=== PATIENT | female | born 1940 | race Caucasian/White ===

== ENCOUNTER 2016-07-27 10:43 | Inpatient (IN) | payer OTHER, MEDICARE ==
[~2016-07-27] VITALS: Ht 167.6 cm; Wt 99.8 kg
[~2016-07-27 10:43] MED LIST: <VITAMIN> A + D1 APP TOP; ADVIL200 M1 PO; CALCIUM GLUCON500 MG PO; DRISDOL50000 IU PO; Desitin TOP; FERROUS SULFAT325 M2 PO; LOSARTAN POTASS50 M1 PO; MYCOSTATIN POWD15 GM TOP; PROPRANOLOL HCL20 M1 PO; ROBITUSSIN COU237 ML PO; TYLENOL XSTR500 MG PO; VITAMIN D1000 IU PO
--- NOTE | 2016-07-27 11:59 | ED UPPER/LOWER EXTREMITY COMPL ---
History of Present Illness General Chief Complaint: Upper Extremity Problem Stated Complaint: LEFT ARM SWELLING Source: patient Exam Limitations: no limitations Allergies Coded Allergies: Penicillins (RASH 08/05/15) Sulfa (Sulfonamide Antibiotics) (UNKNOWN - PER PT SON 08/05/15) cephalexin (From KEFLEX) (RASH 07/27/16) clindamycin (UNKNOWN - PER PT SON 08/05/15) Reconcile Medications Ibuprofen (Advil) 200 MG CAPSULE 1 TAB PO AD PRN PAIN (Reported) Potassium Chloride (Klor-Con 10) (Unknown Strength) TABLET.ER (Unknown Dose) PO DAILY SUPPLEMENT (Reported) Triage Note: PT C/O LEFT ARM SWELLING. PT STATES SHE WAS SCHEDULED FOR A COLONOSCOPY TODAY AND SHE HAS BEEN ON A LIQUID DIET FOR A FEW DAYS. PT STATES THIS HAS NEVER HAPPEND TO HER BEFORE. PT STATES SHE HAS HEPATITIS AND GETS SWELLING AROUND HER ABD BUT NEVER AROUND HER ARM. PT HAS REDNESS AROUND ELBOW. Triage Nurses Notes Reviewed? yes HPI: This patient is a 76-year-old female with a past medical history including hepatitis and thrombocytopenia who presented to the emergency department today for evaluation of left upper extremity edema. The patient reported that she is scheduled for colonoscopy in over the last couple days has been on a clear liquid diet. She started to develop swelling in her arm a couple days ago. She reported that she does intermittently get bruising and redness around bilateral elbows due to her low platelet count. The patient has suffered from anemia in the past requiring blood transfusions. The patient denied any pain, chest pain, difficulty breathing, palpitations, numbness or tingling in her extremities, fevers, chills, or any other associated symptoms. She did report an intermittent cough sometimes productive of sputum. She was recently diagnosed with pneumonia and is requesting a chest x-ray to rule out any persistent pneumonia. The patient reported that she has had DVTs in her lower extremities in the past. (JENNIFER TYLER,CHEYENNE) Vital Signs & Intake/Output Vital Signs & Intake/Output Vital Signs Date Time Temp Pulse Resp B/P Pulse O2 O2 Flow FiO2 Ox Delivery Rate 07/28 1117 98.2 65 18 144/60 97 Room Air 07/28 0830 98.9 70 18 134/60 95 Room Air 07/27 2341 98.4 73 18 132/66 97 Room Air 07/27 1820 98.0 72 20 149/58 96 Room Air 07/27 1736 70 18 140/63 99 Room Air ED Intake and Output 07/28 0000 07/27 1200 Intake Total 180 Output Total Balance 180 Intake, Oral 180 Patient 220 lb 220 lb Weight Past History Travel History Traveled to [place] past 21 day No Medical History Any Pertinent Medical History? 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 , Age 84; Cause: Renal cell cancer. MOTHER, , Age 74; Cause: CVA (cerebrovascular accident due to intracerebral hemorrhage). Hx Contributory? No (CHEYENNE RODRIGUEZ PA-C) Review of Systems Review of Systems Constitutional: Reports: no symptoms. EENTM: Reports: no symptoms. Respiratory: Reports: see HPI. Cardiovascular: Reports: no symptoms. Gastrointestinal/Abdominal: Reports: no symptoms. Genitourinary: Reports: no symptoms. Musculoskeletal: Reports: see HPI. Skin: Reports: no symptoms. Neurological/Psychological: Reports: no symptoms. All Other Systems: Reviewed and Negative (CHEYENNE RODRIGUEZ PA-C) Physical Exam Physical Exam General Appearance: well developed/nourished, no apparent distress, alert, awake Comments: Well-developed well-nourished person in no acute distress HEENT: Normal EENT exam, head normocephalic, moist mucous membranes PERRLA bilaterally Neck: Supple. No midline tenderness Back: Normal inspection Cardiovascular: Regular rate and rhythm with no murmurs, rubs, or gallops Respiratory: Chest nontender. No respiratory distress. Breath sounds clear to auscultation bilaterally with no wheezes, rales, rhonchi Left upper extremity: Nonpitting edema to the left upper extremity. Mild amount of erythema and ecchymosis surrounding the lateral epicondyle. Full range of motion of the elbow, shoulder, and wrist. Nontender to palpation. No bony or muscular deformities are noted. Capillary refill less than 2 seconds. Radial brachial pulses 2+ and strong. Neuro: Alert oriented x3, cranial nerves II through XII grossly intact. Skin: No appreciable rash on exposed skin, skin is warm and dry. Psych: Mood and affect is normal (JENNIFER TYLER,CHEYENNE) Progress Differential Diagnosis: arterial insufficiency, cellulitis, CHF, compartment syndrome, contusion, dislocation, DVT, fracture, gout, septic arthritis, sprain, tendon injury Diagnostic Imaging: Viewed by Me: Radiology Read, Ultrasound. Discussed w/RAD: Radiology Read, Ultrasound. Radiology Impression: PATIENT: OTONIEL SANCHES PRESENT AGE: 76 PATIENT ACCOUNT NO: [id number] : 42 LOCATION: ER ORDERING PHYSICIAN: CHEYENNE RODRIGUEZ PA-C SERVICE DATE: 07/27/16 EXAM TYPE: US - US-UNILATERAL VENOUS DOPPLER EXAMINATION: US TRIPLEX UPPER EXTREMITY, LEFT CLINICAL INFORMATION: Left arm edema and swelling COMPARISON: None TECHNIQUE: Color-flow triplex imaging with spectral analysis and compression Doppler were performed on the left upper extremity. FINDINGS: Respiratory variation, normal compression and augmented flow are noted throughout the upper extremity. There is no evidence of deep venous thrombosis. There is no Mazariegos's cyst. IMPRESSION: Normal triplex scan without evidence of deep venous thrombosis involving the left upper extremity. DICTATED BY: ERICA DENT MD DATE/TIME DICTATED:07/27/161256 HELICOPTER PILOT INSTRUCTOR:LUBNA DATE/TIME TRANSCRIBED:1256 CONFIDENTIAL, DO NOT COPY WITHOUT APPROPRIATE AUTHORIZATION. < Electronically signed in Other Vendor System> SIGNED BY: ERICA DENT MD 07/27/16 1301, PATIENT: SANA SANCHESOPE Darrell PRESENT AGE: 76 PATIENT ACCOUNT NO: [id number] : 42 LOCATION: ER ORDERING PHYSICIAN: CHEYENNE RODRIGUEZ PA-C SERVICE DATE: 07/27/16 EXAM TYPE: RAD - XRY-CHEST XRAY, PA AND LATERAL EXAMINATION: XR CHEST CLINICAL INFORMATION: Cough. Recent diagnosis of pneumonia. COMPARISON: 06/15/2016 TECHNIQUE: 2 views of the chest were obtained. FINDINGS: There is a moderate layering left pleural effusion with minimal, improved overlying airspace disease. Remainder of the lungs are clear. Cardiomediastinal silhouette is unremarkable. IMPRESSION: Persistent moderate left pleural effusion with improved overlying airspace disease. DICTATED BY: ERICA DENT MD DATE/TIME DICTATED:07/27/161299 HELICOPTER PILOT INSTRUCTOR:LUBNA DATE/TIME TRANSCRIBED:1299 CONFIDENTIAL, DO NOT COPY WITHOUT APPROPRIATE AUTHORIZATION. < Electronically signed in Other Vendor System> SIGNED BY: ERICA DENT MD 07/27/16 1308 Comments: 07/27/2016 1:35:34 PM: This patient has a hemoglobin and hematocrit of 7 and 22. Discussed this patient with Dr. ABDI who recommended admitting this patient for a couple units of blood transfusion. We'll put out a page this patient's primary care physician, Dr. Palomares. Discussed this with the patient who is in agreement with the plan. (JENNIFER TYLER,CHEYENNE) Plan of Care: Orders Procedure Date/time Status CBC WITHOUT DIFFERENTIAL 07/29 0600 Active Nothing by Mouth 07/28 L Complete Regular Diet 07/28 D Active BLOOD PRODUCT PICKUP 07/28 1112 Active LEUKOCYTE POOR (PACKED CELLS) 07/28 0920 Active CBC WITHOUT DIFFERENTIAL 07/28 0600 Complete BASIC ELECTROLYTES PLUS BUN&CR 07/28 0600 Complete Turn and Reposition 07/28 216 Active Skin Integrity Protocol 07/28 216 Active Skin/Pressure Ulcer Assess (Sk 07/28 216 Active Lab Add-on Test 07/28 UNK Active PHYSICIAN CONSULT 07/28 UNK Active Clear Liquid Diet 07/27 D Complete BLOOD PRODUCT PICKUP 07/27 2354 Active Vital Signs 07/27 1903 Active Teach/Educate 07/27 190 Active Nutritional Intake, Monitor 07/27 190 Active Isolation 07/27 1903 Active Intake & Output 07/27 190 Active Patient Care Conference 07/27 1903 Active Activity/Ambulation 07/27 1903 Active Intake & Output 07/27 1736 Active DIRECT ANTI-GLOBULIN TEST 07/27 1721 Active Pathway - chart 07/27 1558 Active Pathway - chart 07/27 1556 Active House Staff 07/27 1556 Active Patient Data 07/27 1556 Active Code Status 07/27 1556 Active VTE Mechanical Prophylaxis 07/27 UNK Active Nursing Misc 07/27 UNK Active Hemoccult 07/27 UNK Active Current Medications Sig/Marcin Start time Last Medication Dose Stop Time Status Admin Furosemide 40 MG DAILY 07/29 1000 UNVr (Lasix) Omeprazole 40 MG DAILY AC 07/27 2330 AC (Prilosec) Laboratory Tests 07/28/16 0640: Anion Gap 7, Estimated GFR > 60, BUN/Creatinine Ratio 26.0 H, CBC w Diff NO MAN DIFF REQ, RBC 2.82 L, MCV 75.8 L, MCH 23.7 L, RDW 20.3 H, MPV 9.5, Gran % 45.3, Lymphocytes % 26.4, Monocytes % 14.4 H, Eosinophils % 13.2 H, Basophils % 0.7, Absolute Granulocytes 1.2 L, Absolute Lymphocytes 0.7 L, Absolute Monocytes 0.4, Absolute Eosinophils 0.4, Absolute Basophils 0, PUBS MCHC 31.2 L 07/28/16 0000: CBC w Diff Cancelled, WBC Cancelled, RBC Cancelled, Hgb Cancelled, Hct Cancelled , MCV Cancelled, MCH Cancelled, RDW Cancelled, Plt Count Cancelled, MPV Cancelled, PUBS MCHC Cancelled Departure Departure Disposition: STILL A PATIENT Condition: Stable Clinical Impression Primary Impression: Symptomatic anemia Referrals: DEAN PALOMARES MD (PCP/Family) Departure Forms: Customer Survey General Discharge Information Admission Note Spoke With: DEAN PALOMARES MD Documentation of Exam: Documentation of any treatments & extenuating circumstances including Concerns Regarding Discharge (functional status, medication knowledge or non-compliance, living conditions, etc.) that warrant an admission rather than observation: [ This patient is a 76-year-old female who presented to the emergency department today for evaluation of left arm swelling. This patient's hemoglobin and hematocrit is 7 and 22.5. History of GI bleed. This patient should be admitted to general medicine for blood transfusion, trend labs, serial H&H levels, possible GI consultation, and close monitoring. Premature discharge could prove medically harmful.] (JENNIFER TYLER,CHEYENNE) PA/RETAIL BANKER Co-Sign Statement Statement: ED Attending supervision documentation- x I saw and evaluated the patient. I have also reviewed all the pertinent lab results and diagnostic results. I agree with the findings and the plan of care as documented in the PA's/RETAIL BANKER's documentation. [] I have reviewed the ED Record and agree with the PA's/RETAIL BANKER's documentation. [] Additions or exceptions (if any) to the PAs/RETAIL BANKER's note and plan are summarized below: [] (TRINIDAD EMERY,MARILU)
[2016-07-27 12:57] LABS: ABSOLUTE BASOPHIL COUNT 0 /CUMM (0.0-0.2); ABSOLUTE GRANULOCYTE CT 1.9 /CUMM (1.4-6.5); ABSOLUTE MONOCYTE COUNT 0.3 /CUMM (0.10-0.60); BASOPHIL % 0.1 % (0.0-2.0); MEAN CORPUSCULAR HGB 22.6 PG (27.0-31.0)
[2016-07-27 13:00] LABS: ABSOLUTE EOSINOPHIL COUNT 0.2 /CUMM (0.0-0.7); ABSOLUTE LYMPH COUNT 0.6 /CUMM (1.2-3.4); EOSINOPHIL % 6.4 % (0-5); GRANULOCYTE % 61.4 % (42.2-75.2); HEMATOCRIT 22.5 % (37-47); MEAN CORPUSCULAR VOLUME 72.8 FL (81.0-99.0); MEAN PLATELET VOLUME 9.2 FL (7.4-10.4); PLATELET COUNT 128 /CUMM (130-400); RBC DISTRIBUTION WIDTH 19.8 % (11.5-14.5); RED BLOOD CELL CT 3.09 /CUMM (4.20-5.40)
--- NOTE | 2016-07-27 13:01 | ULTRASOUND REPORT ---
EXAMINATION: US TRIPLEX UPPER EXTREMITY, LEFT CLINICAL INFORMATION: Left arm edema and swelling COMPARISON: None TECHNIQUE: Color-flow triplex imaging with spectral analysis and compression Doppler were performed on the left upper extremity. FINDINGS: Respiratory variation, normal compression and augmented flow are noted throughout the upper extremity. There is no evidence of deep venous thrombosis. There is no Mazariegos's cyst. IMPRESSION: Normal triplex scan without evidence of deep venous thrombosis involving the left upper extremity.
--- NOTE | 2016-07-27 13:08 | RADIOLOGY REPORT ---
EXAMINATION: XR CHEST CLINICAL INFORMATION: Cough. Recent diagnosis of pneumonia. COMPARISON: 06/15/2016 TECHNIQUE: 2 views of the chest were obtained. FINDINGS: There is a moderate layering left pleural effusion with minimal, improved overlying airspace disease. Remainder of the lungs are clear. Cardiomediastinal silhouette is unremarkable. IMPRESSION: Persistent moderate left pleural effusion with improved overlying airspace disease.
[2016-07-27] MEDS ORDERED: KLOR-CON 1010 ME1 PO (13:29)
[2016-07-27 14:17] LABS: PT 12.5 SEC (9.4-12.5); PTT 27 SEC (25-37)
--- NOTE | 2016-07-27 14:28 | History & Physical ---
General Information and HPI Allergies/Medications Allergies: Coded Allergies: Penicillins (RASH 08/05/15) Sulfa (Sulfonamide Antibiotics) (UNKNOWN - PER PT SON 08/05/15) cephalexin (From KEFLEX) (RASH 07/27/16) clindamycin (UNKNOWN - PER PT SON 08/05/15) Home Med list Ibuprofen (Advil) 200 MG CAPSULE 1 TAB PO AD PRN PAIN (Reported) Potassium Chloride (Klor-Con 10) (Unknown Strength) TABLET.ER (Unknown Dose) PO DAILY SUPPLEMENT (Reported) Past History Travel History Traveled to [place] past 21 day No Medical History Neurological: NONE EENT: NONE Cardiovascular: CHF, chronic venous insuff, hypertension, RHEUMATIC FEVER Respiratory: NONE Gastrointestinal: NONE Hepatic: hepatitis C Renal: NONE Musculoskeletal: decubitis ulcer Psychiatric: NONE Endocrine: THYROID NODULES Cancer(s): NONE 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 , Age 84; Cause: Renal cell cancer. MOTHER, , Age 74; Cause: CVA (cerebrovascular accident due to intracerebral hemorrhage). Psychosocial History Who Do You Live With? child (son) Services at Home: Nursing Primary Language: Iranian ETOH Use: denies use Illicit Drug Use: denies illicit drug use Living Will? yes Power of Manager Construction/HCP? no Functional Ability ADLs Independent: dressing, eating, toileting. Unknown: bathing. Ambulation: cane (2 quad canes) IADLs Independent: finances, food prep, telephone, medication admin. Needs Assist: shopping, housework, transportation. Core Measures/Miscellaneous Severe Sepsis Severe Sepsis Present: No Septic Shock Septic Shock Present: No
--- NOTE | 2016-07-27 15:59 | History & Physical ---
OCTAVIA CHAIDEZ 07/27/16 1558: General Information and HPI MD Statement: I have seen and personally examined OTONIEL VILLARREAL and documented this H&P. The patient is a 76 year old F who presented with a patient stated chief complaint of [Left upper extremity swelling]. Source of Information: patient, family Exam Limitations: no limitations History of Present Illness: Mrs Villarreal is a 76-year-old lady with a PMH of chronic venous insufficiency (followed up by the wound center), lower extremity ulcers, hepatitis C untreated, iron deficiency anemia most recently transfused on May 2016, stage II esophageal varices, gastritis and liver cirrhosis who presents with complaints of one-day duration of left upper arm swelling. Symptoms started yesterday afternoon with what she describes as generalized swelling of left hand, progressing towards the axilla, associated with tightness sensation of the skin. She denies any preceding trauma, significant bruising of the skin, insect bites, fevers, chills, associated numbness/weakness in the fingertips or severe pain. Over the past 24 hours she reports interval improvement in overall swelling. Patient denies any chest pain, palpitations, shortness of breath, nausea, abdominal pain, bloody or black stools. Of note patient was scheduled to have a colonoscopy today which she started GoLYTELY bowel prep yesterday afternoon with subsequent loose stools. Allergies/Medications Allergies: Coded Allergies: Penicillins (RASH 08/05/15) Sulfa (Sulfonamide Antibiotics) (UNKNOWN - PER PT SON 08/05/15) cephalexin (From KEFLEX) (RASH 07/27/16) clindamycin (UNKNOWN - PER PT SON 08/05/15) Home Med list Ibuprofen (Advil) 200 MG CAPSULE 1 TAB PO AD PRN PAIN (Reported) Potassium Chloride (Klor-Con 10) (Unknown Strength) TABLET.ER (Unknown Dose) PO DAILY SUPPLEMENT (Reported) Past History Travel History Traveled to [place] past 21 day No Medical History Neurological: NONE EENT: NONE Cardiovascular: CHF, chronic venous insuff, hypertension, RHEUMATIC FEVER Respiratory: NONE Gastrointestinal: NONE Hepatic: hepatitis C Renal: NONE Musculoskeletal: decubitis ulcer Psychiatric: NONE Endocrine: THYROID NODULES Cancer(s): NONE 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 , Age 84; Cause: Renal cell cancer. MOTHER, , Age 74; Cause: CVA (cerebrovascular accident due to intracerebral hemorrhage). Psychosocial History Who Do You Live With? child (son) Services at Home: Nursing Primary Language: Prydeinig ETOH Use: denies use Illicit Drug Use: denies illicit drug use Living Will? yes Power of Plasma Processor/HCP? no Functional Ability ADLs Independent: dressing, eating, toileting. Unknown: bathing. Ambulation: cane (2 quad canes) IADLs Independent: finances, food prep, telephone, medication admin. Needs Assist: shopping, housework, transportation. Review of Systems Review of Systems Constitutional: Reports: see HPI. EENTM: Reports: no symptoms. Cardiovascular: Reports: no symptoms. Respiratory: Reports: no symptoms. GI: Reports: see HPI. Musculoskeletal: Reports: see HPI. Skin: Reports: see HPI. Hematologic/Endocrine: Reports: see HPI. Exam & Diagnostic Data Last 24 Hrs of Vital Signs/I&O Vital Signs Date Time Temp Pulse Resp B/P Pulse O2 O2 Flow FiO2 Ox Delivery Rate 07/27 1519 96.0 63 18 133/64 100 Room Air 07/27 1309 96.4 73 18 135/61 98 Room Air 07/27 1051 99.3 96 18 124/71 95 Intake & Output 07/27 1600 07/27 0800 07/27 0000 Intake Total Output Total Balance Patient 220 lb Weight Physical Exam General Appearance Alert, Cooperative, No Acute Distress Skin small superficial bruising on the lateral aspect of the left elbow. No overt evidence of hematoma HEENT EOMI, Mucous Membr. moist/pink, conjunctival palor present Cardiovascular Regular Rate, Normal S1, Normal S2 Lungs Normal Air Movement, diminished breath sounds on the left lower lung field Abdomen firmness to palpation of the left and right upper quadrants. Normal bowel sounds. Distended abdomen Neurological Normal Speech Extremities significant for plus pitting edema bilateral lower extremities, chronic venous stasis with weeping present. Right heel covered in a clean Teodoro bandage at this time Vascular difficulty assessing lower extremity pulses. However warm to touch symmetrically Last 24 Hrs of Labs/Gui: Laboratory Tests 07/27/16 1350: PT 12.5, INR 1.19, APTT 27 07/27/16 1250: Anion Gap 8, Estimated GFR > 60, BUN/Creatinine Ratio 26.0 H, Glucose 101 H, Calcium 8.0 L, Total Bilirubin 1.0, AST 38 H, ALT 43, Alkaline Phosphatase 109 , Total Protein 7.1, Albumin 3.1 L, Globulin 4.0, Albumin/Globulin Ratio 0.8 L , CBC w Diff MAN DIFF ORDERED, RBC 3.09 L, MCV 72.8 L, MCH 22.6 L, RDW 19.8 H, MPV 9.2, Gran % 61.4, Lymphocytes % 20.7, Monocytes % 11.4 H, Eosinophils % 6.4 H, Basophils % 0.1, Absolute Granulocytes 1.9, Absolute Lymphocytes 0.6 L, Absolute Monocytes 0.3, Absolute Eosinophils 0.2, Absolute Basophils 0, Platelet Estimate DECREASED, Hypochromic-Microcytic 2+, Poikilocytosis 3+, Anisocytosis 2 +, Microcytic Cells 1+, Ovalocytes 1+, Elliptocytes 1+, PUBS MCHC 31.0 L Assessment/Plan Assessment: 76-year-old lady with a PMH of chronic venous insufficiency (followed up by the wound center), lower extremity ulcers, hepatitis C untreated, iron deficiency anemia most recently transfused on May 2016, stage II esophageal varices, gastritis and liver cirrhosis who presents with complaints of one-day duration of left upper arm swelling. At her baseline she ambulates with the aid of 2 walking canes and wheelchair. VS: BP 124/71, HR 96, RR 18, SPO2 95% on RA, T 99.3. Pertinent labs: CBC 3.0, H&H 7.0/22.5, platelets 128K, sodium 136 potassium 3.9, BUN/CR 13/0.5 INR: 1.19 AST/ALT 38/43 Calcium: 8.0, albumin 3.1 CXR: Moderate left pleural effusion with improved airspace disease Doppler left upper extremity: Negative for DVT Problem list: 1. Iron deficiency Anemia 2. Left upper extremity swelling 3. Pancytopenia 4. Left-sided pleural effusion 5. Chronic venous stasis 6. History of stage II esophageal varices 7. Gastritis 8. Cirrhosis Plan: * Admit to general medicine * Plan to transfuse 1 unit PRBCs. Repeat H&H at 0000hrs and in the a.m. Estimated transfusion time: Spoke to the blood bank around 2100hrs. Patient has multiple antibodies and thus the blood bank is currently awaiting the [facility] to deliver the PRBCs. Once available she will receive 1 unit. At this time she is hemodynamically stable * I had a chance to speak with Dr. Dave (gastroenterology). The patient was scheduled for her colonoscopy today and at this time there does not appear to be any open slots in the GI suite tomorrow. We'll go ahead and feed her regular diet, contact Dr. Moody to see when to reschedule the colonoscopy * Left upper extremity swelling: in the setting of a negative ultrasound, DDx includes third spacing of fluids secondary to increased fluid intake (bowel prep ). Additional possibility of underlying hematoma though less likely at this time. We'll continue to monitor * Pancytopenia: Likely secondary to underlying liver cirrhosis: Follow-up CBC, platelet count in a.m. * Chronic venous stasis: Will contact Dr. Everett in the a.m. Leg elevation at this time * We'll start patient on Lasix in the a.m. and monitor output and electrolytes * DVT prophylaxis: ALPs. Concern for progressive thrombocytopenia. Will hold off chemical anticoagulation, reassess in the a.m. * Regular diet * GI prophylaxis: Protonix 40 mg daily * CODE STATUS: Full code a.m.: Follow-up stool guaiac Patient pharmacy: [facility] in [place] [address] [facility] As Ranked By This Provider Problem List: 1. Anemia 2. Swelling of upper extremity 3. Pancytopenia 4. Pleural effusion 5. Chronic ulcer of leg 6. Venous insufficiency 7. Obesity Core Measures/Miscellaneous Acute Coronary Syndrome ACS Diagnosis: No Cerebrovascular Accident CVA/TIA Diagnosis: No Congestive Heart Failure CHF Diagnosis: No Venous Thromboembolism VTE Risk Factors: Age > 40 VTE Prophylaxis Ordered Inpt: Mech/Pharm Contraindicate No Mech VTE prophylaxis d/t: LE Edema, LE Injury, current No VTE Pharm Prophylaxis d/t: Active bleeding VTE Diagnosis: No VTE Type: NONE VTE Confirmed by (Test): NONE Severe Sepsis Severe Sepsis Present: No Septic Shock Septic Shock Present: No Miscellaneous Documentation Attending Case Discussed With: DEAN SCHMITT MD Primary Care Physician: DEAN SCHMITT MD Patient sees these Specialists Dr. Moody (gastroenterology) Level of Patient Care: General Medicine Resident Review Statement Resident Statement: examined this patient, discussed with bakery pastry internship, agreed with bakery pastry internship, discussed with family, reviewed EMR data (avail), discussed with nursing , reviewed images DEAN SCHMITT MD 07/28/16 0837: Attending MD Review Statement Attending Statement Attending MD Statement: examined this patient, discuss w/resident/PA/ADJUSTER ARBITRATOR, agreed w/resident/PA/ADJUSTER ARBITRATOR, reviewed EMR data (avail)
[2016-07-27 18:20] VITALS: BP 149/58
[2016-07-27 23:41] VITALS: BP 132/66
--- NOTE | 2016-07-28 07:13 | PN- Housestaff ---
Subjective Follow-up For: left upper extremity edema Subjective: I saw and examined the patient. The patient is awake alert oriented in no distress. She is lying in bed and endorses no complaints. The left arm swelling has improved compared to yesterday. Patient reports that she was supposed to get preparation for colonoscopy when she noticed the left arm swelling. Denies any pain in the left arm. Denies any abdominal pain but reports distention, no nausea vomiting, no chest pain or palpitations. No dizziness. Review of Systems Constitutional: Denies: chills, fever, weakness. EENTM: Reports: no symptoms. Cardiovascular: Reports: edema, peripheral edema. Denies: chest pain, palpitations, syncope. Respiratory: Reports: cough. Denies: short of breath, sputum production, wheezing. Gastrointestinal: Reports: distention. Denies: abdominal pain, diarrhea, melena, nausea, bloody stool, changes in stool, vomiting. Genitourinary: Reports: no symptoms. Musculoskeletal: Denies: back pain, joint pain, joint swelling. Skin: Reports: no symptoms. Objective Last 24 Hrs of Vital Signs/I&O Vital Signs Date Time Temp Pulse Resp B/P Pulse O2 O2 Flow FiO2 Ox Delivery Rate 07/28 1646 98.2 70 20 138/64 97 Room Air 07/28 1117 98.2 65 18 144/60 97 Room Air 07/28 0830 98.9 70 18 134/60 95 Room Air 07/27 2341 98.4 73 18 132/66 97 Room Air Intake & Output 07/28 1600 07/28 0800 07/28 0000 Intake Total 240 180 Output Total 400 Balance -160 180 Intake, Oral 240 180 Output, Urine 400 Patient 99.79 kg Weight Physical Exam General Appearance: Alert, Oriented X3, Cooperative, No Acute Distress Skin: there is extenisive venous statis changes on the skin, there is a chronic right foot ulcer and a chronic second left toe mass with skin break, nontender and nonerythematous. HEENT: Atraumatic, EOMI Neck: Supple, No JVD Cardiovascular: Regular Rate, Normal S1, Normal S2, No Murmurs Lungs: Clear to Auscultation, Normal Air Movement Abdomen: Soft, mild tenderness in the hypogaster Neurological: Normal Speech, Normal Tone Extremities: 2+ pitting edema, hyperpigmented and thickened skin on the lower extremities bialterally Vascular: Pulses Symmetrical Current Medications: Current Medications Sig/Marcin Start time Last Medication Dose Route Stop Time Status Admin Furosemide 40 MG DAILY 07/29 1000 AC IV Furosemide 40 MG ONCE ONE 07/28 0830 DC 07/28 IV 07/28 0831 0944 Ibuprofen 600 MG Q6P PRN 07/27 1600 DC PO Omeprazole 40 MG DAILY AC 07/27 2330 AC PO Oxycodone/ 1 TAB Q6P PRN 07/27 1600 DC Acetaminophen PO Oxycodone/ 2 TAB Q6P PRN 07/27 1600 DC Acetaminophen PO Patient Medication 1 ED .STK-MED ONE 07/28 1334 DC Teaching ED 07/28 1335 Last 24 Hrs of Lab/Gui Results Last 24 Hrs of Labs/Mics: Laboratory Tests 07/28/16 0640: Anion Gap 7, Estimated GFR > 60, BUN/Creatinine Ratio 26.0 H, Iron 27 L, TIBC 351, Ferritin 7.1 L, CBC w Diff NO MAN DIFF REQ, RBC 2.82 L, MCV 75.8 L, MCH 23.7 L, RDW 20.3 H, MPV 9.5, Gran % 45.3, Lymphocytes % 26.4, Monocytes % 14.4 H, Eosinophils % 13.2 H, Basophils % 0.7, Absolute Granulocytes 1.2 L, Absolute Lymphocytes 0.7 L, Absolute Monocytes 0.4, Absolute Eosinophils 0.4, Absolute Basophils 0, PUBS MCHC 31.2 L 07/28/16 0000: CBC w Diff Cancelled, WBC Cancelled, RBC Cancelled, Hgb Cancelled, Hct Cancelled , MCV Cancelled, MCH Cancelled, RDW Cancelled, Plt Count Cancelled, MPV Cancelled, PUBS MCHC Cancelled Assessment/Plan Assessment: Mrs Villarreal is a 76-year-old lady with a PMH of chronic venous insufficiency (followed up by the wound center), lower extremity ulcers, hepatitis C untreated, iron deficiency anemia most recently transfused on May 2016, stage II esophageal varices, gastritis and liver cirrhosis who presents with complaints of one-day duration of left upper arm swelling. Patient is Problem list and plan: Anemia, possibly due to iron deficiency Patient was transfused one unit pRBC overnight, this AM Hb:7.6 Patient was scheduled for her colonoscopy on 07/27/16 but came to the ED due to acute onset swelling of the left arm * called consult with Dr. Moody to see if patient can undergo colonoscopy today, will follow up Left upper extremity swelling improved today compared to yesterday. doppler US was negative for DVT. pulses are symmetric and there is no tenderness or erythema, ROM normal. etiology can be due to increased fluid intake for bowel preparation. will monitor. Pancytopenia Pancytopenia: Likely secondary to underlying liver cirrhosis: Follow-up CBC, platelet count in a.m. Left-sided pleural effusion, B/L lower extremity edema * Lasix 40 mg IV once daily * repeat ECHO (was last done in 2010 and reported stage 1 diastolic dysfunction with EF>60%) Chronic venous stasis B/L lower extremities and left second toe mass Ulceration on the right foot and mass like lesion on the second toe, nonulcerative without discharge. Patient has been non-compliant and has not followed up for a biopsy of the mass. * follow up Dr. Everett recommendations Gastritis * Protonix 40 mg daily Cirrhosis and History of stage II esophageal varices hx of hepatitis C infection. abdomen is distended. DVT prophylaxis: ALPs. Concern for progressive thrombocytopenia. Will hold off chemical anticoagulation. CODE STATUS: Full code Problem List: 1. Obesity 2. Swelling of upper extremity 3. Symptomatic anemia 4. Pancytopenia 5. Cirrhosis 6. Pleural effusion 7. Venous insufficiency 8. Hepatitis C 9. Ascites 10. Chronic ulcer of leg 11. Hypertension 12. Open wound, lower leg Pain Ratin Pain Location: no pain Pain Goal: Pain 4 or less Pain Plan: mild pp Tomorrow's Labs & Rationales: CBC (anemia)
[2016-07-28 08:14] LABS: ABSOLUTE BASOPHIL COUNT 0 /CUMM (0.0-0.2); ABSOLUTE EOSINOPHIL COUNT 0.4 /CUMM (0.0-0.7); ABSOLUTE GRANULOCYTE CT 1.2 /CUMM (1.4-6.5); ABSOLUTE LYMPH COUNT 0.7 /CUMM (1.2-3.4); ABSOLUTE MONOCYTE COUNT 0.4 /CUMM (0.10-0.60); BASOPHIL % 0.7 % (0.0-2.0); EOSINOPHIL % 13.2 % (0-5); MEAN CORPUSCULAR HGB 23.7 PG (27.0-31.0); MEAN CORPUSCULAR HGB CONC 31.2 G/DL (33.0-37.0); MEAN CORPUSCULAR VOLUME 75.8 FL (81.0-99.0); MEAN PLATELET VOLUME 9.5 FL (7.4-10.4); RBC DISTRIBUTION WIDTH 20.3 % (11.5-14.5); RED BLOOD CELL CT 2.82 /CUMM (4.20-5.40); WHITE BLOOD CELL COUNT 2.7 /CUMM (4.8-10.8)
[2016-07-28 08:30] VITALS: BP 134/60
--- NOTE | 2016-07-28 08:32 | Admission Certification ---
Admission Certification Certification Statement - As attending physician, I certify that at the time of - admission, based on clinical presentation, severity of - symptoms, need for further diagnostic testing and - therapeutic interventions, and risk of adverse outcomes - without in-hospital treatment, in my clinical assessment, - this patient requires an acute hospital stay for a minimum - of two nights or longer. I have also considered psychsocial - factors such as support system, advanced age, financial - issues, cognitive issues, and failed out-patient treatments, - past re-admission history, safety of patient, and lack of - compliance as applicable. Specific rationale supporting this admission is: Anemia Lower extremity wounds
--- NOTE | 2016-07-28 08:37 | PN- Att Addend ---
Attending Addendum Attending Brief Note Patient complains of left upper extremity edema. She denies pain or difficulty with breathing. General Appearance: Alert, No Acute Distress Skin: Bilateral leg course skin lesions HEENT: PEERLA Neck: Supple, No JVD Cardiovascular: Regular Rate, Normal S1, Normal S2, No Murmurs Lungs: Clear to Auscultation, Normal Air Movement Abdomen: Distended Extremities: Left upper extremity and bilateral lower extremity edema Assessment 76-year-old with history of chronic venous insufficiency, chronic lower extremity lesions, hepatitis C currently untreated, esophageal varices on her recent endoscopy, the liver cirrhosis and anemia that is multifactorial including iron deficiency and possible GI bleed. During her last admission she did not undergo colonoscopy secondary to poor prep and plan was for outpatient coloscopy. Patient is usually noncompliant with medications and follow-ups. She now presents with left upper extremity edema that appears likely dependent edema with a negative DVT on ultrasound and anemia. We will try to get an inpatient colonoscopy since patient is very noncompliant and unreliable. Plan GI evaluation Iron studies Start Lasix 40 mg IV once daily Transfuse for hemoglobin goal about 8 Wound consult Continue other home medications and DVT prophylaxis Current Medications Sig/Marcin Start time Last Medication Dose Route Stop Time Status Admin Furosemide 40 MG ONCE ONE 07/28 0830 DC IV 07/28 0831 Ibuprofen 600 MG Q6P PRN 07/27 1600 DC PO Omeprazole 40 MG DAILY AC 07/27 2330 AC PO Oxycodone/ 1 TAB Q6P PRN 07/27 1600 DC Acetaminophen PO Oxycodone/ 2 TAB Q6P PRN 07/27 1600 DC Acetaminophen PO Laboratory Tests 07/28 07/27 07/27 0640 1350 1250 Chemistry Sodium (137 - 145 mmol/L) Pending 136 L Potassium (3.5 - 5.1 mmol/L) Pending 3.9 Chloride (98 - 107 mmol/L) Pending 105 Carbon Dioxide (22 - 30 mmol/L) Pending 23 Anion Gap (5 - 16) Pending 8 BUN (7 - 17 mg/dL) Pending 13 Creatinine (0.5 - 1.0 mg/dL) Pending 0.5 Estimated GFR (>60 ml/min) > 60 BUN/Creatinine Ratio (7 - 25 %) Pending 26.0 H Glucose (65 - 99 mg/dL) 101 H Calcium (8.4 - 10.2 mg/dL) 8.0 L Total Bilirubin (0.2 - 1.3 mg/dL) 1.0 AST (14 - 36 U/L) 38 H ALT (9 - 52 U/L) 43 Alkaline Phosphatase (<127 U/L) 109 Total Protein (6.3 - 8.2 g/dL) 7.1 Albumin (3.5 - 5.0 g/dL) 3.1 L Globulin (1.9 - 4.2 gm/dL) 4.0 Albumin/Globulin Ratio (1.1 - 2.2 %) 0.8 L Coagulation PT (9.4 - 12.5 SEC) 12.5 INR (0.90 - 1.19) 1.19 APTT (25 - 37 SEC) 27 Hematology CBC w Diff Pending MAN DIFF ORDERED WBC (4.8 - 10.8 /CUMM) Pending 3.0 L RBC (4.20 - 5.40 /CUMM) Pending 3.09 L Hgb (12.0 - 16.0 G/DL) Pending 7.0 *L Hct (37 - 47 %) Pending 22.5 L MCV (81.0 - 99.0 FL) Pending 72.8 L MCH (27.0 - 31.0 PG) Pending 22.6 L RDW (11.5 - 14.5 %) Pending 19.8 H Plt Count (130 - 400 /CUMM) Pending 128 L MPV (7.4 - 10.4 FL) Pending 9.2 Gran % (42.2 - 75.2 %) 61.4 Lymphocytes % (20.5 - 51.1 %) 20.7 Monocytes % (1.7 - 9.3 %) 11.4 H Eosinophils % (0 - 5 %) 6.4 H Basophils % (0.0 - 2.0 %) 0.1 Absolute Granulocytes (1.4 - 6.5 /CUMM) 1.9 Absolute Lymphocytes (1.2 - 3.4 /CUMM) 0.6 L Absolute Monocytes (0.10 - 0.60 /CUMM) 0.3 Absolute Eosinophils (0.0 - 0.7 /CUMM) 0.2 Absolute Basophils (0.0 - 0.2 /CUMM) 0 Platelet Estimate (ADEQUATE) DECREASED Hypochromic-Microcytic 2+ Poikilocytosis 3+ Anisocytosis 2+ Microcytic Cells 1+ Ovalocytes 1+ Elliptocytes 1+ PUBS MCHC (33.0 - 37.0 G/DL) Pending 31.0 L Vital Signs Date Time Temp Pulse Resp B/P Pulse O2 O2 Flow FiO2 Ox Delivery Rate 07/28 0830 98.9 70 18 134/60 95 Room Air 07/27 2341 98.4 73 18 132/66 97 Room Air 07/27 1820 98.0 72 20 149/58 96 Room Air 07/27 1736 70 18 140/63 99 Room Air 07/27 1519 96.0 63 18 133/64 100 Room Air 07/27 1309 96.4 73 18 135/61 98 Room Air 07/27 1051 99.3 96 18 124/71 95
[2016-07-28 08:56] LABS: GRANULOCYTE % 45.3 % (42.2-75.2); PLATELET COUNT 106 /CUMM (130-400)
[2016-07-28 08:58] LABS: HEMATOCRIT 21.4 % (37-47)
[2016-07-28 11:17] VITALS: BP 144/60
[2016-07-28 16:46] VITALS: BP 138/64
[2016-07-28 23:50] VITALS: BP 154/74
--- NOTE | 2016-07-29 07:12 | PN- Housestaff ---
Subjective Follow-up For: left upper extremity edema Subjective: Patient was seen and examined at bedside today, she is sitting in bed, alert and oriented. Reports left arm is swollen, no changes compared to yesterday. Reports a large amount of bowel movement today, watery but nonbloody. Denies abdominal pain, nausea, vomiting. Denies chest pain, palpitation, SOB. Review of Systems Constitutional: Denies: chills, fever, malaise, weakness. EENTM: Reports: no symptoms. Cardiovascular: Reports: no symptoms. Respiratory: Denies: cough, short of breath, sputum production. Gastrointestinal: Reports: diarrhea. Denies: abdominal pain, constipation, nausea, bloody stool, changes in stool, vomiting. Genitourinary: Reports: frequency. Musculoskeletal: Reports: no symptoms. Skin: Reports: lesions. Neurological/Psychological: Reports: no symptoms. Hematologic/Endocrine: Reports: no symptoms. Objective Last 24 Hrs of Vital Signs/I&O Vital Signs Date Time Temp Pulse Resp B/P Pulse O2 O2 Flow FiO2 Ox Delivery Rate 07/29 0818 98.2 73 20 130/70 94 Room Air 07/28 2350 98.9 88 20 154/74 95 Room Air 07/28 1646 98.2 70 20 138/64 97 Room Air Intake & Output 07/29 1600 07/29 0800 07/29 0000 Intake Total 240 480 Output Total Balance 240 480 Intake, Oral 240 480 Number 2 Bowel Movements Physical Exam General Appearance: Alert, Oriented X3, Cooperative, No Acute Distress Skin: venous stasis skin changes on both Lower extrmities. 2+ pitting edema on LE bilaterally HEENT: Atraumatic, EOMI Neck: Supple Cardiovascular: Regular Rate, Normal S1, Normal S2, No Murmurs Lungs: Clear to Auscultation, Normal Air Movement Abdomen: Normal Bowel Sounds, Soft, No Tenderness, distended Neurological: Normal Speech, Strength at 5/5 X4 Ext, Sensation Intact, Cranial Nerves 3-12 NL Extremities: Normal Pulses, there is edema on the left arm extending from the shoulder to the fingers, pulses are palpated, no chanegs in skin color on the left arm, there is an erythematous lesion on the right elbow area. 2+ pitting edema bialterally in LE, right leg ulcer and left 2nd toe mass Vascular: Normal Pulses, Pulses Symmetrical Current Medications: Current Medications Sig/Marcin Start time Last Medication Dose Route Stop Time Status Admin Ferrous Sulfate 325 MG TID 07/29 1230 AC PO Furosemide 40 MG DAILY 07/29 1000 AC 07/29 IV 1118 Omeprazole 40 MG DAILY AC 07/27 2330 AC PO Last 24 Hrs of Lab/Gui Results Last 24 Hrs of Labs/Mics: Laboratory Tests 07/29/16 0915: Anion Gap 7, Estimated GFR > 60, BUN/Creatinine Ratio 22.0 07/29/16 0624: CBC w Diff NO MAN DIFF REQ, RBC 3.39 L, MCV 76.8 L, MCH 24.2 L, RDW 21.9 H, MPV 9.6, Gran % 51.5, Lymphocytes % 25.9, Monocytes % 16.0 H, Eosinophils % 5.8 H, Basophils % 0.8, Absolute Granulocytes 1.5, Absolute Lymphocytes 0.8 L, Absolute Monocytes 0.5, Absolute Eosinophils 0.2, Absolute Basophils 0, PUBS MCHC 31.5 L Microbiology 07/29 0820 STOOL: Clostridium difficile Toxin A & B - COLB Assessment/Plan Assessment: Mrs Villarreal is a 76-year-old lady with a PMH of chronic venous insufficiency (followed up by the wound center), lower extremity ulcers, hepatitis C untreated, iron deficiency anemia most recently transfused on May 2016, stage II esophageal varices, gastritis and liver cirrhosis who presents with complaints of one-day duration of left upper arm swelling. Patient is Problem list and plan: Left upper extremity swelling Doppler US was negative for DVT. pulses are symmetric and there is no tenderness or erythema, ROM normal. * Arterial US of the LUE: this time showed DVT. Dr. Palomares made aware, will perform doppler US of LEs as there is swelling on both sides. Patient is currently not SOB, in RA, not tachycardic. We signed out to the night team that is patient becomes SOB order CTA. * will consult vascular surgery tomorrow AM. Anemia, possibly due to iron deficiency Patient was transfused one unit pRBC overnight, this AM Hb:7.6 Patient was scheduled for her colonoscopy on 07/27/16 but came to the ED due to acute onset swelling of the left arm * Dr. Moody will do colonoscopy tomorrow afternoon at 1 pm. orders for Golytely are in. on Clear liquids for now and NPO after completing second 1/2 gallon of golytely. Pancytopenia Pancytopenia: Likely secondary to underlying liver cirrhosis: Follow-up CBC, platelet count in a.m. Left-sided pleural effusion, B/L lower extremity edema * Lasix 40 mg IV once daily * repeat ECHO (was last done in 2010 and reported stage 1 diastolic dysfunction with EF>60%) Chronic venous stasis B/L lower extremities and left second toe mass Ulceration on the right foot and mass like lesion on the second toe, nonulcerative without discharge. Patient has been non-compliant and has not followed up for a biopsy of the mass. * follow up Dr. Everett recommendations Gastritis * Protonix 40 mg daily Cirrhosis and History of stage II esophageal varices hx of hepatitis C infection. abdomen is distended. DVT prophylaxis: ALPs. Concern for progressive thrombocytopenia. Will hold off chemical anticoagulation. CODE STATUS: Full code Problem List: 1. Obesity 2. Cirrhosis 3. Pleural effusion 4. Hepatitis C 5. Anemia 6. Hypertension 7. Chronic ulcer of leg 8. Diarrhea 9. Bilateral lower extremity edema 10. Mass of skin Pain Ratin Pain Location: currently reports no pain Pain Goal: Pain 4 or less Pain Plan: tylenol Tomorrow's Labs & Rationales: CBC (anemia) BEP (hypokalemia)
[2016-07-29 07:57] LABS: ABSOLUTE BASOPHIL COUNT 0 /CUMM (0.0-0.2); ABSOLUTE EOSINOPHIL COUNT 0.2 /CUMM (0.0-0.7); ABSOLUTE GRANULOCYTE CT 1.5 /CUMM (1.4-6.5); ABSOLUTE LYMPH COUNT 0.8 /CUMM (1.2-3.4); ABSOLUTE MONOCYTE COUNT 0.5 /CUMM (0.10-0.60); BASOPHIL % 0.8 % (0.0-2.0); EOSINOPHIL % 5.8 % (0-5); GRANULOCYTE % 51.5 % (42.2-75.2); MEAN CORPUSCULAR HGB 24.2 PG (27.0-31.0); MEAN CORPUSCULAR HGB CONC 31.5 G/DL (33.0-37.0); MEAN CORPUSCULAR VOLUME 76.8 FL (81.0-99.0); MEAN PLATELET VOLUME 9.6 FL (7.4-10.4); PLATELET COUNT 118 /CUMM (130-400); RBC DISTRIBUTION WIDTH 21.9 % (11.5-14.5); RED BLOOD CELL CT 3.39 /CUMM (4.20-5.40); WHITE BLOOD CELL COUNT 2.9 /CUMM (4.8-10.8)
[2016-07-29 08:18] VITALS: BP 130/70
--- NOTE | 2016-07-29 08:47 | Cons- Wound Care ---
General Information and HPI Consulting Request Date of Consult: 07/29/16 Requested By: DEAN SCHMITT MD Reason for Consult: Chronic right lower extremity venous stasis ulcer present on admission History of Present Illness: Patient is 76-year-old with chronic lymphedema and venous insufficiency admitted with anemia and left arm swelling in the setting of hepatitis C and probable cirrhosis. She's had a chronic right lower extremity venous stasis ulcer recent evaluation for osteomyelitis was negative and her sedimentation rate was normal. His well she has a right plantar ulcer for which she is nonadherent with offloading. Allergies/Medications Allergies: Coded Allergies: Penicillins (RASH 08/05/15) Sulfa (Sulfonamide Antibiotics) (UNKNOWN - PER PT SON 08/05/15) cephalexin (From KEFLEX) (RASH 07/27/16) clindamycin (UNKNOWN - PER PT SON 08/05/15) Home Med List: Ibuprofen (Advil) 200 MG CAPSULE 1 TAB PO AD PRN PAIN (Reported) Potassium Chloride (Klor-Con 10) (Unknown Strength) TABLET.ER (Unknown Dose) PO DAILY SUPPLEMENT (Reported) Review of Systems Review of Systems: She denies symptoms of claudication Past History Travel History Traveled to [place] past 21 day No Medical History Neurological: NONE EENT: NONE Cardiovascular: CHF, chronic venous insuff, hypertension, RHEUMATIC FEVER Respiratory: NONE Gastrointestinal: NONE Hepatic: hepatitis C Renal: NONE Musculoskeletal: decubitis ulcer Psychiatric: NONE Endocrine: THYROID NODULES Cancer(s): NONE SHIPPING HAND/Reproductive: NONE Other Medical Hx: CHRONIC LOWER EXTREMITY WOUNDS Surgical History Surgical History: appendectomy, cholecystectomy, tonsillectomy Family History Relations & Conditions If Any: FATHER (smoker). , Age 84; Cause: Renal cell cancer. MOTHER, , Age 74; Cause: CVA (cerebrovascular accident due to intracerebral hemorrhage). Psychosocial History Who Do You Live With? child (son) Services at Home: Nursing Primary Language: Togolese Smoking Status: Unknown If Ever Smoked ETOH Use: denies use Illicit Drug Use: denies illicit drug use Living Will? yes Power of Stereo Plotter Operator/HCP? no Functional Ability ADLs Independent: dressing, eating, toileting. Unknown: bathing. Ambulation: cane (2 quad canes) IADLs Independent: finances, food prep, telephone, medication admin. Needs Assist: shopping, housework, transportation. Exam & Diagnostic Data Vital Signs and I&O Vital Signs Result Date Time Pulse Ox 94 07/29 817 B/P 130/70 07/29 817 O2 Delivery Room Air 07/29 817 Temp 98.2 07/29 817 Pulse 73 07/29 817 Resp 20 07/29 817 Intake & Output 07/29 0000 07/28 1600 07/28 0800 Intake Total 480 610 240 Output Total 500 400 Balance 480 110 -160 Intake, Oral 480 610 240 Number 2 2 Bowel Movements Output, Urine 500 400 Exam of the right leg shows there to be approximately at 12 x 7 cm venous stasis ulcer there is ectopic calcification secondary to the chronicity of the wound and small islands of skin there is 100% red fill without undermining or sinus tracking over the posterior right plantar surface is approximately a 0.9 x 0.7 cm ulcer with predominantly red fill there is no exposed bone there is periwound callus distal pulses are difficult to palpate Assessment/Plan Impression/Plan: 76-year-old woman with multiple medical problems admitted with anemia left arm swelling is chronic right lower extremity venous stasis ulcer and ulcer of the right plantar surface both of which were present on admission. Recommend leg elevation while in bed. Wound care can be Xeroform gauze and Teodoro wrap to the knee. Dressing should be changed daily Consult Acknowledgment - Thank you for your consult request.
--- NOTE | 2016-07-29 12:58 | PN- Att Addend ---
Attending Addendum Attending Brief Note Patient complains of left upper extremity edema and she had an episode of diarrhea. General Appearance: Alert, No Acute Distress Skin: Bilateral leg course skin lesions HEENT: PEERLA Neck: Supple, No JVD Cardiovascular: Regular Rate, Normal S1, Normal S2, No Murmurs Lungs: Clear to Auscultation, Normal Air Movement Abdomen: Distended Extremities: Left upper extremity and bilateral lower extremity edema Assessment Patient is status post 2 units PRBC. She has pancytopenia. During her last admission she was evaluated by hematology who considered pancytopenia secondary to liver cirrhosis and spleenomegaly. Patient is guaiac negative and hence one could suspect anemia is in relation to chronic liver disease and enlarged spleen. However we will repeat guaiac 1 more time and also start patient on iron supplement. Plan Arterial left upper ext ultrasound is pending Get left subclavian ultrasound if arterial ultrasound is negative Repeat guaiac Ferrous sulfate 3 times a day Continue Lasix 40 mg IV once daily Transfuse for hemoglobin goal about 8 Continue other home medications and DVT prophylaxis Current Medications Sig/Marcin Start time Last Medication Dose Route Stop Time Status Admin Ferrous Sulfate 325 MG TID 07/29 1230 AC PO Furosemide 40 MG DAILY 07/29 1000 AC 07/29 IV 1118 Omeprazole 40 MG DAILY AC 07/27 2330 AC PO Patient Medication 1 ED .STK-MED ONE 07/28 1334 [facility] ED 07/28 1335 Laboratory Tests 07/29 07/29 0915 0624 Chemistry Sodium (137 - 145 mmol/L) 138 Potassium (3.5 - 5.1 mmol/L) 3.2 L Chloride (98 - 107 mmol/L) 104 Carbon Dioxide (22 - 30 mmol/L) 27 Anion Gap (5 - 16) 7 BUN (7 - 17 mg/dL) 11 Creatinine (0.5 - 1.0 mg/dL) 0.5 Estimated GFR (>60 ml/min) > 60 BUN/Creatinine Ratio (7 - 25 %) 22.0 Hematology CBC w Diff NO MAN DIFF REQ WBC (4.8 - 10.8 /CUMM) 2.9 L RBC (4.20 - 5.40 /CUMM) 3.39 L Hgb (12.0 - 16.0 G/DL) 8.2 L Hct (37 - 47 %) 26.0 L MCV (81.0 - 99.0 FL) 76.8 L MCH (27.0 - 31.0 PG) 24.2 L RDW (11.5 - 14.5 %) 21.9 H Plt Count (130 - 400 /CUMM) 118 L MPV (7.4 - 10.4 FL) 9.6 Gran % (42.2 - 75.2 %) 51.5 Lymphocytes % (20.5 - 51.1 %) 25.9 Monocytes % (1.7 - 9.3 %) 16.0 H Eosinophils % (0 - 5 %) 5.8 H Basophils % (0.0 - 2.0 %) 0.8 Absolute Granulocytes (1.4 - 6.5 /CUMM) 1.5 Absolute Lymphocytes (1.2 - 3.4 /CUMM) 0.8 L Absolute Monocytes (0.10 - 0.60 /CUMM) 0.5 Absolute Eosinophils (0.0 - 0.7 /CUMM) 0.2 Absolute Basophils (0.0 - 0.2 /CUMM) 0 PUBS MCHC (33.0 - 37.0 G/DL) 31.5 L Vital Signs Date Time Temp Pulse Resp B/P Pulse O2 O2 Flow FiO2 Ox Delivery Rate 07/29 0818 98.2 73 20 130/70 94 Room Air 07/28 2350 98.9 88 20 154/74 95 Room Air 07/28 1646 98.2 70 20 138/64 97 Room Air
--- NOTE | 2016-07-29 14:00 | Patient Discharge Instructions ---
Discharge Instructions General Discharge Information You were seen/treated for: 1. Left upper extremity swelling and deep veion thrombosis 2. Anemia, Iron deficency 3. Underwent Colonoscopy 4. Right foot Ulcer 5. Urinary tract infection 6. Cirrhosis and ascites, underwent paracentesis Special Instructions: Please: 1. Take medications as instructed 2. Check blood work in a week and copy PCP 3. Follow up with PCP in a week 4. Follow up with Dr. Moody [facility], in a week regarding biopsy results and management of hepatitis C and liver cirrhosis 5. Please follow up with Dr. Everett in a week for right foot ulcer and left second toe skin mass Diet Recommended Diet: Heart Healthy Activity Activity Self Limited: Yes Acute Coronary Syndrome Inclusion Criteria At DC or during hospital stay patient has or had the following: ACS DIAGNOSIS No Discharge Core Measures Meds if any: Prescribed or Continued at Discharge Meds if any: NOT Prescribed or Continued at Discharge Congestive Heart Failure Inclusion Criteria At DC or during hospital stay patient has or had the following: CHF DIAGNOSIS No Discharge Core Measures Meds if any: Prescribed or Continued at Discharge Meds if any: NOT Prescribed or Continued at Discharge Cerebrovascular accident Inclusion Criteria At DC or during hospital stay patient has or had the following: CVA/TIA Diagnosis No Discharge Core Measures Meds if any: Prescribed or Continued at Discharge Meds if any: NOT Prescribed or Continued at Discharge Venous thromboembolism Inclusion Criteria VTE Diagnosis No VTE Type NONE VTE Confirmed by (Test) NONE Discharge Core Measures - Per Current guidelines, there needs to be overlap - treatment for the first 5 days of Warfarin therapy. - If discharged on Warfarin prior to 5 days of - overlap therapy, the patient will need to be - assessed for post discharge needs including - *Post discharge parental anticoagulation - *Warfarin and/or parental anticoagulation education - *Follow up date to check INR post discharge At least 5 days overlap therapy as Inpatient No Meds if any: Prescribed or Continued at Discharge Note: Overlap Therapy is Warfarin and Anticoagulant Meds if any: NOT Prescribed or Continued at Discharge
--- NOTE | 2016-07-29 15:22 | Cons- Gastroenterology ---
General Information and HPI Consulting Request Date of Consult: 07/29/16 Requested By: DEAN SCHMITT MD Reason for Consult: Anemia, hep C/cirrohsis Source of Information: patient, old records Exam Limitations: poor historian History of Present Illness: Ms. Villarreal is a 76 year old female with a history of hcv who was admitted to on Tuesday after she presented with arm swelling and was found to be profoundly anemic. She was scheduled to have a colonoscopy on Tuesday for evaluation of diarrhea that she had complained about on an office visit in December, but she didn' t take the prep because she states that she was concerned about her swollen hand and it also sounds like she was weary of taking the prep at home because of ambulation issues with her chronic leg ulcers/swelling. She has continued to have loose, mucous stools having about 1-3 bms a day. She is without any significant rectal bleeding or melena. She has had worsening abdominal distention which she notes has been that way for months and has been worsening over the past several days. She has been having intermittent vague epigastric pain after eating. She also compains of intermittent dysphagia and odynophagia. She is without any vomiting or hematemesis. On admission she was found to be profoundly anemic and she was admitted to the medical service and was given 2 units of PRBCs yesterday with appropriate correction of her hemoglobin. She has also been started on oral iron and an oral ppi. She also had an US of her upper extemity which was negative for a DVT. Allergies/Medications Allergies: Coded Allergies: Penicillins (RASH 08/05/15) Sulfa (Sulfonamide Antibiotics) (UNKNOWN - PER PT SON 08/05/15) cephalexin (From KEFLEX) (RASH 07/27/16) clindamycin (UNKNOWN - PER PT SON 08/05/15) Home Med List: Apixaban (Eliquis) 5 MG TABLET 1 TAB PO BID DVT Please take these on 08/04/16 through 08/06/16 and the start on the other dose of 2.5mg after this is completed Apixaban (Eliquis) 2.5 MG TABLET 1 TAB PO BID DVT Start taking this twice a day on 08/07/16 Ferrous Sulfate (IRON) 325 MG (65 MG IRON) TABLET 1 TAB PO TID Iron deficiency Furosemide 20 MG TABLET 1 TAB PO DAILY Fluid overload Potassium Chloride (Klor-Con) 20 MEQ PACKET 1 PAC PO DAILY Low potassium Propranolol HCl 10 MG TABLET 0.5 TAB PO DAILY Gastric varices Please monitor blood pressure and heart rate twice a day for 1 week. Send the results to your PCP and he will adjust the dose of this medication moving forward Spironolactone 25 MG TABLET 1 TAB PO DAILY Fluid balance Current Medications: Current Medications Sig/Marcin Start time Last Medication Dose Route Stop Time Status Admin Acetaminophen 650 MG Q4P PRN 07/29 1430 AC PO Ferrous Sulfate 325 MG TID 07/29 1230 AC PO Furosemide 40 MG DAILY 07/29 1000 AC 07/29 IV 1118 Omeprazole 40 MG DAILY AC 07/27 2330 AC PO Past History Travel History Traveled to [place] past 21 day No Medical History Neurological: NONE EENT: NONE Cardiovascular: CHF, chronic venous insuff, hypertension, RHEUMATIC FEVER Respiratory: NONE Gastrointestinal: NONE Hepatic: hepatitis C Renal: NONE Musculoskeletal: decubitis ulcer Psychiatric: NONE Endocrine: THYROID NODULES Cancer(s): NONE 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 , Age 84; Cause: Renal cell cancer. MOTHER, , Age 74; Cause: CVA (cerebrovascular accident due to intracerebral hemorrhage). Psychosocial History Who Do You Live With? child (son) Services at Home: Nursing Primary Language: Nepali Smoking Status: Unknown If Ever Smoked ETOH Use: denies use Illicit Drug Use: denies illicit drug use Living Will? 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 no Functional Ability ADLs Independent: dressing, eating, toileting. Unknown: bathing. Ambulation: cane (2 quad canes) IADLs Independent: finances, food prep, telephone, medication admin. Needs Assist: shopping, housework, transportation. Review of Systems Review of Systems Constitutional: Reports: malaise, weakness. Denies: chills, diaphoresis, fever. EENTM: Denies: no symptoms. Cardiovascular: Reports: edema. Respiratory: Reports: cough, short of breath. Denies: sputum production. GI: Reports: see HPI. Genitourinary: Denies: no symptoms. Musculoskeletal: Reports: joint pain, joint swelling, muscle pain. Skin: Reports: change in skin color. Neurological/Psychological: Reports: anxiety, numbness. Hematologic/Endocrine: Denies: no symptoms, bleeding. Immunologic/Allergic: Denies: no symptoms. All Other Systems: Reviewed and Negative Exam & Diagnostic Data Vital Signs and I&O Vital Signs Date Time Temp Pulse Resp B/P Pulse O2 O2 Flow FiO2 Ox Delivery Rate 07/29 0818 98.2 73 20 130/70 94 Room Air 07/28 2350 98.9 88 20 154/74 95 Room Air 07/28 1646 98.2 70 20 138/64 97 Room Air Intake & Output 07/29 1600 07/29 0400 07/28 1600 07/28 0400 07/27 0400 Intake Total 240 480 850 180 Output Total 900 Balance 240 480 -50 180 Intake, Oral 240 480 850 180 Number 2 2 Bowel Movements Output, Urine 900 Patient 220 lb 220 lb 220 lb Weight Physical Exam General Appearance: no apparent distress, alert, awake, comfortable Head: atraumatic, normal appearance Eyes: Bilateral: normal appearance. Ears, Nose, Throat: normal pharynx, normal ENT inspection Neck: normal inspection, supple, full range of motion Respiratory: decreased breath sounds Cardiovascular: regular rate/rhythm Gastrointestinal: normal bowel sounds, soft, non-tender, no organomegaly Rectal: deferred Back: normal inspection Extremities: swelling, tenderness Neurologic/Psych: no motor/sensory deficits, awake, alert Skin: normal color Results Pertinent Lab Results: Laboratory Tests 07/29 07/29 0915 0624 Chemistry Sodium (137 - 145 mmol/L) 138 Potassium (3.5 - 5.1 mmol/L) 3.2 L Chloride (98 - 107 mmol/L) 104 Carbon Dioxide (22 - 30 mmol/L) 27 Anion Gap (5 - 16) 7 BUN (7 - 17 mg/dL) 11 Creatinine (0.5 - 1.0 mg/dL) 0.5 Estimated GFR (>60 ml/min) > 60 BUN/Creatinine Ratio (7 - 25 %) 22.0 Magnesium (1.6 - 2.3 mg/dL) 1.8 Hematology CBC w Diff NO MAN DIFF REQ WBC (4.8 - 10.8 /CUMM) 2.9 L RBC (4.20 - 5.40 /CUMM) 3.39 L Hgb (12.0 - 16.0 G/DL) 8.2 L Hct (37 - 47 %) 26.0 L MCV (81.0 - 99.0 FL) 76.8 L MCH (27.0 - 31.0 PG) 24.2 L RDW (11.5 - 14.5 %) 21.9 H Plt Count (130 - 400 /CUMM) 118 L MPV (7.4 - 10.4 FL) 9.6 Gran % (42.2 - 75.2 %) 51.5 Lymphocytes % (20.5 - 51.1 %) 25.9 Monocytes % (1.7 - 9.3 %) 16.0 H Eosinophils % (0 - 5 %) 5.8 H Basophils % (0.0 - 2.0 %) 0.8 Absolute Granulocytes (1.4 - 6.5 /CUMM) 1.5 Absolute Lymphocytes (1.2 - 3.4 /CUMM) 0.8 L Absolute Monocytes (0.10 - 0.60 /CUMM) 0.5 Absolute Eosinophils (0.0 - 0.7 /CUMM) 0.2 Absolute Basophils (0.0 - 0.2 /CUMM) 0 PUBS MCHC (33.0 - 37.0 G/DL) 31.5 L 07/28 07/28 07/27 0640 0000 1350 Chemistry Sodium (137 - 145 mmol/L) 138 Potassium (3.5 - 5.1 mmol/L) 3.6 Chloride (98 - 107 mmol/L) 107 Carbon Dioxide (22 - 30 mmol/L) 24 Anion Gap (5 - 16) 7 BUN (7 - 17 mg/dL) 13 Creatinine (0.5 - 1.0 mg/dL) 0.5 Estimated GFR (>60 ml/min) > 60 BUN/Creatinine Ratio (7 - 25 %) 26.0 H Iron (37 - 170 ug/dL) 27 L TIBC (265 - 497 ug/dL) 351 Ferritin (11.1 - 264 ng/mL) 7.1 L Coagulation PT (9.4 - 12.5 SEC) 12.5 INR (0.90 - 1.19) 1.19 APTT (25 - 37 SEC) 27 Hematology CBC w Diff NO MAN DIFF REQ Cancelled WBC (4.8 - 10.8 /CUMM) 2.7 L Cancelled RBC (4.20 - 5.40 /CUMM) 2.82 L Cancelled Hgb (12.0 - 16.0 G/DL) 6.7 *L Cancelled Hct (37 - 47 %) 21.4 L Cancelled MCV (81.0 - 99.0 FL) 75.8 L Cancelled MCH (27.0 - 31.0 PG) 23.7 L Cancelled RDW (11.5 - 14.5 %) 20.3 H Cancelled Plt Count (130 - 400 /CUMM) 106 L Cancelled MPV (7.4 - 10.4 FL) 9.5 Cancelled Gran % (42.2 - 75.2 %) 45.3 Lymphocytes % (20.5 - 51.1 %) 26.4 Monocytes % (1.7 - 9.3 %) 14.4 H Eosinophils % (0 - 5 %) 13.2 H Basophils % (0.0 - 2.0 %) 0.7 Absolute Granulocytes (1.4 - 6.5 /CUMM) 1.2 L Absolute Lymphocytes (1.2 - 3.4 /CUMM) 0.7 L Absolute Monocytes (0.10 - 0.60 /CUMM) 0.4 Absolute Eosinophils (0.0 - 0.7 /CUMM) 0.4 Absolute Basophils (0.0 - 0.2 /CUMM) 0 PUBS MCHC (33.0 - 37.0 G/DL) 31.2 L Cancelled 07/27 1250 Chemistry Sodium (137 - 145 mmol/L) 136 L Potassium (3.5 - 5.1 mmol/L) 3.9 Chloride (98 - 107 mmol/L) 105 Carbon Dioxide (22 - 30 mmol/L) 23 Anion Gap (5 - 16) 8 BUN (7 - 17 mg/dL) 13 Creatinine (0.5 - 1.0 mg/dL) 0.5 Estimated GFR (>60 ml/min) > 60 BUN/Creatinine Ratio (7 - 25 %) 26.0 H Glucose (65 - 99 mg/dL) 101 H Calcium (8.4 - 10.2 mg/dL) 8.0 L Total Bilirubin (0.2 - 1.3 mg/dL) 1.0 AST (14 - 36 U/L) 38 H ALT (9 - 52 U/L) 43 Alkaline Phosphatase (<127 U/L) 109 Total Protein (6.3 - 8.2 g/dL) 7.1 Albumin (3.5 - 5.0 g/dL) 3.1 L Globulin (1.9 - 4.2 gm/dL) 4.0 Albumin/Globulin Ratio (1.1 - 2.2 %) 0.8 L Hematology CBC w Diff MAN DIFF ORDERED WBC (4.8 - 10.8 /CUMM) 3.0 L RBC (4.20 - 5.40 /CUMM) 3.09 L Hgb (12.0 - 16.0 G/DL) 7.0 *L Hct (37 - 47 %) 22.5 L MCV (81.0 - 99.0 FL) 72.8 L MCH (27.0 - 31.0 PG) 22.6 L RDW (11.5 - 14.5 %) 19.8 H Plt Count (130 - 400 /CUMM) 128 L MPV (7.4 - 10.4 FL) 9.2 Gran % (42.2 - 75.2 %) 61.4 Lymphocytes % (20.5 - 51.1 %) 20.7 Monocytes % (1.7 - 9.3 %) 11.4 H Eosinophils % (0 - 5 %) 6.4 H Basophils % (0.0 - 2.0 %) 0.1 Absolute Granulocytes (1.4 - 6.5 /CUMM) 1.9 Absolute Lymphocytes (1.2 - 3.4 /CUMM) 0.6 L Absolute Monocytes (0.10 - 0.60 /CUMM) 0.3 Absolute Eosinophils (0.0 - 0.7 /CUMM) 0.2 Absolute Basophils (0.0 - 0.2 /CUMM) 0 Platelet Estimate (ADEQUATE) DECREASED Hypochromic-Microcytic 2+ Poikilocytosis 3+ Anisocytosis 2+ Microcytic Cells 1+ Ovalocytes 1+ Elliptocytes 1+ PUBS MCHC (33.0 - 37.0 G/DL) 31.0 L Assessment/Plan Assessment/Recommendations: Assessment: Ms. Villarreal is a 76 year old female with hcv cirrhosis who was admitted with a microcytic anemia, ascites and arm swelling. The etiology of her anemia is likely multifactorial, but I suspect it is primarily related to occult losses from portal hypertensive gastropathy as she is without overt bleeding and is microcytic and iron deficient suggesting more chronic blood loss. She did have varices on her EGD this past May, but she is not having overt hematemesis so a variceal bleed isn't the cause of her anemia. She also had erosive gastritis on her EGD so this may also be contributing to occult losses as she was also taking ibuprofen and not taking a ppi. As she has never had a colonsocopy before an occult colorectal cancer is also possible and should be ruled out. While it is not absolutely necessary to perform this as an inpatient considering her social situation and confounding factors of getting prepped at home will attempt to do this tomorrow. She also has ascites on PE and would likely benefit from a paracentesis and also getting started on diuretics. Recommendations: 1. Keep on clear liquids and prep tonight with 2 dulolax tablets followed by 1/ 2 gallon of colyte tonight and and additional half a gallon of Colyte in the morning and then nothing by mouth after the bowel prep. 2. Follow daily CBC and transfuse as needed to keep hgb greater than 7 or as per cardiology recommendations. 3. Hold iron until colonoscopy is performed 4. Start a non-selective beta gerber (propanolol or nadolol) with a goal HR of 55-60 for primary prophylaxis of variceal bleeding. 5. Check a diagnostic paracentesis and would send off the fluid for cell count, culture, albumin and cytology 6. Low sodium diet as tolerated 7. Treatment of HCV will be undertaken as an outpatient 8. After colonoscopy would add aldactone 100mg daily to her diuretics for her ascites. 9. Notify GI for signs of overt GI bleeding. 10. Would check a right upper quadrant ultrasound to assess for any focal liver lesions which can also be performed as an outpatient. I will continue to follow this patient and make further recommendations based on her clinical course and the results of the colonoscopy when it is performed. Problem List: 1. Diarrhea 2. Anemia 3. Ascites 4. Hepatitis C Copies To: DEAN SCHMITT MD Acknowledgment - Thank you for your consult request.
--- NOTE | 2016-07-29 17:05 | ULTRASOUND REPORT ---
EXAMINATION: US DUPLEX UPPER EXTREMITY ARTERY/GRAFT LIMITED, LEFT CLINICAL INFORMATION: Left upper extremity swelling. COMPARISON: None. TECHNIQUE: Duplex Doppler imaging of the left upper extremity arterial system was performed. FINDINGS: Duplex imaging of the left upper extremity arterial system shows no evidence of underlying stenosis or thrombosis. The arterial waveforms, grayscale and color Doppler images are unremarkable. Incidental note is made of thrombosis of the left upper extremity venous system. See separate dictation for further details. IMPRESSION: No evidence of left upper extremity arterial stenosis or thrombosis. Venous thrombosis of the left upper extremity. Please refer to separate dictation for further details. Findings were discussed with Belkis Barone at 4:55 PM on 07/29/2016.
--- NOTE | 2016-07-29 17:09 | ULTRASOUND REPORT ---
EXAMINATION: LEFT UPPER EXTREMITY VENOUS ULTRASOUND CLINICAL INFORMATION: Left arm pain and swelling COMPARISON: 07/27/2016 TECHNIQUE: Doppler spectral analysis and color flow Doppler imaging was performed of the left upper extremity. Compression and augmentation maneuvers were performed. FINDINGS: Thrombus is present in the left subclavian vein extending out into the axillary vein. This appears to be a new finding when compared to the study from 2 days ago. The left internal jugular vein, brachial vein, basilic vein, cephalic vein, and visualized forearm veins were well-identified and normal. They demonstrate normal compressibility and color fill-in. IMPRESSION: DVT involving the left subclavian vein extending out into the axillary vein. This critical result was discussed with Jessica Salguero RN at 4:45 PM on the day of the exam and it was ascertained that the content and urgency of the report was understood at the time of direct communication.
[2016-07-29 17:34] VITALS: BP 130/60
--- NOTE | 2016-07-29 18:18 | Event Note ---
Event Note Event Note: SITUATION: * New RUE DVT * Patient hesitant to have ultrasound done of lower extremities due to pain BRIEF: * Patient was initially admitted for left upper extremity swelling. Initial ultrasound on admission did not show any evidence of DVT. Repeat ultrasound 2 days later showed a DVT extending from the subclavian to the axillary vein * Patient reports discomfort during a previous ultrasound in setting of lower extremity edema * Discussed the importance of evaluation of lower extremities the setting of future options of management and risks associated with clot migration including PE * Informed the patient that we would provide her analgesia prior to the procedure A/P: * Patient and her son expressed understanding * Will follow-up with results
--- NOTE | 2016-07-29 20:46 | ULTRASOUND REPORT ---
EXAMINATION: US TRIPLEX LOWER EXTREMITY, BILATERAL CLINICAL INFORMATION: Bilateral lower extremity edema and pain. COMPARISON: Ultrasound of the bilateral lower extremities 04/03/2011. TECHNIQUE: Color-flow triplex imaging with spectral analysis and compression Doppler were performed on the bilateral lower extremities. FINDINGS: Limited exam secondary to patient body habitus. Limited visualization of the left popliteal vein secondary to patient discomfort. The left calf veins were also not well visualized. Respiratory variation, normal compression and flow are within the remaining imaged veins of the bilateral lower extremities. The visualized common femoral, femoral, profunda femoral vein, right popliteal and right midcalf peroneal and posterior tibial venous segments demonstrate no evidence of deep venous thrombosis. There are no Mazariegos's cysts. IMPRESSION: 1. Limited exam secondary to patient body habitus and patient discomfort. The patient was reportedly unable to tolerate imaging of the left popliteal fossa. The left popliteal vein and left calf veins are not visualized. Thrombus within these veins cannot be entirely excluded. 2. No evidence of deep venous thrombosis within the remaining imaged veins of the bilateral lower extremities. Specifically, the bilateral common femoral, bilateral femoral, bilateral profunda femoral, right popliteal and right calf veins demonstrate no evidence of deep venous thrombosis.
[2016-07-29 23:50] VITALS: BP 130/62
--- NOTE | 2016-07-30 06:59 | PN- Housestaff ---
Subjective Follow-up For: left upper extremity edema and DVT due for colonoscopy today right foot ulcer, left second toe mass-like lesion Subjective: Patient is alert and oriented in no distress. she has been drinking Golytely since last night, mostly this morning. Has not passed any stool after starting the bowel preparation. Patient reports swelling of the left arm, feels it gets more swollen when drinking a lot of water. Denies pain in the arm. also denies pain in the lower extremities, SOB, palpitation, dizziness, chest pain or headache. Review of Systems Constitutional: Denies: chills, fever. EENTM: Reports: no symptoms. Cardiovascular: Reports: peripheral edema. Denies: chest pain, palpitations. Respiratory: Denies: cough, short of breath, sputum production. Gastrointestinal: Denies: abdominal pain, diarrhea, nausea, bloody stool, changes in stool, vomiting. Genitourinary: Reports: no symptoms. Musculoskeletal: Reports: no symptoms. Skin: Reports: lesions. Neurological/Psychological: Reports: no symptoms. Objective Last 24 Hrs of Vital Signs/I&O Vital Signs Date Time Temp Pulse Resp B/P Pulse O2 O2 Flow FiO2 Ox Delivery Rate 07/30 08 98.1 70 20 124/60 93 Room Air 07/29 2350 98.0 73 20 130/62 94 07/29 1734 98.4 83 20 130/60 90 Intake & Output 07/30 1600 07/30 0800 07/30 0000 Intake Total 2600 700 Output Total 250 Balance 2350 700 Intake, Oral 2600 700 Output, Urine 250 Physical Exam General Appearance: Alert, Oriented X3, Cooperative, No Acute Distress Skin: hyperkeratotic skin in the distal lower extremities bilaterally. HEENT: Atraumatic, EOMI Neck: Supple Cardiovascular: Regular Rate, Normal S1, Normal S2, No Murmurs Lungs: Clear to Auscultation, Normal Air Movement Abdomen: Soft, No Tenderness, distended abdomen Neurological: Normal Speech, Normal Tone, Sensation Intact, Cranial Nerves 3-12 NL Extremities: No Clubbing, No Cyanosis, Normal Pulses, 2+ pitting edema B/L LE, left upper extremity swelling with no tenderness or erythema, pulses intact Vascular: Normal Pulses, Pulses Symmetrical Current Medications: Current Medications Sig/Marcin Start time Last Medication Dose Route Stop Time Status Admin Acetaminophen 650 MG Q4P PRN 07/29 1430 AC PO Bisacodyl 10 MG ONCE ONE 07/29 1999 DC 07/29 PO 07/29 Ferrous Sulfate 325 MG TID 07/29 2200 AC 07/29 PO 2120 Ferrous Sulfate 325 MG TID 07/29 1230 DC PO Furosemide 40 MG DAILY 07/30 1000 AC IV Furosemide 40 MG DAILY 07/29 1000 DC 07/29 IV 1118 Ibuprofen 800 MG ONCE ONE 07/29 1815 DC 07/29 PO 07/29 181 1858 Nadolol 20 MG DAILY 07/29 1556 DC PO Omeprazole 40 MG DAILY AC 07/27 2330 AC PO Polyethylene Glycol 0.5 GAL ONCE ONE 07/30 0600 CAN PO 07/30 0601 Polyethylene Glycol 0.5 GAL 2200,0600 07/29 2200 AC 07/30 PO 0507 Polyethylene Glycol 0.5 GAL 1800,0600 07/29 1800 DC PO 07/30 0601 Potassium Chloride 40 MEQ ONCE ONE 07/29 1815 DC 07/29 PO 07/29 181 1900 Potassium Chloride 20 MEQ ONCE ONE 07/29 1815 DC 07/29 PO 07/29 181 1900 Spironolactone 100 MG DAILY 07/31 1000 AC PO Last 24 Hrs of Lab/Gui Results Last 24 Hrs of Labs/Mics: Laboratory Tests 07/30/16 0620: Anion Gap 5, Estimated GFR > 60, BUN/Creatinine Ratio 18.0, Magnesium 1.8, PT 12.7 H, INR 1.21 H, APTT 28, CBC w Diff NO MAN DIFF REQ, RBC 3.52 L, MCV 77.1 L, MCH 24.3 L, RDW 21.7 H, MPV 9.9, Gran % 44.1, Lymphocytes % 25.9, Monocytes % 16.7 H, Eosinophils % 12.3 H, Basophils % 1.0, Absolute Granulocytes 1.3 L, Absolute Lymphocytes 0.8 L, Absolute Monocytes 0.5, Absolute Eosinophils 0.4, Absolute Basophils 0, PUBS MCHC 31.5 L 07/29/16 0915: Anion Gap 7, Estimated GFR > 60, BUN/Creatinine Ratio 22.0, Magnesium 1.8 Assessment/Plan Assessment: Mrs Villarreal is a 76-year-old lady with a PMH of chronic venous insufficiency (followed up by the wound center), lower extremity ulcers, hepatitis C untreated, iron deficiency anemia most recently transfused on May 2016, stage II esophageal varices, gastritis and liver cirrhosis who presents with complaints of left upper arm swelling. Patient was also supposed to get bowel prep for an outpatient colonoscopy for her anemia when she realized she has left upper extremity swelling. Problem list and plan: Left upper extremity swelling Doppler US was negative for DVT. pulses are symmetric and there is no tenderness or erythema, ROM normal. * Arterial US of the LUE showed DVT. negative DVT on the LEs. * will start the patient on eliquis 5 mg BID today after colonoscopy Ascites in the setting of hepatitis C and liver failure, US reported large volume of ascites. * patient underwent paracentesis today, will follow fluid analysis results Anemia and pancytopenia possibly due to liver failure and splenomegaly, also could partly be due to iron deficiency and chronic GIB Patient has been transfused 2 units pRBC Patient was scheduled for her colonoscopy on 07/27/16 but came to the ED due to acute onset swelling of the left arm * Dr. Moody will do colonoscopy today afternoon. * will restart ferrous sulfate after colonoscopy Left-sided pleural effusion, B/L lower extremity edema * continue Lasix 40 mg IV once daily * repeat ECHO (was last done in 2010 and reported stage 1 diastolic dysfunction with EF>60%) Chronic venous stasis B/L lower extremities and left second toe mass Ulceration on the right foot and mass like lesion on the second toe, nonulcerative without discharge. Patient has been non-compliant and has not followed up for a biopsy of the mass. * followed up Dr. Everett recommendations Gastritis * Protonix 40 mg daily Cirrhosis and History of stage II esophageal varices hx of hepatitis C infection. abdomen is distended. DVT prophylaxis: ALPs. Concern for progressive thrombocytopenia. Will hold off chemical anticoagulation. CODE STATUS: Full code Problem List: 1. CHRONIC LEG ULCERS 2. CHRONIC VENOUS INSUFFICIENCY 3. LEG WOUND 4. Open wound, lower leg 5. Anemia 6. Hepatitis C 7. Ascites 8. Swelling of upper extremity 9. Obesity 10. Mass of skin 11. Bilateral lower extremity edema Pain Ratin Pain Location: no pain Pain Goal: Pain 4 or less Pain Plan: mild pp Tomorrow's Labs & Rationales: CBC (anemia), BEP (hypokalemia), INR (liver dysfunction)
[2016-07-30 07:52] LABS: ABSOLUTE BASOPHIL COUNT 0 /CUMM (0.0-0.2); ABSOLUTE EOSINOPHIL COUNT 0.4 /CUMM (0.0-0.7); ABSOLUTE GRANULOCYTE CT 1.3 /CUMM (1.4-6.5); ABSOLUTE LYMPH COUNT 0.8 /CUMM (1.2-3.4); ABSOLUTE MONOCYTE COUNT 0.5 /CUMM (0.10-0.60); GRANULOCYTE % 44.1 % (42.2-75.2); HEMATOCRIT 27.1 % (37-47); MEAN CORPUSCULAR HGB 24.3 PG (27.0-31.0); MEAN CORPUSCULAR HGB CONC 31.5 G/DL (33.0-37.0); MEAN CORPUSCULAR VOLUME 77.1 FL (81.0-99.0); MEAN PLATELET VOLUME 9.9 FL (7.4-10.4); RBC DISTRIBUTION WIDTH 21.7 % (11.5-14.5); RED BLOOD CELL CT 3.52 /CUMM (4.20-5.40)
--- NOTE | 2016-07-30 08:08 | PN- Wound Care ---
Subjective Subjective: Patient feels well without shortness of breath is awaiting colonoscopy Review of Systems: Patient is scheduled for colonoscopy today ultrasound shows significant subclavian clot vascular surgery and decision regarding anticoagulation is pending. Wound drainage is diminished with elevation and edema is markedly improved with bedrest and elevation Objective Vital Signs and I&Os Vital Signs Result Date Time Pulse Ox 94 07/29 2349 B/P 130/62 07/29 2349 Temp 98.0 07/29 2349 Pulse 73 07/29 2349 Resp 20 07/29 2349 O2 Delivery Room Air 07/29 0818 Intake & Output 07/30 0000 07/29 1600 07/29 0800 Intake Total 700 240 Output Total Balance 700 240 Intake, Oral 700 240 Number 1 Bowel Movements Patient 220 lb Weight Lower extremity wounds are clean unchanged with diminished drainage there is significant decrease in chronic edema with bedrest and elevation Impression/Plan Impression/Plan Impression/Plan: 76-year-old woman with multiple medical problems admitted with anemia left arm swelling is chronic right lower extremity venous stasis ulcer and ulcer of the right plantar surface both of which were present on admission. Recommend leg elevation while in bed. Wound care can be Xeroform gauze and Teodoro wrap to the knee. Dressing should be changed daily. Continue current wound care treatment. Further management of acute upper extremity DVT by primary care team
[2016-07-30 08:17] LABS: PT 12.7 SEC (9.4-12.5); PTT 28 SEC (25-37)
[2016-07-30 08:24] VITALS: BP 124/60
[2016-07-30 08:31] LABS: EOSINOPHIL % 12.3 % (0-5); PLATELET COUNT 104 /CUMM (130-400)
--- NOTE | 2016-07-30 09:25 | PN- Att Addend ---
Attending Addendum Attending Brief Note Patient is currently nothing by mouth awaiting for colonoscopy General Appearance: Alert, No Acute Distress Skin: Bilateral leg course skin lesions HEENT: PEERLA Neck: Supple, No JVD Cardiovascular: Regular Rate, Normal S1, Normal S2, No Murmurs Lungs: Clear to Auscultation, Normal Air Movement Abdomen: Distended Extremities: Left upper extremity and bilateral lower extremity edema Assessment Patient is status post 2 units PRBC. She has pancytopenia. During her last admission she was evaluated by hematology who considered pancytopenia secondary to liver cirrhosis and spleenomegaly. Patient is guaiac negative and hence one could suspect anemia is in relation to chronic liver disease and enlarged spleen. However we will repeat guaiac 1 more time and also start patient on iron supplement. She has left subclavian and axillary vein DVT. We will await for colonoscopy and if negative will start patient on Eliquis. Plan Repeat guaiac Ferrous sulfate 3 times a day Start Eliquis after cleared by GI Continue Lasix 40 mg IV once daily Transfuse for hemoglobin goal about 8 Continue other home medications and DVT prophylaxis Current Medications Sig/Marcin Start time Last Medication Dose Route Stop Time Status Admin Acetaminophen 650 MG Q4P PRN 07/29 1430 AC PO Bisacodyl 10 MG ONCE ONE 07/29 2000 DC 07/29 PO 07/29 2000 2120 Ferrous Sulfate 325 MG TID 07/29 2200 AC 07/29 PO 2120 Ferrous Sulfate 325 MG TID 07/29 1230 DC PO Furosemide 40 MG DAILY 07/30 1000 AC IV Furosemide 40 MG DAILY 07/29 1000 DC 07/29 IV 1118 Ibuprofen 800 MG ONCE ONE 07/29 1815 DC 07/29 PO 07/29 181 1858 Nadolol 20 MG DAILY 07/29 1556 DC PO Omeprazole 40 MG DAILY AC 07/27 2330 AC PO Polyethylene Glycol 0.5 GAL ONCE ONE 07/30 0600 CAN PO 07/30 0601 Polyethylene Glycol 0.5 GAL 2200,0600 07/29 2200 AC 07/30 PO 0507 Polyethylene Glycol 0.5 GAL 1800,00 07/29 1800 DC PO 07/30 0601 Potassium Chloride 40 MEQ ONCE ONE 07/30 2200 AC PO 07/30 2201 Potassium Chloride 10 MEQ Q1H 07/30 0845 AC IV 07/30 0946 Potassium Chloride 40 MEQ ONCE ONE 07/29 1815 DC 07/29 PO 07/29 1816 1900 Potassium Chloride 20 MEQ ONCE ONE 07/29 1815 DC 07/29 PO 07/29 181 1900 Sodium Phosphate 1 UNIT ONCE ONE 07/30 1130 UNVr NE 07/30 1131 Sodium Phosphate 1 UNIT ONCE ONE 07/30 1100 AC NE 07/30 1101 Spironolactone 100 MG DAILY 07/31 1000 AC PO Laboratory Tests 07/30 0620 Chemistry Sodium (137 - 145 mmol/L) 140 Potassium (3.5 - 5.1 mmol/L) 3.3 L Chloride (98 - 107 mmol/L) 105 Carbon Dioxide (22 - 30 mmol/L) 30 Anion Gap (5 - 16) 5 BUN (7 - 17 mg/dL) 9 Creatinine (0.5 - 1.0 mg/dL) 0.5 Estimated GFR (>60 ml/min) > 60 BUN/Creatinine Ratio (7 - 25 %) 18.0 Magnesium (1.6 - 2.3 mg/dL) 1.8 Coagulation PT (9.4 - 12.5 SEC) 12.7 H INR (0.90 - 1.19) 1.21 H APTT (25 - 37 SEC) 28 Hematology CBC w Diff NO MAN DIFF REQ WBC (4.8 - 10.8 /CUMM) 3.0 L RBC (4.20 - 5.40 /CUMM) 3.52 L Hgb (12.0 - 16.0 G/DL) 8.5 L Hct (37 - 47 %) 27.1 L MCV (81.0 - 99.0 FL) 77.1 L MCH (27.0 - 31.0 PG) 24.3 L RDW (11.5 - 14.5 %) 21.7 H Plt Count (130 - 400 /CUMM) 104 L MPV (7.4 - 10.4 FL) 9.9 Gran % (42.2 - 75.2 %) 44.1 Lymphocytes % (20.5 - 51.1 %) 25.9 Monocytes % (1.7 - 9.3 %) 16.7 H Eosinophils % (0 - 5 %) 12.3 H Basophils % (0.0 - 2.0 %) 1.0 Absolute Granulocytes (1.4 - 6.5 /CUMM) 1.3 L Absolute Lymphocytes (1.2 - 3.4 /CUMM) 0.8 L Absolute Monocytes (0.10 - 0.60 /CUMM) 0.5 Absolute Eosinophils (0.0 - 0.7 /CUMM) 0.4 Absolute Basophils (0.0 - 0.2 /CUMM) 0 PUBS MCHC (33.0 - 37.0 G/DL) 31.5 L Vital Signs Date Time Temp Pulse Resp B/P Pulse O2 O2 Flow FiO2 Ox Delivery Rate 07/30 0824 98.1 70 20 124/60 93 Room Air 07/29 2350 98.0 73 20 130/62 94 07/29 1734 98.4 83 20 130/60 90
--- NOTE | 2016-07-30 09:59 | ULTRASOUND REPORT ---
EXAMINATION: US ABDOMEN LIMITED CLINICAL INFORMATION: Assess for volume of ascites. COMPARISON: Ultrasound paracentesis 05/25/2016 TECHNIQUE: Ultrasound imaging of all 4 quadrants was performed. FINDINGS: Targeted ultrasound of all 4 abdominal quadrants demonstrates a large volume of abdominal ascites. IMPRESSION: Large volume abdominal ascites.
--- NOTE | 2016-07-30 11:07 | ULTRASOUND REPORT ---
EXAMINATION: PARA/PERITONEOCENTESIS CLINICAL INFORMATION: Ascites TECHNIQUE: Informed consent was obtained from the patient prior to the procedure. During this process, the procedure and potential alternatives were explained, along with the intended outcome and benefits. The risks of the procedure, as wall as the risk of not doing the procedure, were discussed. The patient was given the opportunity to ask questions regarding the procedure and appeared competent to make medical decisions. A signed consent form which documents this discussion was placed in the medical record. A timeout procedure was performed. Ultrasound evaluation of the abdomen for ascites was performed. Hard copy images were stored in our PACS system. A large amount of ascites is noted in the right lower quadrant. Using standard interventional and sterile techniques, under direct US guidance, a 6 Cymraes pigtail catheter was introduced into the right lower quadrant using a standard safety needle technique. Approximately 1.1 L of clear yellow fluid was removed into the standard Vacutainer bottles. The catheter was then removed. Good hemostasis was achieved. Sample of the specimen was sent for lab analysis. The patient demonstrated immediate symptomatic relief. The patient tolerated the procedure well. A small amount of Dermabond was applied to the entry site. The patient was discharged in good condition. Complications: None Impression: 1. Successful ultrasound-guided paracentesis of 1.1 L of fluid.
--- NOTE | 2016-07-30 15:50 | Proc Note Colonoscopy ---
Colonoscopy Procedure Medical History: unchanged (see [facility] consult 07/29/16) Mental Status: alert/oriented Heart/Lung Eval Prior to Sedation: within normal limits Candidate for Sedation? Yes Date of Last Colonoscopy: No prior colonoscopy. Procedure Date: 07/30/16 Procedure Type: colonoscopy w/biopsy Chancellor: Kan Moody MD ASA Classification: III Indications: Iron deficiency anemia. Chronic diarrhea. Instrument (Colonoscope): single channel Meds Received: MAC Patient's Tolerance: good Complications: none Extent Reached: cecum Prep: adequate Procedure: After getting written informed consent the patient was placed in the left lateral decubitus position with pulse oximetry, cardiac monitoring, and supplemental oxygen was given. IV sedation was given until the desired effect was achieved. A rectal exam was performed which revealed small external hemorrhoids. A high definition variable stiffness Olympus colonoscope was then inserted into the anus and advanced to the cecum with little difficulty. Retroflexed views were obtained and photodocumentation was obtained. Close inspection of the colonic mucosa was performed on insertion and withdrawal of the colonoscope with a withdrawal time that was adequate in length to closely inspect all folds and ni of the colon and with care to suction and irrigate away any leftover remaining stool to the best of my ability. Findings: The visualized colonic mucosa including views of the rectum, sigmoid, descending , transverse, ascending colon and cecum were grossly unremarkable. There were no polyps, masses, ulcers, significant erythematous changes, or diverticula appreciated. Retroflexed views in the rectum revealed small internal hemorrhoids. There was some leftover liquid stool the majority of which was able to be cleared through the colonoscope, but small lesions less than 1 cm could not be definitively ruled out. There were no obvious large masses or polyps appreciated. Random biopsies were obtained from the right left colon with cold biopsy forceps and were sent to pathology for further evaluation. Impression: 1. Grossly normal colonic mucosa status post random biopsies. 2. Fair prep so that lesions less than 1 cm could not be entirely ruled out. 3. Small internal and external hemorrhoids. Recommendations: 1. Her diet should be advanced as tolerated. 2. She should follow up the pathology results with me as an outpatient. 3. She should use Imodium as needed for diarrhea. 4. She should be started on oral iron supplementation for her anemia. 5. There are no absolute GI contraindications to resuming anticoagulation if medically indicated for the DVT in her arm. CC: OSKAR EMERY,DEAN
[2016-07-30 16:14] VITALS: BP 130/68
[2016-07-31 01:25] VITALS: BP 122/74
[2016-07-31 08:28] VITALS: BP 124/78
[2016-07-31 08:32] LABS: ABSOLUTE BASOPHIL COUNT 0 /CUMM (0.0-0.2); ABSOLUTE EOSINOPHIL COUNT 0.2 /CUMM (0.0-0.7); ABSOLUTE GRANULOCYTE CT 1.8 /CUMM (1.4-6.5); ABSOLUTE LYMPH COUNT 0.9 /CUMM (1.2-3.4); ABSOLUTE MONOCYTE COUNT 0.5 /CUMM (0.10-0.60); BASOPHIL % 0.6 % (0.0-2.0); EOSINOPHIL % 7.2 % (0-5); GRANULOCYTE % 52.2 % (42.2-75.2); HEMATOCRIT 25.5 % (37-47); MEAN CORPUSCULAR HGB 23.8 PG (27.0-31.0); MEAN CORPUSCULAR HGB CONC 31.3 G/DL (33.0-37.0); MEAN CORPUSCULAR VOLUME 76.1 FL (81.0-99.0); MEAN PLATELET VOLUME 9.7 FL (7.4-10.4); PLATELET COUNT 114 /CUMM (130-400); RBC DISTRIBUTION WIDTH 22.2 % (11.5-14.5); RED BLOOD CELL CT 3.36 /CUMM (4.20-5.40); WHITE BLOOD CELL COUNT 3.5 /CUMM (4.8-10.8)
--- NOTE | 2016-07-31 09:15 | PN- Housestaff ---
Subjective Follow-up For: Left upper extremity deep venous thrombosis Right lower extremity ulcer Cirrhosis Subjective: Patient seen and examined. She is seen sitting upright in bed resting comfortably. She appears to be in no acute distress. She reports sleeping well last night and complains of only minimal abdominal discomfort. Otherwise she has no complaints. Additionally she denies any dizziness/lightheadedness, blurred/double vision,, fever, chills, chest pain, palpitations, shortness of breath, nausea, vomiting, diarrhea. No overnight events reported. Review of Systems Constitutional: Reports: see HPI. Objective Last 24 Hrs of Vital Signs/I&O Vital Signs Date Time Temp Pulse Resp B/P Pulse O2 O2 Flow FiO2 Ox Delivery Rate 07/31 0828 98.7 61 18 124/78 94 07/31 0125 97.9 79 18 122/74 93 Room Air 07/30 1614 97.3 74 18 130/68 94 Room Air Intake & Output 07/31 1600 07/31 0800 07/31 0000 Intake Total 600 600 Output Total Balance 600 600 Intake, Oral 600 600 Physical Exam General Appearance: Alert, Oriented X3, Cooperative, No Acute Distress Other Physical Findings: General -well-developed, well-nourished obese elderly woman in no acute distress HEENT - NCAT, PERRL, EOMI, anicteric sclera Cardio - S1, S2 w/o murmurs/gallops/rubs Resp - CTA bilaterally w/o wheezing/rhochi/crackles GI - soft, mild diffuse abdominal tenderness, nondistended, bowel sounds present Neuro - Awake and alert, CN II - XII grossly intact Extremities - no edema, pulses intact Current Medications: Current Medications Sig/Marcin Start time Last Medication Dose Route Stop Time Status Admin Acetaminophen 650 MG Q4P PRN 07/29 1430 AC PO Apixaban 5 MG BID 07/30 2200 AC 07/31 PO 0919 Chlorhexidine 1 GM .STK-MED ONE 07/30 1458 DC Gluconate TOP 07/30 1459 Ferrous Sulfate 325 MG TID 07/29 2200 AC 07/31 PO 0919 Furosemide 40 MG DAILY 07/30 1000 AC 07/31 IV 0919 Loperamide HCl 2 MG Q8P PRN 07/30 1930 AC PO Omeprazole 40 MG DAILY AC 07/27 2330 AC PO Patient Medication 1 ED .STK-MED ONE 07/30 1347 DC Teaching ED 07/30 1348 Polyethylene Glycol 0.5 GAL 2200,0600 07/29 2200 DC 07/30 PO 0507 Potassium Chloride 20 MEQ ONCE ONE 07/31 0930 DC PO 07/31 0931 Potassium Chloride 20 MEQ ONCE ONE 07/31 0930 DC 07/31 PO 07/31 09 1017 Potassium Chloride 40 MEQ ONCE ONE 07/31 0915 CAN PO 07/31 0916 Potassium Chloride 40 MEQ ONCE ONE 07/30 2200 CAN PO 07/30 220 Potassium Chloride 20 MEQ ONCE ONE 07/30 1300 DC 07/30 PO 07/30 1301 1702 Sodium Phosphate 1 UNIT ONCE ONE 07/30 1130 DC 07/30 MO 07/30 1131 1136 Spironolactone 100 MG DAILY 07/31 1000 AC 07/31 PO 0919 Last 24 Hrs of Lab/Gui Results Last 24 Hrs of Labs/Mics: Laboratory Tests 07/31/16 0712: Anion Gap 6, Estimated GFR > 60, BUN/Creatinine Ratio 18.0, Magnesium 1.8, CBC w Diff NO MAN DIFF REQ, RBC 3.36 L, MCV 76.1 L, MCH 23.8 L, RDW 22.2 H, MPV 9.7, Gran % 52.2, Lymphocytes % 26.7, Monocytes % 13.3 H, Eosinophils % 7.2 H, Basophils % 0.6, Absolute Granulocytes 1.8, Absolute Lymphocytes 0.9 L, Absolute Monocytes 0.5, Absolute Eosinophils 0.2, Absolute Basophils 0, PUBS MCHC 31.3 L Assessment/Plan Assessment: Patient continues to remain hemodynamically stable status post 2 units packed red blood cells. Hemoglobin/hematocrit this morning is 8.0/25.5. CBC will be rechecked tomorrow with a transfusion goal of 8.0 or higher. Patient was begun on Inderal today for variceal prophylaxis. Problem List: -Left upper extremity deep venous thrombosis -Left-sided pleural effusion -Chronic venous insufficiency -Lower extremity ulcers -Untreated Hepatitis C -Iron deficiency anemia -Esophageal varices -Liver cirrhosis Plan: -General medicine -Eliquis 5 mg by mouth twice a day -Lasix 40 mg IV daily -Potassium chloride powder 40 mEq by mouth daily -Inderal 20 mg by mouth every 8 hours -Spironolactone 100 mg by mouth daily -Omeprazole 40 mg by mouth daily -Imodium as needed for diarrhea -GI consult -Wound consult -Paracentesis as needed for ascites -Type and cross, consent obtained for blood transfusion -PRBC transfused: 2, transfuse for a goal of 8.0 or higher -DVT prophylaxis -Follow-up colonoscopy biopsy pathology results Problem List: 1. Deep vein thrombosis (DVT) of left upper extremity Pain Ratin Pain Location: Left upper extremity Pain Goal: Pain 4 or less Pain Plan: Pain pathway Tomorrow's Labs & Rationales: Complete blood count-anemia BEP-hypokalemia Cirrhosis and History of stage II esophageal varices hx of hepatitis C infection. abdomen is distended. DVT prophylaxis: ALPs. Concern for progressive thrombocytopenia. Will hold off chemical anticoagulation. CODE STATUS: Full code
--- NOTE | 2016-07-31 13:06 | PN- Att Addend ---
Attending Addendum Attending Brief Note Patient status post negative colonoscopy. General Appearance: Alert, No Acute Distress Skin: Bilateral leg course skin lesions HEENT: PEERLA Neck: Supple, No JVD Cardiovascular: Regular Rate, Normal S1, Normal S2, No Murmurs Lungs: Clear to Auscultation, Normal Air Movement Abdomen: Distended Extremities: Left upper extremity and bilateral lower extremity edema Assessment Patient is status post 2 units PRBC. She has pancytopenia. During her last admission she was evaluated by hematology who considered pancytopenia secondary to liver cirrhosis and spleenomegaly. Patient is guaiac negative and hence one could suspect anemia is in relation to chronic liver disease and enlarged spleen. Status post negative colonoscopy with a fair prep. She has left subclavian and axillary vein DVT. Given patient has very poor compliance and follow-ups she will not be a good candidate for Lovenox or Coumadin. We will start patient on Eliquis for at least 6 months. Status post paracentesis with about 1.4 L fluid removed. Plan Eliquis 5 mg twice a day Start potassium chloride 40 mEq once daily Ferrous sulfate 3 times a day Continue Lasix 40 mg IV once daily Transfuse for hemoglobin goal about 8 Continue wound care Continue other home medications and DVT prophylaxis Current Medications Sig/Marcin Start time Last Medication Dose Route Stop Time Status Admin Acetaminophen 650 MG Q4P PRN 07/29 1430 AC PO Apixaban 5 MG BID 07/30 2200 AC 07/31 PO 0919 Chlorhexidine 1 GM .STK-MED ONE 07/30 1458 DC Gluconate TOP 07/30 1459 Ferrous Sulfate 325 MG TID 07/29 2200 AC 07/31 PO 0919 Furosemide 40 MG DAILY 07/30 1000 AC 07/31 IV 0919 Loperamide HCl 2 MG Q8P PRN 07/30 1930 AC PO Omeprazole 40 MG DAILY AC 07/27 2330 AC PO Patient Medication 1 ED .STK-MED ONE 07/30 1347 DC Teaching ED 07/30 1348 Polyethylene Glycol 0.5 GAL 2200,0600 07/29 2200 DC 07/30 PO 0507 Potassium Chloride 20 MEQ ONCE ONE 07/31 0930 DC 07/31 PO 07/31 0931 1137 Potassium Chloride 20 MEQ ONCE ONE 07/31 0930 DC 07/31 PO 07/31 0931 1017 Potassium Chloride 40 MEQ ONCE ONE 07/31 0915 CAN PO 07/31 0916 Spironolactone 100 MG DAILY 07/31 1000 AC 07/31 PO 0919 Laboratory Tests 07/31 0712 Chemistry Sodium (137 - 145 mmol/L) 136 L Potassium (3.5 - 5.1 mmol/L) 3.1 L Chloride (98 - 107 mmol/L) 102 Carbon Dioxide (22 - 30 mmol/L) 28 Anion Gap (5 - 16) 6 BUN (7 - 17 mg/dL) 9 Creatinine (0.5 - 1.0 mg/dL) 0.5 Estimated GFR (>60 ml/min) > 60 BUN/Creatinine Ratio (7 - 25 %) 18.0 Magnesium (1.6 - 2.3 mg/dL) 1.8 Hematology CBC w Diff NO MAN DIFF REQ WBC (4.8 - 10.8 /CUMM) 3.5 L RBC (4.20 - 5.40 /CUMM) 3.36 L Hgb (12.0 - 16.0 G/DL) 8.0 L Hct (37 - 47 %) 25.5 L MCV (81.0 - 99.0 FL) 76.1 L MCH (27.0 - 31.0 PG) 23.8 L RDW (11.5 - 14.5 %) 22.2 H Plt Count (130 - 400 /CUMM) 114 L MPV (7.4 - 10.4 FL) 9.7 Gran % (42.2 - 75.2 %) 52.2 Lymphocytes % (20.5 - 51.1 %) 26.7 Monocytes % (1.7 - 9.3 %) 13.3 H Eosinophils % (0 - 5 %) 7.2 H Basophils % (0.0 - 2.0 %) 0.6 Absolute Granulocytes (1.4 - 6.5 /CUMM) 1.8 Absolute Lymphocytes (1.2 - 3.4 /CUMM) 0.9 L Absolute Monocytes (0.10 - 0.60 /CUMM) 0.5 Absolute Eosinophils (0.0 - 0.7 /CUMM) 0.2 Absolute Basophils (0.0 - 0.2 /CUMM) 0 PUBS MCHC (33.0 - 37.0 G/DL) 31.3 L Vital Signs Date Time Temp Pulse Resp B/P Pulse O2 O2 Flow FiO2 Ox Delivery Rate 07/31 0828 98.7 61 18 124/78 94 07/31 0125 97.9 79 18 122/74 93 Room Air 07/30 1614 97.3 74 18 130/68 94 Room Air
--- NOTE | 2016-07-31 13:31 | PN- Gastroenterology ---
Assessment/Plan Assessment/Recommendations: (*The patient was seen & examined in GI coverage for Dr. Moody. Extensive records reviewed). 76-year-old female, *poor insight & non-compliant, obese, hypertensive, PVD, chronic LE ulcers, thyroid nodules (never biopsied), ? MRSA wound, low Vit D, rheumatic fever, history of actively replicating Hepatitis C (12/02/2015: + Quantitative HCV RNA IU/ML [id number], + Quantitative HCV RNA LOG IU/ML 5.19; genotype 1a), for which she saw Dr. Moody 12/15/2015 and Jesi was advised. The patient was not compliant with this. 10/16/2015: Hep A Ab, Hep Bs Ag, Hep B core Ab- all neg, + Hep C Ab. The patient was previously immunized against both Hepatitis A and B, although she apparently is only immune to Hepatitis B, as 04/2016: total Hep A Ab- negative, + Hep Bs Ab, AFP 6.0. *HIV status is unknown. The patient was uncertain as to how she contracted the Hep C, from a remote blood transfusion (she denies any additional risk factors for this). She has not been previously treated for the Hep C. The patient was apparently diagnosed with the Hep C 10 years ago, but did not seek treatment then. When she saw Dr. Moody 12/15/2015, she had thrombocytopenia with AST > ALT, and was felt to probably have portal hypertension and liver fibrosis/compensated cirrhosis. I have previously seen the patient in covering GI consultation 05/25/2016. * Since then, she has had abdominal tabs, negative for SBP, with high SAAG, low protein & ascitic cytology- negative. *05/26/2016: Baseline EGD with biopsy, per Dr. Moody- Grade 2 esophageal varices with red kristin markings. Nonerosive gastritis, without evidence of significant portal hypertensive gastropathy. Mild duodenitis with normal small bowel folds, post random biopsies. Duodenal biopsies- negative. Antral biopsies- mild chronic gastritis, H. pylori negative. Inderal 20 mg TID was prescribed then for variceal prophylaxis. The patient has multifactorial anemia, iron deficiency, & pancytopenia- the latter most likely from cirrhosis. 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 She has had normal GFR. She has issues with bilateral lower extremity wounds & stasis dermatitis changes, secondary to edema. Previous AFP & imaging studies- negative for hepatoma. 07/28/2016: ferritin 7.1 (had EGD/colonoscopy, per Dr. Moody) The patient was readmitted to [facility] 07/27/2016, after presenting with LUE swelling & recurrent anemia (2u PRBC given to date this admission), without any overt GI bleeding. She cancelled her outpatient colonoscopy earlier this week because of the LUE swelling, & was subsequently found to have a *LUE DVT. 07/30/2016: Inpatient colonoscopy to the cecum with biopsies, per Dr. Moody ( fair prep)- small mixed hemorrhoids, with normal mucosa to the cecum. Random biopsies- pending. She was cleared by GI for anticoagulation therapy. Due to her noncompliance, she was put on Eliquis, as opposed to Coumadin, for her LUE DVT. She was having some diarrhea, which seems to have resolved. *The patient has fairly well compensated cirrhosis, most probably secondary to Hep C, for which she has never sought treatment. There is some residual ascites. She does have esophageal varices. For some reason, her nonselective beta blockers have not resumed on admission. She has no signs of encephalopathy , nor any overt GI bleeding or melena on the Eliquis. SUGGEST: 2 g sodium heart healthy diet. Continue Aldactone 100 mg daily, Lasix 40 mg daily, iron 325 mg TID, Omeprazole 40 mg daily, potassium 40 meq daily, & Imodium as needed. Follow-up electrolytes & GFR. (*If ascites worsens, may carefully increase dose of diuretics, as BP, GFR, and electrolytes tolerate. The other option would be a repeat larger volume therapeutic abdominal tap by IR - would give 25g SPA/3L removed). Physical therapy. Continue Eliquis for LUE DVT. Consider vascular input regarding LUE DVT. Follow-up with wound care. * Add Inderal 20 mg po TID for variceal prophylaxis as BP and pulse tolerate. * Await results of 07/30/2016: random colon biopsies, per Dr. Moody. *If the patient remains in house, Dr. Moody will resume her care on 07/26/2016. If she is discharged prior to that, he will see her as an outpatient. *Please call if additional GI input is needed prior to this. *The above findings and recommendations were discussed with the patient's RN, who will convey this to the medical house staff. Problem List: 1. Hepatitis C 2. Cirrhosis 3. Pancytopenia 4. Ascites 5. Diarrhea 6. Malnutrition 7. Iron deficiency 8. Hypokalemia 9. Deep vein thrombosis (DVT) of left upper extremity Subjective Subjective: (*The patient was seen & examined in GI coverage for Dr. Moody. Extensive records reviewed). 07/30/2016: *Abdominal tap of 1.1L clear, yellow, ascitic fluid by IR- no SPA given. *Negative SBP. 806 RBC, 233 WBC (11% PMN with absolute # PMN 25.6). BF protein < 2.0, BF albumin < 1.0, SAAG > 1.5 (as expected). Ascitic cytology was sent, but has been negative previously. Ascitic C&S- negative x 1 day. *As of 07/31/2016, the patient is hemodynamically stable and afebrile, with a stable O2 sat RA. She is tolerating a heart healthy, 2 g sodium diet. She remains on Eliquis (without overt GI bleeding or melena), as well as iron, Lasix 40 mg daily, Aldactone 100 mg daily, potassium 40 meq daily, Imodium as needed, and Omeprazole 40 mg daily. *For some reason, Inderal was never resumed for variceal prophylaxis. She currently has no complaints and is receiving physical therapy. She is not yet fully ambulatory. She denies any fevers, chills, jaundice, abdominal pain, nausea, vomiting, confusion, or increased peripheral edema. Her abdominal girth is about the same. (*Please see imaging section). Review of Systems: Full 14 point review of systems otherwise noncontributory, and as above. Review of Systems Constitutional: Denies: fevers, chills, diaphoresis, malaise, weakness, unexplained weight loss. EENTM: Denies: blurred vision, double vision, visual changes, eye pain, eye drainage, eye tearing, icterus, ear discharge, ear pain, ear redness, hearing changes, nasal congestion, epistaxis, nasal pain, throat pain, throat swelling, mouth pain. Cardiovascular: Reports: edema (LUE > B/L LE). Denies: chest pain, orthopena, palpitations, peripheral edema, syncope. Respiratory: Denies: cough, hemoptysis, orthopnea, short of breath, sputum production, stridor, wheezing. GI: Reports: distention, ascites. Denies: abdominal pain, bloating, constipation, diarrhea, bowel incontinence, melena, nausea, bloody stool, changes in stool, vomiting, steatorrhea. Genitourinary: Denies: discharge, dysuria, frequency, hematuria, hesitation, nocturia, pain, urgency. Musculoskeletal: Denies: back pain, gout, joint pain, joint swelling, muscle pain, muscle stiffness, neck pain. Skin: Reports: see HPI (sasis dermatitis changes LE BL). Denies: cysts, change in skin color, change in hair/nails, dryness, erythema, jaundice, lesions, lymphangitis, lumps, moles, rash. Neurological/Psychological: Denies: anxiety, ataxia, cognitive dysfunction, confusion, depressed, dementia, emotional problems, headache, numbness, paresthesia, pre-existing deficit, petit mal seizures, tingling, tremors, tonic-clonic seizures, unable to move lower ext , unable to move upper ext, weakness. Hematologic/Endocrine: Denies: bruising, bleeding, polyuria, polydipsia. Immunologic/Allergic: Denies: splenectomy, HIV/AIDS, lymphadenopathy. All Other Systems: Reviewed and Negative Objective Vital Signs and I&Os Vital Signs Date Time Temp Pulse Resp B/P Pulse O2 O2 Flow FiO2 Ox Delivery Rate 07/31 0828 98.7 61 18 124/78 94 07/31 0125 97.9 79 18 122/74 93 Room Air 07/30 1614 97.3 74 18 130/68 94 Room Air Intake & Output 07/31 1600 07/31 0400 07/30 1600 07/30 0400 07/29 1600 07/29 0400 Intake Total 917 839 0130 700 240 480 Output Total 250 Balance 230 954 8387 700 240 480 Intake, IV 40 Intake, Oral 295 459 4961 700 240 480 Number 3 1 2 Bowel Movements Output, Urine 250 Patient 220 lb Weight Physical Exam: Well-developed, malnourished appearing, chronically ill, unkempt, elderly female , in no apparent distress. Sclera anicteric. Conjunctiva pink. Oropharynx clear. No oral thrush. No aphthous ulcers. Poor dentition (no upper teeth, few loose lower teeth). There is no adenopathy, thyromegaly, or JVD. ? thyroid nodule. No peripheral stigmata of inflammatory bowel disease on exam. No CVA tenderness. ? Faint spiders on the anterior chest wall. Lungs: clear to A&P, except for slight decreased BS at the left base. Breast & pelvic: API. Heart exam: regular rate rhythm, S1 and S2, with soft I/ systolic murmur. Abdominal exam: normal bowel sounds, softer belly (post tap), obese, nontender, without guarding or rebound. No mass. Liver approximately 11 cm by percusion. Borderline splenomegaly. Positive moderate fluid shift. No pulsatile mass. Digital rectal exam per [facility] [facility]: reportedly brown OB-negative stool (not repeated today). Extremities: without cyanosis or clubbing. Marked stasis dermatitis changes of the lower extremities bilaterally, right greater than left , with lymphedema and firm nodular appearance. Superficial ulceration of right lower extremity. Bandaged 12 x 7 cm venous stasis ulcer of right lower extremity with areas of ectopic bone formation, per wound care. Ulcerated callus plantar aspect of right foot/right plantar region. No palpable cords of LE B/L. No palmar erythema. No Dupuytren's contractures. Distal pulses 1+ bilaterally. DTRs 1+ bilaterally. Swollen, erythematous LUE, without palpable cord (on Eliquis for DVT). Radial pulses intact. Alert and oriented x 3. Minimal tremor. No asterixis. A detailed exam for peripheral neuropathy was deferred. Current Medications: Current Medications Sig/Marcin Start time Last Medication Dose Route Stop Time Status Admin Acetaminophen 650 MG Q4P PRN 07/29 1430 AC PO Apixaban 5 MG BID 07/300 AC 07/31 PO 0919 Chlorhexidine 1 GM .STK-MED ONE 07/30 1458 DC Gluconate TOP 07/30 1459 Ferrous Sulfate 325 MG TID 07/29 2200 AC 07/31 PO 0919 Furosemide 40 MG DAILY 07/30 1000 AC 07/31 IV 0919 Loperamide HCl 2 MG Q8P PRN 07/30 1930 AC PO Omeprazole 40 MG DAILY AC 07/27 2330 AC PO Polyethylene Glycol 0.5 GAL 2200,0600 07/29 2200 DC 07/30 PO 0507 Potassium Chloride 40 MEQ DAILY 08/01 1000 AC PO Potassium Chloride 20 MEQ ONCE ONE 02/25 0930 DC 07/31 PO 07/31 930 1137 Potassium Chloride 20 MEQ ONCE ONE 07/31 929 DC 07/31 PO 07/31 0831 1017 Potassium Chloride 40 MEQ ONCE ONE 07/31 0815 CAN PO 07/31 09 Spironolactone 100 MG DAILY 07/31 1000 AC 07/31 PO 0919 Results Pertinent Lab Results: Laboratory Tests 07/31 07/30 07/30 0712 UNK UNK Chemistry Sodium (137 - 145 mmol/L) 136 L Potassium (3.5 - 5.1 mmol/L) 3.1 L Chloride (98 - 107 mmol/L) 102 Carbon Dioxide (22 - 30 mmol/L) 28 Anion Gap (5 - 16) 6 BUN (7 - 17 mg/dL) 9 Creatinine (0.5 - 1.0 mg/dL) 0.5 Estimated GFR (>60 ml/min) > 60 BUN/Creatinine Ratio (7 - 25 %) 18.0 Magnesium (1.6 - 2.3 mg/dL) 1.8 Hematology CBC w Diff NO MAN DIFF REQ WBC (4.8 - 10.8 /CUMM) 3.5 L RBC (4.20 - 5.40 /CUMM) 3.36 L Hgb (12.0 - 16.0 G/DL) 8.0 L Hct (37 - 47 %) 25.5 L MCV (81.0 - 99.0 FL) 76.1 L MCH (27.0 - 31.0 PG) 23.8 L RDW (11.5 - 14.5 %) 22.2 H Plt Count (130 - 400 /CUMM) 114 L MPV (7.4 - 10.4 FL) 9.7 Gran % (42.2 - 75.2 %) 52.2 Lymphocytes % (20.5 - 51.1 %) 26.7 Monocytes % (1.7 - 9.3 %) 13.3 H Eosinophils % (0 - 5 %) 7.2 H Basophils % (0.0 - 2.0 %) 0.6 Absolute Granulocytes (1.4 - 6.5 /CUMM) 1.8 Absolute Lymphocytes (1.2 - 3.4 /CUMM) 0.9 L Lymphocytes (%) 34 Absolute Monocytes (0.10 - 0.60 /CUMM) 0.5 Absolute Eosinophils (0.0 - 0.7 /CUMM) 0.2 Absolute Basophils (0.0 - 0.2 /CUMM) 0 % Normal PMNs (%) 11 PUBS MCHC (33.0 - 37.0 G/DL) 31.3 L Misc Hematology Test (%) 54 Other Body Source Fluid WBC (0 - 5 /CUMM) 233 H Fld Total RBCs Counted (0 /CUMM) 806 H Fluid Glucose (mg/dL) 94 Fluid Total Protein (g/dL) < 2.0 Fluid Albumin (g/dL) < 1.0 Fluid LDH (U/L) 281 Fluid Amylase (U/L) < 30 07/30 07/29 07/29 0620 1736 0915 Chemistry Sodium (137 - 145 mmol/L) 140 138 Potassium (3.5 - 5.1 mmol/L) 3.3 L 3.2 L Chloride (98 - 107 mmol/L) 105 104 Carbon Dioxide (22 - 30 mmol/L) 30 27 Anion Gap (5 - 16) 5 7 BUN (7 - 17 mg/dL) 9 11 Creatinine (0.5 - 1.0 mg/dL) 0.5 0.5 Estimated GFR (>60 ml/min) > 60 > 60 BUN/Creatinine Ratio (7 - 25 %) 18.0 22.0 Magnesium (1.6 - 2.3 mg/dL) 1.8 1.8 Lactate Dehydrogenase (313 - 618 U/L) 479 Total Protein (6.3 - 8.2 g/dL) 6.0 L Albumin (3.5 - 5.0 g/dL) 2.5 L Coagulation PT (9.4 - 12.5 SEC) 12.7 H INR (0.90 - 1.19) 1.21 H APTT (25 - 37 SEC) 28 Hematology CBC w Diff NO MAN DIFF REQ WBC (4.8 - 10.8 /CUMM) 3.0 L RBC (4.20 - 5.40 /CUMM) 3.52 L Hgb (12.0 - 16.0 G/DL) 8.5 L Hct (37 - 47 %) 27.1 L MCV (81.0 - 99.0 FL) 77.1 L MCH (27.0 - 31.0 PG) 24.3 L RDW (11.5 - 14.5 %) 21.7 H Plt Count (130 - 400 /CUMM) 104 L MPV (7.4 - 10.4 FL) 9.9 Gran % (42.2 - 75.2 %) 44.1 Lymphocytes % (20.5 - 51.1 %) 25.9 Monocytes % (1.7 - 9.3 %) 16.7 H Eosinophils % (0 - 5 %) 12.3 H Basophils % (0.0 - 2.0 %) 1.0 Absolute Granulocytes (1.4 - 6.5 /CUMM) 1.3 L Absolute Lymphocytes (1.2 - 3.4 /CUMM) 0.8 L Absolute Monocytes (0.10 - 0.60 /CUMM) 0.5 Absolute Eosinophils (0.0 - 0.7 /CUMM) 0.4 Absolute Basophils (0.0 - 0.2 /CUMM) 0 PUBS MCHC (33.0 - 37.0 G/DL) 31.5 L Other Body Source Fluid Albumin Cancelled 07/29 623 Hematology CBC w Diff NO MAN DIFF REQ WBC (4.8 - 10.8 /CUMM) 2.9 L RBC (4.20 - 5.40 /CUMM) 3.39 L Hgb (12.0 - 16.0 G/DL) 8.2 L Hct (37 - 47 %) 26.0 L MCV (81.0 - 99.0 FL) 76.8 L MCH (27.0 - 31.0 PG) 24.2 L RDW (11.5 - 14.5 %) 21.9 H Plt Count (130 - 400 /CUMM) 118 L MPV (7.4 - 10.4 FL) 9.6 Gran % (42.2 - 75.2 %) 51.5 Lymphocytes % (20.5 - 51.1 %) 25.9 Monocytes % (1.7 - 9.3 %) 16.0 H Eosinophils % (0 - 5 %) 5.8 H Basophils % (0.0 - 2.0 %) 0.8 Absolute Granulocytes (1.4 - 6.5 /CUMM) 1.5 Absolute Lymphocytes (1.2 - 3.4 /CUMM) 0.8 L Absolute Monocytes (0.10 - 0.60 /CUMM) 0.5 Absolute Eosinophils (0.0 - 0.7 /CUMM) 0.2 Absolute Basophils (0.0 - 0.2 /CUMM) 0 PUBS MCHC (33.0 - 37.0 G/DL) 31.5 L Imaging/Other Studies: 07/27/2016: US TRIPLEX UPPER EXTREMITY, LEFT- Normal triplex scan without evidence of deep venous thrombosis involving the left upper extremity (*initial study). 07/27/2016: XRY-CHEST XRAY, PA AND LATERAL- Persistent moderate left pleural effusion with improved overlying airspace disease. 07/29/2016: US DUPLEX UPPER EXTREMITY ARTERY/GRAFT LIMITED, LEFT- No evidence of left upper extremity arterial stenosis or thrombosis. Venous thrombosis of the left upper extremity. Please refer to separate dictation for further details. 07/29/2016: US TRIPLEX LOWER EXTREMITY, BILATERAL- 1. Limited exam secondary to patient body habitus and patient discomfort. The patient was reportedly unable to tolerate imaging of the left popliteal fossa. The left popliteal vein and left calf veins are not visualized. Thrombus within these veins cannot be entirely excluded. 2. No evidence of deep venous thrombosis within the remaining imaged veins of the bilateral lower extremities. Specifically, the bilateral common femoral, bilateral femoral, bilateral profunda femoral, right popliteal and right calf veins demonstrate no evidence of deep venous thrombosis 07/29/2016: LEFT UPPER EXTREMITY VENOUS ULTRASOUND- *DVT involving the left subclavian vein extending out into the axillary vein. This critical result was discussed with Jessica Salguero RN at 4:45 PM on the day of the exam and it was ascertained that the content and urgency of the report was understood at the time of direct communication. 07/29/2016: US ABDOMEN LIMITED- Large volume abdominal ascites. 07/30/2016: US-PARACENTESIS- Successful ultrasound-guided paracentesis of 1.1 L of clear yellow ascitic fluid (*Labs w/o SBP).
[2016-07-31 16:54] VITALS: BP 132/68
[2016-08-01 00:20] VITALS: BP 118/58
[2016-08-01 05:31] VITALS: BP 108/60
--- NOTE | 2016-08-01 07:15 | PN- Housestaff ---
Subjective Follow-up For: Left upper extremity deep venous thrombosis Right lower extremity ulcer Cirrhosis Subjective: I saw and examined the patient at bedside today, she is alert nd oriented, appears in mild distress, reports fever and chills as well as pain in the abdomen and bloating. patient also reports generalized pain in the body and the feet. Review of Systems Constitutional: Reports: chills, fever. Denies: weakness. EENTM: Reports: no symptoms. Cardiovascular: Reports: peripheral edema. Denies: chest pain, palpitations. Respiratory: Denies: cough, short of breath, sputum production, wheezing. Gastrointestinal: Reports: abdominal pain, bloating, distention. Denies: nausea, bloody stool, changes in stool, vomiting. Genitourinary: Reports: no symptoms. Musculoskeletal: Reports: no symptoms. Skin: Reports: no symptoms. Objective Last 24 Hrs of Vital Signs/I&O Vital Signs Date Time Temp Pulse Resp B/P Pulse O2 O2 Flow FiO2 Ox Delivery Rate 08/01 0535 54 108/60 08/01 0531 54 108/60 08/01 0020 100.2 63 20 118/58 92 07/31 2144 74 133/59 07/31 1654 98.2 79 18 132/68 93 Room Air Intake & Output 08/01 1600 08/01 0800 08/01 0000 Intake Total 480 500 Output Total Balance 480 500 Intake, Oral 480 500 Physical Exam General Appearance: Alert, Oriented X3, Cooperative, Mild Distress Skin: right foot ulcer, left foot mass on the second toe HEENT: Atraumatic, EOMI Neck: Supple, No JVD Cardiovascular: Regular Rate, Normal S1, Normal S2, No Murmurs Lungs: Clear to Auscultation, Normal Air Movement Abdomen: distended and diffuse mild tenderness noted, there is questionable rebound tenderness in my exam. Neurological: Normal Speech, Normal Tone Extremities: 1+ pitting edema Vascular: Normal Pulses, Pulses Symmetrical Current Medications: Current Medications Sig/Marcin Start time Last Medication Dose Route Stop Time Status Admin Acetaminophen 650 MG Q4P PRN 07/29 1430 AC PO Apixaban 5 MG BID 07/30 2200 AC 08/01 PO 1102 Ferrous Sulfate 325 MG TID 07/29 2200 AC 08/01 PO 1102 Furosemide 40 MG DAILY 08/02 1000 AC PO Furosemide 40 MG DAILY 07/30 1000 DC 08/01 IV 1102 Loperamide HCl 2 MG Q8P PRN 07/30 1930 AC PO Omeprazole 40 MG DAILY AC 07/27 2330 AC PO Patient Medication 1 UNIT ONE NR 07/31 1530 PR Teaching ED 07/31 1600 Polyethylene Glycol 17 GM DAILY 08/01 1324 CANr PO Potassium Chloride 40 MEQ DAILY 08/01 1000 AC 08/01 PO 1102 Propranolol HCl 20 MG Q8 08/01 0600 AC PO Propranolol HCl 20 MG Q8 07/31 1504 DC 07/31 PO 2144 Spironolactone 100 MG DAILY 07/31 1000 AC 08/01 PO 1102 Last 24 Hrs of Lab/Gui Results Last 24 Hrs of Labs/Mics: Laboratory Tests 08/01/16 1237: Urinalysis LIGHT H, Urine Color STRAW, Urine Clarity HAZY H, Urine pH 6.5, Ur Specific [place] 1.010, Urine Protein TRACE H, Urine Ketones NEG, Urine Nitrite NEG, Urine Bilirubin NEG, Urine Urobilinogen 0.2, Ur Leukocyte Esterase MOD H, Ur Microscopic SEDIMENT EXAMINED, Urine RBC 50-75 H, Urine WBC > 75 H, Ur Epithelial Cells RARE, Urine Hemoglobin LARGE H, Urine Glucose NEG 08/01/16 0720: Anion Gap 5, Estimated GFR > 60, BUN/Creatinine Ratio 20.0, CBC w Diff NO MAN DIFF REQ, RBC 3.68 L, MCV 77.4 L, MCH 24.1 L, RDW 21.9 H, MPV 10.2, Gran % 51.9, Lymphocytes % 23.7, Monocytes % 13.1 H, Eosinophils % 10.6 H, Basophils % 0.7, Absolute Granulocytes 1.8, Absolute Lymphocytes 0.8 L, Absolute Monocytes 0.5, Absolute Eosinophils 0.4, Absolute Basophils 0, PUBS MCHC 31.1 L Microbiology 08/01 1237 URINE ROUT: Urine Culture - RECD 08/01 120 STOOL: Clostridium difficile Toxin A & B - RECD 08/01 1202 STOOL: Stool Culture - RECD Assessment/Plan Assessment: Patient continues to remain hemodynamically stable status post 2 units packed red blood cells. Hemoglobin/hematocrit this morning is 8.0/25.5. CBC will be rechecked tomorrow with a transfusion goal of 8.0 or higher. Patient was begun on Inderal today for variceal prophylaxis. Problem List: -Left upper extremity deep venous thrombosis -Left-sided pleural effusion -Chronic venous insufficiency -Lower extremity ulcers -Untreated Hepatitis C -Iron deficiency anemia -Esophageal varices -Liver cirrhosis Plan: -Eliquis 5 mg by mouth twice a day on hold for diagnostic paracentesis tomorrow. Has tenderness and questionable rebound tenderness in abdomen today, also has spiked fever today and previous tap showed WBC of 233 (11% neutrophils). Will do a diagnostic tap tomorrow. blood cultures sent, urine culture sent, UA suggests UTI, called Dr. Palomares and started IV ceftriaxone. I also asked the patient and the son about allergic reactions, she has never had a anaphylactic type reaction to any medication and reactions were mostly in the form of a rash. ALso ordered benadryl PRN. -Lasix 40 mg PO daily (switched from IV, from tomorrow) -Potassium chloride powder 40 mEq by mouth daily -Inderal 20 mg by mouth every 8 hours -Spironolactone 100 mg by mouth daily -Omeprazole 40 mg by mouth daily -Imodium as needed for diarrhea -F/U GI consult -Wound consult -Seth, consent obtained for blood transfusion. PRBC transfused: 2, transfuse for a goal of 8.0 or higher -Follow-up colonoscopy biopsy pathology results -DVT prophylaxis Problem List: 1. Deep vein thrombosis (DVT) of left upper extremity 2. Iron deficiency 3. Mass of skin 4. Bilateral lower extremity edema 5. Obesity 6. Cirrhosis 7. Ascites 8. Anemia 9. Hypertension 10. Chronic ulcer of leg Pain Ratin Pain Location: no pain Pain Goal: Pain 4 or less Pain Plan: mild pain pathway Tomorrow's Labs & Rationales: CBC (fever), BEP (on lasix, hypokalemic)
[2016-08-01 08:15] VITALS: BP 110/62
[2016-08-01 08:38] LABS: ABSOLUTE BASOPHIL COUNT 0 /CUMM (0.0-0.2); ABSOLUTE EOSINOPHIL COUNT 0.4 /CUMM (0.0-0.7); ABSOLUTE GRANULOCYTE CT 1.8 /CUMM (1.4-6.5); ABSOLUTE LYMPH COUNT 0.8 /CUMM (1.2-3.4); ABSOLUTE MONOCYTE COUNT 0.5 /CUMM (0.10-0.60); BASOPHIL % 0.7 % (0.0-2.0); EOSINOPHIL % 10.6 % (0-5); GRANULOCYTE % 51.9 % (42.2-75.2); HEMATOCRIT 28.5 % (37-47); MEAN CORPUSCULAR HGB 24.1 PG (27.0-31.0); MEAN CORPUSCULAR HGB CONC 31.1 G/DL (33.0-37.0); MEAN CORPUSCULAR VOLUME 77.4 FL (81.0-99.0); MEAN PLATELET VOLUME 10.2 FL (7.4-10.4); PLATELET COUNT 117 /CUMM (130-400); RBC DISTRIBUTION WIDTH 21.9 % (11.5-14.5); RED BLOOD CELL CT 3.68 /CUMM (4.20-5.40); WHITE BLOOD CELL COUNT 3.5 /CUMM (4.8-10.8)
--- NOTE | 2016-08-01 12:41 | PN- Att Addend ---
Attending Addendum Attending Brief Note Patient had an episode of fever 100.2 this morning. General Appearance: Alert, No Acute Distress Skin: Bilateral leg course skin lesions HEENT: PEERLA Neck: Supple, No JVD Cardiovascular: Regular Rate, Normal S1, Normal S2, No Murmurs Lungs: Clear to Auscultation, Normal Air Movement Abdomen: Distended Extremities: Left upper extremity and bilateral lower extremity edema Assessment Patient is status post 2 units PRBC. She has pancytopenia. During her last admission she was evaluated by hematology who considered pancytopenia secondary to liver cirrhosis and spleenomegaly. Patient is guaiac negative and hence one could suspect anemia is in relation to chronic liver disease and enlarged spleen. Status post negative colonoscopy with a fair prep. She has left subclavian and axillary vein DVT. Given patient has very poor compliance and follow-ups she will not be a good candidate for Lovenox or Coumadin now on Eliquis for at least 6 months. Status post paracentesis with about 1.4 L fluid removed. She has low-grade fever. We will check a UA and in the event she has persistent fever and elevated blood cultures and perform diagnostic paracentesis. At this point continue to monitor and follow off antibiotics. Plan check UA blood cultures if persistent fever diagnostic parasentesis if persistent fever Eliquis 5 mg twice a day potassium chloride 40 mEq once daily Ferrous sulfate 3 times a day Change to Lasix 40 mg po once daily Transfuse for hemoglobin goal about 8 Continue wound care Continue other home medications and DVT prophylaxis Current Medications Sig/Marcin Start time Last Medication Dose Route Stop Time Status Admin Acetaminophen 650 MG Q4P PRN 07/29 1430 AC PO Apixaban 5 MG BID 07/30 2200 AC 08/01 PO 1102 Ferrous Sulfate 325 MG TID 07/29 2200 AC 08/01 PO 1102 Furosemide 40 MG DAILY 08/02 1000 AC PO Furosemide 40 MG DAILY 07/30 1000 DC 08/01 IV 1102 Loperamide HCl 2 MG Q8P PRN 07/30 1930 AC PO Omeprazole 40 MG DAILY AC 07/27 2330 AC PO Patient Medication 1 UNIT ONE NR 07/31 1530 DC Teaching ED 07/31 1600 Potassium Chloride 40 MEQ DAILY 08/01 1000 AC 08/01 PO 1102 Propranolol HCl 20 MG Q8 08/01 0600 AC PO Propranolol HCl 20 MG Q8 07/31 1504 DC 07/31 PO 2144 Spironolactone 100 MG DAILY 07/31 1000 AC 08/01 PO 1102 Laboratory Tests 08/01 0720 Chemistry Sodium (137 - 145 mmol/L) 138 Potassium (3.5 - 5.1 mmol/L) 3.8 Chloride (98 - 107 mmol/L) 103 Carbon Dioxide (22 - 30 mmol/L) 30 Anion Gap (5 - 16) 5 BUN (7 - 17 mg/dL) 12 Creatinine (0.5 - 1.0 mg/dL) 0.6 Estimated GFR (>60 ml/min) > 60 BUN/Creatinine Ratio (7 - 25 %) 20.0 Hematology CBC w Diff NO MAN DIFF REQ WBC (4.8 - 10.8 /CUMM) 3.5 L RBC (4.20 - 5.40 /CUMM) 3.68 L Hgb (12.0 - 16.0 G/DL) 8.9 L Hct (37 - 47 %) 28.5 L MCV (81.0 - 99.0 FL) 77.4 L MCH (27.0 - 31.0 PG) 24.1 L RDW (11.5 - 14.5 %) 21.9 H Plt Count (130 - 400 /CUMM) 117 L MPV (7.4 - 10.4 FL) 10.2 Gran % (42.2 - 75.2 %) 51.9 Lymphocytes % (20.5 - 51.1 %) 23.7 Monocytes % (1.7 - 9.3 %) 13.1 H Eosinophils % (0 - 5 %) 10.6 H Basophils % (0.0 - 2.0 %) 0.7 Absolute Granulocytes (1.4 - 6.5 /CUMM) 1.8 Absolute Lymphocytes (1.2 - 3.4 /CUMM) 0.8 L Absolute Monocytes (0.10 - 0.60 /CUMM) 0.5 Absolute Eosinophils (0.0 - 0.7 /CUMM) 0.4 Absolute Basophils (0.0 - 0.2 /CUMM) 0 PUBS MCHC (33.0 - 37.0 G/DL) 31.1 L Vital Signs Date Time Temp Pulse Resp B/P Pulse O2 O2 Flow FiO2 Ox Delivery Rate 08/01 0535 54 108/60 08/01 0531 54 108/60 08/01 0020 100.2 63 20 118/58 92 07/31 2144 74 133/59 07/31 1654 98.2 79 18 132/68 93 Room Air
[2016-08-01 13:53] VITALS: BP 140/20
[2016-08-01 16:14] VITALS: BP 68/52
[2016-08-01 17:00] VITALS: BP 118/53
[2016-08-02 01:20] VITALS: BP 116/54
[2016-08-02 06:47] VITALS: BP 104/54
--- NOTE | 2016-08-02 07:20 | PN- Housestaff ---
Subjective Follow-up For: Left upper extremity deep venous thrombosis Right lower extremity ulcer Cirrhosis UTI Anemia s/p colonoscopy Subjective: I saw and examined the patient this am, she is thrilled about improvement of the left arm swelling, she says could comb her hair with left hand after for the first time since the swelling started. Also reports she can hold her urine and ask for a bed amaral to urinate (had become incontinent over the past few days). Reports no fever since yesterday and no chills, also no abdominal pain only mildly sensitive. Reports another episode of diarrhea since yesterday. Patient also overall feel much better and would like to work more with physical therapy, however still feels to weak to be discharged. Review of Systems Constitutional: Reports: weakness. Denies: chills, fever. EENTM: Reports: no symptoms. Cardiovascular: Denies: chest pain, palpitations. Respiratory: Denies: cough, short of breath, sputum production. Gastrointestinal: Reports: diarrhea. Denies: abdominal pain, bloating, nausea, vomiting. Genitourinary: Denies: discharge, dysuria, frequency, hesitation, urgency. Musculoskeletal: Reports: no symptoms. Skin: Reports: lesions. Objective Last 24 Hrs of Vital Signs/I&O Vital Signs Date Time Temp Pulse Resp B/P Pulse O2 O2 Flow FiO2 Ox Delivery Rate 08/02 0838 98.1 60 20 104/53 95 Room Air 08/02 0647 97.8 56 20 104/54 92 08/02 0636 54 08/02 0120 98.8 56 20 116/54 96 08/02 0000 Room Air 08/01 2301 60 118/55 08/01 1700 99.8 63 18 118/53 92 Room Air 08/01 1614 98.7 64 18 68/52 94 Room Air 08/01 1447 100.0 08/01 1445 100.0 08/01 1358 102.0 08/01 1356 73 148/68 08/01 1353 102.0 77 18 140/20 96 Room Air 08/01 1347 102.0 Intake & Output 08/02 1600 08/02 0800 08/02 0000 Intake Total 340 300 Output Total Balance 340 300 Intake, Oral 340 300 Physical Exam General Appearance: Alert, Oriented X3, Cooperative, No Acute Distress Skin: right foot ulcer, left second toe skin mass HEENT: Atraumatic, EOMI Neck: Supple Cardiovascular: Regular Rate, Normal S1, Normal S2, No Murmurs Lungs: Clear to Auscultation, Normal Air Movement Abdomen: Soft, mild generalized tenderness Neurological: Normal Speech, Normal Tone Extremities: 2+ pitting edema, venous stasis skin changes (hyperpigmentation and hyper keratosis) Vascular: Pulses Symmetrical Current Medications: Current Medications Sig/Marcin Start time Last Medication Dose Route Stop Time Status Admin Acetaminophen 650 MG Q4P PRN 08/01 1400 AC 08/01 PO 1358 Acetaminophen 650 MG Q4P PRN 07/29 1430 DC PO Apixaban 5 MG BID 07/30 2200 DC 08/01 PO 1102 Ceftriaxone Sodium 1,000 MG DAILY@1500 08/02 1500 AC IV Ceftriaxone Sodium 1,000 MG DAILY 08/01 1353 DC 08/01 IV 1447 Diphenhydramine HCl 50 MG Q6P PRN 08/01 1400 AC IV Ferrous Sulfate 325 MG TID 07/29 2200 AC 08/01 PO 2255 Furosemide 40 MG DAILY 08/02 1000 AC PO Furosemide 40 MG DAILY 07/30 1000 DC 08/01 IV 1102 Loperamide HCl 2 MG Q8P PRN 07/30 1930 AC PO Omeprazole 40 MG DAILY AC 07/27 2330 AC PO Polyethylene Glycol 17 GM DAILY 08/01 1324 CAN PO Potassium Chloride 40 MEQ DAILY 08/01 1000 AC 08/01 PO 1102 Propranolol HCl 20 MG Q8 08/01 0600 AC 08/01 PO 2301 Spironolactone 100 MG DAILY 07/31 1000 AC 08/01 PO 1102 Last 24 Hrs of Lab/Gui Results Last 24 Hrs of Labs/Mics: Laboratory Tests 08/02/16 0654: Anion Gap 3 L, Estimated GFR > 60, BUN/Creatinine Ratio 26.0 H, CBC w Diff Pending, WBC Pending, RBC Pending, Hgb Pending, Hct Pending, MCV Pending, MCH Pending, RDW Pending, Plt Count Pending, MPV Pending, PUBS MCHC Pending 08/01/16 1237: Urinalysis LIGHT H, Urine Color STRAW, Urine Clarity HAZY H, Urine pH 6.5, Ur Specific [place] 1.010, Urine Protein TRACE H, Urine Ketones NEG, Urine Nitrite NEG, Urine Bilirubin NEG, Urine Urobilinogen 0.2, Ur Leukocyte Esterase MOD H, Ur Microscopic SEDIMENT EXAMINED, Urine RBC 50-75 H, Urine WBC > 75 H, Ur Epithelial Cells RARE, Urine Hemoglobin LARGE H, Urine Glucose NEG Microbiology 08/01 1435 BLOOD: Blood Culture - RECD 08/01 1435 BLOOD: Blood Culture - RECD 08/01 1237 URINE ROUT: Urine Culture - RECD 08/01 1203 STOOL: Clostridium difficile Toxin A & B - RECD 08/01 1203 STOOL: Stool Culture - RECD Assessment/Plan Assessment: Patient continues to remain hemodynamically stable status post 2 units packed red blood cells. Hemoglobin/hematocrit this morning is 8.0/25.5. CBC will be rechecked tomorrow with a transfusion goal of 8.0 or higher. Patient was begun on Inderal today for variceal prophylaxis. Problem List: -Left upper extremity deep venous thrombosis -Left-sided pleural effusion -Chronic venous insufficiency -Lower extremity ulcers -Untreated Hepatitis C -Iron deficiency anemia -Esophageal varices -Liver cirrhosis Plan: -Eliquis 5 mg by mouth twice a day on hold for diagnostic paracentesis, we will plan it 72 hours after last dose of eliquis and do US guided paracenthesis tomorrow. Had tenderness and questionable rebound tenderness in abdomen yesterday (08/01/16), also has spiked fever and previous tap showed WBC of 233 ( 11% neutrophils), blood cultures sent, urine culture sent, UA suggests UTI, started IV ceftriaxone. -Lasix 40 mg PO daily -Potassium chloride powder 40 mEq by mouth daily -Inderal 20 mg by mouth every 8 hours -Spironolactone 100 mg by mouth daily -Omeprazole 40 mg by mouth daily -Imodium as needed for diarrhea -F/U GI consult -Wound consult -CBC in am and Transfuse for a goal of 8.0 or higher -Follow-up colonoscopy biopsy pathology results -DVT prophylaxis Problem List: 1. Deep vein thrombosis (DVT) of left upper extremity 2. Iron deficiency 3. Malnutrition 4. Mass of skin 5. Bilateral lower extremity edema 6. Obesity 7. Pancytopenia 8. Cirrhosis 9. Hepatitis C 10. Ascites 11. Anemia 12. UTI (urinary tract infection) Pain Ratin Pain Location: no pain Pain Goal: Pain 4 or less Pain Plan: mild pain pathway Tomorrow's Labs & Rationales: CBC (fever, anemia, pancytopenia) BEP (on lasix) CBC (fever, anemia, pancytopenia) BEP (on lasix)
[2016-08-02 07:59] LABS: ABSOLUTE BASOPHIL COUNT 0 /CUMM (0.0-0.2); ABSOLUTE EOSINOPHIL COUNT 0.4 /CUMM (0.0-0.7); ABSOLUTE GRANULOCYTE CT 3.4 /CUMM (1.4-6.5); ABSOLUTE MONOCYTE COUNT 0.5 /CUMM (0.10-0.60); BASOPHIL % 0.7 % (0.0-2.0); EOSINOPHIL % 7.2 % (0-5); GRANULOCYTE % 64.6 % (42.2-75.2); HEMATOCRIT 25.6 % (37-47); MEAN CORPUSCULAR HGB 24.2 PG (27.0-31.0); MEAN CORPUSCULAR HGB CONC 31.5 G/DL (33.0-37.0); MEAN PLATELET VOLUME 10.7 FL (7.4-10.4); PLATELET COUNT 119 /CUMM (130-400); RBC DISTRIBUTION WIDTH 22.1 % (11.5-14.5); RED BLOOD CELL CT 3.33 /CUMM (4.20-5.40)
--- NOTE | 2016-08-02 08:26 | PN- Wound Care ---
Subjective Subjective: Patient feels well without complaints she is still concerned about her left upper extremity swelling. Objective Vital Signs and I&Os Vital Signs Result Date Time Pulse Ox 92 08/02 0547 B/P 104/54 08/02 646 Temp 97.8 08/02 0647 Pulse 56 08/02 0647 Resp 20 08/02 0647 O2 Delivery Room Air 08/02 0000 O2 Flow Rate Room Air 08/01 0815 Intake & Output 08/02 0000 08/01 1600 08/01 0800 Intake Total 300 800 480 Output Total 250 Balance 300 550 480 Intake, Oral 300 800 480 Number 1 Bowel Movements Output, Urine 250 Bilateral lower extremity edema is markedly improved with bedrest and leg elevation. Right lower extremity venous ulcer shows clean wound bed with probably red fill there is some ectopic calcification present. The right plantar heel wound is clean without drainage. Impression/Plan Impression/Plan Impression/Plan: 76-year-old woman with multiple medical problems admitted with anemia left arm swelling is chronic right lower extremity venous stasis ulcer and ulcer of the right plantar surface both of which were present on admission. Recommend leg elevation while in bed. Daily wound cleansing and Xeroform to venous stasis ulcer and right plantar heel ulcer.
[2016-08-02 08:38] VITALS: BP 104/53
[2016-08-02 09:11] LABS: WHITE BLOOD CELL COUNT 5.3 /CUMM (4.8-10.8)
--- NOTE | 2016-08-02 09:15 | PN- Att Addend ---
Attending Addendum Attending Brief Note Patient has no symptoms and fever has subsided General Appearance: Alert, No Acute Distress Skin: Large right leg ulcer with clean base HEENT: PEERLA Neck: Supple, No JVD Cardiovascular: Regular Rate, Normal S1, Normal S2, No Murmurs Lungs: Clear to Auscultation, Normal Air Movement Abdomen: Distended Extremities: Left upper extremity and bilateral lower extremity edema Assessment Patient had an episode of fever yesterday. Possible source lower extremity wound, SBP and possible UTI. She does have a positive UA and currently cultures are pending. Also lower extremity wound appears clean. We will try to get a diagnostic tap today to rule out SBP and continue current antibiotics pending cultures. Plan Diagnostic tap Follow urine culture Resume Eliquis 5 mg twice a day after paracentesis potassium chloride 40 mEq once daily Ferrous sulfate 3 times a day Lasix 40 mg po once daily Transfuse for hemoglobin goal about 8 Continue wound care Continue other home medications and DVT prophylaxis Current Medications Sig/Marcin Start time Last Medication Dose Route Stop Time Status Admin Acetaminophen 650 MG Q4P PRN 08/01 1400 AC 08/01 PO 1358 Acetaminophen 650 MG Q4P PRN 07/29 1430 DC PO Apixaban 5 MG BID 07/30 2200 DC 08/01 PO 1102 Ceftriaxone Sodium 1,000 MG DAILY@1500 08/02 1500 AC IV Ceftriaxone Sodium 1,000 MG DAILY 08/01 1353 DC 08/01 IV 1447 Diphenhydramine HCl 50 MG Q6P PRN 08/01 1400 AC IV Ferrous Sulfate 325 MG TID 07/29 2200 AC 08/01 PO 2255 Furosemide 40 MG DAILY 08/02 1000 AC PO Furosemide 40 MG DAILY 07/30 1000 DC 08/01 IV 1102 Loperamide HCl 2 MG Q8P PRN 07/30 1930 AC PO Omeprazole 40 MG DAILY AC 07/27 2330 AC PO Polyethylene Glycol 17 GM DAILY 08/01 1324 CAN PO Potassium Chloride 40 MEQ DAILY 08/01 1000 AC 08/01 PO 1102 Propranolol HCl 20 MG Q8 08/01 0600 AC 08/01 PO 2301 Spironolactone 100 MG DAILY 07/31 1000 AC 08/01 PO 1102 Laboratory Tests 08/02 08/01 0654 1237 Chemistry Sodium (137 - 145 mmol/L) 136 L Potassium (3.5 - 5.1 mmol/L) 3.4 L Chloride (98 - 107 mmol/L) 104 Carbon Dioxide (22 - 30 mmol/L) 29 Anion Gap (5 - 16) 3 L BUN (7 - 17 mg/dL) 13 Creatinine (0.5 - 1.0 mg/dL) 0.5 Estimated GFR (>60 ml/min) > 60 BUN/Creatinine Ratio (7 - 25 %) 26.0 H Hematology CBC w Diff NO MAN DIFF REQ WBC (4.8 - 10.8 /CUMM) 5.3 RBC (4.20 - 5.40 /CUMM) 3.33 L Hgb (12.0 - 16.0 G/DL) 8.1 L Hct (37 - 47 %) 25.6 L MCV (81.0 - 99.0 FL) 77.0 L MCH (27.0 - 31.0 PG) 24.2 L RDW (11.5 - 14.5 %) 22.1 H Plt Count (130 - 400 /CUMM) 119 L MPV (7.4 - 10.4 FL) 10.7 H Gran % (42.2 - 75.2 %) 64.6 Lymphocytes % (20.5 - 51.1 %) 18.0 L Monocytes % (1.7 - 9.3 %) 9.5 H Eosinophils % (0 - 5 %) 7.2 H Basophils % (0.0 - 2.0 %) 0.7 Absolute Granulocytes (1.4 - 6.5 /CUMM) 3.4 Absolute Lymphocytes (1.2 - 3.4 /CUMM) 1.0 L Absolute Monocytes (0.10 - 0.60 /CUMM) 0.5 Absolute Eosinophils (0.0 - 0.7 /CUMM) 0.4 Absolute Basophils (0.0 - 0.2 /CUMM) 0 PUBS MCHC (33.0 - 37.0 G/DL) 31.5 L Urines Urinalysis LIGHT H Urine Color (YEL,AMB,STR) STRAW Urine Clarity (CLEAR) HAZY H Urine pH (5.0 - 8.0) 6.5 Ur Specific [place] (1.001 - 1.035) 1.010 Urine Protein (NEG,<30 MG/DL) TRACE H Urine Ketones (NEG) NEG Urine Nitrite (NEG) NEG Urine Bilirubin (NEG) NEG Urine Urobilinogen (0.1 - 1.0 EU/dl) 0.2 Ur Leukocyte Esterase (NEG) MOD H Ur Microscopic SEDIMENT EXAMINED Urine RBC (0 - 5 /HPF) 50-75 H Urine WBC (0 - 2 /HPF) > 75 H Ur Epithelial Cells (NONE,FEW) RARE Urine Hemoglobin (NEG) LARGE H Urine Glucose (N MG/DL) NEG Vital Signs Date Time Temp Pulse Resp B/P Pulse O2 O2 Flow FiO2 Ox Delivery Rate 08/02 0838 98.1 60 20 104/53 95 Room Air 08/02 0647 97.8 56 20 104/54 92 08/02 0636 54 08/02 0120 98.8 56 20 116/54 96 08/02 0000 Room Air 08/01 2301 60 118/55 08/01 1700 99.8 63 18 118/53 92 Room Air 08/01 1614 98.7 64 18 68/52 94 Room Air 08/01 1447 100.0 08/01 1445 100.0 08/01 1358 102.0 08/01 1356 73 148/68 08/01 1353 102.0 77 18 140/20 96 Room Air 08/01 1347 102.0
[2016-08-02 16:29] VITALS: BP 108/56
[2016-08-03 00:49] VITALS: BP 110/58
--- NOTE | 2016-08-03 07:01 | PN- Housestaff ---
Subjective Follow-up For: Left upper extremity deep venous thrombosis Right lower extremity ulcer Cirrhosis UTI Anemia, IRON DEFICIENCY s/p colonoscopy Subjective: I saw and examined the patient this am, she is doing well has no complaints and asks if lab results [urine culture] are back and if she can go today. She is working with PT and refuses lasix as she reports being incontinent and won't be able to reach the bathroom or commode. Swelling ni the arm has improved, reports no pain in the abdomen, and denies any fever or dysuria. Patient feels her urine incontinence gets worse off antibiotics. Review of Systems Constitutional: Denies: chills, fever. EENTM: Reports: no symptoms. Cardiovascular: Denies: chest pain, palpitations. Respiratory: Denies: cough, short of breath, sputum production. Gastrointestinal: Denies: abdominal pain, changes in stool. Genitourinary: Reports: frequency, nocturia, urgency. Musculoskeletal: Reports: no symptoms. Skin: Reports: no symptoms. Neurological/Psychological: Reports: no symptoms. Objective Last 24 Hrs of Vital Signs/I&O Vital Signs Date Time Temp Pulse Resp B/P Pulse O2 O2 Flow FiO2 Ox Delivery Rate 08/03 0910 65 106/60 08/03 0821 97.4 65 20 106/60 93 Room Air 08/03 0049 98.4 60 20 110/58 96 08/02 1629 99.0 64 18 108/56 97 Room Air 08/02 1526 52 Intake & Output 08/03 1600 08/03 0800 08/03 0000 Intake Total 300 Output Total Balance 300 Intake, Oral 300 Number 2 Bowel Movements Physical Exam General Appearance: Alert, Oriented X3, Cooperative, No Acute Distress Skin: No Significant Lesion, venous stasis skin changes (thickened and hyperpigmented) HEENT: Atraumatic, EOMI Neck: Supple Cardiovascular: Normal S1, Normal S2, No Murmurs Lungs: Clear to Auscultation, Normal Air Movement Abdomen: Normal Bowel Sounds, Soft, No Tenderness Neurological: Normal Speech, Strength at 5/5 X4 Ext, Normal Tone, Sensation Intact, Cranial Nerves 3-12 NL Extremities: right leg ulcer with dressing around which is dry and is being changed daily. No discharge noted., 1+ piting edema bilaterally in LEs Vascular: Pulses Symmetrical Current Medications: Current Medications Sig/Marcin Start time Last Medication Dose Route Stop Time Status Admin Acetaminophen 650 MG Q4P PRN 08/01 1400 AC 08/01 PO 1358 Apixaban 5 MG BID 08/03 1000 AC PO Ceftriaxone Sodium 1,000 MG DAILY@1500 08/02 1500 AC 08/02 IV 1528 Diphenhydramine HCl 50 MG Q6P PRN 08/01 1400 AC IV Ferrous Sulfate 325 MG TID 07/29 2200 AC 08/03 PO 0908 Furosemide 20 MG DAILY 08/03 1000 AC PO Furosemide 40 MG DAILY 08/02 1000 DC 08/02 PO 1044 Loperamide HCl 2 MG Q8P PRN 07/30 1930 AC PO Omeprazole 40 MG DAILY AC 07/27 2330 AC PO Patient Medication 1 ED .STK-MED ONE 08/02 1328 DC Teaching ED 08/02 1329 Potassium Chloride 40 MEQ ONCE ONE 08/02 1500 DC 08/02 PO 08/02 1501 1527 Potassium Chloride 40 MEQ ONCE ONE 08/02 1330 CAN PO 08/02 1331 Potassium Chloride 40 MEQ DAILY 08/01 1000 AC 08/03 PO 0908 Propranolol HCl 20 MG BID 08/03 1000 AC PO Propranolol HCl 20 MG Q8 08/01 0600 DC 08/01 PO 2301 Spironolactone 100 MG DAILY 07/31 1000 AC 08/02 PO 1044 Last 24 Hrs of Lab/Gui Results Last 24 Hrs of Labs/Mics: Laboratory Tests 08/03/16 0800: Fluid WBC Cancelled, Fld Total RBCs Counted Cancelled 08/03/16 0620: Anion Gap 6, Estimated GFR > 60, BUN/Creatinine Ratio 25.0, Magnesium 2.0, PT 12.4, INR 1.18, APTT 28, CBC w Diff NO MAN DIFF REQ, RBC 3.51 L, MCV 77.3 L, MCH 24.3 L, RDW 22.3 H, MPV 10.3, Gran % 49.5, Lymphocytes % 26.5, Monocytes % 13.3 H, Eosinophils % 10.2 H, Basophils % 0.5, Absolute Granulocytes 1.8, Absolute Lymphocytes 1.0 L, Absolute Monocytes 0.5, Absolute Eosinophils 0.4, Absolute Basophils 0, PUBS MCHC 31.4 L Assessment/Plan Assessment: Patient continues to remain hemodynamically stable status post 2 units packed red blood cells. Hemoglobin/hematocrit this morning is 8.0/25.5. CBC will be rechecked tomorrow with a transfusion goal of 8.0 or higher. Patient was begun on Inderal today for variceal prophylaxis. Problem List: -Left upper extremity deep venous thrombosis -Left-sided pleural effusion -Chronic venous insufficiency -Lower extremity ulcers -Untreated Hepatitis C -Iron deficiency anemia -Esophageal varices -Liver cirrhosis Plan: -Resumed Eliquis 5 mg by mouth twice a day today, patient will continue eliqius 2.5 mg BID after 1 week of 5 mg BID (starting 08/07/16). -We cancelled paracentesis today as the patient has remained afebrile and abdominal exam does not show tenderness. Had tenderness and questionable rebound tenderness in abdomen yesterday (08/01/16). blood cultures and urine culture pending, we have continued IV ceftriaxone. -Lasix decreased to 20 mg PO daily (due to borderline BP) -Potassium chloride powder 40 mEq by mouth to replete K as needed -Inderal 20 mg by mouth every 8 hours -Spironolactone 100 mg by mouth daily -Propranolol 20 mg BID for variceal bleed prophylaxis (has not been given due to low BP) -Omeprazole 40 mg by mouth daily -Imodium as needed for diarrhea -F/U GI consult -F/U Wound consult -CBC in am and Transfuse for a goal of 8.0 or higher -Follow-up colonoscopy biopsy pathology results outpatient -DVT prophylaxis Patient can be discharged after urine culture sensitivities come back. She will be given oral antibiotics to complete a 7 day course. Problem List: 1. UTI (urinary tract infection) 2. Deep vein thrombosis (DVT) of left upper extremity 3. Hypokalemia 4. Iron deficiency 5. Malnutrition 6. Mass of skin 7. Bilateral lower extremity edema 8. Obesity 9. Pancytopenia 10. Cirrhosis 11. Hepatitis C Pain Ratin Pain Location: no pain Pain Goal: Pain 4 or less Pain Plan: tylenol for mild pain Tomorrow's Labs & Rationales: BEP (on lasix)
[2016-08-03 07:55] LABS: ABSOLUTE BASOPHIL COUNT 0 /CUMM (0.0-0.2); ABSOLUTE EOSINOPHIL COUNT 0.4 /CUMM (0.0-0.7); ABSOLUTE GRANULOCYTE CT 1.8 /CUMM (1.4-6.5); ABSOLUTE MONOCYTE COUNT 0.5 /CUMM (0.10-0.60); BASOPHIL % 0.5 % (0.0-2.0); EOSINOPHIL % 10.2 % (0-5); GRANULOCYTE % 49.5 % (42.2-75.2); HEMATOCRIT 27.1 % (37-47); MEAN CORPUSCULAR HGB 24.3 PG (27.0-31.0); MEAN CORPUSCULAR HGB CONC 31.4 G/DL (33.0-37.0); MEAN CORPUSCULAR VOLUME 77.3 FL (81.0-99.0); MEAN PLATELET VOLUME 10.3 FL (7.4-10.4); PLATELET COUNT 121 /CUMM (130-400); RBC DISTRIBUTION WIDTH 22.3 % (11.5-14.5); RED BLOOD CELL CT 3.51 /CUMM (4.20-5.40); WHITE BLOOD CELL COUNT 3.7 /CUMM (4.8-10.8)
[2016-08-03 08:21] VITALS: BP 106/60
[2016-08-03 08:50] LABS: PT 12.4 SEC (9.4-12.5); PTT 28 SEC (25-37)
--- NOTE | 2016-08-03 09:11 | PN- Att Addend ---
Attending Addendum Attending Brief Note Patient has no symptoms and fever has subsided General Appearance: Alert, No Acute Distress Skin: Large right leg ulcer with clean base HEENT: PEERLA Neck: Supple, No JVD Cardiovascular: Regular Rate, Normal S1, Normal S2, No Murmurs Lungs: Clear to Auscultation, Normal Air Movement Abdomen: Distended Extremities: Left upper extremity and bilateral lower extremity edema Assessment Gram-negative rods in the urine. This is the likely source of infection since fever has subsided on antibiotics. We'll hold off on diagnostic paracentesis and resume Eliquis. Plan Hold off on diagnostic paracentesis Follow urine culture Resume Eliquis 5 mg twice a day potassium chloride 40 mEq once daily Ferrous sulfate 3 times a day Lasix 40 mg po once daily Transfuse for hemoglobin goal about 8 Continue wound care Continue other home medications and DVT prophylaxis Current Medications Sig/Marcin Start time Last Medication Dose Route Stop Time Status Admin Acetaminophen 650 MG Q4P PRN 08/01 1400 AC 08/01 PO 1358 Ceftriaxone Sodium 1,000 MG DAILY@1500 08/02 1500 AC 08/02 IV 1528 Diphenhydramine HCl 50 MG Q6P PRN 08/01 1400 AC IV Ferrous Sulfate 325 MG TID 07/29 2200 AC 08/03 PO 0908 Furosemide 40 MG DAILY 08/02 1000 AC 08/02 PO 1044 Loperamide HCl 2 MG Q8P PRN 07/30 1930 AC PO Omeprazole 40 MG DAILY AC 07/27 2330 AC PO Patient Medication 1 ED .STK-MED ONE 08/02 1328 DC Teaching ED 08/02 1329 Potassium Chloride 40 MEQ ONCE ONE 08/02 1500 DC 08/02 PO 08/02 1501 1527 Potassium Chloride 40 MEQ ONCE ONE 08/02 1330 CAN PO 08/02 1331 Potassium Chloride 40 MEQ DAILY 08/01 1000 AC 08/03 PO 0908 Propranolol HCl 20 MG Q8 08/01 0600 AC 08/01 PO 2301 Spironolactone 100 MG DAILY 07/31 1000 AC 08/02 PO 1044 Laboratory Tests 08/03 0620 Chemistry Sodium (137 - 145 mmol/L) 137 Potassium (3.5 - 5.1 mmol/L) 4.1 Chloride (98 - 107 mmol/L) 106 Carbon Dioxide (22 - 30 mmol/L) 25 Anion Gap (5 - 16) 6 BUN (7 - 17 mg/dL) 15 Creatinine (0.5 - 1.0 mg/dL) 0.6 Estimated GFR (>60 ml/min) > 60 BUN/Creatinine Ratio (7 - 25 %) 25.0 Magnesium (1.6 - 2.3 mg/dL) 2.0 Coagulation PT (9.4 - 12.5 SEC) 12.4 INR (0.90 - 1.19) 1.18 APTT (25 - 37 SEC) 28 Hematology CBC w Diff NO MAN DIFF REQ WBC (4.8 - 10.8 /CUMM) 3.7 L RBC (4.20 - 5.40 /CUMM) 3.51 L Hgb (12.0 - 16.0 G/DL) 8.5 L Hct (37 - 47 %) 27.1 L MCV (81.0 - 99.0 FL) 77.3 L MCH (27.0 - 31.0 PG) 24.3 L RDW (11.5 - 14.5 %) 22.3 H Plt Count (130 - 400 /CUMM) 121 L MPV (7.4 - 10.4 FL) 10.3 Gran % (42.2 - 75.2 %) 49.5 Lymphocytes % (20.5 - 51.1 %) 26.5 Monocytes % (1.7 - 9.3 %) 13.3 H Eosinophils % (0 - 5 %) 10.2 H Basophils % (0.0 - 2.0 %) 0.5 Absolute Granulocytes (1.4 - 6.5 /CUMM) 1.8 Absolute Lymphocytes (1.2 - 3.4 /CUMM) 1.0 L Absolute Monocytes (0.10 - 0.60 /CUMM) 0.5 Absolute Eosinophils (0.0 - 0.7 /CUMM) 0.4 Absolute Basophils (0.0 - 0.2 /CUMM) 0 PUBS MCHC (33.0 - 37.0 G/DL) 31.4 L Vital Signs Date Time Temp Pulse Resp B/P Pulse O2 O2 Flow FiO2 Ox Delivery Rate 08/03 0910 65 106/60 08/03 0821 97.4 65 20 106/60 93 Room Air 08/03 0049 98.4 60 20 110/58 96 08/02 1629 99.0 64 18 108/56 97 Room Air 08/02 1526 52
[2016-08-03] MEDS ORDERED: FERROUS SULFAT325 M2 PO (09:47)
[2016-08-03] MEDS ORDERED: LASIX20 M1 PO (09:49)
[2016-08-03] MEDS ORDERED: ALDACTONE25 MG PO (09:49)
[2016-08-03] MEDS ORDERED: PROPRANOLOL HCL20 M1 PO (09:57)
[2016-08-03] MEDS ORDERED: ELIQUIS5 M1 PO ×2 (11:24→17:02)
[2016-08-03] MEDS ORDERED: ELIQUIS2.5 M1 PO ×2 (11:25→17:02)
[2016-08-03 11:32] VITALS: BP 118/60
[2016-08-03] MEDS ORDERED: PROPRANOLOL HCL10 M1 PO ×2 (14:33→17:02)
[2016-08-03] MEDS ORDERED: KLOR-CON20 ME1 PO ×2 (16:05→17:02)
[2016-08-03] MEDS ORDERED: CIPROFLOXACIN500 M2 PO (16:08)
[2016-08-03] MEDS ORDERED: SPIRONOLACTONE25 M1 PO (17:02)
[2016-08-03] MEDS ORDERED: FUROSEMIDE20 M1 PO (17:02)
[2016-08-03] MEDS ORDERED: IRON325 M3 PO (17:02)
--- NOTE | 2016-09-01 13:43 | Discharge Summary ---
Visit Information Visit Dates Admission Date: 07/27/16 Discharge Date: 08/03/16 Hospital Course Course Attending Physician: DEAN SCHMITT MD Primary Care Physician: DEAN SCHMITT MD Consulting Request: Consulting Specialty: Gastroenterology Consulting Physician: Valentín Dave MD Reason for Consult: GI bleed Hospital Course: 76-year-old with history of chronic venous insufficiency, chronic lower extremity lesions, hepatitis C currently untreated, esophageal varices on her recent endoscopy, the liver cirrhosis and anemia that is multifactorial including iron deficiency and possible GI bleed. During her last admission she did not undergo colonoscopy secondary to poor prep and plan was for outpatient coloscopy. Patient is usually noncompliant with medications and follow-ups. She presented with left upper extremity edema and anemia with a positive guaiac stool. 1. Iron deficiency anemia with positive guaiac stools Patient underwent inpatient colonoscopy with a fair prep. No active bleeding identified and polyps less than 1 cm could not be ruled out. She will continue iron supplement as outpatient and follow up with GI. she will also follow GI for treatment of hepatitis C. 2. left upper extremity DVT unprovoked DVT. Patient was started on eliquis after obvious causes of lower GI bleed was ruled out by colonoscopy. Will need outpatient hypercoagulable workup. 3. Lower extremity edema and chronic wound She received IV Lasix for edema. She was also followed by wound care while she was inpatient. There was marked improvement in the swelling. Patient will be following wound care as outpatient and continue oral Lasix. Allergies: Coded Allergies: Penicillins (RASH 08/05/15) Sulfa (Sulfonamide Antibiotics) (UNKNOWN - PER PT SON 08/05/15) cephalexin (From KEFLEX) (RASH 07/27/16) clindamycin (UNKNOWN - PER PT SON 08/05/15) Disposition Summary Disposition Principal Diagnosis: left upper extremity DVT Additional Diagnosis: iron deficiency anemia Discharge Disposition: home or self care Discharge Instructions General Discharge Information Code Status: Full Code Patient's Diet: low-salt diet Patient's Activity: as tolerated Follow-Up Instructions/Appts: follow-up with GI and wound clinic as outpatient Medications at Discharge Discharge Medications: Start taking the following new medications: Ferrous Sulfate (IRON) 325 MG (65 MG IRON) TABLET 1 Tablet ORAL THREE TIMES DAILY Qty = 90 No Refills Apixaban (Eliquis) 5 MG TABLET 1 Tablet ORAL TWICE DAILY Qty = 6 No Refills Instructions: Please take these on 08/04/16 through 08/06/16 and the start on the other dose of 2.5mg after this is completed Apixaban (Eliquis) 2.5 MG TABLET 1 Tablet ORAL TWICE DAILY Qty = 60 No Refills Instructions: Start taking this twice a day on 08/07/16 Potassium Chloride (Klor-Con) 20 MEQ PACKET 1 Packet ORAL DAILY Qty = 14 No Refills Propranolol HCl (Propranolol HCl) 10 MG TABLET 0.5 Tablet ORAL DAILY Qty = 30 No Refills Instructions: Please monitor blood pressure and heart rate twice a day for 1 week. Send the results to your PCP and he will adjust the dose of this medication moving forward Furosemide (Furosemide) 20 MG TABLET 1 Tablet ORAL DAILY Qty = 30 No Refills Spironolactone (Spironolactone) 25 MG TABLET 1 Tablet ORAL DAILY Qty = 30 No Refills Copies To: FRANK SILVER MD, MD Review Statement Documenting Attending: DEAN SCHMITT MD
== END 2016-08-03 17:20 | disposition home health service (06) | DRG 300 ==
LOC: ENRESERVDT → ENRESERVTM → ERH 10:43 → ENPENDDIS 15:21 → 2NB 15:21 → ERHI 15:21 → 2NB 17:52
PROVIDERS: Internal Medicine; Internal Medicine Interventional Cardiology; Ophthalmology; Physician Assistant; ADMIT Internal Medicine
PROC: 30233N1 Transfusion of Nonautologous Red Blood Cells into Peripheral Vein, Percutaneous Approach (ICD-10-PCS; 2016-07-28)
PROC: 0DBG8ZX Excision of Left Large Intestine, Via Natural or Artificial Opening Endoscopic, Diagnostic (ICD-10-PCS; principal; 2016-07-30)
PROC: 0DBF8ZX Excision of Right Large Intestine, Via Natural or Artificial Opening Endoscopic, Diagnostic (ICD-10-PCS; principal; 2016-07-30)
PROC: 0W9G3ZX Drainage of Peritoneal Cavity, Percutaneous Approach, Diagnostic (ICD-10-PCS; 2016-07-30)
DX: I82.622 Acute embolism and thrombosis of deep veins of left upper extremity (principal); D61.818 Other pancytopenia; L97.219 Non-pressure chronic ulcer of right calf with unspecified severity; I85.10 Secondary esophageal varices without bleeding; L97.229 Non-pressure chronic ulcer of left calf with unspecified severity; L97.419 Non-pressure chronic ulcer of right heel and midfoot with unspecified severity; N39.0 Urinary tract infection, site not specified; D50.9 Iron deficiency anemia, unspecified; I83.002 Varicose veins of unspecified lower extremity with ulcer of calf; B18.2 Chronic viral hepatitis C; I87.2 Venous insufficiency (chronic) (peripheral); K74.60 Unspecified cirrhosis of liver; E66.9 Obesity, unspecified; Z68.35 Body mass index [BMI] 35.0-35.9, adult; I83.012 Varicose veins of right lower extremity with ulcer of calf; B96.89 Other specified bacterial agents as the cause of diseases classified elsewhere
CPT/HCPCS: 2NBP; 87075; 36415; 81001; 82436; 86860; 86902; 86920; 86922; 87040; 87045; 87086; 88305; 93970; 97110-GO; 97116-GO; 97161-GP; 97530-GO; J0696; J1200; J1940; J3490; P9016

== ENCOUNTER 2016-11-14 07:30 | Inpatient (IN) | payer OTHER, MEDICARE ==
[~2016-11-14] VITALS: Ht 167.6 cm; Wt 98.2 kg
[~2016-11-14 07:30] MED LIST changes: +ALDACTONE25 MG PO; +CIPROFLOXACIN500 M2 PO; +ELIQUIS2.5 M1 PO; +ELIQUIS5 M1 PO; +FUROSEMIDE20 M1 PO; +IRON325 M3 PO; +KLOR-CON 1010 ME1 PO; +KLOR-CON20 ME1 PO; +LASIX20 M1 PO; +PROPRANOLOL HCL10 M1 PO; +SPIRONOLACTONE25 M1 PO
--- NOTE | 2016-11-14 07:40 | ED GI/GU/ABDOMINAL COMPLAINT ---
History of Present Illness General Chief Complaint: General Adult Stated Complaint: BIBA FOR VOMITING UP BLOOD Source: patient, family, old records, EMS Exam Limitations: no limitations Vital Signs & Intake/Output Vital Signs & Intake/Output Vital Signs Date Time Temp Pulse Resp B/P B/P Pulse O2 O2 Flow FiO2 Mean Ox Delivery Rate 11/14 1036 96.6 77 20 116/57 95 Room Air 11/14 0856 75 20 137/62 97 Room Air 11/14 0826 87 20 111/53 95 Room Air 11/14 0815 88 22 116/56 98 Room Air 11/14 0804 98.0 90 22 108/61 998 Room Air Allergies Coded Allergies: Penicillins (RASH 08/05/15) Sulfa (Sulfonamide Antibiotics) (UNKNOWN - PER PT SON 08/05/15) cephalexin (From KEFLEX) (RASH 07/27/16) clindamycin (UNKNOWN - PER PT SON 08/05/15) Reconcile Medications Apixaban (Eliquis) 2.5 MG TABLET 1 TAB PO BID DVT Start taking this twice a day on 08/07/16 Ferrous Sulfate (IRON) 325 MG (65 MG IRON) TABLET 1 TAB PO TID Iron deficiency Furosemide 20 MG TABLET 1 TAB PO DAILY Fluid overload Ibuprofen (Unknown Strength) TABLET (Unknown Dose) PO TID PAIN (Reported) Potassium Chloride (Klor-Con) 20 MEQ PACKET 1 PAC PO DAILY Low potassium Propranolol HCl 10 MG TABLET 0.5 TAB PO DAILY Gastric varices Please monitor blood pressure and heart rate twice a day for 1 week. Send the results to your PCP and he will adjust the dose of this medication moving forward Spironolactone 25 MG TABLET 1 TAB PO DAILY Fluid balance Triage Nurses Notes Reviewed? yes ? N Is pt currently ? No HPI: Patient brought in by ambulance for vomiting bright red Blood since this morning. Patient has known history of hepatitis C cirrhosis which is not treated as well as esophageal varices. Patient is also been having very dark black tarry stools. Patient denies any abdominal pain. There are no fevers or chills. There is no chest pain or shortness of breath. Past History Travel History Traveled to [place] past 21 day No Medical History Any Pertinent Medical History? 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 , Age 84; Cause: Renal cell cancer. MOTHER, , Age 74; Cause: CVA (cerebrovascular accident due to intracerebral hemorrhage). Hx Contributory? No Review of Systems Review of Systems Constitutional: Reports: see HPI, weakness. EENTM: Reports: no symptoms. Respiratory: Reports: no symptoms. Cardiovascular: Reports: no symptoms. GI: Reports: see HPI, diarrhea, nausea, changes in stool, vomiting. Genitourinary: Reports: no symptoms. Musculoskeletal: Reports: no symptoms. Skin: Reports: no symptoms. Neurological/Psychological: Reports: no symptoms. Hematologic/Endocrine: Reports: no symptoms. Immunologic/Allergic: Reports: no symptoms. All Other Systems: Reviewed and Negative Physical Exam Physical Exam General Appearance: well developed/nourished, alert, awake, anxious, severe distress Head: atraumatic, normal appearance Eyes: Bilateral: PERRL, EOMI, other (PALE CONJUNCTIVA). Ears, Nose, Throat, Mouth: hearing grossly normal, DRY MUCOSA Neck: normal inspection, supple, full range of motion Respiratory: normal breath sounds, chest non-tender, no respiratory distress, lungs clear Cardiovascular: regular rate/rhythm, normal peripheral pulses Gastrointestinal: normal bowel sounds, soft, non-tender, no organomegaly Rectal: DARK MELANOTIC STOOL, HEME POSITIVE Back: normal inspection, normal range of motion Extremities: normal range of motion Neurologic/Psych: no motor/sensory deficits, awake, alert, oriented x 3, normal mood/affect Skin: intact, normal color, warm/dry, PALE Core Measures ACS in differential dx? No Severe Sepsis Present: No Septic Shock Present: No Progress Differential Diagnosis: esophageal varices, gastritis, hepatitis, ischemic bowel , inflamm bowel dis, peptic ulcer, PUD/GERD Plan of Care: Orders Procedure Date/time Status PROTHROMBIN TIME 11/15 0500 Active ICU LAB BUNDLE 11/15 0500 Active CBC WITHOUT DIFFERENTIAL 11/15 0500 Active Nothing by Mouth 11/14 L Active ICU LAB BUNDLE 11/14 1600 Active CBC WITHOUT DIFFERENTIAL 11/14 1600 Active TROPONIN LEVEL 11/14 1300 Active EKG 11/14 1300 Active Intake & Output 11/14 1111 Active Add-on Test (ER Only) 11/14 1056 Active LACTIC ACID 11/14 1033 Active Pathway - chart 11/14 1025 Active Code Status 11/14 1003 Active Remy, Insertion/Removal/Asses 11/14 0955 Active CULTURE,URINE 11/14 0955 Active Pathway - chart 11/14 0942 Active Admit to inpatient 11/14 0838 Active Patient Data 11/14 0834 Active LEUKOCYTE POOR (PACKED CELLS) 11/14 0811 Active ETHANOL 11/14 0737 Complete URINALYSIS 11/14 0734 Complete AMMONIA 11/14 0734 Complete EKG 11/14 0734 Active TROPONIN LEVEL 11/14 0733 Complete PROTHROMBIN TIME 11/14 0733 Complete LIPASE 11/14 0733 Complete LACTIC ACID 11/14 0733 Complete COMPREHENSIVE METABOLIC PANEL 11/14 0733 Complete CBC WITHOUT DIFFERENTIAL 11/14 0733 Complete AMYLASE 11/14 0733 Complete TYPE & SCREEN (NOT X-MATCH) 11/14 0733 Active House Staff 11/14 UNK Active VTE Mechanical Prophylaxis 11/14 UNK Active Vital Signs 11/14 UNK Active Hemoccult 11/14 UNK Active Current Medications Sig/Marcin Start time Last Medication Dose Stop Time Status Admin Octreotide Acetate 500 MCG Q10H 11/14 0815 AC 11/14 (Sandostatin Drip) 0900 Dextrose/Water 500 ML (D5W) Pantoprazole Sodium 40 MG Q5H 11/14 0815 AC 11/14 (Protonix) 0836 Sodium Chloride 100 ML (Normal Saline 0.9%) Laboratory Tests 11/14/16 1108: Lactic Acid Pending 11/14/16 1000: Urine Color YEL, Urine Clarity HAZY H, Urine pH 6.0, Ur Specific [place] 1.020, Urine Protein TRACE H, Urine Ketones NEG, Urine Nitrite POS H, Urine Bilirubin NEG, Urine Urobilinogen 0.2, Ur Leukocyte Esterase MOD H, Ur Microscopic SEDIMENT EXAMINED, Urine WBC 50-75 H, Ur Epithelial Cells MOD H, Urine Bacteria MOD H, Urine Mucus FEW, Urine Hemoglobin NEG, Urine Glucose NEG 11/14/16 0737: Ammonia 85 H 11/14/16 0737: Anion Gap 7, Estimated GFR > 60, BUN/Creatinine Ratio 60.0 H, Glucose 124 H, Lactic Acid 2.5 H, Calcium 7.6 L, Total Bilirubin 0.5, AST 45 H, ALT 44, Alkaline Phosphatase 83, Troponin I < 0.01, Total Protein 5.9 L, Albumin 2.4 L , Globulin 3.5, Albumin/Globulin Ratio 0.7 L, Amylase 32, Lipase 68, PT 14.5 H , INR 1.39 H, CBC w Diff NO MAN DIFF REQ, RBC 2.59 L, MCV 70.8 L, MCH 21.8 L , RDW 18.8 H, MPV 10.0, Gran % 55.4, Lymphocytes % 26.7, Monocytes % 13.3 H, Eosinophils % 3.4, Basophils % 1.2, Absolute Granulocytes 2.5, Absolute Lymphocytes 1.2, Absolute Monocytes 0.6, Absolute Eosinophils 0.2, Absolute Basophils 0.1, PUBS MCHC 30.8 L, Serum Alcohol < 10.0 Microbiology 11/14 1000 URINE ROUT: Urine Culture - RECD Initial ED EKG: NSR, nonspecific ST T wave chg Prior EKG: unchanged Rhythm Strip: normal sinus rhythm Comments: Patient refused NG tube. Patient was informed that she is very nauseous because there is blood in her stomach and that the NG tube will help alleviate that. Patient then stated that we could attempt it. I inserted the NG tube approximately 5 cm before the patient grabbed my hand and ripped the NG tube out and said that since she cannot take it and she adamantly refused to have it performed. Case was discussed with Dr. Mcdonald. He will consult on the patient. Patient will require ICU admission. Departure Departure Disposition: STILL A PATIENT Condition: Critical Clinical Impression Primary Impression: Upper GI bleed Secondary Impressions: Symptomatic anemia Referrals: DEAN SCHMITT MD (PCP/Family) Departure Forms: Customer Survey General Discharge Information Admission Note Spoke With: MAR WEAVER MD Documentation of Exam: Documentation of any treatments & extenuating circumstances including Concerns Regarding Discharge (functional status, medication knowledge or non-compliance, living conditions, etc.) that warrant an admission rather than observation: [ICU admission, gastroenterology evaluation with endoscopy to be performed this morning. IV octreotide, IV Protonix, IV antibiotics, transfusion] Critical Care Note Critical Care Note Critical Care Time: mins: (90 MIN)
[2016-11-14 07:53] LABS: ABSOLUTE BASOPHIL COUNT 0.1 /CUMM (0.0-0.2); ABSOLUTE EOSINOPHIL COUNT 0.2 /CUMM (0.0-0.7); ABSOLUTE GRANULOCYTE CT 2.5 /CUMM (1.4-6.5); ABSOLUTE LYMPH COUNT 1.2 /CUMM (1.2-3.4); ABSOLUTE MONOCYTE COUNT 0.6 /CUMM (0.10-0.60); BASOPHIL % 1.2 % (0.0-2.0); EOSINOPHIL % 3.4 % (0-5); GRANULOCYTE % 55.4 % (42.2-75.2); MEAN CORPUSCULAR HGB 21.8 PG (27.0-31.0); MEAN CORPUSCULAR HGB CONC 30.8 G/DL (33.0-37.0); MEAN CORPUSCULAR VOLUME 70.8 FL (81.0-99.0); PLATELET COUNT 162 /CUMM (130-400); RBC DISTRIBUTION WIDTH 18.8 % (11.5-14.5); RED BLOOD CELL CT 2.59 /CUMM (4.20-5.40); WHITE BLOOD CELL COUNT 4.6 /CUMM (4.8-10.8)
[2016-11-14 08:00] LABS: HEMATOCRIT 18.4 % (37-47)
--- NOTE | 2016-11-14 08:00 | NUR ---
PER PT AND EMS PT REPORTS VOMITTED BRB X 2 ALSO INCONTINENT OF LARGE AMTS OF STOOL. UPON ARRIVAL PT PALE ALERT MENTATING WELL, BRB SPIT IN BASIN
--- NOTE | 2016-11-14 08:03 | NUR ---
CRITICAL TEST RESULTS [id number] OTONIEL SANCHES 76 F TESTS AND RESULTS: HEMOGLOBIN 5.7 HEMATOCRIT 18.4 Results received and read back by: MARIS MYERS Results received date and time: 11/14/16 0804 The following provider was notified of the results, and read the results back: DR LIVINGSTON Notified date and time: 11/14/16 at 0800
[2016-11-14 08:04] LABS: PT 14.5 SEC (9.4-12.5)
--- NOTE | 2016-11-14 08:13 | NUR ---
ER LAB PT HAS ANTIBODIES IN HER BLOOD AND ITS GOING TO TAKE AWHILE FOR BLOOD
--- NOTE | 2016-11-14 08:19 | NUR ---
ALERT PALE INCONT OF DARK MELANIC, STOOL UPON ARRIVAL, DOWN LEGS INTO ABD FOLDS L HEEL WITH CLOSED BLISTER NO DRAINAGE BILT LEGS SKIN WITH PIMPLES THROUGHOUT LOWER LEGS NON DRAINING RLE WITH DRESSING TO ANKLE AND HEEL NOT REMOVED AT THIS TIME. NO OPEN AREAS TO BUTTOCKS NOTED.
--- NOTE | 2016-11-14 08:31 | NUR ---
VOMITTED 150 CCS BLOOD WITH CLOTS. MD AWARE PT CONT TO REFUSE NGT, PT ALERT REFUSES TO LAY FLAT OR ALLOW ORTHOSTATIC VS.
--- NOTE | 2016-11-14 08:33 | NUR ---
MD AT BEDSIDE, PT SCREAMING AND PULLING MD HANDS WHILE NGT ATTEMPT.
--- NOTE | 2016-11-14 09:00 | NUR ---
SON CONTACTED ON HIS WAY TO ED.
--- NOTE | 2016-11-14 09:00 | NUR ---
PT VERY ANXIOUS NO FURTHER VOMITING OR DIARRHEA NOTED.
[2016-11-14] MEDS ORDERED: IBUPROFEN400 M1 PO (09:06)
--- NOTE | 2016-11-14 09:24 | NUR ---
PER LAB BLOOD MUST BE OBTAINED FROM [facility] AND WILL TAKE APPROX 4 HRS, PER ED IN LAB. ICU , KWABENA HARRISON WITH PT REFUSES CIPRO IV.,
--- NOTE | 2016-11-14 09:29 | Cons- Gastroenterology ---
General Information and HPI Consulting Request Date of Consult: 11/14/16 Requested By: EDAN SCHMITT MD Reason for Consult: I was called by Dr. Cardona, of the [facility], at 8:15 a.m., for a request for GI consult to assess hematemesis in a patient with Hep C cirrhosis, on Ibuprofen. *The patient initially refused treatment by the ER, as well as GI procedures, then changed her mind. She was seen in ER room #2. Source of Information: patient, family (pt's son, Bobby Villarreal), old records Exam Limitations: poor historian, poor insight, non-compliant History of Present Illness: 76-year-old female, *poor insight & non-compliant, obese, hypertensive, PVD, chronic LE ulcers, thyroid nodules (never biopsied), ? MRSA wound, low Vit D, rheumatic fever, history of actively replicating Hepatitis C (12/02/2015: + Quantitative HCV RNA IU/ML 116352, + Quantitative HCV RNA LOG IU/ML 5.19; genotype 1a), for which she saw Dr. Moody 12/15/2015 and Jesi was advised. The patient was repeatedly not compliant with this. 10/16/2015: Hep A Ab, Hep Bs Ag, Hep B core Ab- all neg, + Hep C Ab. The patient was previously immunized against both Hepatitis A and B, although she apparently is only immune to Hepatitis B, as 12/15/2015: total Hep A Ab- negative, + Hep Bs Ab, AFP 6.0. * HIV status is unknown. The patient was uncertain as to how she contracted the Hep C, most likely from a remote blood transfusion (she denies any additional risk factors for this). She has not been previously treated for the Hep C. The patient was apparently diagnosed with Hep C 10/05/05 by her ex-PMD, Dr. Shah, & was actively replicating then,but did not seek treatment. When she saw Dr. Moody 12/15/2015, she had thrombocytopenia with AST > ALT, and was felt to probably have portal hypertension and liver fibrosis/compensated cirrhosis. The patient has had abdominal tabs, negative for SBP, with high SAAG, low protein & ascitic culutres & cytology- negative. The patient has multifactorial anemia, iron deficiency, & pancytopenia- the latter most likely from cirrhosis. 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 She has had normal GFR. She has issues with bilateral lower extremity wounds & stasis dermatitis changes, secondary to edema. Previous AFP & imaging studies- negative for hepatoma. 05/26/16: EGD with biopsy per Dr. Moody- several distinct columns of Grade 2 esophageal varices with red well markings, from 30-40 cm, which nearly completely flattened out with air insufflation. No active bleeding was appreciated. Nonerosive gastritis without evidence of significant portal hypertensive gastropathy, status post biopsies of antrum- mild gastritis, H. pylori negative. Mild duodenitis with normal small bowel folds, status post random biopsies- unremarkable. The patient was put on Inderal 20 mg TID then & PPI. However, she was not compliant with these, nor with her PPI, Aldactone, Lasix, or K+! She intermittently takes Fe. Please note, the patient has been chronically taking Ibuprofen TID! She denied any ASA. *She had a LUE DVT in late 07/2016 & was put on Eliquis (note- history of varices), which she self-D/C'd at the end of 09/2016. 07/28/16: ferritin 7.1. 07/30/16: Baseline colonoscopy to cecum with random biopsies, per Dr. Moody ( fair prep)- small mixed hemorrhoids, otherwise negative study, with random biopsies of right colon and left colon- negative. The patient presented to the [facility] 11/14/2016 at 7:30 AM, BIBA after vomiting bright red blood 2, at 6 a.m. She also was incontinent of stool. Upon arrival, BP 108/61, P 90, R 22, T 98, O2 sat 98% RA. She ate solids at 3 AM, & has been NPO since. There was no definite melena, although her stool is intermittently dark when she takes iron. She denied any Pepto-Bismol or ASA. * She was taking Ibuprofen, as above. She denied any cigarettes or EtOH. There was no rectal bleeding. She had mild GODFREY, without chest pain or shortness of breath. She denied any abdominal pain, early satiety, GERD, odynophagia or dysphagia. She had mild nausea. Her appetite was fair. Her weight was stable. There was some mild increased abdominal girth. She denied any increased peripheral edema. She denied any confusion or past history of PSE, but her NH3 was elevated. She denied any fevers, chills, jaundice, dark urine, light stool, or pruritus. She denies any symptoms of UTI or URI. She has a history of mild intermittent diarrhea, which was felt by Dr. Moody to be IBS. Random colon biopsies and small bowel biopsies- negative, as above. She denied any constipation, obstipation, tenesmus, or change in stool caliber. There is no family history of GI malignancy, GI disease, or inherited liver disease. The patient has never had a liver biopsy. She had recurrent hematemesis of a few clots & dark blood in the ER. The patient initially refused treatment that was advised by the ER, including NGT & antibiotics. She also refused to be checked for orthostatics. She also initially refused GI endoscopic intervention. When contacted by the ER, I advised 2 large-bore IVs, IV Protonix 80 mg bolus, followed by 8 mg/hour IV Protonix drip, Octreotide 50 g IV bolus, followed by 50 g/hour IV Octreotide drip, ICU admit, empiric antibiotics for potential banding, as well as for ascites (allergic to PCN/cephalosporin, so I advised Cipro/Fagyl), NPO, O2, & transfusion to Hgb > 7, with possible prophylactic intubation. Apparently, per the blood bank, the patient has antibodies, and so it will take a while to transfuse her. She has been transfused multiple times in the past. *Please note, 08/03/16: CBC 3.7, H/H 8.5/27.1, MCV 77.3, RDW 22.3, PLT 121, BUN/ Cr 15/0.6, GFR > 60. 11/14/16: Admission labs- CBC 4.6, H/H 5.7/18.4, MCV 70.8, RDW 18.8, PLT 162, PT 14.5, INR 1.39, glucose 124, BUN/Cr 30/0.5, GFR > 60, Na 139, K 4.3, HCO3 22, AG 7, lactate 2.5 (2.1), Ca 7.6, albumin 2.4, globulin 2.5, TBil 0.5, alk phos 83, AST 45, ALT 44, normal amylase/lipase 32/68, NH3 85, troponin < .01, [EtOH] < 10, MELD- García 1/UNOS 10; U/A- hazy, yellow, 1.020, 6.0, 50-75 WBC, mod bact, mod epith, micro otherwise negative except trace protein, pos nitirite, neg esterase. 11/14/16: EKG- NSR @ 88, LAD, borderline prolonged QT interval, NSST. *No imaging studies have been obtained as of yet, this admission. Allergies/Medications Allergies: Coded Allergies: Penicillins (RASH 08/05/15) Sulfa (Sulfonamide Antibiotics) (UNKNOWN - PER PT SON 08/05/15) cephalexin (From KEFLEX) (RASH 07/27/16) clindamycin (UNKNOWN - PER PT SON 08/05/15) Home Med List: Apixaban (Eliquis) 2.5 MG TABLET 1 TAB PO BID DVT Start taking this twice a day on 08/07/16 Ferrous Sulfate (IRON) 325 MG (65 MG IRON) TABLET 1 TAB PO TID Iron deficiency Furosemide 20 MG TABLET 1 TAB PO DAILY Fluid overload Ibuprofen (Unknown Strength) TABLET (Unknown Dose) PO TID PAIN (Reported) Potassium Chloride (Klor-Con) 20 MEQ PACKET 1 PAC PO DAILY Low potassium Propranolol HCl 10 MG TABLET 0.5 TAB PO DAILY Gastric varices Please monitor blood pressure and heart rate twice a day for 1 week. Send the results to your PCP and he will adjust the dose of this medication moving forward Spironolactone 25 MG TABLET 1 TAB PO DAILY Fluid balance Current Medications: Current Medications Sig/Marcin Start time Last Medication Dose Route Stop Time Status Admin Ciprofloxacin 400 MG ONCE ONE 11/14 899 DC Dextrose/Water 200 ML IV 11/14 958 Metronidazole 500 MG ONCE ONE 11/14 899 DC 11/14 N/A 1 UNIT IV 11/14 Octreotide Acetate 50 MCG ONCE ONE 11/14 814 DC 11/14 IV 11/14 Octreotide Acetate 500 MCG Q10H 11/14 814 r 11/14 Dextrose/Water 500 ML IV 0900 Ondansetron HCl 4 MG ONCE ONE 11/14 814 DC 11/14 IV 11/14 Ondansetron HCl 0 .STK-MED ONE 06/11 0812 DC .ROUTE Pantoprazole Sodium 0 .STK-MED ONE 11/14 0824 DC IV Pantoprazole Sodium 80 MG ONCE ONE 11/14 0815 DC 11/14 IV 11/14 0816 0836 Pantoprazole Sodium 40 MG Q5H 11/14 0815 AC 11/14 Sodium Chloride 100 ML IV 0836 Sodium Chloride 1,000 ML Q8H 11/14 1215 UNVr 11/14 IV 1209 Sodium Chloride 1,000 ML BOLUS ONE 11/14 08 DC 11/14 IV 11/14 0929 0900 Past History Travel History Traveled to [place] past 21 day No Medical History Blood Transfusion Hx: Yes Neurological: NONE EENT: NONE Cardiovascular: CHF, chronic venous insuff, hypertension, RHEUMATIC FEVER Respiratory: NONE Gastrointestinal: ESOPHAGEAL VARICES Hepatic: NONE (non-compliant with tx), cirrhosis, hepatitis C Renal: NONE Musculoskeletal: decubitis ulcer (& ulcer R styles/R foot) Psychiatric: anxiety Endocrine: THYROID NODULES Blood Disorders: anemia, coagulopathy (mild (cirrhotic)), pancytopenia Cancer(s): NONE SPORTS PHYSICAL THERAPIST/Reproductive: NONE Other Medical Hx: CHRONIC LOWER EXTREMITY WOUNDS DVT LUE 07/2016- on short course of Eliquis (self D/C end of 09/2016) Surgical History Surgical History: appendectomy, cholecystectomy, tonsillectomy, VV stripping RLE 2016 Family History Relations & Conditions If Any: FATHER (smoker). , Age 84; Cause: Renal cell cancer. MOTHER, , Age 74; Cause: CVA (cerebrovascular accident due to intracerebral hemorrhage). Psychosocial History Where Do You Live? Home Who Do You Live With? child (son, Bobby Villarreal) Services at Home: Nursing Primary Language: Thai Smoking Status: Former Smoker ETOH Use: denies use Illicit Drug Use: denies illicit drug use Living Will? no Power of Apartment Community Assistant Manager/HCP? no Other Social History: Single. Never . One son (Bobby Villarreal) 51- [employer], with whom she lives. Ex 2 pk yr smoker in college. No EtOH. No drugs. No IVDA. No tattoos. No body piercings. 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 Uses 2 quad canes to ambulate. Functional Ability ADLs Independent: dressing, eating, toileting. Unknown: bathing. Ambulation: cane (2 quad canes) IADLs Independent: finances, food prep, telephone, medication admin. Needs Assist: shopping, housework, transportation. 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 Review of Systems Constitutional: Denies: chills, diaphoresis, fever, malaise, weakness, unexplained weight loss. EENTM: Denies: blurred vision, double vision, visual changes, eye pain, eye drainage, eye tearing, icterus, ear discharge, ear pain, ear redness, hearing changes, nasal congestion, epistaxis, nasal pain, throat pain, throat swelling, mouth pain, tooth pain. Cardiovascular: Reports: peripheral edema. Denies: chest pain, edema, orthopena, palpitations, syncope. Respiratory: Reports: short of breath (mild GODFREY). Denies: cough, hemoptysis, orthopnea, sputum production, stridor, wheezing. GI: Reports: diarrhea (scant, chronic), nausea, vomiting. Denies: abdominal pain, bloating, constipation, distention, bowel incontinence, melena, bloody stool, changes in stool, steatorrhea. Genitourinary: Denies: discharge, dysuria, frequency, hematuria, hesitation, nocturia, pain, urgency. Musculoskeletal: Denies: back pain, gout, joint pain, joint swelling, muscle pain, muscle stiffness, neck pain. Skin: Reports: see HPI. Denies: cysts, change in skin color, change in hair/nails, dryness, erythema, jaundice, lesions, lymphangitis, lumps, moles, rash. Neurological/Psychological: Reports: anxiety (observed). Denies: ataxia, cognitive dysfunction, confusion, depressed, dementia, emotional problems, headache, numbness, paresthesia, pre- existing deficit, petit mal seizures, tingling, tremors, tonic-clonic seizures, unable to move lower ext, unable to move upper ext, weakness. Hematologic/Endocrine: Denies: bruising, bleeding, polyuria, polydipsia. Immunologic/Allergic: Denies: splenectomy, HIV/AIDS, lymphadenopathy. All Other Systems: Reviewed and Negative Exam & Diagnostic Data Vital Signs and I&O Vital Signs Date Time Temp Pulse Resp B/P B/P Pulse O2 O2 Flow FiO2 Mean Ox Delivery Rate 11/14 1036 96.6 77 20 116/57 95 Room Air 11/14 0856 75 20 137/62 97 Room Air 11/14 0826 87 20 111/53 95 Room Air 11/14 0815 88 22 116/56 98 Room Air 11/14 0804 98.0 90 22 108/61 998 Room Air Intake & Output 11/14 1600 11/14 0400 11/13 1600 11/13 0400 11/12 1600 11/12 0400 Intake Total Output Total Balance Patient 200 lb Weight Physical Exam: Well-developed, malnourished appearing, chronically ill, unkempt, anxious, foul- smelling, elderly female, in no apparent distress, with poor insight. Sclera anicteric. Conjunctiva pale. Oropharynx clear. No oral thrush. No aphthous ulcers. Poor dentition (no upper teeth, few loose lower teeth). There is no adenopathy, thyromegaly, or JVD. ? thyroid nodule. No peripheral stigmata of inflammatory bowel disease on exam. No CVA tenderness. ? Faint spiders on the anterior chest wall. Lungs: clear to A&P, except for slight decreased BS at the left base. Breast & pelvic: API. Heart exam: regular rate rhythm, S1 and S2, with II/ systolic murmur. Abdominal exam: normal bowel sounds, mildly distended belly, obese, nontender, without guarding or rebound. No mass. Liver approximately 11 cm by percusion. Borderline splenomegaly. Positive mild fluid shift. No pulsatile mass. Digital rectal exam by myself in ER: brown OB- positive stool, nontender, no mass, normal sphincter tone, small external hemorrhoid, no fissure. No melena or fresh blood from below. Extremities: without cyanosis or clubbing. Marked stasis dermatitis changes of the lower extremities bilaterally, right greater than left, with lymphedema and firm nodular appearance. Chronic superficial ulceration of right lower extremity, bandaged. Healed callus plantar aspect of right foot/right plantar region. Hallux valgus B/L. No palpable cords of LE or UE B/L. No palmar erythema. No Dupuytren's contractures. Distal pulses 1+ bilaterally. DTRs 1+ bilaterally. Radial pulses intact (post LUE DVT in 07/2016). Alert and oriented x 3. No tremor. No asterixis. Motor 5/5 B/L. A detailed exam for peripheral neuropathy was deferred. Results Pertinent Lab Results: Laboratory Tests 11/14 11/14 11/14 1108 1000 0737 Chemistry Lactic Acid (0.7 - 2.1 mmol/L) 2.1 Ammonia (9 - 30 umol/L) 85 H Urines Urine Color (YEL,AMB,STR) YEL Urine Clarity (CLEAR) HAZY H Urine pH (5.0 - 8.0) 6.0 Ur Specific [place] (1.001 - 1.035) 1.020 Urine Protein (NEG,<30 MG/DL) TRACE H Urine Ketones (NEG) NEG Urine Nitrite (NEG) POS H Urine Bilirubin (NEG) NEG Urine Urobilinogen (0.1 - 1.0 EU/dl) 0.2 Ur Leukocyte Esterase (NEG) MOD H Ur Microscopic SEDIMENT EXAMINED Urine WBC (0 - 2 /HPF) 50-75 H Ur Epithelial Cells (NONE,FEW) MOD H Urine Bacteria (NEG/NONE) MOD H Urine Mucus (FEW,NONE) FEW Urine Hemoglobin (NEG) NEG Urine Glucose (N MG/DL) NEG 11/14 0737 Chemistry Sodium (137 - 145 mmol/L) 139 Potassium (3.5 - 5.1 mmol/L) 4.3 Chloride (98 - 107 mmol/L) 110 H Carbon Dioxide (22 - 30 mmol/L) 22 Anion Gap (5 - 16) 7 BUN (7 - 17 mg/dL) 30 H Creatinine (0.5 - 1.0 mg/dL) 0.5 Estimated GFR (>60 ml/min) > 60 BUN/Creatinine Ratio (7 - 25 %) 60.0 H Glucose (65 - 99 mg/dL) 124 H Lactic Acid (0.7 - 2.1 mmol/L) 2.5 H Calcium (8.4 - 10.2 mg/dL) 7.6 L Total Bilirubin (0.2 - 1.3 mg/dL) 0.5 AST (14 - 36 U/L) 45 H ALT (9 - 52 U/L) 44 Alkaline Phosphatase (<127 U/L) 83 Troponin I (< 0.11 ng/ml) < 0.01 Total Protein (6.3 - 8.2 g/dL) 5.9 L Albumin (3.5 - 5.0 g/dL) 2.4 L Globulin (1.9 - 4.2 gm/dL) 3.5 Albumin/Globulin Ratio (1.1 - 2.2 %) 0.7 L Amylase (30 - 110 U/L) 32 Lipase (23 - 300 U/L) 68 Coagulation PT (9.4 - 12.5 SEC) 14.5 H INR (0.90 - 1.19) 1.39 H Hematology CBC w Diff NO MAN DIFF REQ WBC (4.8 - 10.8 /CUMM) 4.6 L RBC (4.20 - 5.40 /CUMM) 2.59 L Hgb (12.0 - 16.0 G/DL) 5.7 *L Hct (37 - 47 %) 18.4 *L MCV (81.0 - 99.0 FL) 70.8 L MCH (27.0 - 31.0 PG) 21.8 L RDW (11.5 - 14.5 %) 18.8 H Plt Count (130 - 400 /CUMM) 162 MPV (7.4 - 10.4 FL) 10.0 Gran % (42.2 - 75.2 %) 55.4 Lymphocytes % (20.5 - 51.1 %) 26.7 Monocytes % (1.7 - 9.3 %) 13.3 H Eosinophils % (0 - 5 %) 3.4 Basophils % (0.0 - 2.0 %) 1.2 Absolute Granulocytes (1.4 - 6.5 /CUMM) 2.5 Absolute Lymphocytes (1.2 - 3.4 /CUMM) 1.2 Absolute Monocytes (0.10 - 0.60 /CUMM) 0.6 Absolute Eosinophils (0.0 - 0.7 /CUMM) 0.2 Absolute Basophils (0.0 - 0.2 /CUMM) 0.1 PUBS MCHC (33.0 - 37.0 G/DL) 30.8 L Toxicology Serum Alcohol (<10 MG/DL) < 10.0 Imaging/Other Studies: 11/14/16: EKG- NSR @ 88, LAD, borderline prolonged QT interval, NSST. *No imaging studies have been obtained as of yet, this admission. Assessment/Plan Assessment/Recommendations: 76-year-old female, *poor insight & non-compliant, obese, hypertensive, PVD, chronic LE ulcers, thyroid nodules (never biopsied), ? MRSA wound, low Vit D, rheumatic fever, history of actively replicating Hepatitis C (12/02/2015: + Quantitative HCV RNA IU/ML 471010, + Quantitative HCV RNA LOG IU/ML 5.19; genotype 1a), for which she saw Dr. Moody 12/15/2015 and Jesi was advised. The patient was repeatedly not compliant with this. 10/16/2015: Hep A Ab, Hep Bs Ag, Hep B core Ab- all neg, + Hep C Ab. The patient was previously immunized against both Hepatitis A and B, although she apparently is only immune to Hepatitis B, as 12/15/2015: total Hep A Ab- negative, + Hep Bs Ab, AFP 6.0. * HIV status is unknown. The patient was uncertain as to how she contracted the Hep C, most likely from a remote blood transfusion (she denies any additional risk factors for this). She has not been previously treated for the Hep C. The patient was apparently diagnosed with Hep C 10/05/05 by her ex-PMD, Dr. Shah, & was actively replicating then,but did not seek treatment. When she saw Dr. Moody 12/15/2015, she had thrombocytopenia with AST > ALT, and was felt to probably have portal hypertension and liver fibrosis/compensated cirrhosis. The patient has had abdominal tabs, negative for SBP, with high SAAG, low protein & ascitic culutres & cytology- negative. The patient has multifactorial anemia, iron deficiency, & pancytopenia- the latter most likely from cirrhosis. 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 She has had normal GFR. She has issues with bilateral lower extremity wounds & stasis dermatitis changes, secondary to edema. Previous AFP & imaging studies- negative for hepatoma. 05/26/16: EGD with biopsy per Dr. Moody- several distinct columns of Grade 2 esophageal varices with red well markings, from 30-40 cm, which nearly completely flattened out with air insufflation. No active bleeding was appreciated. Nonerosive gastritis without evidence of significant portal hypertensive gastropathy, status post biopsies of antrum- mild gastritis, H. pylori negative. Mild duodenitis with normal small bowel folds, status post random biopsies- unremarkable. The patient was put on Inderal 20 mg TID then & PPI. However, she was not compliant with these, nor with her PPI, Aldactone, Lasix, or K+! She intermittently takes Fe. Please note, the patient has been chronically taking Ibuprofen TID! She denied any ASA. *She had a LUE DVT in late 07/2016 & was put on Eliquis (note- history of varices), which she self-D/C'd at the end of 09/2016. 07/28/16: ferritin 7.1. 07/30/16: Baseline colonoscopy to cecum with random biopsies, per Dr. Moody ( fair prep)- small mixed hemorrhoids, otherwise negative study, with random biopsies of right colon and left colon- negative. The patient presented to the [facility] 11/14/2016 at 7:30 AM, BIBA after vomiting bright red blood 2, at 6 a.m. She also was incontinent of stool. Upon arrival, BP 108/61, P 90, R 22, T 98, O2 sat 98% RA. She ate solids at 3 AM, & has been NPO since. There was no definite melena, although her stool is intermittently dark when she takes iron. She denied any Pepto-Bismol or ASA. * She was taking Ibuprofen, as above. She denied any cigarettes or EtOH. There was no rectal bleeding. She had mild GODFREY, without chest pain or shortness of breath. She denied any abdominal pain, early satiety, GERD, odynophagia or dysphagia. She had mild nausea. Her appetite was fair. Her weight was stable. There was some mild increased abdominal girth. She denied any increased peripheral edema. She denied any confusion or past history of PSE, but her NH3 was elevated. She denied any fevers, chills, jaundice, dark urine, light stool, or pruritus. She denies any symptoms of UTI or URI. She has a history of mild intermittent diarrhea, which was felt by Dr. Moody to be IBS. Random colon biopsies and small bowel biopsies- negative, as above. She denied any constipation, obstipation, tenesmus, or change in stool caliber. There is no family history of GI malignancy, GI disease, or inherited liver disease. The patient has never had a liver biopsy. She had recurrent hematemesis of a few clots & dark blood in the ER. There was no preceding retching. The patient initially refused treatment that was advised by the ER, including NGT & antibiotics. She also refused to be checked for orthostatics. She also initially refused GI endoscopic intervention. When contacted by the ER, I advised 2 large-bore IVs, IV Protonix 80 mg bolus, followed by 8 mg/hour IV Protonix drip, Octreotide 50 g IV bolus, followed by 50 g/hour IV Octreotide drip, ICU admit, empiric antibiotics for potential banding, as well as for ascites (allergic to PCN/cephalosporin, so I advised Cipro/Fagyl), NPO, O2, & transfusion to Hgb > 7, with possible prophylactic intubation. Apparently, per the blood bank, the patient has antibodies, and so it will take a while to transfuse her. She has been transfused multiple times in the past. She denied any history of PUD. She does not have a POA & makes her own medical decisions. *Please note, 08/03/16: CBC 3.7, H/H 8.5/27.1, MCV 77.3, RDW 22.3, PLT 121, BUN/ Cr 15/0.6, GFR > 60. 11/14/16: Admission labs- CBC 4.6, H/H 5.7/18.4, MCV 70.8, RDW 18.8, PLT 162, PT 14.5, INR 1.39, glucose 124, BUN/Cr 30/0.5, GFR > 60, Na 139, K 4.3, HCO3 22, AG 7, lactate 2.5 (2.1), Ca 7.6, albumin 2.4, globulin 2.5, TBil 0.5, alk phos 83, AST 45, ALT 44, normal amylase/lipase 32/68, NH3 85, troponin < .01, [EtOH] < 10, MELD- García 1/UNOS 10; U/A- hazy, yellow, 1.020, 6.0, 50-75 WBC, mod bact, mod epith, micro otherwise negative except trace protein, pos nitirite, neg esterase. 11/14/16: EKG- NSR @ 88, LAD, borderline prolonged QT interval, NSST. *No imaging studies have been obtained as of yet, this admission. *The patient has poor insight into her overall poor condition. She had repeatedly refused treatment for her Hep C, and stopped all of her outpatient medications, including her nonselective beta blockers for variceal prophylaxis, PPI & diuretics. She also stopped her Eliquis at the end of 09/2016 (post DVT LUE 07/2016), but in view of the hematemesis, this is okay. She has known esophageal varices by 05/26/16: EGD, not banded. *She has been taking large amounts of Ibuprofen. She also refused treatment in the ER initially, despite her hematemesis. *The patient was made aware (in the presence of her son, Bobby Villarreal), that her refusal to follow the ER/GI recommendations could result in her . She now claimed that she would comply. The patient may certainly be having a variceal bleed. It is possible she could have NSAID gastropathy/ulcer from her Ibuprofen use. Rule out portal gastropathy. Relatively recent EGD without neoplasm. There was no preceding retching to suggest a Danielle-Orr tear. She is A & O x 3 (albeit with poor insight), & without asterixis. Her elevated NH3 is probably from the protein load of swallowed blood. SUGGEST: NPO. 2 large bore IVs. T&C 4u PRBC. Transfuse to Hgb > 7 (do not overinflate varices; no documented history of ASHD). Continue IV Protonix drip and IV Octreotide drip, after boluses (this may be overkill, & can adjust medications post EGD). ICU admit. Supplemental O2. *No NSAIDs. Panculture. Advise empiric IV Cipro/Flagyl (PCN/cephalosporin-allergic; for prophylaxis for potential variceal banding, & as well as to cover ascites, although no previous history of SBP). Advise CXR & abdominal sono. If positive ascites, please tap & send for gram stain, cell count, C&S (previosly had chemistries & cytology sent from ascites). *Informed consent for EGD was obtained from the patient after careful explanation of the risks and benefits, in the presence of her son, Bobby, including the need for potential intubation, to protect her airway from aspiration. The patient & her son were told that if she has a variceal bleed that cannot be controlled endoscopically, it could require a Suri tube and possible transfer to [facility] for TIPS. Outpatient [facility] per Dr. Moody, as patient allows. The patient will need outpatient hepatoma surveillance with serial AFP & RUQ sono Q 6 months, as she allows. Advise Hepatitis A booster shot (the patient is immune to Hep B), annual flu shot, and Pneumovax, if applicable. Avoid hepatotoxins. Keep Tylenol use to a minimum. The patient most likely will need resumption of non-selective beta blockers and diuretics as an outpatient, as she allows. Dr. Moody will assume the patient's GI care at [facility] on 11/15/16. Further recommendations to follow post EGD. The above was discussed with the medical housestaff. 1 hour of ICU care was spent on the patient. Problem List: 1. Cirrhosis 2. Upper GI bleed 3. Esophageal varices 4. Symptomatic anemia 5. Pancytopenia 6. Hepatitis C 7. Ascites 8. Hyperammonemia Copies To: SAI EMERY,MALDONADO; OSKAR EMERY,DEAN; NADEEM EMERY,FRANK Consult Acknowledgment - Thank you for your consult request.
--- NOTE | 2016-11-14 09:40 | History & Physical ---
General Information and HPI MD Statement: I have seen and personally examined OTONIEL SANCHES and documented this H&P. The patient is a 76 year old F who presented with a patient stated chief complaint of [Upper GI bleeding]. Source of Information: patient, old records Exam Limitations: patient's age, clinical condition, poor historian History of Present Illness: 76 year old female with past medical history of chronic venous insufficiency resulting in chronic leg ulcers, chronic hepatitis c in 2005 , bilateral lower leg edema, rheumatic fever in her 20s, iron deficiency anemia, history of DVT on Eliquis, h/o GI bleeeding, stage II esophageal varices, gastritis and liver cirrhosis came to emergency department for the chief complaint of vomiting bright red blood and blood clots. According to the patient was also started this morning. It started all of sudden and se had 2-3 episodes of vomitus with bright red blood and clots. She was unable to quantify the amount. She had a recent procedure by Dr. Cabral for her chronic wounds on her Right lower extremity and it was covered with the dressing which was changed 2 days ago. Review of systems positive for shortness of breath on exertion, dark stools ( patient is already on FeSO4), loose stools and lower extremity swelling Review of systems negative for any headaches, acute visual changes, chest pain, sudden abdominal pain, bright red blood in stools, change in urinary habits, fever or rash. Allergies/Medications Allergies: Coded Allergies: Penicillins (RASH 08/05/15) Sulfa (Sulfonamide Antibiotics) (UNKNOWN - PER PT SON 08/05/15) cephalexin (From KEFLEX) (RASH 07/27/16) clindamycin (UNKNOWN - PER PT SON 08/05/15) Home Med list Apixaban (Eliquis) 2.5 MG TABLET 1 TAB PO BID DVT Start taking this twice a day on 08/07/16 Ferrous Sulfate (IRON) 325 MG (65 MG IRON) TABLET 1 TAB PO TID Iron deficiency Furosemide 20 MG TABLET 1 TAB PO DAILY Fluid overload Potassium Chloride (Klor-Con) 20 MEQ PACKET 1 PAC PO DAILY Low potassium Propranolol HCl 10 MG TABLET 0.5 TAB PO DAILY Gastric varices Please monitor blood pressure and heart rate twice a day for 1 week. 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 , Age 84; Cause: Renal cell cancer. MOTHER, , Age 74; Cause: CVA (cerebrovascular accident due to intracerebral hemorrhage). Psychosocial History Who Do You Live With? child (son) Services at Home: Nursing Primary Language: Gibraltarian ETOH Use: denies use Living Will? yes Power of Pyrotechnist/HCP? no Functional Ability ADLs Independent: dressing, eating, toileting. Unknown: bathing. Ambulation: cane (2 quad canes) IADLs Independent: finances, food prep, telephone, medication admin. Needs Assist: shopping, housework, transportation. Review of Systems Review of Systems Constitutional: Denies: chills, fever. EENTM: Denies: visual changes. Cardiovascular: Denies: chest pain, palpitations. Respiratory: Reports: hemoptysis, short of breath. GI: Reports: changes in stool, vomiting. Denies: abdominal pain, nausea. Genitourinary: Denies: dysuria. Musculoskeletal: Denies: back pain. Skin: Reports: change in skin color. All Other Systems: Reviewed and Negative Date of Last Colonoscopy: 07/27/16 Exam & Diagnostic Data Last 24 Hrs of Vital Signs/I&O Vital Signs Date Time Temp Pulse Resp B/P B/P Pulse O2 O2 Flow FiO2 Mean Ox Delivery Rate 11/14 0856 75 20 137/62 97 Room Air 11/14 0826 87 20 111/53 95 Room Air 11/14 0815 88 22 116/56 98 Room Air 11/14 0804 98.0 90 22 108/61 998 Room Air Intake & Output 11/14 1600 11/14 0800 11/14 0000 Intake Total Output Total Balance Patient 200 lb Weight Physical Exam General Appearance Alert, Oriented X3, Mild Distress Skin pale skin HEENT Atraumatic Neck No JVD Cardiovascular Regular Rate, Normal S1, Normal S2, No Murmurs Lungs Clear to Auscultation, Normal Air Movement Abdomen distended abdomen, audible bowel sounds, melanotic stools Neurological Normal Speech, Normal Tone, Sensation Intact Extremities Chronic skin changes, Right lower extremity covered with dressing Vascular weak pulses Rectal melanotic stools Last 24 Hrs of Labs/Gui: Laboratory Tests 11/14/16 1000: Urine Color Pending, Urine Clarity Pending, Urine pH Pending, Ur Specific [place] Pending, Urine Protein Pending, Urine Ketones Pending, Urine Nitrite Pending, Urine Bilirubin Pending, Urine Urobilinogen Pending, Ur Leukocyte Esterase Pending, Ur Microscopic Pending, Urine Hemoglobin Pending, Urine Glucose Pending 11/14/16 0737: Ammonia 85 H 11/14/16 0737: Anion Gap 7, Estimated GFR > 60, BUN/Creatinine Ratio 60.0 H, Glucose 124 H, Lactic Acid 2.5 H, Calcium 7.6 L, Total Bilirubin 0.5, AST 45 H, ALT 44, Alkaline Phosphatase 83, Troponin I < 0.01, Total Protein 5.9 L, Albumin 2.4 L , Globulin 3.5, Albumin/Globulin Ratio 0.7 L, Amylase 32, Lipase 68, PT 14.5 H , INR 1.39 H, CBC w Diff NO MAN DIFF REQ, RBC 2.59 L, MCV 70.8 L, MCH 21.8 L , RDW 18.8 H, MPV 10.0, Gran % 55.4, Lymphocytes % 26.7, Monocytes % 13.3 H, Eosinophils % 3.4, Basophils % 1.2, Absolute Granulocytes 2.5, Absolute Lymphocytes 1.2, Absolute Monocytes 0.6, Absolute Eosinophils 0.2, Absolute Basophils 0.1, PUBS MCHC 30.8 L Microbiology 11/14 1000 URINE ROUT: Urine Culture - RECD Diagnostic Data EKG Results LAD, HR 88, QT 489, CA 171 Assessment/Plan Assessment: 76 year old female with past medical history of chronic venous insufficiency resulting in chronic leg ulcers, chronic hepatitis c in 2006 , bilateral lower leg edema, rheumatic fever in her 20s, iron deficiency anemia, h/o GI bleeeding, stage II esophageal varices, gastritis and liver cirrhosis came to emergency department for the chief complaint of vomiting bright red blood and blood clots. Patient is admitted in intensive care unit for the management of following problems Acute Upper GI bleeding Patient has history of hepatitis C, noncompliant with treatment, evidence of cirrhosis and moderate ascites along with grade 2 esophageal with nonerosive gastritis, without evidence of significant portal hypertensive gastropathy and mild duodenitis on upper endoscopy performed in May 2016. Most likely source of upper GI bleeding secondary to esophageal varices that were seen recently on endoscopy. Acute drop in H&H with vomiting of bright red blood along with clots and drop of H/H from 8.5-5.7 and increase in BUN from 15 to 30 also supports the diagnosis of upper GI bleed. Child Briones classification for severity of liver disease Child class B 7-9 points Admit to ICU Type and crossmatch NPO 2 large bore IVs Transfuse 2 units PRBC Hold all anticoagulation medications and NSAIDS Keep the patient nothing by mouth IV fluids IV Protonix IV octreotide Urgent GI evaluation Empiric IV Cipro and Flagyl (patietn PCN/cephalosporin-allergic) History of DVT on Eliquis During recent admission in July 2016 patient had unprovoked DVT of the left upper extremity. We'll hold off anticoagulation for now and restart anticoagulation after clearance from GI. Patient is full code Patient is nothing by mouth Patient is on out for DVT prophylaxis Patient is on pain pathway but we will hold off on by mouth pain medications ( MILD pain pathway) because of active upper GI bleeding As Ranked By This Provider Problem List: 1. CHRONIC LEG ULCERS 2. Anemia 3. Symptomatic anemia 4. GI bleed Core Measures/Miscellaneous Acute Coronary Syndrome ACS Diagnosis: No Cerebrovascular Accident CVA/TIA Diagnosis: No Congestive Heart Failure CHF Diagnosis: No VTE (View Protocol) VTE Risk Factors: Acute medical illness, Age > 40 [facility] prophylaxis d/t: No contraindications No VTE Pharm Prophylaxis d/t: Active bleeding VTE Diagnosis: No VTE Type: NONE VTE Confirmed by (Test): NONE Sepsis (View Protocol) Severe Sepsis Present: No Septic Shock Septic Shock Present: No Miscellaneous Documentation Attending Case Discussed With: MAR WEAVER MD Primary Care Physician: DEAN SCHMITT MD Patient sees these Specialists .Net Programmer Level of Patient Care: Critical Care (CRI) Consults Needed: Consulting Specialty: Gastroenterology
--- NOTE | 2016-11-14 09:55 | NUR ---
DR NEGRETE PAGED AWARE SON HAS ARRIVED, PT CONT TO REFUSE CIPRO. REPORTS IT IS TOO STRONG FOR HER. DE PLACED.
--- NOTE | 2016-11-14 10:34 | NUR ---
PT HAS BED ASSIGNMENT 105. RN NOTIFIED.
--- NOTE | 2016-11-14 11:11 | NUR ---
REPORT GIVEN TO ICU REPEAT LACTIC DRAWN AND SENT
--- NOTE | 2016-11-14 11:19 | PN- Att Addend ---
Attending Addendum Attending Brief Note Covering attending admitting note. 72 for a lady past medical history of 4 chronic hepatitis C with cirrhosis of the liver and ascites admitted to the hospital because she was vomiting blood this morning. History of cirrhosis of the liver with esophageal varices. She was well yesterday but the abusing as her appetite gradually and also increased abdominal girth. History of chronic venous stasis of both lower extremities with chronic venous ulcers status post recent procedure to the leg by Dr. Anna Lane are currently wrapped up with the Teodoro bandage on the right leg. Past medical history History of 4 chronic cirrhosis of the liver with the secondary to hepatitis C History of esophageal varices History of chronic venous stasis with chronic skin changes or lower extremities Intake & Output 11/14 1600 11/14 0800 11/14 0000 Intake Total 1100 Output Total 600 Balance 500 Intake, IV 1100 Output, Urine 600 Patient 200 lb Weight Current Medications Sig/Marcin Start time Last Medication Dose Route Stop Time Status Admin Ciprofloxacin 400 MG ONCE ONE 11/14 899 DC Dextrose/Water 200 ML IV 11/14 958 Metronidazole 500 MG ONCE ONE 11/14 899 DC 11/14 N/A 1 UNIT IV 11/14 958 0924 Octreotide Acetate 50 MCG ONCE ONE 11/14 08 DC 11/14 IV 11/14 0816 0900 Octreotide Acetate 500 MCG Q10H 11/14 08 AC 11/14 Dextrose/Water 500 ML IV 0900 Ondansetron HCl 4 MG ONCE ONE 11/14 814 DC 11/14 IV 11/14 0816 0835 Ondansetron HCl 0 .STK-MED ONE 11/14 08 DC .ROUTE Pantoprazole Sodium 0 .STK-MED ONE 11/15 823 DC IV Pantoprazole Sodium 80 MG ONCE ONE 11/14 814 DC 11/14 IV 11/14 0816 0836 Pantoprazole Sodium 40 MG Q5H 11/14 814 AC 11/14 Sodium Chloride 100 ML IV 0836 Sodium Chloride 1,000 ML BOLUS ONE 11/14 829 DC 11/14 IV 11/14 0929 0900 Laboratory Tests 11/14 11/14 11/14 1108 1000 0737 Chemistry Lactic Acid Pending Ammonia (9 - 30 umol/L) 85 H Urines Urine Color (YEL,AMB,STR) YEL Urine Clarity (CLEAR) HAZY H Urine pH (5.0 - 8.0) 6.0 Ur Specific [place] (1.001 - 1.035) 1.020 Urine Protein (NEG,<30 MG/DL) TRACE H Urine Ketones (NEG) NEG Urine Nitrite (NEG) POS H Urine Bilirubin (NEG) NEG Urine Urobilinogen (0.1 - 1.0 EU/dl) 0.2 Ur Leukocyte Esterase (NEG) MOD H Ur Microscopic SEDIMENT EXAMINED Urine WBC (0 - 2 /HPF) 50-75 H Ur Epithelial Cells (NONE,FEW) MOD H Urine Bacteria (NEG/NONE) MOD H Urine Mucus (FEW,NONE) FEW Urine Hemoglobin (NEG) NEG Urine Glucose (N MG/DL) NEG 11/14 0737 Chemistry Sodium (137 - 145 mmol/L) 139 Potassium (3.5 - 5.1 mmol/L) 4.3 Chloride (98 - 107 mmol/L) 110 H Carbon Dioxide (22 - 30 mmol/L) 22 Anion Gap (5 - 16) 7 BUN (7 - 17 mg/dL) 30 H Creatinine (0.5 - 1.0 mg/dL) 0.5 Estimated GFR (>60 ml/min) > 60 BUN/Creatinine Ratio (7 - 25 %) 60.0 H Glucose (65 - 99 mg/dL) 124 H Lactic Acid (0.7 - 2.1 mmol/L) 2.5 H Calcium (8.4 - 10.2 mg/dL) 7.6 L Total Bilirubin (0.2 - 1.3 mg/dL) 0.5 AST (14 - 36 U/L) 45 H ALT (9 - 52 U/L) 44 Alkaline Phosphatase (<127 U/L) 83 Troponin I (< 0.11 ng/ml) < 0.01 Total Protein (6.3 - 8.2 g/dL) 5.9 L Albumin (3.5 - 5.0 g/dL) 2.4 L Globulin (1.9 - 4.2 gm/dL) 3.5 Albumin/Globulin Ratio (1.1 - 2.2 %) 0.7 L Amylase (30 - 110 U/L) 32 Lipase (23 - 300 U/L) 68 Coagulation PT (9.4 - 12.5 SEC) 14.5 H INR (0.90 - 1.19) 1.39 H Hematology CBC w Diff NO MAN DIFF REQ WBC (4.8 - 10.8 /CUMM) 4.6 L RBC (4.20 - 5.40 /CUMM) 2.59 L Hgb (12.0 - 16.0 G/DL) 5.7 *L Hct (37 - 47 %) 18.4 *L MCV (81.0 - 99.0 FL) 70.8 L MCH (27.0 - 31.0 PG) 21.8 L RDW (11.5 - 14.5 %) 18.8 H Plt Count (130 - 400 /CUMM) 162 MPV (7.4 - 10.4 FL) 10.0 Gran % (42.2 - 75.2 %) 55.4 Lymphocytes % (20.5 - 51.1 %) 26.7 Monocytes % (1.7 - 9.3 %) 13.3 H Eosinophils % (0 - 5 %) 3.4 Basophils % (0.0 - 2.0 %) 1.2 Absolute Granulocytes (1.4 - 6.5 /CUMM) 2.5 Absolute Lymphocytes (1.2 - 3.4 /CUMM) 1.2 Absolute Monocytes (0.10 - 0.60 /CUMM) 0.6 Absolute Eosinophils (0.0 - 0.7 /CUMM) 0.2 Absolute Basophils (0.0 - 0.2 /CUMM) 0.1 PUBS MCHC (33.0 - 37.0 G/DL) 30.8 L Toxicology Serum Alcohol (<10 MG/DL) < 10.0 Microbiology Date/Time Procedure - Status Source Growth 11/14 1000 Urine Culture - RECD URINE ROUT Vital Signs Date Time Temp Pulse Resp B/P B/P Pulse O2 O2 Flow FiO2 Mean Ox Delivery Rate 11/14 1036 96.6 77 20 116/57 95 Room Air 11/14 0856 75 20 137/62 97 Room Air 11/14 0826 87 20 111/53 95 Room Air 11/14 0815 88 22 116/56 98 Room Air 11/14 0804 98.0 90 22 108/61 998 Room Air Intake & Output 11/14 1600 11/14 0800 11/14 0000 Intake Total 1100 Output Total 600 Balance 500 Intake, IV 1100 Output, Urine 600 Patient 200 lb Weight On examination patient is awake alert oriented in no distress Conjunctivae is pale sclera is slightly icteric Neck is supple Mucous membrane is dry JVD is not raised S1-S2 is normal Lungs shows diminished breath sounds both bases Abdomen is soft distended with ascites Bowel sounds are present extremities shows chronic skin changes with some erythema of the lower extremities with some ulceration on the right leg. Assessment Upper GI bleed most likely secondary to esophageal varices status post recent endoscopy patient is anemic from a drop in hematocrit from bleeding. Admit the patient to ICU [place] type and crossmatch 4 units of packed red blood cells followed anticoagulation medication *IV Protonix Resuscitation with IV fluids . GI consult the patient nothing by mouth
[2016-11-14 11:30] VITALS: BP 110/60
--- NOTE | 2016-11-14 13:13 | NUR ---
ADMISSION NOTE @1130-PT ARRIVED TO [facility] FROM ER. ORIENTED PT TO ROOM. PT AWAKE, ALERT, RESISTIVE TO CARE. MORE COOP WHEN SON AT BEDSIDE. ORIENTED TO PERSON AND PLACE ONLY. PLACED ON CIWA PROTOCOL FOR ? HX OF ALCOHOL USE. CONT ON RA, LUNGS CLEAR. O2SAT 94-96%. NSR HR 80S. BP STABLE. DENIES CP. TROP NEG X1. 2ND TROP ORD FOR 1300. PT REMAINS NPO AT THIS TIME. NO FURTHER VOMITING NOTED. SUCTION AT BEDSIDE. PLAN FOR EGD THIS AFTERNOON AT 3PM. PT INC OF SMALL AMT OF MELENA STOOL-[facility] PROVIDED. DE IN PLACE WITH CLOUDY YELLOW URINE NOTED. SKIN INTACT TO BUTTOCKS. BLE EDEMA. TEGADERM NOTED TO L HEEL WITH ? BLISTER PER PT-WILL ASSESS SITE THIS AFTERNOON. DSG NOTED TO RLE-PT STATES SHE HAS WOUND THAT SHE HAD SURGERY ON [address] GIBBS. VISITNG RN CHANGED DSG YEST. RLE FOUL SMELLING. HOUSESTAFF AWARE TO PLACE WOUND CONSULT. WILL REMOVE DSG AND ASSESS SITE THIS AFTERNOON. PT ON SPECIALTY ICU BED. PROTONIX GTT INFUSING AT 8MG/HR OR 20ML/HR. OCTREOTIDE GTT INFUSING AT 50MCG/HR WHEN ARRIVED FROM ER, DISCUSSED ORDER WITH HOUSESTAFF AND OCTREOTIDE GTT NOW INFUSING AT 25ML/HR OR 25MCG/HR. NS STARTED AT 125ML/HR. PLAN FOR TRANSFUSION OF 4 UNITS PRBC-PT HAS HX OF ANTIBODIES WITH 2 NEW ANTIBODIES NOTED BY BB WITH T&C. AWAITING ARRIVAL OF COMPATIBLE PRBC FROM [facility] AWARE OF DELAY FOR TRANSFUSION. CONT TO MONITOR CLOSELY. CALL KENYATTA MANLEY.
--- NOTE | 2016-11-14 13:20 | NUR ---
@1300-REPEAT TROP DRAWN AND SENT TO LAB. CONT TO MONITOR.
--- NOTE | 2016-11-14 15:12 | NUR ---
@1500-PT HAD LARGE MELENA STOOL. INC CARE PROVIDED. 1ST UNIT PRBC INFUSING AT THIS TIME. INFORMED FROM BLOOD BANK THAT [facility] WILL SEND MORE UNITS WHEN AVAIL. SON AT BEDSIDE. AWAITING EGD.
[2016-11-14 16:00] VITALS: BP 119/55
--- NOTE | 2016-11-14 17:18 | Proc Note Endoscopy ---
Endoscopy Procedure Medical History: unchanged Mental Status: alert/oriented Heart/Lung Eval Prior to Sedation: within normal limits Candidate for Sedation? Yes Procedure Date: 11/14/16 Procedure Type: EGD with esophageal variceal banding Spring Tier: WEI GRACE MD ASA Classification: IV (IV-E) Indications: (*Please refer to GI consult from earlier today, 11/14/16). INDX: 76 y/o female, noncompliant, with untreated Hep C, cirrhosis, *hematemesis /UGI bleed, ex-Ibuprofen, anemia, pancytopenia, history of ascites. Instrument: diagnostic gastroscope, therapeutic gastroscope Meds Received: MAC Patient's Tolerance: good Complications: none Extent Reached: second part of duodenum Procedure: Upper endoscopy to the second portion of the duodenum with esophageal banding, was performed at the bedside in the [facility] (Room # 105), after prophylactic antibiotics (IV Cipro/Flagyl- PCN/cephalosporin allergic), and after prophylactic intubation by Dr. South (poor dentition preop, with no upper teeth and loose lower teeth), initially with the Olympus high definition single channel videoendoscope, switched back and forth to the Olympus high-definition double-channel video endoscope, after obtaining informed consent from the patient, with the char filter tank tender and pulse oximeter, with the assistance of Dr. South, of [facility], & the GI RNs, Dalton Torres and Salma. A mouthpiece was placed in the usual fashion to protect the patient's residual teeth. The patient was placed in the left lateral decubitus position and sedated & prophylactically intubated by [facility]. At this point, initially the single channel endoscope was advanced from the mouth into the esophagus, using direct visualization technique. The ET tube was seen entering the trachea. The vocal cords were obscured by this. There were no esophageal rings, webs, lesions, strictures, or ulcers. There was no monilia or vesicles. There was no esophageal ribbing. The Z line was well demarcated at 40 cm. There was no hiatal hernia pouch. No significant esophageal inflammation was seen. There were no ectopic islands, nor gross Castro's esophagus. There was no Danielle-Orr tear. There were approximately 3 columns of 2+ esophageal varices from 30-40 cm, some of which had a red kristin sign. Clots and blood were seen emanating near the GE junction. The GE junction was cleared by using the Y-iopsy water jet in an antegrade fashion. No definite gastric varices were seen, but a small portion of the gastric cardia was obscured by food and clots. The vast majority of the gastric cardia was cleared using the Cox Net, and most of the clots and food were deposited in the gastric antrum. The patient was carefully repositioned, but a small portion of the gastric cardia stool could not be completely cleared. The in of the stomach distended normally with air insufflation. Direct and retroflexed views of the stomach were performed. There was nothing endoscopically to suggest gastroparesis or portal gastropathy. The remainder of the mucosa of the gastric cardia was normal. The mucosa of the fundus, lesser curvature, incisura, body, and antrum appeared normal, without any gastric ulcers or gastric lesions. The pylorus was patent, without any gastric outlet obstruction or channel ulcer. The duodenal bulb appeared normal except for some mild superficial nodularity, consistent with probable Isidro gland hypertrophy vs. gastric metaplasia, which was left intact. There were no ulcers in the duodenal bulb. I was not able to see the ampulla. The duodenal sweep appeared normal, without any duodenal ulcers, distal ulcerations, or angiodysplasias. The folds of the second portion of the duodenum were normal in caliber, without any flattening, nodularity, scalloping, or mosaic pattern. [place] through the procedure, the single channel endoscope was switched to the double-channel endoscope, in an attempt to clear the gastric cardia. *It appeared that the majority of the active upper GI bleeding had subsided, but as no other significant abnormalities were seen to the duodenal sweep, I had to assume that the patient's significant upper GI bleeding was from the esophageal varices. After clearing the gastric cardia as best as possible, a decision was made to band the esophageal varices. At this point, I switched back to the double-channel endoscope, using the Speed [employer] View Super 7 Multiple Band Ligator. Starting at approximately 40 cm in the esophagus, and working my way up, a total of 4 bands were placed in the distal esophagus. These deployed in excellent location. A fifth band did not deploy. No active bleeding was seen at this point. The patient tolerated the procedure well. There was no head and neck or chest wall crepitus postoperatively. She was maintained on the ventilator postoperatively, in case she has to be re-endoscoped tomorrow. Sedation will be ordered by the medical house staff. *Documenting photographs were placed inside the patient's chart. The above findings and recommendations were discussed with the patient's son, Bobby Villarreal, in the ICU, as well as with the medical house staff, postoperatively. Impression: 1. 3 columns of 2+ esophageal varices from 30-40 cm, a few with red kristin sign. Banded x 4. 2. Clots, blood, and food seen in gastric cardia, the majority cleared with the Cox Net. A small portion of the gastric cardia could not be inspected, despite repositioning the patient, while on the ventilator 3. Mild superficial nodularity in the duodenal bulb, Isidro gland hypertrophy vs. gastric metaplasia, left intact. 4. No active peptic ulcer disease seen. No Danielle-Orr tear. Recommendations: Maintain on ventilator (vent settings & sedation as per ICU team). NPO. 2 large-bore IVs. Transfuse to Hgb > 7 (do not overinflate varices; no documented history of ASHD). Continue IV Protonix drip and IV Octreotide drips (this may be overkill, & can adjust medications tomorrow). Maintain in ICU. Supplemental O2. *No NSAIDs. Panculture. Continue empiric IV Cipro/Flagyl for now (PCN/ cephalosporin-allergic; given for prophylaxis for variceal banding, & as well as to cover ascites, although no previous history of SBP). Advise CXR & abdominal sono. If positive ascites, please tap & send for gram stain, cell count, C&S ( previosly had chemistries & cytology sent from ascites). Outpatient [facility] per Dr. Moody, as patient allows. The patient will need outpatient hepatoma surveillance with serial AFP & RUQ sono Q 6 months, as she allows. Advise Hepatitis A booster shot (the patient is immune to Hep B), annual flu shot, and Pneumovax, if applicable. Avoid hepatotoxins. Keep Tylenol use to a minimum. The patient most likely will need resumption of non-selective beta blockers and diuretics as an outpatient, as she allows. Dr. Moody will assume the patient's GI care at [facility] on 11/15/16. Consideration for repeat EGD on 11/15/2016, while on vent. Further recommendation to follow, depending on clinical course. The above was discussed with the medical housestaff & with the patient's son, Bobby Villarreal in the ICU, postoperatively. CC: SAI EMERY,MALDONADO; OSKAR EMERY,DEAN; NADEEM EMERY,FRANK
--- NOTE | 2016-11-14 18:20 | RADIOLOGY REPORT ---
EXAMINATION: XR PORTABLE CHEST CLINICAL INFORMATION: 76-year-old woman post ET tube placement. COMPARISON: 07/27/2016 chest radiograph TECHNIQUE: Portable frontal view of the chest was obtained. FINDINGS: The tip of an endotracheal tube projects about 2.2 cm from the buzz. There is dense airspace consolidation in the left middle and lower lung, most consistent with acute pneumonia. Overall, lung volumes are somewhat low. Rounded density in the right perihilar region is potentially due to low lung volumes and confluence of shadows. There are no large pleural effusions. Heart size remains prominent. IMPRESSION: 1. Normal radiographic appearance of the patient's endotracheal tube. 2. Extensive airspace opacity in the left mid and lower lung is most consistent with acute pneumonia. 3. Rounded density in the right perihilar region is potentially due to low lung volumes and confluent to shadows. Correlation with follow-up radiography is suggested following removal of the patient's endotracheal tube.
--- NOTE | 2016-11-14 18:38 | NUR ---
SKIN NOTE: THIS RN REMOVED DSG TO L HEEL-TEGADERM PREV IN PLACE. SMALL OPEN AREA TO L HEEL NOTED 0.5 X 0.5CM-AREA CLEANSED AND NEW XEROFORM/TELFA AND TEGADERM DSG PLACED OVER SITE. LARGE DSG REMOVED TO RLE. LARGE VENOUS ULCER NOTED TO RLE-RED WOUND BED ONCE PREV GUAZE DSG REMOVED. AREA CLEANSED AND MEASURED 13.2 X 11.5CM. NEW XEROFORM/TELFA/FLUFF/ABD PAD DSG IN PLACE AND WRAPPED WITH KERLIX. ALSO NOTED WAS WOUND TO R HEEL MEASURING 1.5CM X 1.5CM AND 0.3CM DEEP. AREA CLEANSED AND XEROFORM DSG PLACED. PT ON SPECIALTY MATTRESS, ELEVATED ON PILLOWS. WOUND CONSULT ORD.
--- NOTE | 2016-11-14 18:47 | NUR ---
@1600-GI TEAM AND ANESTHESIA AT BEDSIDE FOR EGD. DURING PROCEDURE, NO ACTIVE BLEEDING NOTED BUT [address] CARREON FOR ESOPHAGEAL VARICIES. PLAN FOR PT TO REMAIN INTUBATED AFTER PROCEDURE-RT AWARE. HOUSESTAFF AWARE OF NEED FOR SEDATION.
--- NOTE | 2016-11-14 18:49 | NUR ---
@4620-1ST UNIT PRBC COMPLETED. AWAITING CALL FROM BLOOD BACK FOR NEXT UNIT TO BE AVAIL FROM [facility]. PT PLACED ON VENT BY RT WITH SETTINGS AC 14, TV 500, FIO2 40% AND PEEP 5. PLAN FOR ABG IN 1 HR. PORT CXR DONE AT BEDSIDE AT THIS TIME. ATIVAN GTT STARTED AT 3MG/HR. VSS. BILAT WRIST RESTRAINTS PLACED FOR SAFETY OF ETT. SON AWARE OF POC. REPEAT CBC AND ICU PANEL DRAWN AND SENT AT THIS TIME. PT INC OF LARGE MELENA STOOL. WILL CONT TO MONITOR, CALL KENYATTA MANLEY.
[2016-11-14 18:54] LABS: ABSOLUTE BASOPHIL COUNT 0.1 /CUMM (0.0-0.2); ABSOLUTE EOSINOPHIL COUNT 0.1 /CUMM (0.0-0.7); ABSOLUTE GRANULOCYTE CT 2.6 /CUMM (1.4-6.5); ABSOLUTE LYMPH COUNT 0.6 /CUMM (1.2-3.4); ABSOLUTE MONOCYTE COUNT 0.4 /CUMM (0.10-0.60); BASOPHIL % 1.5 % (0.0-2.0); EOSINOPHIL % 2.6 % (0-5); GRANULOCYTE % 69.1 % (42.2-75.2); MEAN CORPUSCULAR HGB 23.7 PG (27.0-31.0); MEAN PLATELET VOLUME 10.1 FL (7.4-10.4); RBC DISTRIBUTION WIDTH 19.9 % (11.5-14.5); RED BLOOD CELL CT 2.42 /CUMM (4.20-5.40); WHITE BLOOD CELL COUNT 3.7 /CUMM (4.8-10.8)
[2016-11-14 19:09] LABS: HEMATOCRIT 17.9 % (37-47); PLATELET COUNT 122 /CUMM (130-400)
[2016-11-14 20:00] VITALS: BP 104/47
[2016-11-14 22:00] VITALS: BP 88/43
[2016-11-14 22:25] LABS: EOSINOPHIL % 4.2 % (0-5); GRANULOCYTE % 66.1 % (42.2-75.2); RED BLOOD CELL CT 2.56 /CUMM (4.20-5.40)
[2016-11-14 22:49] LABS: HEMATOCRIT 19.1 % (37-47); MEAN CORPUSCULAR HGB 23.6 PG (27.0-31.0); MEAN CORPUSCULAR HGB CONC 31.5 G/DL (33.0-37.0); WHITE BLOOD CELL COUNT 3.7 /CUMM (4.8-10.8)
[2016-11-14 22:50] LABS: BASOPHIL % 0.5 % (0.0-2.0); MEAN PLATELET VOLUME 10.5 FL (7.4-10.4); PLATELET COUNT 103 /CUMM (130-400); RBC DISTRIBUTION WIDTH 18.6 % (11.5-14.5)
[2016-11-14 22:51] LABS: ABSOLUTE EOSINOPHIL COUNT 0.2 /CUMM (0.0-0.7); ABSOLUTE GRANULOCYTE CT 2.4 /CUMM (1.4-6.5); ABSOLUTE LYMPH COUNT 0.7 /CUMM (1.2-3.4); ABSOLUTE MONOCYTE COUNT 0.3 /CUMM (0.10-0.60)
[2016-11-15] VITALS (12 sets, daily range): BP systolic 92–180; BP diastolic 48–92
[2016-11-15 02:40] LABS: ABSOLUTE BASOPHIL COUNT 0 /CUMM (0.0-0.2); ABSOLUTE EOSINOPHIL COUNT 0.2 /CUMM (0.0-0.7); ABSOLUTE GRANULOCYTE CT 2.6 /CUMM (1.4-6.5); ABSOLUTE LYMPH COUNT 0.9 /CUMM (1.2-3.4); ABSOLUTE MONOCYTE COUNT 0.4 /CUMM (0.10-0.60); BASOPHIL % 0.3 % (0.0-2.0); EOSINOPHIL % 4.8 % (0-5); GRANULOCYTE % 63.9 % (42.2-75.2); HEMATOCRIT 22.3 % (37-47); MEAN CORPUSCULAR HGB 24.5 PG (27.0-31.0); MEAN CORPUSCULAR HGB CONC 31.9 G/DL (33.0-37.0); MEAN CORPUSCULAR VOLUME 76.7 FL (81.0-99.0); MEAN PLATELET VOLUME 9.3 FL (7.4-10.4); PLATELET COUNT 104 /CUMM (130-400); RBC DISTRIBUTION WIDTH 18.7 % (11.5-14.5); RED BLOOD CELL CT 2.91 /CUMM (4.20-5.40)
[2016-11-15 06:23] LABS: ABSOLUTE BASOPHIL COUNT 0.1 /CUMM (0.0-0.2); ABSOLUTE EOSINOPHIL COUNT 0.2 /CUMM (0.0-0.7); ABSOLUTE GRANULOCYTE CT 2.1 /CUMM (1.4-6.5); ABSOLUTE LYMPH COUNT 0.6 /CUMM (1.2-3.4); ABSOLUTE MONOCYTE COUNT 0.3 /CUMM (0.10-0.60); BASOPHIL % 2.1 % (0.0-2.0); EOSINOPHIL % 5.7 % (0-5); GRANULOCYTE % 65.7 % (42.2-75.2); MEAN CORPUSCULAR HGB 25.3 PG (27.0-31.0); MEAN CORPUSCULAR HGB CONC 32.9 G/DL (33.0-37.0); MEAN CORPUSCULAR VOLUME 76.7 FL (81.0-99.0); MEAN PLATELET VOLUME 9.5 FL (7.4-10.4); PLATELET COUNT 103 /CUMM (130-400); RED BLOOD CELL CT 2.87 /CUMM (4.20-5.40); WHITE BLOOD CELL COUNT 3.3 /CUMM (4.8-10.8)
[2016-11-15 06:29] LABS: PT 13.3 SEC (9.4-12.5)
--- NOTE | 2016-11-15 08:05 | NUR ---
ATIVAN GTT TURNED OFF AT THIS TIME PER DR STALEY. SAS 2-3.
--- NOTE | 2016-11-15 08:52 | Cons- CRCU ---
[facility] 11/15/16 0852: General Information and HPI Consulting Request Date of Consult: 11/15/16 Requested By: Trace Moyer MD Source of Information: old records Exam Limitations: unable to give history, not alert/orientated, clinical condition History of Present Illness: 76/F with PMH of chronic venous insufficiency resulting in chronic leg ulcers, chronic hepatitis c in 2005 , bilateral lower leg edema, rheumatic fever in her 20s, iron deficiency anemia, history of recent DVT started recentrly on Eliquis, h/o GI bleeeding, stage II esophageal varices, gastritis and liver cirrhosis presented to the ED for the chief complaint of vomiting bright red blood mixed with blood clots. According to the patient, the hematemesis started suddenly on the day of admission where she had 3 episodes of vomiting bright red blood mixed with blood clots. She had a recent procedure by Dr. Cabral for her chronic wounds on her Right lower extremity and it was covered with the dressing which was changed 2 days ago. Allergies/Medications Allergies: Coded Allergies: Penicillins (RASH 08/05/15) Sulfa (Sulfonamide Antibiotics) (UNKNOWN - PER PT SON 08/05/15) cephalexin (From KEFLEX) (RASH 07/27/16) clindamycin (UNKNOWN - PER PT SON 08/05/15) Home Med List: Apixaban (Eliquis) 2.5 MG TABLET 1 TAB PO BID DVT Start taking this twice a day on 08/07/16 Ferrous Sulfate (IRON) 325 MG (65 MG IRON) TABLET 1 TAB PO TID Iron deficiency Furosemide 20 MG TABLET 1 TAB PO DAILY Fluid overload Potassium Chloride (Klor-Con) 20 MEQ PACKET 1 PAC PO DAILY Low potassium Propranolol HCl 10 MG TABLET 0.5 TAB PO DAILY Gastric varices Please monitor blood pressure and heart rate twice a day for 1 week. Send the results to your PCP and he will adjust the dose of this medication moving forward Spironolactone 25 MG TABLET 1 TAB PO DAILY Fluid balance Review of Systems Comments Patient is sedated and intubated, review of systems cannot be obtained. Review of systems that was done on admission are: positive for shortness of breath on exertion, dark stools (patient is already on FeSO4), loose stools and lower extremity swelling, negative for any headaches, acute visual changes, chest pain, sudden abdominal pain, bright red blood in stools, change in urinary habits, fever or rash. Past History Travel History Traveled to [place] past 21 day No Medical History Blood Transfusion Hx: Yes Neurological: NONE EENT: NONE Cardiovascular: CHF, chronic venous insuff, hypertension, RHEUMATIC FEVER Respiratory: NONE Gastrointestinal: ESOPHAGEAL VARICES Hepatic: NONE (non-compliant with tx), cirrhosis, hepatitis C Renal: NONE Musculoskeletal: decubitis ulcer (& ulcer R styles/R foot) Psychiatric: anxiety Endocrine: THYROID NODULES Blood Disorders: anemia, coagulopathy (mild (cirrhotic)), pancytopenia Cancer(s): NONE NURSE RESEARCH/Reproductive: NONE Other Medical Hx: CHRONIC LOWER EXTREMITY WOUNDS DVT LUE 07/2016- on short course of Eliquis (self D/C end of 09/2016) Surgical History Surgical History: appendectomy, cholecystectomy, tonsillectomy VV stripping RLE 2016 Family History Relations & Conditions If Any: FATHER (smoker). , Age 84; Cause: Renal cell cancer. MOTHER, , Age 74; Cause: CVA (cerebrovascular accident due to intracerebral hemorrhage). Psychosocial History Where Do You Live? Home Who Do You Live With? child (son, Bobby Villarreal) Services at Home: Nursing Primary Language: Thai Smoking Status: Former Smoker ETOH Use: denies use Illicit Drug Use: denies illicit drug use Living Will? no Power of Casting Molder/HCP? no Other Social History: Single. Never . One son (Bobby Villarreal) 51- [employer], with whom she lives. Ex 2 pk yr smoker in college. No EtOH. No drugs. No IVDA. No tattoos. No body piercings. 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 Uses 2 quad canes to ambulate. Functional Ability ADLs Independent: dressing, eating, toileting. Unknown: bathing. Ambulation: cane (2 quad canes) IADLs Independent: finances, food prep, telephone, medication admin. Needs Assist: shopping, housework, transportation. 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 [employer] Results (as available) Date of last Echo 04/06/11 EF% 60 Exam & Diagnostic Data Last 24 Hrs of Vital Signs/I&O Vital Signs Date Time Temp Pulse Resp B/P B/P Pulse O2 O2 Flow FiO2 Mean Ox Delivery Rate 11/15 0750 30 11/15 0600 97.6 56 18 102/49 12 0535 30 11/15 0400 56 17 93/48 11/15 0400 100 Ventilator 30% 11/15 0351 30 11/15 0200 56 18 124/56 11/15 0046 30 06 0000 97.8 58 17 92/48 06/ 0000 100 Ventilator 30% 11/15 0000 97.8 58 17 92/48 100 Ventilator 30% 11/14 2200 98.6 62 18 88/43 11/14 2115 30 11/14 2000 98.6 68 18 104/47 11/14 2000 99 Ventilator 30% 11/14 1732 40 11/14 1600 97.9 72 19 119/55 100 Room Air 11/14 1600 99 Ventilator 40% 11/14 1130 94 Room Air 11/14 1130 97.5 88 24 110/60 96 Room Air 11/14 1036 96.6 77 20 116/57 95 Room Air Intake & Output 11/15 1600 11/15 0800 11/15 0000 Intake Total 1830 1871 Output Total 300 450 Balance 1530 1421 Intake, Blood 369 700 Product Intake, IV 1461 1171 Intake, Oral 0 0 Number 1 3 Bowel Movements Output, Urine 300 450 Physical Exam General Appearance: no apparent distress, sedated, intubated, obese Head: atraumatic, normal appearance, poor denition Eyes: Bilateral: PERRL. Respiratory: chest non-tender, no respiratory distress, intubated and mechanically ventilated, clear to auscultation bilaterally with no additional sounds Cardiovascular: regular rate/rhythm Gastrointestinal: normal bowel sounds, soft, non-tender, no organomegaly Last 48 Hrs of Labs/Gui: Laboratory Tests 11/15/16 1000: Ammonia Cancelled 11/15/16 0600: Anion Gap 4 L, Estimated GFR > 60, Glucose 125 H, Calcium 6.8 L, Phosphorus 3.1, Magnesium 1.9, Total Bilirubin 1.0, AST 40 H, ALT 50, Albumin 1.9 L, PT 13.3 H, INR 1.27 H, CBC w Diff NO MAN DIFF REQ, RBC 2.87 L, MCV 76.7 L, MCH 25.3 L, RDW 19.0 H, MPV 9.5, Gran % 65.7, Lymphocytes % 17.1 L, Monocytes % 9.4 H, Eosinophils % 5.7 H, Basophils % 2.1 H, Absolute Granulocytes 2.1, Absolute Lymphocytes 0.6 L, Absolute Monocytes 0.3, Absolute Eosinophils 0.2, Absolute Basophils 0.1, PUBS MCHC 32.9 L 11/15/16 0230: CBC w Diff NO MAN DIFF REQ, RBC 2.91 L, MCV 76.7 L, MCH 24.5 L, RDW 18.7 H, MPV 9.3, Gran % 63.9, Lymphocytes % 21.8, Monocytes % 9.2, Eosinophils % 4.8, Basophils % 0.3, Absolute Granulocytes 2.6, Absolute Lymphocytes 0.9 L, Absolute Monocytes 0.4, Absolute Eosinophils 0.2, Absolute Basophils 0, PUBS MCHC 31.9 L 11/14/16 2200: CBC w Diff NO MAN DIFF REQ, RBC 2.56 L, MCV 75.0 L, MCH 23.6 L, RDW 18.6 H, MPV 10.5 H, Gran % 66.1, Lymphocytes % 20.2 L, Monocytes % 8.7, Eosinophils % 4.2, Basophils % 0.5, Absolute Granulocytes 2.4, Absolute Lymphocytes 0.7 L, Absolute Monocytes 0.3, Absolute Eosinophils 0.2, Absolute Basophils 0.0, PUBS MCHC 31.5 L 11/14/16 1840: pH 7.50 H, pCO2 28 L, pO2 95, HCO3 22, ABG O2 Sat (Measured) 96.0, P-50 (Temp Corrected) Y, Carboxyhemoglobin 1.4 L, O2 Concentration % 40, Temperature 97.7, Respiration Rate 14, O2 Delivery Method VENT, Vent Mode CMV, Expiratory Pressure 5, Tidal Volume 500, Phlebotomy Draw Site RIGHT BRACHIAL 11/14/16 1809: Anion Gap 5, Estimated GFR > 60, Glucose 126 H, Calcium 6.9 L, Phosphorus 4.0, Magnesium 1.8, Total Bilirubin 0.5, AST 37 H, ALT 37, Albumin 2.0 L, CBC w Diff NO MAN DIFF REQ, RBC 2.42 L, MCV 74.0 L, MCH 23.7 L, RDW 19.9 H, MPV 10.1, Gran % 69.1, Lymphocytes % 17.0 L, Monocytes % 9.8 H, Eosinophils % 2.6, Basophils % 1.5, Absolute Granulocytes 2.6, Absolute Lymphocytes 0.6 L, Absolute Monocytes 0.4, Absolute Eosinophils 0.1, Absolute Basophils 0.1, PUBS MCHC 32.0 L 11/14/16 1300: Troponin I < 0.01 11/14/16 1108: Lactic Acid 2.1 11/14/16 1000: Urine Color YEL, Urine Clarity HAZY H, Urine pH 6.0, Ur Specific [place] 1.020, Urine Protein TRACE H, Urine Ketones NEG, Urine Nitrite POS H, Urine Bilirubin NEG, Urine Urobilinogen 0.2, Ur Leukocyte Esterase MOD H, Ur Microscopic SEDIMENT EXAMINED, Urine WBC 50-75 H, Ur Epithelial Cells MOD H, Urine Bacteria MOD H, Urine Mucus FEW, Urine Hemoglobin NEG, Urine Glucose NEG 11/14/16 0737: Ammonia 85 H 11/14/16 0737: Anion Gap 7, Estimated GFR > 60, BUN/Creatinine Ratio 60.0 H, Glucose 124 H, Lactic Acid 2.5 H, Calcium 7.6 L, Total Bilirubin 0.5, AST 45 H, ALT 44, Alkaline Phosphatase 83, Troponin I < 0.01, Total Protein 5.9 L, Albumin 2.4 L , Globulin 3.5, Albumin/Globulin Ratio 0.7 L, Amylase 32, Lipase 68, PT 14.5 H , INR 1.39 H, CBC w Diff NO MAN DIFF REQ, RBC 2.59 L, MCV 70.8 L, MCH 21.8 L , RDW 18.8 H, MPV 10.0, Gran % 55.4, Lymphocytes % 26.7, Monocytes % 13.3 H, Eosinophils % 3.4, Basophils % 1.2, Absolute Granulocytes 2.5, Absolute Lymphocytes 1.2, Absolute Monocytes 0.6, Absolute Eosinophils 0.2, Absolute Basophils 0.1, PUBS MCHC 30.8 L, Retic Count 2.29 H, Serum Alcohol < 10.0 Assessment/Plan Impression/Plan: #Respiratory: History of untreated chronic hepatitis C. Patient presents with upper GI bleed, she was intubated for upper endoscopy and esophageal banding. Banded x 4 was performed. Patient still intubated and mechanically ventilated. An x-ray that was done post intubation showed a possible acute pneumonia. Ventilator setting -Vent mode: VC-AC -RR set: 10 -RR act: 27 -TV set: 500 -TV act: 613 -FIO2: 30 -PEEP: 5 Plan 1. We will repeat chest x-ray to confirm ET place and to follow up ? Pneumonia 2. Once patient is more alert, we'll try to wean her off the ventilator #Infection Aspiration pneumonia: Acute pneumonia on chest x-ray in the setting of vomiting. SBP: Should be ruled out given that Patient has a chronic hepatitis C with liver cirrhosis. * Tmax:98.6 * WBCs 3.3 Plan 1.We'll Continue IV Flagyl and IV Cipro. 2.We'll Consult ID 3.Abdominal ultrasound/ascites tap if possible #Cardiology No active heart issue * HR: 56-88 * BP 92/46- 133/57 Plan 1. Monitor vitals #Hematology Acute hemorrhagic anemia from esophageal varices. He presents with hemoglobin of 5.7. She received X4 RBCs after which her hemoglobin became 7.3. * H&H this AM is 7.3 & 22 Plan 1. Repeat CBC Q 12 #Neurology Patient was alert on admission, On 11/14/16 she was sedated & prophylactically intubated for Upper endoscopy. This morning patient was on 1 mg/h IV Ativan drip, she was lethargic but responsive to tactile stimuli. She is less alert and not responsive even to painful stimuli. This can be secondary to hepatic encephalopathy, medication induced or acute intracranial pathology. * Unresponsive to painful stimuli * Pupils are reactive to light bilaterally * IV Ativan was DC'd this morning * She is not on any sedating medication Plan 1. CT head with contrast 2. Repeat Ammonia level and give lactulose enema #GI Vision presented with upper GI bleed, upper endoscopy was done and esophageal varicocele was ligated X4. Patient would most likely need to go for another endoscopy to exclude gastric varicoceles. Plan 1.We will watch for any symptom of bleeding, it happens patient will go for upper endoscopy 2.Abdominal ultrasound/ascites tap if possible #Renal Cr is 0.5 and BUN is 26. Plan 1.NTD #Skin She has chronic LE venous stasis with chronic venous ulcers S/P recent care by Dr. Anna Jessica LE currently wrapped up with the Teodoro bandage on the right leg. Plan 1. Consult wound care Nothing by mouth DVT prophylaxis with Alps Full code Consult Acknowledgment - Thank you for your consult request. Katiana STALEY MDDorita FREEDMANA 11/15/16 0857: Assessment/Plan Other Findings/Comments: I have personally seen and examined the patient and agree with the housestaff's assessment and plan as detailed above. Briefly, the patient is a 76-year-old female with a past medical history significant for chronic venous insufficiency with chronic leg ulcers, chronic hepatitis in 2005, rheumatic fever, iron deficiency anemia, history of DVT on Eliquis, history of GI bleeding, esophageal varices, gastritis, liver cirrhosis and medication noncompliance. The patient was admitted with an upper GI bleed requiring intubation and endoscopy. The patient had several bands placed for varices. She is currently sedated on an Ativan drip, and remains on mechanical ventilation. The plan is to discontinue the Ativan drip, allow the patient to improve her mental status, will attempt extubation when her mental status improves. Will continue Cipro and Flagyl. Await diagnostic paracentesis. Continue Octreotide and Protonix. HI lactulose for elevated ammonia level. Will continue all supportive care. Consult Acknowledgment - Thank you for your consult request.
--- NOTE | 2016-11-15 09:29 | PN- Att Addend ---
Attending Addendum Attending Brief Note Patient intubated and sedated. General Appearance: Intubated and sedated Skin: Lymphedema bilateral lower extremity Cardiovascular: Regular Rate, Normal S1, Normal S2, No Murmurs Lungs: Clear to Auscultation, Normal Air Movement Abdomen: Mildly distended Extremities: 2+ edema, right foot wound Assessment Patient remains intubated. 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 Prophylactically on antibiotics. We will perform ultrasound-guided paracentesis to rule out SBP and then decide on the need for antibiotics. Elevated ammonia levels, patient likely encephalopathic. We will continue lactulose for rectal and weaning her off Ativan and attempt to extubate. We'll hold off on diuretics and continue mild hydration. Plan Diagnostic paracentesis, ultrasound-guided Continue current antibiotics Wound consult Wean off Ativan CBC every 12 hours and transfuse for hemoglobin less than 7 Continue lactulose per rectal Mild hydration Follow consults recommendations Current Medications Sig/Marcin Start time Last Medication Dose Route Stop Time Status Admin Acetaminophen 1,000 MG Q6P PRN 11/14 1400 AC IV Chlorhexidine 1 GM .STK-MED ONE 11/15 0739 DC Gluconate TOP 11/15 0740 Ciprofloxacin 400 MG Q12H 11/15 0400 11/15 Dextrose/Water 200 ML IV 11/18 0959 0338 Ciprofloxacin 400 MG ONCE ONE 11/14 0900 LA 11/14 Dextrose/Water 200 ML IV 11/14 0959 1537 Lactulose 1 BOT Q6 11/15 0841 AC KY Lorazepam 50 MG Q24H 11/14 1730 DC 11/14 Sodium Chloride 500 ML IV 1745 Lorazepam 50 MG Q24H 11/14 1715 CAN Dextrose/Water 500 ML IV Metronidazole 500 MG IQ8 11/15 0000 11/15 N/A 1 UNIT IV 0831 Metronidazole 500 MG ONCE ONE 11/14 0900 DC 11/14 N/A 1 UNIT IV 11/14 0959 0924 Morphine Sulfate 1 MG Q6P PRN 11/14 1400 AC IV Octreotide Acetate 500 MCG Q20H 11/15 0200 AC 11/15 Dextrose/Water 500 ML IV 0334 Octreotide Acetate 500 MCG Q10H 11/14 0815 DC 11/14 Dextrose/Water 500 ML IV 11/15 0159 0900 Pantoprazole Sodium 40 MG Q5H 11/14 0815 06/12 Sodium Chloride 100 ML IV 0924 Potassium Chloride 10 MEQ Q1H 11/15 0845 AC 11/15 IV 11/15 1046 0921 Sodium Chloride 1,000 ML Q8H 11/14 1215 AC 11/15 IV 0335 Sodium Chloride 1,000 ML BOLUS ONE 11/14 0830 DC 11/14 IV 11/14 0929 0900 Laboratory Tests 11/15 11/15 0600 0230 Chemistry Sodium (137 - 145 mmol/L) 140 Potassium (3.5 - 5.1 mmol/L) 3.6 Chloride (98 - 107 mmol/L) 113 H Carbon Dioxide (22 - 30 mmol/L) 23 Anion Gap (5 - 16) 4 L BUN (7 - 17 mg/dL) 26 H Creatinine (0.5 - 1.0 mg/dL) 0.5 Estimated GFR (>60 ml/min) > 60 Glucose (65 - 99 mg/dL) 125 H Calcium (8.4 - 10.2 mg/dL) 6.8 L Phosphorus (2.5 - 4.5 mg/dL) 3.1 Magnesium (1.6 - 2.3 mg/dL) 1.9 Total Bilirubin (0.2 - 1.3 mg/dL) 1.0 AST (14 - 36 U/L) 40 H ALT (9 - 52 U/L) 50 Albumin (3.5 - 5.0 g/dL) 1.9 L Coagulation PT (9.4 - 12.5 SEC) 13.3 H INR (0.90 - 1.19) 1.27 H Hematology CBC w Diff NO MAN DIFF REQ NO MAN DIFF REQ WBC (4.8 - 10.8 /CUMM) 3.3 L 4.0 L RBC (4.20 - 5.40 /CUMM) 2.87 L 2.91 L Hgb (12.0 - 16.0 G/DL) 7.3 *L 7.1 *L Hct (37 - 47 %) 22.0 L 22.3 L MCV (81.0 - 99.0 FL) 76.7 L 76.7 L MCH (27.0 - 31.0 PG) 25.3 L 24.5 L RDW (11.5 - 14.5 %) 19.0 H 18.7 H Plt Count (130 - 400 /CUMM) 103 L 104 L MPV (7.4 - 10.4 FL) 9.5 9.3 Gran % (42.2 - 75.2 %) 65.7 63.9 Lymphocytes % (20.5 - 51.1 %) 17.1 L 21.8 Monocytes % (1.7 - 9.3 %) 9.4 H 9.2 Eosinophils % (0 - 5 %) 5.7 H 4.8 Basophils % (0.0 - 2.0 %) 2.1 H 0.3 Absolute Granulocytes (1.4 - 6.5 /CUMM) 2.1 2.6 Absolute Lymphocytes (1.2 - 3.4 /CUMM) 0.6 L 0.9 L Absolute Monocytes (0.10 - 0.60 /CUMM) 0.3 0.4 Absolute Eosinophils (0.0 - 0.7 /CUMM) 0.2 0.2 Absolute Basophils (0.0 - 0.2 /CUMM) 0.1 0 PUBS MCHC (33.0 - 37.0 G/DL) 32.9 L 31.9 L 11/14 11/14 2200 1840 Blood Gas pH (7.35 - 7.45 PH) 7.50 H pCO2 (35 - 45 TORR) 28 L pO2 (80 - 100 TORR) 95 HCO3 (21 - 28 MEQ/L) 22 ABG O2 Sat (Measured) (>96.0 %) 96.0 P-50 (Temp Corrected) Y Carboxyhemoglobin (1.5 - 5.0 %) 1.4 L O2 Concentration % 40 Temperature (97.0 - 100.0 FARH) 97.7 Respiration Rate (BPM) 14 O2 Delivery Method VENT Vent Mode CMV Expiratory Pressure (CMH2O/P) 5 Tidal Volume (CC) 500 Hematology CBC w Diff NO MAN DIFF REQ WBC (4.8 - 10.8 /CUMM) 3.7 L RBC (4.20 - 5.40 /CUMM) 2.56 L Hgb (12.0 - 16.0 G/DL) 6.0 *L Hct (37 - 47 %) 19.1 *L MCV (81.0 - 99.0 FL) 75.0 L MCH (27.0 - 31.0 PG) 23.6 L RDW (11.5 - 14.5 %) 18.6 H Plt Count (130 - 400 /CUMM) 103 L MPV (7.4 - 10.4 FL) 10.5 H Gran % (42.2 - 75.2 %) 66.1 Lymphocytes % (20.5 - 51.1 %) 20.2 L Monocytes % (1.7 - 9.3 %) 8.7 Eosinophils % (0 - 5 %) 4.2 Basophils % (0.0 - 2.0 %) 0.5 Absolute Granulocytes (1.4 - 6.5 /CUMM) 2.4 Absolute Lymphocytes (1.2 - 3.4 /CUMM) 0.7 L Absolute Monocytes (0.10 - 0.60 /CUMM) 0.3 Absolute Eosinophils (0.0 - 0.7 /CUMM) 0.2 Absolute Basophils (0.0 - 0.2 /CUMM) 0.0 PUBS MCHC (33.0 - 37.0 G/DL) 31.5 L Miscellaneous Phlebotomy Draw Site RIGHT BRACHIAL 11/14 11/14 11/14 1809 1300 1108 Chemistry Sodium (137 - 145 mmol/L) 140 Potassium (3.5 - 5.1 mmol/L) 4.0 Chloride (98 - 107 mmol/L) 112 H Carbon Dioxide (22 - 30 mmol/L) 23 Anion Gap (5 - 16) 5 BUN (7 - 17 mg/dL) 28 H Creatinine (0.5 - 1.0 mg/dL) 0.6 Estimated GFR (>60 ml/min) > 60 Glucose (65 - 99 mg/dL) 126 H Lactic Acid (0.7 - 2.1 mmol/L) 2.1 Calcium (8.4 - 10.2 mg/dL) 6.9 L Phosphorus (2.5 - 4.5 mg/dL) 4.0 Magnesium (1.6 - 2.3 mg/dL) 1.8 Total Bilirubin (0.2 - 1.3 mg/dL) 0.5 AST (14 - 36 U/L) 37 H ALT (9 - 52 U/L) 37 Troponin I (< 0.11 ng/ml) < 0.01 Albumin (3.5 - 5.0 g/dL) 2.0 L Hematology CBC w Diff NO MAN DIFF REQ WBC (4.8 - 10.8 /CUMM) 3.7 L RBC (4.20 - 5.40 /CUMM) 2.42 L Hgb (12.0 - 16.0 G/DL) 5.7 *L Hct (37 - 47 %) 17.9 *L MCV (81.0 - 99.0 FL) 74.0 L MCH (27.0 - 31.0 PG) 23.7 L RDW (11.5 - 14.5 %) 19.9 H Plt Count (130 - 400 /CUMM) 122 L MPV (7.4 - 10.4 FL) 10.1 Gran % (42.2 - 75.2 %) 69.1 Lymphocytes % (20.5 - 51.1 %) 17.0 L Monocytes % (1.7 - 9.3 %) 9.8 H Eosinophils % (0 - 5 %) 2.6 Basophils % (0.0 - 2.0 %) 1.5 Absolute Granulocytes (1.4 - 6.5 /CUMM) 2.6 Absolute Lymphocytes (1.2 - 3.4 /CUMM) 0.6 L Absolute Monocytes (0.10 - 0.60 /CUMM) 0.4 Absolute Eosinophils (0.0 - 0.7 /CUMM) 0.1 Absolute Basophils (0.0 - 0.2 /CUMM) 0.1 PUBS MCHC (33.0 - 37.0 G/DL) 32.0 L 11/14 1000 Urines Urine Color (YEL,AMB,STR) YEL Urine Clarity (CLEAR) HAZY H Urine pH (5.0 - 8.0) 6.0 Ur Specific [place] (1.001 - 1.035) 1.020 Urine Protein (NEG,<30 MG/DL) TRACE H Urine Ketones (NEG) NEG Urine Nitrite (NEG) POS H Urine Bilirubin (NEG) NEG Urine Urobilinogen (0.1 - 1.0 EU/dl) 0.2 Ur Leukocyte Esterase (NEG) MOD H Ur Microscopic SEDIMENT EXAMINED Urine WBC (0 - 2 /HPF) 50-75 H Ur Epithelial Cells (NONE,FEW) MOD H Urine Bacteria (NEG/NONE) MOD H Urine Mucus (FEW,NONE) FEW Urine Hemoglobin (NEG) NEG Urine Glucose (N MG/DL) NEG Vital Signs Date Time Temp Pulse Resp B/P B/P Pulse O2 O2 Flow FiO2 Mean Ox Delivery Rate 11/15 0750 30 11/15 0600 97.6 56 18 102/49 11/15 0535 30 11/15 0400 56 17 93/48 06 0400 100 Ventilator 30% 11/15 0351 30 11/15 0200 56 18 124/56 06/ 0046 30 06 0000 97.8 58 17 92/48 06/ 0000 100 Ventilator 30% 11/15 0000 97.8 58 17 92/48 100 Ventilator 30% 11/14 2200 98.6 62 18 88/43 06/ 2115 30 11/15 1999 98.6 68 18 104/47 061999 99 Ventilator 30% 11/14 1732 40 11/14 1600 97.9 72 19 119/55 100 Room Air 11/14 1600 99 Ventilator 40% 11/14 1130 94 Room Air 11/14 1130 97.5 88 24 110/60 96 Room Air 11/14 1036 96.6 77 20 116/57 95 Room Air
--- NOTE | 2016-11-15 11:42 | RADIOLOGY REPORT ---
EXAMINATION: XR PORTABLE CHEST CLINICAL INFORMATION: Intubated COMPARISON: 11/14/2016 TECHNIQUE: Portable frontal view of the chest was obtained. FINDINGS: An endotracheal tube terminates 3.4 cm above the buzz. The cardiomediastinal silhouette is stable with central pulmonary vascular prominence accentuated by supine technique. Bilateral perihilar prominence, similar to the prior given differences in technique. Hazy airspace opacification within the left lung appears slightly more extensive than on the prior study. A layering left-sided pleural effusion is suspected. No definitive right-sided consolidation is visualized. No defined pneumothorax on this supine study. IMPRESSION: Endotracheal tube terminating 3.4 cm above the buzz. Hazy opacification overlying the left lung appears slightly more extensive than on the prior study, which is suspected to be a combination of airspace opacification and pleural fluid.
--- NOTE | 2016-11-15 12:12 | ULTRASOUND REPORT ---
EXAMINATION: US ABDOMEN COMPLETE CLINICAL INFORMATION: Check for ascites. Hepatitis C.. COMPARISON: 07/29/2016 TECHNIQUE: Real-time imaging of the abdominal viscera. FINDINGS: PANCREAS: Visualized portions of pancreas are unremarkable. Much of the pancreas is obscured by bowel gas. ABDOMINAL AORTA: The proximal segment is normal in caliber. INFERIOR VENA CAVA: Visualized portions are normal. LIVER: Heterogeneous echotexture compatible with fibrosis without a focal liver lesion. No intrahepatic biliary ductal dilatation. GALLBLADDER: The gallbladder has been removed. COMMON BILE DUCT: Normal in caliber measuring 0.4 cm in diameter. RIGHT KIDNEY: Normal. No hydronephrosis. No renal calculi or focal parenchymal lesions. The kidney measures 9.2 cm in maximum dimension. LEFT KIDNEY: Normal. No hydronephrosis. No renal calculi or focal parenchymal lesions. The kidney measures 9.9 cm in maximum dimension. SPLEEN: Mildly enlarged. The spleen measures 15.6 cm in maximum dimension. FREE FLUID: Trace ascites is demonstrated in the right and left upper quadrants. IMPRESSION: Small amount of ascites. Echogenic and coarsened liver compatible with fibrosis/cirrhosis. Mild splenomegaly.
--- NOTE | 2016-11-15 14:02 | CT SCAN REPORT ---
EXAMINATION: CT HEAD WITHOUT CONTRAST CLINICAL INFORMATION: Deteriorating mentation. COMPARISON: None TECHNIQUE: Contiguous axial imaging was performed from the skull base to vertex without intravenous administration of contrast. DLP: 1542 mGy-cm FINDINGS: There is no evidence of acute intracranial hemorrhage or territorial infarction. No abnormal mass effect or midline shift is seen. Condon to white matter differentiation is well preserved. No extra-axial fluid collections are identified. There is mild generalized prominence of the ventricles, sulci, and extra-axial CSF spaces. Minor scattered hypoattenuation within the bihemispheric white matter compatible with chronic microangiopathy. No acute osseous abnormalities. There is moderate mucosal thickening with aerosolized secretions and a fluid level within the left maxillary sinus in the setting of intubation. Dental caries are visualized in the few remaining maxillary teeth. The mastoid air cells and middle ear cavities are clear. There is asymmetric pneumatization of the left petrous apex. The temporomandibular joints articulate normally. No acute soft tissue abnormalities. There have been bilateral ocular lens extractions. IMPRESSION: No acute intracranial pathology. Mild chronic microangiopathy and volume loss. Left maxillary sinus inflammatory disease in the setting of intubation. Dental caries.
--- NOTE | 2016-11-15 14:24 | PN- Gastroenterology ---
Assessment/Plan Assessment/Recommendations: Assessment: Ms. Villarreal is a 76-year-old female with hepatitis C cirrhosis was admitted yesterday with hematemesis likely secondary to a variceal bleed based on the endoscopy findings. She underwent banding yesterday and has not had any hemodynamically significant bleeding since the procedure. As the bleeding apparently has stopped and she just had bands placed I will hold off on a repeat EGD now, but she should have one in a few weeks to evaluate for any residual varices which may benefit from further banding. 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 She should be started on a nonselective beta gerber as her BP tolerates and treatment of her Hepatitis C with harvmaico will be pursued as an outpatient. Recommendations: 1. As there are no plans to repeat her upper endoscopy now wouldn't attempt to extubate her today. 2. Continue IV octreotide drip, but would discontinue the IV Protonix. 3. Follow CBCs every 12 hours and transfuse as needed to keep hemoglobin greater than 7 or as per cardiology recommendations. 4. Avoid NSAIDs. 5. When she is extubated would advance to a low-sodium diet as tolerated. 6. GI should be notified for any signs of further hemodynamically significant bleeding in which case consideration will be given for repeat upper endoscopy versus referral for a TIPS procedure. 7. Start propanolol 20 mg twice a day and titrate to a heart rate of 55-60 or 25% drop in her cardiac output. 8. We'll tentatively plan to repeat her upper endoscopy in a few weeks to evaluate for any residual varices which may benefit from banding. 9. Treatment of her hepatitis C with harvoni will be pursued as an outpatient. I will continue to follow this patient and make further recommendations based on her clinical course and results of repeat blood work. Subjective Subjective: Pt is s/p EGD with esophageal banding yesterday afternoon. No further hematemesis since the procedure and she is without melena or brbpr. She has remained intubated since the procedure yesterday. Objective Vital Signs and I&Os Vital Signs Date Time Temp Pulse Resp B/P B/P Pulse O2 O2 Flow FiO2 Mean Ox Delivery Rate 11/15 1407 30 11/15 1210 30 11/15 0750 30 11/15 0600 97.6 56 18 102/49 / 0535 30 11/15 0400 56 17 93/48 / 0400 100 Ventilator 30% / 0351 30 11/15 0200 56 18 124/56 / 0046 30 / 0000 97.8 58 17 92/48 06/ 0000 100 Ventilator 30% 11/15 0000 97.8 58 17 92/48 100 Ventilator 30% 11/14 2200 98.6 62 18 88/43 / 2115 30 11/15 1999 98.6 68 18 104/47 11/15 1999 99 Ventilator 30% 11/14 1732 40 / 1600 97.9 72 19 119/55 100 Room Air 11/14 1600 99 Ventilator 40% Intake & Output 11/15 1600 11/15 0400 11/14 1600 11/14 0400 11/13 1600 11/13 0400 Intake Total 1830 1871 1433 Output Total 300 450 750 Balance 1530 1421 683 Intake, Blood 369 700 Product Intake, IV 1461 1171 1433 Intake, Oral 0 0 0 Number 1 3 1 Bowel Movements Output, Urine 300 450 750 Patient 216 lb Weight Weight Bed scale Measurement Method Physical Exam General Appearance: no apparent distress, intubated Head: atraumatic Neck: normal inspection, supple Respiratory: decreased breath sounds Cardiovascular: regular rate/rhythm Abdomen: normal bowel sounds, soft, distention Rectal: deferred Extremities: swelling Neurologic/Psychiatric: sedated Current Medications: Current Medications Sig/Marcin Start time Last Medication Dose Route Stop Time Status Admin Acetaminophen 1,000 MG Q6P PRN 11/14 1400 AC IV Chlorhexidine 1 GM .STK-MED ONE 11/15 0739 DC Gluconate TOP 11/15 0740 Ciprofloxacin 400 MG Q12H 11/15 0400 11/15 Dextrose/Water 200 ML IV 11/18 0959 0338 Lactulose 1 BOT Q6 11/15 0841 AC 11/15 SC 1113 Lorazepam 50 MG Q24H 11/14 1730 DC 11/14 Sodium Chloride 500 ML IV 1745 Lorazepam 50 MG Q24H 11/14 1715 CAN Dextrose/Water 500 ML IV Metronidazole 500 MG IQ8 11/15 0000 AC 11/15 N/A 1 UNIT IV 0831 Morphine Sulfate 1 MG Q6P PRN 11/14 1400 AC IV Octreotide Acetate 500 MCG Q20H 11/15 0200 AC 11/15 Dextrose/Water 500 ML IV 0334 Octreotide Acetate 500 MCG Q10H 11/14 0815 DC 11/14 Dextrose/Water 500 ML IV 11/15 0159 0900 Pantoprazole Sodium 40 MG Q5H 11/14 0815 AC 11/15 Sodium Chloride 100 ML IV 0924 Potassium Chloride 10 MEQ Q1H 11/15 0845 DC 11/15 IV 11/15 1046 1158 Sodium Chloride 1,000 ML Q8H 11/14 1215 AC 11/15 IV 0335 Results Pertinent Lab Results: Laboratory Tests 11/15 11/15 1115 UNK Blood Gas pH (7.35 - 7.45 PH) 7.54 H pCO2 (35 - 45 TORR) 23 L pO2 (80 - 100 TORR) 78 L HCO3 (21 - 28 MEQ/L) 19 L ABG O2 Sat (Measured) (>96.0 %) 94.0 L P-50 (Temp Corrected) N Carboxyhemoglobin (1.5 - 5.0 %) 2.1 O2 Concentration % 30% Temperature (97.0 - 100.0 FARH) 97.6 Respiration Rate (BPM) 10 O2 Delivery Method VENT Vent Mode VC-AC Expiratory Pressure (CMH2O/P) 5 Tidal Volume (CC) 500 Chemistry Ammonia Cancelled Miscellaneous Phlebotomy Draw Site RIGHT RADIAL 11/15 11/15 0600 0230 Chemistry Sodium (137 - 145 mmol/L) 140 Potassium (3.5 - 5.1 mmol/L) 3.6 Chloride (98 - 107 mmol/L) 113 H Carbon Dioxide (22 - 30 mmol/L) 23 Anion Gap (5 - 16) 4 L BUN (7 - 17 mg/dL) 26 H Creatinine (0.5 - 1.0 mg/dL) 0.5 Estimated GFR (>60 ml/min) > 60 Glucose (65 - 99 mg/dL) 125 H Calcium (8.4 - 10.2 mg/dL) 6.8 L Phosphorus (2.5 - 4.5 mg/dL) 3.1 Magnesium (1.6 - 2.3 mg/dL) 1.9 Total Bilirubin (0.2 - 1.3 mg/dL) 1.0 AST (14 - 36 U/L) 40 H ALT (9 - 52 U/L) 50 Albumin (3.5 - 5.0 g/dL) 1.9 L Coagulation PT (9.4 - 12.5 SEC) 13.3 H INR (0.90 - 1.19) 1.27 H Hematology CBC w Diff NO MAN DIFF REQ NO MAN DIFF REQ WBC (4.8 - 10.8 /CUMM) 3.3 L 4.0 L RBC (4.20 - 5.40 /CUMM) 2.87 L 2.91 L Hgb (12.0 - 16.0 G/DL) 7.3 *L 7.1 *L Hct (37 - 47 %) 22.0 L 22.3 L MCV (81.0 - 99.0 FL) 76.7 L 76.7 L MCH (27.0 - 31.0 PG) 25.3 L 24.5 L RDW (11.5 - 14.5 %) 19.0 H 18.7 H Plt Count (130 - 400 /CUMM) 103 L 104 L MPV (7.4 - 10.4 FL) 9.5 9.3 Gran % (42.2 - 75.2 %) 65.7 63.9 Lymphocytes % (20.5 - 51.1 %) 17.1 L 21.8 Monocytes % (1.7 - 9.3 %) 9.4 H 9.2 Eosinophils % (0 - 5 %) 5.7 H 4.8 Basophils % (0.0 - 2.0 %) 2.1 H 0.3 Absolute Granulocytes (1.4 - 6.5 /CUMM) 2.1 2.6 Absolute Lymphocytes (1.2 - 3.4 /CUMM) 0.6 L 0.9 L Absolute Monocytes (0.10 - 0.60 /CUMM) 0.3 0.4 Absolute Eosinophils (0.0 - 0.7 /CUMM) 0.2 0.2 Absolute Basophils (0.0 - 0.2 /CUMM) 0.1 0 PUBS MCHC (33.0 - 37.0 G/DL) 32.9 L 31.9 L 11/14 11/14 2200 1840 Blood Gas pH (7.35 - 7.45 PH) 7.50 H pCO2 (35 - 45 TORR) 28 L pO2 (80 - 100 TORR) 95 HCO3 (21 - 28 MEQ/L) 22 ABG O2 Sat (Measured) (>96.0 %) 96.0 P-50 (Temp Corrected) Y Carboxyhemoglobin (1.5 - 5.0 %) 1.4 L O2 Concentration % 40 Temperature (97.0 - 100.0 FARH) 97.7 Respiration Rate (BPM) 14 O2 Delivery Method VENT Vent Mode CMV Expiratory Pressure (CMH2O/P) 5 Tidal Volume (CC) 500 Hematology CBC w Diff NO MAN DIFF REQ WBC (4.8 - 10.8 /CUMM) 3.7 L RBC (4.20 - 5.40 /CUMM) 2.56 L Hgb (12.0 - 16.0 G/DL) 6.0 *L Hct (37 - 47 %) 19.1 *L MCV (81.0 - 99.0 FL) 75.0 L MCH (27.0 - 31.0 PG) 23.6 L RDW (11.5 - 14.5 %) 18.6 H Plt Count (130 - 400 /CUMM) 103 L MPV (7.4 - 10.4 FL) 10.5 H Gran % (42.2 - 75.2 %) 66.1 Lymphocytes % (20.5 - 51.1 %) 20.2 L Monocytes % (1.7 - 9.3 %) 8.7 Eosinophils % (0 - 5 %) 4.2 Basophils % (0.0 - 2.0 %) 0.5 Absolute Granulocytes (1.4 - 6.5 /CUMM) 2.4 Absolute Lymphocytes (1.2 - 3.4 /CUMM) 0.7 L Absolute Monocytes (0.10 - 0.60 /CUMM) 0.3 Absolute Eosinophils (0.0 - 0.7 /CUMM) 0.2 Absolute Basophils (0.0 - 0.2 /CUMM) 0.0 PUBS MCHC (33.0 - 37.0 G/DL) 31.5 L Miscellaneous Phlebotomy Draw Site RIGHT BRACHIAL 11/14 11/14 11/14 1809 1300 1108 Chemistry Sodium (137 - 145 mmol/L) 140 Potassium (3.5 - 5.1 mmol/L) 4.0 Chloride (98 - 107 mmol/L) 112 H Carbon Dioxide (22 - 30 mmol/L) 23 Anion Gap (5 - 16) 5 BUN (7 - 17 mg/dL) 28 H Creatinine (0.5 - 1.0 mg/dL) 0.6 Estimated GFR (>60 ml/min) > 60 Glucose (65 - 99 mg/dL) 126 H Lactic Acid (0.7 - 2.1 mmol/L) 2.1 Calcium (8.4 - 10.2 mg/dL) 6.9 L Phosphorus (2.5 - 4.5 mg/dL) 4.0 Magnesium (1.6 - 2.3 mg/dL) 1.8 Total Bilirubin (0.2 - 1.3 mg/dL) 0.5 AST (14 - 36 U/L) 37 H ALT (9 - 52 U/L) 37 Troponin I (< 0.11 ng/ml) < 0.01 Albumin (3.5 - 5.0 g/dL) 2.0 L Hematology CBC w Diff NO MAN DIFF REQ WBC (4.8 - 10.8 /CUMM) 3.7 L RBC (4.20 - 5.40 /CUMM) 2.42 L Hgb (12.0 - 16.0 G/DL) 5.7 *L Hct (37 - 47 %) 17.9 *L MCV (81.0 - 99.0 FL) 74.0 L MCH (27.0 - 31.0 PG) 23.7 L RDW (11.5 - 14.5 %) 19.9 H Plt Count (130 - 400 /CUMM) 122 L MPV (7.4 - 10.4 FL) 10.1 Gran % (42.2 - 75.2 %) 69.1 Lymphocytes % (20.5 - 51.1 %) 17.0 L Monocytes % (1.7 - 9.3 %) 9.8 H Eosinophils % (0 - 5 %) 2.6 Basophils % (0.0 - 2.0 %) 1.5 Absolute Granulocytes (1.4 - 6.5 /CUMM) 2.6 Absolute Lymphocytes (1.2 - 3.4 /CUMM) 0.6 L Absolute Monocytes (0.10 - 0.60 /CUMM) 0.4 Absolute Eosinophils (0.0 - 0.7 /CUMM) 0.1 Absolute Basophils (0.0 - 0.2 /CUMM) 0.1 PUBS MCHC (33.0 - 37.0 G/DL) 32.0 L 11/14 11/14 1000 0737 Chemistry Ammonia (9 - 30 umol/L) 85 H Urines Urine Color (YEL,AMB,STR) YEL Urine Clarity (CLEAR) HAZY H Urine pH (5.0 - 8.0) 6.0 Ur Specific [place] (1.001 - 1.035) 1.020 Urine Protein (NEG,<30 MG/DL) TRACE H Urine Ketones (NEG) NEG Urine Nitrite (NEG) POS H Urine Bilirubin (NEG) NEG Urine Urobilinogen (0.1 - 1.0 EU/dl) 0.2 Ur Leukocyte Esterase (NEG) MOD H Ur Microscopic SEDIMENT EXAMINED Urine WBC (0 - 2 /HPF) 50-75 H Ur Epithelial Cells (NONE,FEW) MOD H Urine Bacteria (NEG/NONE) MOD H Urine Mucus (FEW,NONE) FEW Urine Hemoglobin (NEG) NEG Urine Glucose (N MG/DL) NEG 11/14 0737 Chemistry Sodium (137 - 145 mmol/L) 139 Potassium (3.5 - 5.1 mmol/L) 4.3 Chloride (98 - 107 mmol/L) 110 H Carbon Dioxide (22 - 30 mmol/L) 22 Anion Gap (5 - 16) 7 BUN (7 - 17 mg/dL) 30 H Creatinine (0.5 - 1.0 mg/dL) 0.5 Estimated GFR (>60 ml/min) > 60 BUN/Creatinine Ratio (7 - 25 %) 60.0 H Glucose (65 - 99 mg/dL) 124 H Lactic Acid (0.7 - 2.1 mmol/L) 2.5 H Calcium (8.4 - 10.2 mg/dL) 7.6 L Total Bilirubin (0.2 - 1.3 mg/dL) 0.5 AST (14 - 36 U/L) 45 H ALT (9 - 52 U/L) 44 Alkaline Phosphatase (<127 U/L) 83 Troponin I (< 0.11 ng/ml) < 0.01 Total Protein (6.3 - 8.2 g/dL) 5.9 L Albumin (3.5 - 5.0 g/dL) 2.4 L Globulin (1.9 - 4.2 gm/dL) 3.5 Albumin/Globulin Ratio (1.1 - 2.2 %) 0.7 L Amylase (30 - 110 U/L) 32 Lipase (23 - 300 U/L) 68 Coagulation PT (9.4 - 12.5 SEC) 14.5 H INR (0.90 - 1.19) 1.39 H Hematology CBC w Diff NO MAN DIFF REQ WBC (4.8 - 10.8 /CUMM) 4.6 L RBC (4.20 - 5.40 /CUMM) 2.59 L Hgb (12.0 - 16.0 G/DL) 5.7 *L Hct (37 - 47 %) 18.4 *L MCV (81.0 - 99.0 FL) 70.8 L MCH (27.0 - 31.0 PG) 21.8 L RDW (11.5 - 14.5 %) 18.8 H Plt Count (130 - 400 /CUMM) 162 MPV (7.4 - 10.4 FL) 10.0 Gran % (42.2 - 75.2 %) 55.4 Lymphocytes % (20.5 - 51.1 %) 26.7 Monocytes % (1.7 - 9.3 %) 13.3 H Eosinophils % (0 - 5 %) 3.4 Basophils % (0.0 - 2.0 %) 1.2 Absolute Granulocytes (1.4 - 6.5 /CUMM) 2.5 Absolute Lymphocytes (1.2 - 3.4 /CUMM) 1.2 Absolute Monocytes (0.10 - 0.60 /CUMM) 0.6 Absolute Eosinophils (0.0 - 0.7 /CUMM) 0.2 Absolute Basophils (0.0 - 0.2 /CUMM) 0.1 PUBS MCHC (33.0 - 37.0 G/DL) 30.8 L Retic Count (0.5 - 2.0 %) 2.29 H Toxicology Serum Alcohol (<10 MG/DL) < 10.0 Imaging/Other Studies: US: SERVICE DATE: 11/15/16- EXAM TYPE: US - US-COMPLETE ABDOMEN EXAMINATION: US ABDOMEN COMPLETE CLINICAL INFORMATION: Check for ascites. Hepatitis C.. COMPARISON: 07/29/2016 TECHNIQUE: Real-time imaging of the abdominal viscera. FINDINGS: PANCREAS: Visualized portions of pancreas are unremarkable. Much of the pancreas is obscured by bowel gas. ABDOMINAL AORTA: The proximal segment is normal in caliber. INFERIOR VENA CAVA: Visualized portions are normal. LIVER: Heterogeneous echotexture compatible with fibrosis without a focal liver lesion. No intrahepatic biliary ductal dilatation. GALLBLADDER: The gallbladder has been removed. COMMON BILE DUCT: Normal in caliber measuring 0.4 cm in diameter. RIGHT KIDNEY: Normal. No hydronephrosis. No renal calculi or focal parenchymal lesions. The kidney measures 9.2 cm in maximum dimension. LEFT KIDNEY: Normal. No hydronephrosis. No renal calculi or focal parenchymal lesions. The kidney measures 9.9 cm in maximum dimension. SPLEEN: Mildly enlarged. The spleen measures 15.6 cm in maximum dimension. FREE FLUID: Trace ascites is demonstrated in the right and left upper quadrants. IMPRESSION: Small amount of ascites. Echogenic and coarsened liver compatible with fibrosis/cirrhosis. Mild splenomegaly.
[2016-11-15 14:53] LABS: ABSOLUTE BASOPHIL COUNT 0 /CUMM (0.0-0.2); ABSOLUTE EOSINOPHIL COUNT 0.2 /CUMM (0.0-0.7); ABSOLUTE GRANULOCYTE CT 4.5 /CUMM (1.4-6.5); ABSOLUTE LYMPH COUNT 0.7 /CUMM (1.2-3.4); ABSOLUTE MONOCYTE COUNT 0.5 /CUMM (0.10-0.60); EOSINOPHIL % 2.9 % (0-5); RBC DISTRIBUTION WIDTH 19.2 % (11.5-14.5)
[2016-11-15 14:55] LABS: BASOPHIL % 0.5 % (0.0-2.0); GRANULOCYTE % 76.2 % (42.2-75.2); MEAN CORPUSCULAR HGB 24.5 PG (27.0-31.0); MEAN CORPUSCULAR HGB CONC 31.8 G/DL (33.0-37.0); MEAN CORPUSCULAR VOLUME 76.9 FL (81.0-99.0); MEAN PLATELET VOLUME 9.9 FL (7.4-10.4)
[2016-11-15 14:57] LABS: HEMATOCRIT 28.3 % (37-47); PLATELET COUNT 159 /CUMM (130-400); RED BLOOD CELL CT 3.68 /CUMM (4.20-5.40); WHITE BLOOD CELL COUNT 5.9 /CUMM (4.8-10.8)
--- NOTE | 2016-11-15 16:36 | Cons- Infect Disease ---
General Information and HPI Consulting Request Date of Consult: 11/15/16 Requested By: MAR WEAVER MD Reason for Consult: Rule out pneumonia Source of Information: family, old records Exam Limitations: unable to give history, clinical condition History of Present Illness: This is a 76-year-old woman with a history of cirrhosis, with known esophageal varices, Hepatitis C, venous insufficiency, with a chronic, nonhealing ulcer on the right leg, status post recent vein stripping, hospitalized 4 months prior to admission with a left upper extremity DVT and begun on Eliquis and treated for a urinary tract infection with Ceftriaxone for 2 days, with no mention of antibiotics in the discharge medications, admitted on November 14 after presenting to the emergency room with the acute onset of hematemesis. On admission she was afebrile, with blood pressure 108/61. She was noted to have dark, tarry guaiac positive stools. Laboratory data revealed a white blood cell count of 5000, H&H 6 and 18, platelets 162,000, BUN/creatinine 30 and 0.5, AST/ALT 45 and 44, INR 1.39. Urinalysis 50-75 WBCs. She was admitted to the ICU, intubated and underwent an upper endoscopy, which revealed esophageal varices, which were banded. Chest x-ray revealed an extensive airspace opacity in the left mid and lower lung. She was begun on Octreotide, transfused 3 units of blood and begun on Ciprofloxacin and Flagyl prophylaxis. She has remained intubated and sedated overnight. She has remained afebrile and white blood cell count has remained normal. Allergies/Medications Allergies: Coded Allergies: Penicillins (RASH 08/05/15) Sulfa (Sulfonamide Antibiotics) (UNKNOWN - PER PT SON 08/05/15) cephalexin (From KEFLEX) (RASH 07/27/16) clindamycin (UNKNOWN - PER PT SON 08/05/15) Home Med List: Apixaban (Eliquis) 2.5 MG TABLET 1 TAB PO BID DVT Start taking this twice a day on 08/07/16 Ferrous Sulfate (IRON) 325 MG (65 MG IRON) TABLET 1 TAB PO TID Iron deficiency Furosemide 20 MG TABLET 1 TAB PO DAILY Fluid overload Potassium Chloride (Klor-Con) 20 MEQ PACKET 1 PAC PO DAILY Low potassium Propranolol HCl 10 MG TABLET 0.5 TAB PO DAILY Gastric varices Please monitor blood pressure and heart rate twice a day for 1 week. Send the results to your PCP and he will adjust the dose of this medication moving forward Spironolactone 25 MG TABLET 1 TAB PO DAILY Fluid balance Past History Travel History Traveled to [place] past 21 day No Medical History Blood Transfusion Hx: Yes Neurological: NONE EENT: NONE Cardiovascular: CHF, chronic venous insuff, hypertension, RHEUMATIC FEVER Respiratory: NONE Gastrointestinal: ESOPHAGEAL VARICES Hepatic: cirrhosis, hepatitis C Renal: NONE Psychiatric: anxiety Endocrine: THYROID NODULES Blood Disorders: anemia, coagulopathy (mild (cirrhotic)), DVT (LUE), pancytopenia Cancer(s): NONE 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 , Age 84; Cause: Renal cell cancer. MOTHER, , Age 74; Cause: CVA (cerebrovascular accident due to intracerebral hemorrhage). Psychosocial History Where Do You Live? Home Who Do You Live With? child (son, Bobby Villarreal) Services at Home: Nursing Primary Language: Libyan Smoking Status: Former Smoker ETOH Use: denies use Illicit Drug Use: denies illicit drug use Living Will? 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 no Other Social History: Single. Never . One son (Bobby Villarreal) 51- [employer], with whom she lives. Ex 2 pk yr smoker in college. No EtOH. No drugs. No IVDA. No tattoos. No body piercings. 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 Uses 2 quad canes to ambulate. Functional Ability ADLs Independent: dressing, eating, toileting. Unknown: bathing. Ambulation: cane (2 quad canes) IADLs Independent: finances, food prep, telephone, medication admin. Needs Assist: shopping, housework, transportation. 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 [employer] Results (as available) Date of last Echo 04/06/11 EF% 60 Review of Systems Comments Unobtainable Exam & Diagnostic Data Last 24 Hrs of Vital Signs/I&O Vital Signs Date Time Temp Pulse Resp B/P B/P Pulse O2 O2 Flow FiO2 Mean Ox Delivery Rate 11/15 1407 30 11/15 1210 30 11/15 0750 30 11/15 0600 97.6 56 18 102/49 / 0535 30 11/15 0400 56 17 93/48 11/15 0400 100 Ventilator 30% 11/15 0351 30 11/15 0200 56 18 124/56 / 0046 30 06 0000 97.8 58 17 92/48 06/ 0000 100 Ventilator 30% 11/15 0000 97.8 58 17 92/48 100 Ventilator 30% 11/14 2200 98.6 62 18 88/43 11/14 2115 30 11/15 1999 98.6 68 18 104/47 11/15 1999 99 Ventilator 30% 11/14 1732 40 Intake & Output 11/15 1600 11/15 0800 11/15 0000 Intake Total 1830 1871 Output Total 300 450 Balance 1530 1421 Intake, Blood 369 700 Product Intake, IV 1461 1171 Intake, Oral 0 0 Number 1 3 Bowel Movements Output, Urine 300 450 Physical Exam Other Physical Findings: She is sedated and unresponsive on the ventilator. She is afebrile. Skin reveals scattered ecchymoses. HEENT exam is negative. Neck is supple with no adenopathy. Lungs bilateral rhonchi. Heart regular rhythm with no murmur. Abdomen is soft, nontender with positive bowel sounds. Back no CVA tenderness. Extremities right lower extremity ulcer above the ankle, with fibrinous exudate but little granulation, no surrounding erythema; right heel ulcer with no surrounding inflammation; left heel ulcer with no surrounding inflammation; pulses 1+ and equal. Neuro is without focality. Remy catheter is in place. Last 24 Hours of Lab Results: Laboratory Tests 11/15 11/15 1430 1115 Blood Gas pH (7.35 - 7.45 PH) 7.54 H pCO2 (35 - 45 TORR) 23 L pO2 (80 - 100 TORR) 78 L HCO3 (21 - 28 MEQ/L) 19 L ABG O2 Sat (Measured) (>96.0 %) 94.0 L P-50 (Temp Corrected) N Carboxyhemoglobin (1.5 - 5.0 %) 2.1 O2 Concentration % 30% Temperature (97.0 - 100.0 FARH) 97.6 Respiration Rate (BPM) 10 O2 Delivery Method VENT Vent Mode VC-AC Expiratory Pressure (CMH2O/P) 5 Tidal Volume (CC) 500 Chemistry Lactic Acid (0.7 - 2.1 mmol/L) 3.5 H Ammonia (9 - 30 umol/L) 28 Hematology CBC w Diff NO MAN DIFF REQ WBC (4.8 - 10.8 /CUMM) 5.9 RBC (4.20 - 5.40 /CUMM) 3.68 L Hgb (12.0 - 16.0 G/DL) 9.0 L Hct (37 - 47 %) 28.3 L MCV (81.0 - 99.0 FL) 76.9 L MCH (27.0 - 31.0 PG) 24.5 L RDW (11.5 - 14.5 %) 19.2 H Plt Count (130 - 400 /CUMM) 159 MPV (7.4 - 10.4 FL) 9.9 Gran % (42.2 - 75.2 %) 76.2 H Lymphocytes % (20.5 - 51.1 %) 11.6 L Monocytes % (1.7 - 9.3 %) 8.8 Eosinophils % (0 - 5 %) 2.9 Basophils % (0.0 - 2.0 %) 0.5 Absolute Granulocytes (1.4 - 6.5 /CUMM) 4.5 Absolute Lymphocytes (1.2 - 3.4 /CUMM) 0.7 L Absolute Monocytes (0.10 - 0.60 /CUMM) 0.5 Absolute Eosinophils (0.0 - 0.7 /CUMM) 0.2 Absolute Basophils (0.0 - 0.2 /CUMM) 0 PUBS MCHC (33.0 - 37.0 G/DL) 31.8 L Miscellaneous Phlebotomy Draw Site RIGHT RADIAL 11/15 11/15 UNK 0600 Chemistry Sodium (137 - 145 mmol/L) 140 Potassium (3.5 - 5.1 mmol/L) 3.6 Chloride (98 - 107 mmol/L) 113 H Carbon Dioxide (22 - 30 mmol/L) 23 Anion Gap (5 - 16) 4 L BUN (7 - 17 mg/dL) 26 H Creatinine (0.5 - 1.0 mg/dL) 0.5 Estimated GFR (>60 ml/min) > 60 Glucose (65 - 99 mg/dL) 125 H Calcium (8.4 - 10.2 mg/dL) 6.8 L Phosphorus (2.5 - 4.5 mg/dL) 3.1 Magnesium (1.6 - 2.3 mg/dL) 1.9 Total Bilirubin (0.2 - 1.3 mg/dL) 1.0 AST (14 - 36 U/L) 40 H ALT (9 - 52 U/L) 50 Ammonia Cancelled Albumin (3.5 - 5.0 g/dL) 1.9 L Coagulation PT (9.4 - 12.5 SEC) 13.3 H INR (0.90 - 1.19) 1.27 H Hematology CBC w Diff NO MAN DIFF REQ WBC (4.8 - 10.8 /CUMM) 3.3 L RBC (4.20 - 5.40 /CUMM) 2.87 L Hgb (12.0 - 16.0 G/DL) 7.3 *L Hct (37 - 47 %) 22.0 L MCV (81.0 - 99.0 FL) 76.7 L MCH (27.0 - 31.0 PG) 25.3 L RDW (11.5 - 14.5 %) 19.0 H Plt Count (130 - 400 /CUMM) 103 L MPV (7.4 - 10.4 FL) 9.5 Gran % (42.2 - 75.2 %) 65.7 Lymphocytes % (20.5 - 51.1 %) 17.1 L Monocytes % (1.7 - 9.3 %) 9.4 H Eosinophils % (0 - 5 %) 5.7 H Basophils % (0.0 - 2.0 %) 2.1 H Absolute Granulocytes (1.4 - 6.5 /CUMM) 2.1 Absolute Lymphocytes (1.2 - 3.4 /CUMM) 0.6 L Absolute Monocytes (0.10 - 0.60 /CUMM) 0.3 Absolute Eosinophils (0.0 - 0.7 /CUMM) 0.2 Absolute Basophils (0.0 - 0.2 /CUMM) 0.1 PUBS MCHC (33.0 - 37.0 G/DL) 32.9 L 11/15 11/14 0230 2200 Hematology CBC w Diff NO MAN DIFF REQ NO MAN DIFF REQ WBC (4.8 - 10.8 /CUMM) 4.0 L 3.7 L RBC (4.20 - 5.40 /CUMM) 2.91 L 2.56 L Hgb (12.0 - 16.0 G/DL) 7.1 *L 6.0 *L Hct (37 - 47 %) 22.3 L 19.1 *L MCV (81.0 - 99.0 FL) 76.7 L 75.0 L MCH (27.0 - 31.0 PG) 24.5 L 23.6 L RDW (11.5 - 14.5 %) 18.7 H 18.6 H Plt Count (130 - 400 /CUMM) 104 L 103 L MPV (7.4 - 10.4 FL) 9.3 10.5 H Gran % (42.2 - 75.2 %) 63.9 66.1 Lymphocytes % (20.5 - 51.1 %) 21.8 20.2 L Monocytes % (1.7 - 9.3 %) 9.2 8.7 Eosinophils % (0 - 5 %) 4.8 4.2 Basophils % (0.0 - 2.0 %) 0.3 0.5 Absolute Granulocytes (1.4 - 6.5 /CUMM) 2.6 2.4 Absolute Lymphocytes (1.2 - 3.4 /CUMM) 0.9 L 0.7 L Absolute Monocytes (0.10 - 0.60 /CUMM) 0.4 0.3 Absolute Eosinophils (0.0 - 0.7 /CUMM) 0.2 0.2 Absolute Basophils (0.0 - 0.2 /CUMM) 0 0.0 PUBS MCHC (33.0 - 37.0 G/DL) 31.9 L 31.5 L 11/14 11/14 1840 1809 Blood Gas pH (7.35 - 7.45 PH) 7.50 H pCO2 (35 - 45 TORR) 28 L pO2 (80 - 100 TORR) 95 HCO3 (21 - 28 MEQ/L) 22 ABG O2 Sat (Measured) (>96.0 %) 96.0 P-50 (Temp Corrected) Y Carboxyhemoglobin (1.5 - 5.0 %) 1.4 L O2 Concentration % 40 Temperature (97.0 - 100.0 FARH) 97.7 Respiration Rate (BPM) 14 O2 Delivery Method VENT Vent Mode CMV Expiratory Pressure (CMH2O/P) 5 Tidal Volume (CC) 500 Chemistry Sodium (137 - 145 mmol/L) 140 Potassium (3.5 - 5.1 mmol/L) 4.0 Chloride (98 - 107 mmol/L) 112 H Carbon Dioxide (22 - 30 mmol/L) 23 Anion Gap (5 - 16) 5 BUN (7 - 17 mg/dL) 28 H Creatinine (0.5 - 1.0 mg/dL) 0.6 Estimated GFR (>60 ml/min) > 60 Glucose (65 - 99 mg/dL) 126 H Calcium (8.4 - 10.2 mg/dL) 6.9 L Phosphorus (2.5 - 4.5 mg/dL) 4.0 Magnesium (1.6 - 2.3 mg/dL) 1.8 Total Bilirubin (0.2 - 1.3 mg/dL) 0.5 AST (14 - 36 U/L) 37 H ALT (9 - 52 U/L) 37 Albumin (3.5 - 5.0 g/dL) 2.0 L Hematology CBC w Diff NO MAN DIFF REQ WBC (4.8 - 10.8 /CUMM) 3.7 L RBC (4.20 - 5.40 /CUMM) 2.42 L Hgb (12.0 - 16.0 G/DL) 5.7 *L Hct (37 - 47 %) 17.9 *L MCV (81.0 - 99.0 FL) 74.0 L MCH (27.0 - 31.0 PG) 23.7 L RDW (11.5 - 14.5 %) 19.9 H Plt Count (130 - 400 /CUMM) 122 L MPV (7.4 - 10.4 FL) 10.1 Gran % (42.2 - 75.2 %) 69.1 Lymphocytes % (20.5 - 51.1 %) 17.0 L Monocytes % (1.7 - 9.3 %) 9.8 H Eosinophils % (0 - 5 %) 2.6 Basophils % (0.0 - 2.0 %) 1.5 Absolute Granulocytes (1.4 - 6.5 /CUMM) 2.6 Absolute Lymphocytes (1.2 - 3.4 /CUMM) 0.6 L Absolute Monocytes (0.10 - 0.60 /CUMM) 0.4 Absolute Eosinophils (0.0 - 0.7 /CUMM) 0.1 Absolute Basophils (0.0 - 0.2 /CUMM) 0.1 PUBS MCHC (33.0 - 37.0 G/DL) 32.0 L Miscellaneous Phlebotomy Draw Site RIGHT BRACHIAL Last 24 Hours of Gui Results: Urine culture November 14 negative Diagnostic Data Recent Imaging Findings: Chest x-ray November 15 hazy opacification overlying the left lung, more extensive than on the previous study, with a layering left pleural effusion suspected Abdominal ultrasound November 15 small amount of ascites; echogenic and coarsened liver compatible with fibrosis/cirrhosis; mild splenomegaly CT of the head November 15 no acute process Assessment/Plan Assessment/Plan Impression: This is a 76-year-old woman with a history of cirrhosis, with known esophageal varices, venous insufficiency, with a chronic, nonhealing ulcer on the right lower extremity, admitted on November 14 with an acute episode of hematemesis, found to be afebrile with a normal white blood cell count but with severe anemia, begun on Ciprofloxacin and Flagyl for prophylaxis, status post upper endoscopy revealing esophageal varices, which were banded, with intubation performed prior to the endoscopy and with evidence on chest x-ray of an extensive airspace opacity in the left mid and lower lung. Though she was begun on Ciprofloxacin and Flagyl for prophylaxis in the setting of an upper GI bleed it appears that she may have aspirated and, therefore, she will need to be continued on antibiotics for a presumed pneumonia. Her right leg ulcer is also a potential source of infection, but there is minimal surrounding inflammation. She has a small amount of ascites on ultrasound, making concern for SBP less likely. Unfortunately no blood cultures or sputum culture have been obtained, and any cultures obtained at this time may be affected by her recent antibiotics. She does remain afebrile with a normal white blood cell count, but these parameters may not be helpful in a patient with cirrhosis. She has a report of multiple antibiotic allergies, including penicillins and cephalosporins, but she tolerated Ceftriaxone on her recent admission; therefore her antibiotics can be adjusted. Suggestion: 1. Blood cultures 2 2. Sputum culture 3. Discontinue Ciprofloxacin and Flagyl 4. Begin Ceftriaxone 2 grams IV every 24 hours pending above Consult Acknowledgment - Thank you for your consult request.
[2016-11-16] VITALS (7 sets, daily range): BP systolic 114–168; BP diastolic 60–82
[2016-11-16 04:40] LABS: ABSOLUTE BASOPHIL COUNT 0.1 /CUMM (0.0-0.2); ABSOLUTE EOSINOPHIL COUNT 0.3 /CUMM (0.0-0.7); ABSOLUTE GRANULOCYTE CT 2.4 /CUMM (1.4-6.5); ABSOLUTE LYMPH COUNT 0.9 /CUMM (1.2-3.4); ABSOLUTE MONOCYTE COUNT 0.4 /CUMM (0.10-0.60); BASOPHIL % 1.2 % (0.0-2.0); EOSINOPHIL % 7.6 % (0-5); GRANULOCYTE % 59.1 % (42.2-75.2); HEMATOCRIT 24.3 % (37-47); MEAN CORPUSCULAR HGB 23.9 PG (27.0-31.0); MEAN CORPUSCULAR HGB CONC 31.2 G/DL (33.0-37.0); MEAN CORPUSCULAR VOLUME 76.7 FL (81.0-99.0); MEAN PLATELET VOLUME 9.5 FL (7.4-10.4); PLATELET COUNT 120 /CUMM (130-400); RBC DISTRIBUTION WIDTH 19.8 % (11.5-14.5); RED BLOOD CELL CT 3.16 /CUMM (4.20-5.40); WHITE BLOOD CELL COUNT 4.1 /CUMM (4.8-10.8)
--- NOTE | 2016-11-16 07:42 | PN- Resident CRCU ---
GLENN EMERY,ISNHIL 11/16/16 0742: Subjective HPI/CRCU Issues: Afebrile, hemodynamically stable, patient sedated and mechanically ventilated. She is lethargic and only responsive to pain stimuli. 24 Hour Events: * Sedated and mechanically ventilated * Tmax: 99 * Heartrate: 54-86 * Blood pressure 114/60- 167/78 Objective Vital Signs & I&O Last 8 Hrs of Vitals and I&O: Intake & Output 11/16 1600 Intake Total Output Total Balance Patient 98.231 kg Weight Exam General Appearance: no apparent distress, sedated, intubated, lethargic Head: atraumatic, normal appearance Respiratory: normal breath sounds, chest non-tender, no respiratory distress Cardiovascular: regular rate/rhythm Gastrointestinal: normal bowel sounds, soft, non-tender Extremities: lower extremity chronic changes( lymphedema) Current Medications: Current Medications Sig/Marcin Start time Last Medication Dose Route Stop Time Status Admin Acetaminophen 1,000 MG Q6P PRN 11/14 1400 AC IV Ceftriaxone Sodium 2,000 MG DAILY 11/15 1656 AC 11/15 IV 1922 Ciprofloxacin 400 MG Q12H 11/15 0400 DC 11/15 Dextrose/Water 200 ML IV 11/18 0959 0338 Divalproex Sodium 250 MG BID 11/15 2200 CAN PO Furosemide 20 MG ONCE ONE 11/15 1500 DC 11/15 IV 11/15 1501 1505 Lactulose 1 BOT Q6 11/15 0841 AC 11/15 WI 2320 Magnesium Sulfate 1 GM ONCE ONE 11/15 2100 DC 11/16 Dextrose/Water 100 ML IV 11/16 0059 0003 Metronidazole 500 MG IQ8 11/15 0000 DC 11/15 N/A 1 UNIT IV 1533 Morphine Sulfate 1 MG Q6P PRN 11/14 1400 AC 11/16 IV 0035 Nystatin 1 GALO TID PRN 11/15 2115 AC TOP Octreotide Acetate 500 MCG Q20H 11/15 0200 AC 11/15 Dextrose/Water 500 ML IV 2259 Pantoprazole Sodium 40 MG DAILY 11/16 1001 IV Pantoprazole Sodium 80 MG DAILY 11/16 1000 DC IV Pantoprazole Sodium 40 MG Q5H 11/14 0815 DC 11/15 Sodium Chloride 100 ML IV 0924 Potassium Chloride 10 MEQ Q1H 11/16 0745 DC 11/16 IV 11/16 0946 0915 Potassium Chloride 10 MEQ Q1H 11/15 2100 DC / IV 11/15 2201 2204 Potassium Chloride 10 MEQ Q1H 11/15 0845 DC / IV 11/15 1046 1158 Sodium Chloride 1,000 ML Q8H 11/14 1215 AC 11/16 IV 0347 Impression/Plan Impression/Problem List Impression: #Respiratory: History of untreated chronic hepatitis C. Patient presents with upper GI bleed, she was intubated for upper endoscopy and esophageal banding. Banded x 4 was performed. Patient still intubated and mechanically ventilated. An x-ray that was done post intubation showed a possible acute pneumonia. Ventilator setting -Vent mode: VC-AC -RR set: 10 -RR act: 21 -TV set: 500 -TV act: 586 -FIO2: 30 -PEEP: 5 Plan 1. We will repeat chest x-ray tomorrow 2. Once patient is more alert, we'll try to wean her off the ventilator #Infection Aspiration pneumonia: Acute pneumonia on chest x-ray in the setting of vomiting. SBP: Should be ruled out given that Patient has a chronic hepatitis C with liver cirrhosis. Abdominal ultrasound showed:Small amount of ascites. * Tmax:99 * WBCs 4.1 Plan 1.IV Flagyl and IV Cipro discontinued yesterday. 2.Ciprofloxacin 2 g IV every 24 was started yesterday 3.pending blood culture results 4. Ending sputum culture results #Cardiology No active heart issue * Heartrate: 54-86 * Blood pressure 114/60- 167/78 Plan 1. Monitor vitals #Hematology Acute hemorrhagic anemia from esophageal varices. He presents with hemoglobin of 5.7. She received X4 RBCs after which her hemoglobin became 7.3. * H&H this AM is 7.6 & 24.3 Plan 1. Repeat CBC Q 12 #Neurology Patient was alert on admission, On 11/14/16 she was sedated & prophylactically intubated for Upper endoscopy. Post endoscopy she was on 1 mg/h IV Ativan drip, she was lethargic but responsive to tactile stimuli. Head CT showed:No acute intracranial pathology. Hepatic encephalopathy was expected received lactulose enema and ammonia level came back normal. UTox was done this morning and showed Opiates > 4000(Patient received IV morphine overnight). * She has responsive only to painful stimuli * Pupils are reactive to light bilaterally * IV Ativan was DC'd this yesterday * All opiates was DC'd this morning * She is not on any sedating medication right now Plan 1. Patient will receive 1 dose of 0.4 Narcan #GI Vision presented with upper GI bleed, upper endoscopy was done and esophageal varicocele was ligated X4. Patient would most likely need to go for another endoscopy to exclude gastric varicoceles. Plan 1.We will watch for any symptom of bleeding, it happens patient will go for upper endoscopy #Renal Cr is 0.5 and BUN is 20. Plan 1.NTD #Skin She has chronic LE venous stasis with chronic venous ulcers S/P recent care by Dr. Anna Lane. LE currently wrapped up with the Teodoro bandage on the right leg. Plan 1. Wound consult was placed Nothing by mouth DVT prophylaxis with Alps GI prophylaxis with PPI Full code Problem List: 1. Upper GI bleed Pain Ratin Tomorrow's Labs & Rationales: ICU bundle and CBC Plan DVT/Prophylaxis: cecil STALEY MD,Curt MURGUIA 11/16/16 0837: Attending MD Review Statement Attending Sign Off Attending Cosign Statement: I have not: examined this patient, reviewed [employer] EMR data, personally reviewd images, discussd w/resident/PA/FINANCIAL SERVICES SPECIALIST, agreed w/resident/PA/FINANCIAL SERVICES SPECIALIST, amended to note. Other Findings: I have personally seen and examined the patient and agree with the resident's assessment as detailed above. The patient remains minimally responsive which is likely from an Ativan drip. The patient had a head CT yesterday which was negative for any acute issues. We will check a benzodiazepine level, hold off on any sedation, and attempt weaning when the patient is more alert. Will continue Ceftriaxone as per ID. Will follow up cultures. Will continue DVT proplylaxis at all times. Will continue all supportive care.
--- NOTE | 2016-11-16 08:13 | RADIOLOGY REPORT ---
EXAMINATION: XR PORTABLE CHEST CLINICAL INFORMATION: Respiratory failure. Patient intubated. COMPARISON: CXR from 11/15/2016 TECHNIQUE: Portable frontal view of the chest was obtained. FINDINGS: Endotracheal tube is located 4 cm above the buzz. Lungs are hypoinflated. There is a linear opacity of atelectasis in the left mid lung, probably within the superior lingula. Also, there is persistent opacity from atelectasis or infiltrate in the left base and haziness of the mid to lower third of the left hemithorax from apparent layering pleural effusion. Overall, lung bases are suboptimally evaluated due to the degree of hypoinflation and the single projection of the chest. No acute skeletal abnormality. IMPRESSION: 1. Endotracheal tube is in satisfactory position at 4 cm above the buzz. 2. Lung bases are suboptimally evaluated due to hypoinflation. 3. Persistent atelectasis and/or infiltrate in the left lung base and small left pleural effusion. The right lung base is suboptimally evaluated. The appearance of the lungs is not significantly changed compared to 11/15/2016.
--- NOTE | 2016-11-16 09:35 | PN- Att Addend ---
Attending Addendum Attending Brief Note Patient intubated and sedated. General Appearance: Intubated and sedated Skin: Lymphedema bilateral lower extremity Cardiovascular: Regular Rate, Normal S1, Normal S2, No Murmurs Lungs: Clear to Auscultation, Normal Air Movement Abdomen: Mildly distended Extremities: 2+ edema, right foot wound Assessment Patient remains intubated. 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 on IV ceftriaxone for possible aspiration. Ultrasound abdomen suggest small sciatic fluid, unlikely SBP. Weaning her off Ativan and plan to extubate. We'll hold off on diuretics and continue mild hydration. Continue wound care. Plan Replete potassium Continue lactulose Continue mild hydration Continue current antibiotics Wean off Ativan transfuse for hemoglobin less than 7 Follow consults recommendations Current Medications Sig/Marcin Start time Last Medication Dose Route Stop Time Status Admin Acetaminophen 1,000 MG Q6P PRN 11/14 1400 AC IV Ceftriaxone Sodium 2,000 MG DAILY 11/15 1656 AC 11/15 IV 1922 Ciprofloxacin 400 MG Q12H 11/15 0400 DC 11/15 Dextrose/Water 200 ML IV 11/18 0959 0338 Divalproex Sodium 250 MG BID 11/15 2200 CAN PO Furosemide 20 MG ONCE ONE 11/15 1500 DC 11/15 IV 11/15 1501 1505 Lactulose 1 BOT Q6 11/15 0841 AC 11/15 SC 2320 Magnesium Sulfate 1 GM ONCE ONE 11/15 2100 DC 11/16 Dextrose/Water 100 ML IV 11/16 0059 0003 Metronidazole 500 MG IQ8 11/15 0000 DC 11/15 N/A 1 UNIT IV 1533 Morphine Sulfate 1 MG Q6P PRN 11/14 1400 AC 11/16 IV 0035 Nystatin 1 GALO TID PRN 11/15 2115 AC TOP Octreotide Acetate 500 MCG Q20H 11/15 0200 AC 11/15 Dextrose/Water 500 ML IV 2259 Pantoprazole Sodium 80 MG DAILY 11/16 1000 AC IV Pantoprazole Sodium 40 MG Q5H 11/14 0815 DC 11/15 Sodium Chloride 100 ML IV 0924 Potassium Chloride 10 MEQ Q1H 11/16 0745 AC 11/16 IV 11/16 0946 0915 Potassium Chloride 10 MEQ Q1H 11/15 2100 DC 11/15 IV 11/15 2201 2204 Potassium Chloride 10 MEQ Q1H 11/15 0845 DC 11/15 IV 11/15 1046 1158 Sodium Chloride 1,000 ML Q8H 11/14 1215 AC 11/16 IV 0347 Laboratory Tests 11/16 11/16 11/15 0810 0410 1725 Chemistry Sodium (137 - 145 mmol/L) 139 139 Potassium (3.5 - 5.1 mmol/L) 3.3 L 3.4 L Chloride (98 - 107 mmol/L) 113 H 110 H Carbon Dioxide (22 - 30 mmol/L) 21 L 22 Anion Gap (5 - 16) 5 7 BUN (7 - 17 mg/dL) 20 H 21 H Creatinine (0.5 - 1.0 mg/dL) 0.5 0.6 Estimated GFR (>60 ml/min) > 60 > 60 Glucose (65 - 99 mg/dL) 125 H 124 H Lactic Acid (0.7 - 2.1 mmol/L) 2.3 H Calcium (8.4 - 10.2 mg/dL) 7.0 L 7.2 L Phosphorus (2.5 - 4.5 mg/dL) 2.7 3.0 Magnesium (1.6 - 2.3 mg/dL) 2.0 1.9 Total Bilirubin (0.2 - 1.3 mg/dL) 0.7 1.1 AST (14 - 36 U/L) 33 40 H ALT (9 - 52 U/L) 43 50 Albumin (3.5 - 5.0 g/dL) 2.0 L 2.3 L Hematology CBC w Diff NO MAN DIFF REQ WBC (4.8 - 10.8 /CUMM) 4.1 L RBC (4.20 - 5.40 /CUMM) 3.16 L Hgb (12.0 - 16.0 G/DL) 7.6 L Hct (37 - 47 %) 24.3 L MCV (81.0 - 99.0 FL) 76.7 L MCH (27.0 - 31.0 PG) 23.9 L RDW (11.5 - 14.5 %) 19.8 H Plt Count (130 - 400 /CUMM) 120 L MPV (7.4 - 10.4 FL) 9.5 Gran % (42.2 - 75.2 %) 59.1 Lymphocytes % (20.5 - 51.1 %) 22.9 Monocytes % (1.7 - 9.3 %) 9.2 Eosinophils % (0 - 5 %) 7.6 H Basophils % (0.0 - 2.0 %) 1.2 Absolute Granulocytes (1.4 - 6.5 /CUMM) 2.4 Absolute Lymphocytes (1.2 - 3.4 /CUMM) 0.9 L Absolute Monocytes (0.10 - 0.60 /CUMM) 0.4 Absolute Eosinophils (0.0 - 0.7 /CUMM) 0.3 Absolute Basophils (0.0 - 0.2 /CUMM) 0.1 PUBS MCHC (33.0 - 37.0 G/DL) 31.2 L Toxicology Urine Opiates Screen (>2000 NG/ML) > 4000.00 H Methadone Screen (>300 NG/ML) < 40 Barbiturate Screen (>200 NG/ML) < 60 Ur Phencyclidine Scrn (>25 NG/ML) < 6.00 Amphetamines Screen (>1000 NG/ML) < 100 U Benzodiazepines Scrn (>200 NG/ML) < 85 Urine Cocaine Screen (>300 NG/ML) < 50 Urine Cannabis Screen (>50 NG/ML) < 5.00 12 11/15 1430 1115 Blood Gas pH (7.35 - 7.45 PH) 7.54 H pCO2 (35 - 45 TORR) 23 L pO2 (80 - 100 TORR) 78 L HCO3 (21 - 28 MEQ/L) 19 L ABG O2 Sat (Measured) (>96.0 %) 94.0 L P-50 (Temp Corrected) N Carboxyhemoglobin (1.5 - 5.0 %) 2.1 O2 Concentration % 30% Temperature (97.0 - 100.0 FARH) 97.6 Respiration Rate (BPM) 10 O2 Delivery Method VENT Vent Mode VC-AC Expiratory Pressure (CMH2O/P) 5 Tidal Volume (CC) 500 Chemistry Lactic Acid (0.7 - 2.1 mmol/L) 3.5 H Ammonia (9 - 30 umol/L) 28 Hematology CBC w Diff NO MAN DIFF REQ WBC (4.8 - 10.8 /CUMM) 5.9 RBC (4.20 - 5.40 /CUMM) 3.68 L Hgb (12.0 - 16.0 G/DL) 9.0 L Hct (37 - 47 %) 28.3 L MCV (81.0 - 99.0 FL) 76.9 L MCH (27.0 - 31.0 PG) 24.5 L RDW (11.5 - 14.5 %) 19.2 H Plt Count (130 - 400 /CUMM) 159 MPV (7.4 - 10.4 FL) 9.9 Gran % (42.2 - 75.2 %) 76.2 H Lymphocytes % (20.5 - 51.1 %) 11.6 L Monocytes % (1.7 - 9.3 %) 8.8 Eosinophils % (0 - 5 %) 2.9 Basophils % (0.0 - 2.0 %) 0.5 Absolute Granulocytes (1.4 - 6.5 /CUMM) 4.5 Absolute Lymphocytes (1.2 - 3.4 /CUMM) 0.7 L Absolute Monocytes (0.10 - 0.60 /CUMM) 0.5 Absolute Eosinophils (0.0 - 0.7 /CUMM) 0.2 Absolute Basophils (0.0 - 0.2 /CUMM) 0 PUBS MCHC (33.0 - 37.0 G/DL) 31.8 L Miscellaneous Phlebotomy Draw Site RIGHT RADIAL 11/15 UNK Chemistry Ammonia Cancelled Vital Signs Date Time Temp Pulse Resp B/P B/P Pulse O2 O2 Flow FiO2 Mean Ox Delivery Rate 11/16 0801 30 11/16 0800 96.5 86 22 142/80 97 Ventilator 30% 11/16 0600 98.8 54 12 167/78 / 0534 30 11/16 0400 98.8 64 16 128/67 06/ 0400 98 Ventilator 30% 11/16 0231 30 11/16 0200 98.3 64 13 118/60 06/13 0045 30 06 0000 98.3 64 16 114/62 06/13 0000 99 Ventilator 30% / 0000 98.3 64 16 114/62 99 Ventilator 30% / 2220 30 06 2200 98.8 76 15 148/65 06/12 1999 98.8 81 28 140/70 06/12 1999 96 Ventilator 30% / 1945 30 / 1800 78 24 177/82 06/12 1630 30 11/15 1600 99.0 82 19 180/78 06/12 1600 97 Ventilator 30% 11/15 1600 99.0 78 19 180/78 97 Ventilator 30% 06/12 1407 30 06/12 1400 78 30 164/92 06/12 1210 30 06/12 1200 99.0 62 21 120/52 06/12 1200 97 Ventilator 30% 06/12 1200 99.0 82 19 120/52 97 Ventilator 30% 06/12 1000 66 24 134/62
--- NOTE | 2016-11-16 10:10 | PN- Infect Dx ---
Subjective Subjective: Afebrile. Objective Last 24 Hrs of Vital Signs/I&O Vital Signs Date Time Temp Pulse Resp B/P B/P Pulse O2 O2 Flow FiO2 Mean Ox Delivery Rate 11/16 0801 30 11/16 0800 96.5 86 22 142/80 97 Ventilator 30% 11/16 0600 98.8 54 12 167/78 11/16 0534 30 11/16 0400 98.8 64 16 128/67 11/16 0400 98 Ventilator 30% 11/16 0231 30 11/16 0200 98.3 64 13 118/60 11/16 0045 30 11/16 0000 98.3 64 16 114/62 06 0000 99 Ventilator 30% 11/16 0000 98.3 64 16 114/62 99 Ventilator 30% 11/15 2220 30 11/15 2200 98.8 76 15 148/65 11/16 1999 98.8 81 28 140/70 11/16 1999 96 Ventilator 30% 11/15 1945 30 11/15 1800 78 24 177/82 11/15 1630 30 11/15 1600 99.0 82 19 180/78 11/15 1600 97 Ventilator 30% 11/15 1600 99.0 78 19 180/78 97 Ventilator 30% 11/15 1407 30 11/15 1400 78 30 164/92 11/15 1210 30 11/15 1200 99.0 62 21 120/52 / 1200 97 Ventilator 30% 11/15 1200 99.0 82 19 120/52 97 Ventilator 30% 11/15 1000 66 24 134/62 Intake & Output 11/16 1600 11/16 0800 11/16 0000 Intake Total 1082 1024 Output Total 400 1900 Balance 682 -876 Intake, IV 1082 1024 Intake, Oral 0 0 Output, Stool 100 300 Output, Urine 300 1600 Patient 217 lb Weight Physical Exam Other Physical Findings: She is sedated and unresponsive on the ventilator Lungs scattered rhonchi bilaterally Heart regular rhythm with no murmur Abdomen is distended, positive bowel sounds Extremities chronic skin changes both lower extremities; 1+ edema all extremities; right foot dressing intact Remy catheter remains in place Results Last 24 Hours of Lab Results: Laboratory Tests 11/16 11/16 11/15 0810 0410 1725 Chemistry Sodium (137 - 145 mmol/L) 139 139 Potassium (3.5 - 5.1 mmol/L) 3.3 L 3.4 L Chloride (98 - 107 mmol/L) 113 H 110 H Carbon Dioxide (22 - 30 mmol/L) 21 L 22 Anion Gap (5 - 16) 5 7 BUN (7 - 17 mg/dL) 20 H 21 H Creatinine (0.5 - 1.0 mg/dL) 0.5 0.6 Estimated GFR (>60 ml/min) > 60 > 60 Glucose (65 - 99 mg/dL) 125 H 124 H Lactic Acid (0.7 - 2.1 mmol/L) 2.3 H Calcium (8.4 - 10.2 mg/dL) 7.0 L 7.2 L Phosphorus (2.5 - 4.5 mg/dL) 2.7 3.0 Magnesium (1.6 - 2.3 mg/dL) 2.0 1.9 Total Bilirubin (0.2 - 1.3 mg/dL) 0.7 1.1 AST (14 - 36 U/L) 33 40 H ALT (9 - 52 U/L) 43 50 Albumin (3.5 - 5.0 g/dL) 2.0 L 2.3 L Hematology CBC w Diff NO MAN DIFF REQ WBC (4.8 - 10.8 /CUMM) 4.1 L RBC (4.20 - 5.40 /CUMM) 3.16 L Hgb (12.0 - 16.0 G/DL) 7.6 L Hct (37 - 47 %) 24.3 L MCV (81.0 - 99.0 FL) 76.7 L MCH (27.0 - 31.0 PG) 23.9 L RDW (11.5 - 14.5 %) 19.8 H Plt Count (130 - 400 /CUMM) 120 L MPV (7.4 - 10.4 FL) 9.5 Gran % (42.2 - 75.2 %) 59.1 Lymphocytes % (20.5 - 51.1 %) 22.9 Monocytes % (1.7 - 9.3 %) 9.2 Eosinophils % (0 - 5 %) 7.6 H Basophils % (0.0 - 2.0 %) 1.2 Absolute Granulocytes (1.4 - 6.5 /CUMM) 2.4 Absolute Lymphocytes (1.2 - 3.4 /CUMM) 0.9 L Absolute Monocytes (0.10 - 0.60 /CUMM) 0.4 Absolute Eosinophils (0.0 - 0.7 /CUMM) 0.3 Absolute Basophils (0.0 - 0.2 /CUMM) 0.1 PUBS MCHC (33.0 - 37.0 G/DL) 31.2 L Toxicology Urine Opiates Screen (>2000 NG/ML) > 4000.00 H Methadone Screen (>300 NG/ML) < 40 Barbiturate Screen (>200 NG/ML) < 60 Ur Phencyclidine Scrn (>25 NG/ML) < 6.00 Amphetamines Screen (>1000 NG/ML) < 100 U Benzodiazepines Scrn (>200 NG/ML) < 85 Urine Cocaine Screen (>300 NG/ML) < 50 Urine Cannabis Screen (>50 NG/ML) < 5.00 12 11/15 1430 1115 Blood Gas pH (7.35 - 7.45 PH) 7.54 H pCO2 (35 - 45 TORR) 23 L pO2 (80 - 100 TORR) 78 L HCO3 (21 - 28 MEQ/L) 19 L ABG O2 Sat (Measured) (>96.0 %) 94.0 L P-50 (Temp Corrected) N Carboxyhemoglobin (1.5 - 5.0 %) 2.1 O2 Concentration % 30% Temperature (97.0 - 100.0 FARH) 97.6 Respiration Rate (BPM) 10 O2 Delivery Method VENT Vent Mode VC-AC Expiratory Pressure (CMH2O/P) 5 Tidal Volume (CC) 500 Chemistry Lactic Acid (0.7 - 2.1 mmol/L) 3.5 H Ammonia (9 - 30 umol/L) 28 Hematology CBC w Diff NO MAN DIFF REQ WBC (4.8 - 10.8 /CUMM) 5.9 RBC (4.20 - 5.40 /CUMM) 3.68 L Hgb (12.0 - 16.0 G/DL) 9.0 L Hct (37 - 47 %) 28.3 L MCV (81.0 - 99.0 FL) 76.9 L MCH (27.0 - 31.0 PG) 24.5 L RDW (11.5 - 14.5 %) 19.2 H Plt Count (130 - 400 /CUMM) 159 MPV (7.4 - 10.4 FL) 9.9 Gran % (42.2 - 75.2 %) 76.2 H Lymphocytes % (20.5 - 51.1 %) 11.6 L Monocytes % (1.7 - 9.3 %) 8.8 Eosinophils % (0 - 5 %) 2.9 Basophils % (0.0 - 2.0 %) 0.5 Absolute Granulocytes (1.4 - 6.5 /CUMM) 4.5 Absolute Lymphocytes (1.2 - 3.4 /CUMM) 0.7 L Absolute Monocytes (0.10 - 0.60 /CUMM) 0.5 Absolute Eosinophils (0.0 - 0.7 /CUMM) 0.2 Absolute Basophils (0.0 - 0.2 /CUMM) 0 PUBS MCHC (33.0 - 37.0 G/DL) 31.8 L Miscellaneous Phlebotomy Draw Site RIGHT RADIAL Last 24 Hours of Gui Results: Urine culture November 14 greater than 100,000 colonies of gram-positive cocci Sputum culture November 15 pending Blood cultures 2 November 15 negative Recent Imaging Studies: Chest x-ray November 16, personally reviewed, reveals persistent densities in the left midlung and left base, decreased from the previous study Assessment/Plan Impression: Stable with temperatures and white blood cell count remaining normal now on Ceftriaxone for possible aspiration pneumonia in the setting of an upper GI bleed felt to be secondary to esophageal varices, which were banded 2 days ago, with H&H again decreased today. The positive urine culture is of unclear significance and likely represents asymptomatic bacteriuria or contamination, though the urinalysis did reveal 50-75 white blood cells. Suggestion: 1. Further management of her anemia per GI and Medicine 2. Follow-up recent cultures 3. Continue Ceftriaxone pending above
--- NOTE | 2016-11-16 15:57 | NUR ---
@0800-PT LETHARGIC. NOT FOLLOWING COMMANDS. PUPILS EQUAL AND REACTIVE. GRIMACES TO PAINFUL STIM ONLY AT THIS TIME. NO SEDATION SINCE 11/15 IN AM. RESTRAINTS CONT FOR SAFETY OF ETT. CONT ON VENT-NO CHANGE TO SETTINGS AT THIS TIME. O2SAT 99%. RHONCHI AUSCULTATED. MOD AMTS OF GREGORY SECRETIONS NOTED. NSR/PACS HR 60S. BP STABLE. REMAINS NPO. RECTAL TUBE IN PLACE. LACTULOSE ENEMAS CHANGED TO BID. DE IN PLACE WITH MIN AMTS OF CHAITANYA COLORED URINE. UTOX SENT AT THIS TIME. CREAM APPLIED TO L HEEL. DSG NOTED TO RLE AND HEEL WOUNDS-AWAITING ASSESS BY DR GIBBS PER [facility]. L CHEEK RED FROM ETT GARCÍA. BUE EDEMA NOTED WITH REDNESS NOTED TO FOREARMS. BLE EDEMA NOTED. NS INFUSING AT 125ML/HR. OCTREOTIDE GTT INFUSING AT 25MCG. K+3.3-TO RECIEVE KCL 10MEQ 3 RUNS THIS AM. CONT TO MONITOR CLOSELY.
--- NOTE | 2016-11-16 16:14 | NUR ---
@1200-LACTULOSE ENEMA ADMINSITERED ORD. REPEAT LABS AT 1800. IV ROCEPHIN ADMINISTERED ORD. CONT TO MONITOR. SON UPDATED ON POC. NARCAN 0.4MG ADMINISTERED X 1. INCREASED RESP RATE NOTED. @1400-PT OPENED EYES SPONT, NOT FOLLOWING COMMANDS.
--- NOTE | 2016-11-16 16:29 | Cons- Vascular Surgery ---
General Information and HPI Consulting Request Date of Consult: 11/16/16 Requested By: MAR WEAVER MD Reason for Consult: History of venous ulcer/wound on leg Exam Limitations: unable to give history, not alert/orientated History of Present Illness: Patient known to her vascular surgery service. She is noncompliant and recently underwent a venous ablation of the leg. She did not return for follow-up. She has a history of cirrhosis, esophageal varices, Hepatitis C, venous insufficiency, with a chronic, nonhealing ulcer on the right leg. On admission she was admitted for a GI bleed to the ICU, intubated and underwent an upper endoscopy, which revealed esophageal varices, which were banded. We are call for follow-up of her lower extremity wound. Allergies/Medications Allergies: Coded Allergies: Penicillins (RASH 08/05/15) Sulfa (Sulfonamide Antibiotics) (UNKNOWN - PER PT SON 08/05/15) cephalexin (From KEFLEX) (RASH 07/27/16) clindamycin (UNKNOWN - PER PT SON 08/05/15) Home Med List: Apixaban (Eliquis) 2.5 MG TABLET 1 TAB PO BID DVT Start taking this twice a day on 08/07/16 Ferrous Sulfate (IRON) 325 MG (65 MG IRON) TABLET 1 TAB PO TID Iron deficiency Furosemide 20 MG TABLET 1 TAB PO DAILY Fluid overload Potassium Chloride (Klor-Con) 20 MEQ PACKET 1 PAC PO DAILY Low potassium Propranolol HCl 10 MG TABLET 0.5 TAB PO DAILY Gastric varices Please monitor blood pressure and heart rate twice a day for 1 week. 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 , Age 84; Cause: Renal cell cancer. MOTHER, , Age 74; Cause: CVA (cerebrovascular accident due to intracerebral hemorrhage). Psychosocial History Where Do You Live? Home Who Do You Live With? child (son, Bobby Villarreal) Services at Home: Nursing Primary Language: Dutch Smoking Status: Former Smoker ETOH Use: denies use Illicit Drug Use: denies illicit drug use Living Will? no Power of Solutions Architect/HCP? no Other Social History: Single. Never . One son (Bobby Villarreal) 51- [employer], with whom she lives. Ex 2 pk yr smoker in college. No EtOH. No drugs. No IVDA. No tattoos. No body piercings. 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 Uses 2 quad canes to ambulate. Functional Ability ADLs Independent: dressing, eating, toileting. Unknown: bathing. Ambulation: cane (2 quad canes) IADLs Independent: finances, food prep, telephone, medication admin. Needs Assist: shopping, housework, transportation. 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 [employer] Review of Systems Review of Systems: Patient is intubated sedated and on respirator Exam & Diagnostic Data Vital Signs and I&O Vital Signs Date Time Temp Pulse Resp B/P B/P Pulse O2 O2 Flow FiO2 Mean Ox Delivery Rate 11/16 1356 30 11/16 1200 99 Ventilator 30% 11/16 1059 30 11/16 0801 30 11/16 0800 96.5 86 22 142/80 97 Ventilator 30% 11/16 0800 97 Ventilator 30% 11/16 0600 98.8 54 12 167/78 11/16 0534 30 11/16 0400 98.8 64 16 128/67 11/16 0400 98 Ventilator 30% 11/16 0231 30 11/16 0200 98.3 64 13 118/60 11/16 0045 30 11/16 0000 98.3 64 16 114/62 11/16 0000 99 Ventilator 30% 11/16 0000 98.3 64 16 114/62 99 Ventilator 30% 11/15 2220 30 11/15 2200 98.8 76 15 148/65 11/16 1999 98.8 81 28 140/70 11/16 1999 96 Ventilator 30% 11/15 1945 30 11/15 1800 78 24 177/82 11/15 1630 30 Intake & Output 11/16 1600 11/16 0800 11/16 0000 11/15 1600 11/15 0800 11/15 0000 Intake Total 1322 1082 1024 1217 1830 1871 Output Total 820 550 9215 1450 300 450 Balance 1072 682 -876 -233 1530 1421 Intake, Blood 369 700 Product Intake, IV 1322 1082 1024 1217 1461 1171 Intake, Oral 0 0 0 0 0 Number 1 1 3 Bowel Movements Output, Stool 0 957 393 7194 Output, Urine 820 651 2106 450 300 450 Patient 217 lb Weight Physical Exam: Bilateral lower extremities are well-perfused. There is no evidence of acute arterial ischemia. She does have a medial ankle ulceration with some fibrinous exudate. There is no signs of periwound erythema or infection at this time. Physical Exam General Appearance: sedated, intubated Extremities: inflammation, pedal edema, swelling Assessment/Plan Assessment/Plan 76-year-old multiple medical problems recent GI bleed requiring mechanical ventilation with venous ulcer of R. leg 1.) Wound is stable with no evidence of infection 2.) Would continue local wound care and treat with alginate, and wrap with Kerlix/Teodoro from foot- knee--PLEASE DO NOT PLACE TELFA ON THE WOUND 3.) May f/u at wound center after discharge 4.) Cont. medical care Consult Acknowledgment - Thank you for your consult request.
--- NOTE | 2016-11-16 16:36 | NUR ---
@1230-PT NOTED TO HAVE OPEN AREA OVER ETT GARCÍA TO L CHEEK-PREV INTACT THIS AM. SERROUS DRAINAGE [id number] RN AT BEDSIDE TO ASSESS. FOAM DSG PLACED TO OPEN AREA TO L CHEEK.
[2016-11-16 19:55] LABS: ABSOLUTE BASOPHIL COUNT 0.1 /CUMM (0.0-0.2); ABSOLUTE EOSINOPHIL COUNT 0.2 /CUMM (0.0-0.7); ABSOLUTE GRANULOCYTE CT 3.1 /CUMM (1.4-6.5); ABSOLUTE LYMPH COUNT 0.9 /CUMM (1.2-3.4); ABSOLUTE MONOCYTE COUNT 0.4 /CUMM (0.10-0.60); BASOPHIL % 1.2 % (0.0-2.0); EOSINOPHIL % 4.7 % (0-5); GRANULOCYTE % 67.1 % (42.2-75.2); HEMATOCRIT 25.3 % (37-47); MEAN CORPUSCULAR HGB 24.3 PG (27.0-31.0); MEAN CORPUSCULAR HGB CONC 31.6 G/DL (33.0-37.0); MEAN CORPUSCULAR VOLUME 76.9 FL (81.0-99.0); MEAN PLATELET VOLUME 10.1 FL (7.4-10.4); PLATELET COUNT 129 /CUMM (130-400); RBC DISTRIBUTION WIDTH 19.8 % (11.5-14.5); RED BLOOD CELL CT 3.29 /CUMM (4.20-5.40); WHITE BLOOD CELL COUNT 4.7 /CUMM (4.8-10.8)
[2016-11-17] VITALS (8 sets, daily range): BP systolic 131–168; BP diastolic 43–78
[2016-11-17 05:10] LABS: ABSOLUTE BASOPHIL COUNT 0.1 /CUMM (0.0-0.2); ABSOLUTE EOSINOPHIL COUNT 0.2 /CUMM (0.0-0.7); ABSOLUTE GRANULOCYTE CT 3.1 /CUMM (1.4-6.5); ABSOLUTE LYMPH COUNT 0.9 /CUMM (1.2-3.4); ABSOLUTE MONOCYTE COUNT 0.4 /CUMM (0.10-0.60); BASOPHIL % 1.2 % (0.0-2.0); EOSINOPHIL % 4.4 % (0-5); GRANULOCYTE % 66.3 % (42.2-75.2); HEMATOCRIT 24.2 % (37-47); MEAN CORPUSCULAR HGB 24.5 PG (27.0-31.0); MEAN CORPUSCULAR HGB CONC 31.7 G/DL (33.0-37.0); MEAN CORPUSCULAR VOLUME 77.1 FL (81.0-99.0); MEAN PLATELET VOLUME 9.8 FL (7.4-10.4); PLATELET COUNT 124 /CUMM (130-400); RBC DISTRIBUTION WIDTH 19.7 % (11.5-14.5); RED BLOOD CELL CT 3.14 /CUMM (4.20-5.40); WHITE BLOOD CELL COUNT 4.7 /CUMM (4.8-10.8)
--- NOTE | 2016-11-17 07:58 | RADIOLOGY REPORT ---
EXAMINATION: XR PORTABLE CHEST CLINICAL INFORMATION: Respiratory failure COMPARISON: 11/16/2016 TECHNIQUE: Portable frontal view of the chest was obtained. FINDINGS: The endotracheal tube terminates 4 cm above the buzz. Cardiac leads overlie the chest. Low lung volumes. Hazy left mid to lower lung opacity remains, similar to prior. Linear right perihilar atelectasis. No pneumothorax. The cardiomediastinal silhouette is unchanged. IMPRESSION: Endotracheal tube terminating 4 cm above the buzz. Similar appearance to prior with hazy left mid to lower lung opacity likely representing a combination of pleural effusion with associated atelectasis/pneumonia.
--- NOTE | 2016-11-17 08:02 | PN- Resident CRCU ---
GLENN EMERY,[facility] 11/17/16 0802: Subjective HPI/CRCU Issues: Afebrile, hemodynamically stable, patient still mechanically ventilated. Patient still lethargic and unresponsive but is more awake this a.m. she is responsive to voice. No overnight events reported. 24 Hour Events: * Mechanically ventilated * Tmax: 98.1 * Heartrate: 60s-80s * Blood pressure : Hemodynamically stable Objective Vital Signs & I&O Last 8 Hrs of Vitals and I&O: Vital Signs Date Time Temp Pulse Resp B/P B/P Pulse O2 O2 Flow FiO2 Mean Ox Delivery Rate 11/17 1207 98.1 79 12 168/52 100 Ventilator 30% 11/17 1123 30 11/17 0822 30 11/17 0800 97.8 70 14 132/70 100 Ventilator 30% 11/17 0800 98 Ventilator 30% 11/17 0600 30 11/17 0600 98.0 63 14 146/56 11/17 0400 98.1 80 20 148/68 11/17 0400 100 Ventilator 30% 11/17 0331 30 11/17 0049 30 11/17 0000 98.2 81 16 142/78 11/17 0000 100 Ventilator 30% 11/17 0000 98.2 81 16 142/78 100 Ventilator 30% 11/16 2210 30 11/16 2000 97.9 86 28 168/78 11/16 2000 99 Ventilator 30% 11/16 1930 30 11/16 1630 30 11/16 1600 98.3 86 22 148/82 99 Ventilator 30% 11/16 1600 99 Ventilator 30% 11/16 1356 30 Intake & Output 11/17 1600 11/17 0800 11/17 0000 Intake Total 604.9 983 Output Total 900 1100 Balance -295.1 -117 Intake, IV 604.9 983 Intake, Oral 0 0 Output, Stool 750 900 Output, Urine 150 200 Exam General Appearance: no apparent distress, intubated, lethargic Head: atraumatic, normal appearance Respiratory: normal breath sounds, MV Cardiovascular: regular rate/rhythm Gastrointestinal: normal bowel sounds, soft Extremities: chronic changes , +2 LE edema Current Medications: Current Medications Sig/Marcin Start time Last Medication Dose Route Stop Time Status Admin Ceftriaxone Sodium 2,000 MG DAILY 11/15 1656 AC 11/17 IV 0953 Lactulose 1 BOT Q12 11/16 1046 AC 11/17 [place] 0954 Nystatin 1 GALO TID PRN 11/15 2115 TOP Octreotide Acetate 500 MCG Q20H 11/15 0200 AC 11/16 Dextrose/Water 500 ML IV 1813 Pantoprazole Sodium 40 MG DAILY 11/16 1001 AC 11/17 IV 0954 Potassium Chloride 20 MEQ Q1H 11/17 1100 DC 11/17 IV 11/17 1201 1153 Potassium Chloride 10 MEQ Q1H 11/17 0615 CAN IV 11/17 1200 Potassium Chloride 10 MEQ Q1H 11/16 2200 DC 11/16 IV 11/16 2301 2202 Sodium Chloride 1,000 ML Q8H 11/14 1215 AC 11/17 IV 0544 Impression/Plan Impression/Problem List Impression: #Respiratory: History of untreated chronic hepatitis C. Patient presents with upper GI bleed, she was intubated for upper endoscopy and esophageal banding. Banded x 4 was performed. Patient still intubated and mechanically ventilated. All sedated medication was discontinued yesterday. Utox showed opiates >4000, patient received Narcan yesterday. Ventilator setting -Vent mode: VC-AC -RR set: 10 -RR act: 14 -TV set: 500 -TV act: 460 -FIO2: 30 -PEEP: 5 Plan 1. We will repeat chest x-ray tomorrow 2. Once patient is more alert, we'll try to wean her off the ventilator #Infection Aspiration pneumonia: Acute pneumonia on chest x-ray in the setting of vomiting. SBP: Should be ruled out given that Patient has a chronic hepatitis C with liver cirrhosis. Abdominal ultrasound showed:Small amount of ascites. An x-ray that was done post intubation showed a possible acute pneumonia. * Tmax:98 * WBCs 4.1 Plan 1.Continue ceftriaxone 2 g IV every 24 was started yesterday 3.Pending blood culture results 4.Pending sputum culture results #Cardiology No active heart issue Plan 1. Monitor vitals #Hematology Acute blood loss anemia from esophageal varices. He presents with hemoglobin of 5.7. She received X4 RBCs after which her hemoglobin improved. Patient had a mild drop in her H&H which is most likely secondary to dilution effect given the drop in all blood cell lines * H&H this AM is 7.7 & 24.2 Plan 1. Repeat CBC Q 12 #Neurology Patient was alert on admission, On 11/14/16 she was sedated & prophylactically intubated for Upper endoscopy. Post endoscopy she was on 1 mg/h IV Ativan drip, she was lethargic but responsive to tactile stimuli. Head CT showed:No acute intracranial pathology. Hepatic encephalopathy was expected received lactulose enema and ammonia level came back normal. UTox was done yesterday and showed Opiates > 4000(Patient received IV morphine overnight) patient was given 1 dose of IV Narcan. * More awake this morning and response to voice * Pupils are reactive to light bilaterally * She is not on any sedating medication right now Plan 1. Continue neurological check 2. Continue lactulose #GI Patient presented with upper GI bleed, upper endoscopy was done and esophageal varices was ligated X4. Patient would most likely need to go for another endoscopy to exclude gastric varicoceles. However this can affect esophageal varices ligation integrity. Plan 1.We will watch for any symptom of bleeding, it happens patient will go for upper endoscopy 2.Continue PPI as a prophylaxis #Renal Cr is 0.5 and BUN is 17. Plan 1.NTD #Skin She has chronic LE venous stasis with chronic venous ulcers S/P recent care by Dr. Anna Jessica * Wound is stable with no evidence of infection * Would continue local wound care and treat with alginate, and wrap with Kerlix/ Teodoro from foot- knee * Patient will be instructed to follow with wound Center after discharge Plan 1. Wound consult was placed Nothing by mouth DVT prophylaxis with Alps GI prophylaxis with PPI Full code Problem List: 1. Esophageal varices 2. Upper GI bleed Pain Ratin Tomorrow's Labs & Rationales: ICU bundle, CBC, and prealbumin Plan DVT/Prophylaxis: Curt Downs MD 11/17/16 0809: Attending MD Review Statement Attending Sign Off Attending Cosign Statement: I have: examined this patient, reviewed al EMR data, personally reviewd images, discussed mgmt plan w/lio, agreed w/resident/PA/[employer]CH[employer].
--- NOTE | 2016-11-17 09:40 | PN- Att Addend ---
Attending Addendum Attending Brief Note Patient intubated and sedated. General Appearance: Intubated and sedated Skin: Lymphedema bilateral lower extremity Cardiovascular: Regular Rate, Normal S1, Normal S2, No Murmurs Lungs: Clear to Auscultation, Normal Air Movement Abdomen: Mildly distended Extremities: 2+ edema, right foot wound Assessment Patient remains intubated. 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 on IV ceftriaxone for possible aspiration. Ultrasound abdomen suggest small sciatic fluid, unlikely SBP. Weaned her off Ativan however patient still less responsive. We will continue lactulose although ammonia levels have reduced. continue mild hydration. Continue wound care. Continue weaning trials. Plan Continue lactulose Continue mild hydration, decrease IV fluids to 100 mL/h Continue current antibiotics Start weaning trials transfuse for hemoglobin less than 7 Follow consults recommendations Current Medications Sig/Marcin Start time Last Medication Dose Route Stop Time Status Admin Acetaminophen 1,000 MG Q6P PRN 11/14 1400 DC IV Ceftriaxone Sodium 2,000 MG DAILY 11/15 1656 AC 11/16 IV 1204 Lactulose 1 BOT Q12 11/16 1046 AC 11/16 CT 2202 Lactulose 1 BOT Q6 11/15 0841 DC 11/15 CT 2320 Morphine Sulfate 1 MG Q6P PRN 11/14 1400 DC 11/16 IV 0035 Naloxone HCl 0.4 MG ONCE ONE 11/16 1015 DC 11/16 IV 11/16 1016 1205 Nystatin 1 GALO TID PRN 11/15 2115 [facility] Octreotide Acetate 500 MCG Q20H 11/15 0200 AC 11/16 Dextrose/Water 500 ML IV 1813 Pantoprazole Sodium 40 MG DAILY 11/16 1001 11/16 IV 1017 Pantoprazole Sodium 80 MG DAILY 11/16 1000 DC 11/16 IV 1016 Potassium Chloride 10 MEQ Q1H 11/17 0615 DC IV 11/17 0816 Potassium Chloride 10 MEQ Q1H 11/16 2200 DC 11/16 IV 11/16 2301 2202 Potassium Chloride 10 MEQ Q1H 11/16 0745 DC 11/16 IV 11/16 0946 1016 Sodium Chloride 1,000 ML Q8H 11/14 1215 11/17 IV 0544 Laboratory Tests 11/17 11/16 0421 2040 Chemistry Sodium (137 - 145 mmol/L) 139 Potassium (3.5 - 5.1 mmol/L) 3.4 L Chloride (98 - 107 mmol/L) 114 H Carbon Dioxide (22 - 30 mmol/L) 19 L Anion Gap (5 - 16) 6 BUN (7 - 17 mg/dL) 17 Creatinine (0.5 - 1.0 mg/dL) 0.5 Estimated GFR (>60 ml/min) > 60 Glucose (65 - 99 mg/dL) 118 H Lactic Acid (0.7 - 2.1 mmol/L) 1.3 Calcium (8.4 - 10.2 mg/dL) 7.0 L Phosphorus (2.5 - 4.5 mg/dL) 2.8 Magnesium (1.6 - 2.3 mg/dL) 2.0 Total Bilirubin (0.2 - 1.3 mg/dL) 0.6 AST (14 - 36 U/L) 27 ALT (9 - 52 U/L) 37 Albumin (3.5 - 5.0 g/dL) 2.0 L Hematology CBC w Diff NO MAN DIFF REQ WBC (4.8 - 10.8 /CUMM) 4.7 L RBC (4.20 - 5.40 /CUMM) 3.14 L Hgb (12.0 - 16.0 G/DL) 7.7 L Hct (37 - 47 %) 24.2 L MCV (81.0 - 99.0 FL) 77.1 L MCH (27.0 - 31.0 PG) 24.5 L RDW (11.5 - 14.5 %) 19.7 H Plt Count (130 - 400 /CUMM) 124 L MPV (7.4 - 10.4 FL) 9.8 Gran % (42.2 - 75.2 %) 66.3 Lymphocytes % (20.5 - 51.1 %) 19.4 L Monocytes % (1.7 - 9.3 %) 8.7 Eosinophils % (0 - 5 %) 4.4 Basophils % (0.0 - 2.0 %) 1.2 Absolute Granulocytes (1.4 - 6.5 /CUMM) 3.1 Absolute Lymphocytes (1.2 - 3.4 /CUMM) 0.9 L Absolute Monocytes (0.10 - 0.60 /CUMM) 0.4 Absolute Eosinophils (0.0 - 0.7 /CUMM) 0.2 Absolute Basophils (0.0 - 0.2 /CUMM) 0.1 PUBS MCHC (33.0 - 37.0 G/DL) 31.7 L 11/16 1855 Chemistry Sodium (137 - 145 mmol/L) 130 L Potassium (3.5 - 5.1 mmol/L) 3.6 Chloride (98 - 107 mmol/L) 104 Carbon Dioxide (22 - 30 mmol/L) 19 L Anion Gap (5 - 16) 7 BUN (7 - 17 mg/dL) 16 Creatinine (0.5 - 1.0 mg/dL) 0.5 Estimated GFR (>60 ml/min) > 60 Glucose (65 - 99 mg/dL) 329 H Calcium (8.4 - 10.2 mg/dL) 6.7 L Phosphorus (2.5 - 4.5 mg/dL) 2.6 Magnesium (1.6 - 2.3 mg/dL) 2.0 Total Bilirubin (0.2 - 1.3 mg/dL) 0.6 AST (14 - 36 U/L) 28 ALT (9 - 52 U/L) 49 Albumin (3.5 - 5.0 g/dL) 2.2 L Hematology CBC w Diff NO MAN DIFF REQ WBC (4.8 - 10.8 /CUMM) 4.7 L RBC (4.20 - 5.40 /CUMM) 3.29 L Hgb (12.0 - 16.0 G/DL) 8.0 L Hct (37 - 47 %) 25.3 L MCV (81.0 - 99.0 FL) 76.9 L MCH (27.0 - 31.0 PG) 24.3 L RDW (11.5 - 14.5 %) 19.8 H Plt Count (130 - 400 /CUMM) 129 L MPV (7.4 - 10.4 FL) 10.1 Gran % (42.2 - 75.2 %) 67.1 Lymphocytes % (20.5 - 51.1 %) 18.6 L Monocytes % (1.7 - 9.3 %) 8.4 Eosinophils % (0 - 5 %) 4.7 Basophils % (0.0 - 2.0 %) 1.2 Absolute Granulocytes (1.4 - 6.5 /CUMM) 3.1 Absolute Lymphocytes (1.2 - 3.4 /CUMM) 0.9 L Absolute Monocytes (0.10 - 0.60 /CUMM) 0.4 Absolute Eosinophils (0.0 - 0.7 /CUMM) 0.2 Absolute Basophils (0.0 - 0.2 /CUMM) 0.1 PUBS MCHC (33.0 - 37.0 G/DL) 31.6 L Vital Signs Date Time Temp Pulse Resp B/P B/P Pulse O2 O2 Flow FiO2 Mean Ox Delivery Rate 11/17 0822 30 11/17 0800 97.8 70 14 132/70 100 Ventilator 30% 11/17 0800 98 Ventilator 30% 11/17 0600 30 11/17 0600 98.0 63 14 146/56 11/17 0400 98.1 80 20 148/68 11/17 0400 100 Ventilator 30% 11/17 0331 30 11/17 0049 30 11/17 0000 98.2 81 16 142/78 11/17 0000 100 Ventilator 30% 11/17 0000 98.2 81 16 142/78 100 Ventilator 30% 11/16 2210 30 11/17 1999 97.9 86 28 168/78 11/16 2000 99 Ventilator 30% 11/16 1930 30 11/16 1630 30 11/16 1600 98.3 86 22 148/82 99 Ventilator 30% 11/16 1600 99 Ventilator 30% 11/16 1356 30 06 1200 99 Ventilator 30% 11/16 1059 30
--- NOTE | 2016-11-17 11:10 | PN- Infect Dx ---
Subjective Subjective: Afebrile without complaints Objective Last 24 Hrs of Vital Signs/I&O Vital Signs Date Time Temp Pulse Resp B/P B/P Pulse O2 O2 Flow FiO2 Mean Ox Delivery Rate 11/17 0822 30 11/17 0800 97.8 70 14 132/70 100 Ventilator 30% 11/17 0800 98 Ventilator 30% 11/17 0600 30 11/17 0600 98.0 63 14 146/56 11/17 0400 98.1 80 20 148/68 11/17 0400 100 Ventilator 30% 11/17 0331 30 11/17 0049 30 11/17 0000 98.2 81 16 142/78 06 0000 100 Ventilator 30% 11/17 0000 98.2 81 16 142/78 100 Ventilator 30% 11/16 2210 30 11/16 2000 97.9 86 28 168/78 11/16 2000 99 Ventilator 30% 11/16 1930 30 11/16 1630 30 11/16 1600 98.3 86 22 148/82 99 Ventilator 30% 11/16 1600 99 Ventilator 30% 11/16 1356 30 11/16 1200 99 Ventilator 30% Intake & Output 11/17 1600 11/17 0800 11/17 0000 Intake Total 604.9 983 Output Total 900 1100 Balance -295.1 -117 Intake, IV 604.9 983 Intake, Oral 0 0 Output, Stool 750 900 Output, Urine 150 200 Physical Exam Other Physical Findings: She is more awake and alert, able to follow commands, on the ventilator Lungs are clear Heart regular rhythm with no murmur Abdomen is soft, nontender with positive bowel sounds Extremities chronic changes both lower extremities; 1+ edema all extremities Remy catheter remains in place Results Last 24 Hours of Lab Results: Laboratory Tests 11/171 0 Chemistry Sodium (137 - 145 mmol/L) 139 Potassium (3.5 - 5.1 mmol/L) 3.4 L Chloride (98 - 107 mmol/L) 114 H Carbon Dioxide (22 - 30 mmol/L) 19 L Anion Gap (5 - 16) 6 BUN (7 - 17 mg/dL) 17 Creatinine (0.5 - 1.0 mg/dL) 0.5 Estimated GFR (>60 ml/min) > 60 Glucose (65 - 99 mg/dL) 118 H Lactic Acid (0.7 - 2.1 mmol/L) 1.3 Calcium (8.4 - 10.2 mg/dL) 7.0 L Phosphorus (2.5 - 4.5 mg/dL) 2.8 Magnesium (1.6 - 2.3 mg/dL) 2.0 Total Bilirubin (0.2 - 1.3 mg/dL) 0.6 AST (14 - 36 U/L) 27 ALT (9 - 52 U/L) 37 Albumin (3.5 - 5.0 g/dL) 2.0 L Hematology CBC w Diff NO MAN DIFF REQ WBC (4.8 - 10.8 /CUMM) 4.7 L RBC (4.20 - 5.40 /CUMM) 3.14 L Hgb (12.0 - 16.0 G/DL) 7.7 L Hct (37 - 47 %) 24.2 L MCV (81.0 - 99.0 FL) 77.1 L MCH (27.0 - 31.0 PG) 24.5 L RDW (11.5 - 14.5 %) 19.7 H Plt Count (130 - 400 /CUMM) 124 L MPV (7.4 - 10.4 FL) 9.8 Gran % (42.2 - 75.2 %) 66.3 Lymphocytes % (20.5 - 51.1 %) 19.4 L Monocytes % (1.7 - 9.3 %) 8.7 Eosinophils % (0 - 5 %) 4.4 Basophils % (0.0 - 2.0 %) 1.2 Absolute Granulocytes (1.4 - 6.5 /CUMM) 3.1 Absolute Lymphocytes (1.2 - 3.4 /CUMM) 0.9 L Absolute Monocytes (0.10 - 0.60 /CUMM) 0.4 Absolute Eosinophils (0.0 - 0.7 /CUMM) 0.2 Absolute Basophils (0.0 - 0.2 /CUMM) 0.1 PUBS MCHC (33.0 - 37.0 G/DL) 31.7 L 11/16 1855 Chemistry Sodium (137 - 145 mmol/L) 130 L Potassium (3.5 - 5.1 mmol/L) 3.6 Chloride (98 - 107 mmol/L) 104 Carbon Dioxide (22 - 30 mmol/L) 19 L Anion Gap (5 - 16) 7 BUN (7 - 17 mg/dL) 16 Creatinine (0.5 - 1.0 mg/dL) 0.5 Estimated GFR (>60 ml/min) > 60 Glucose (65 - 99 mg/dL) 329 H Calcium (8.4 - 10.2 mg/dL) 6.7 L Phosphorus (2.5 - 4.5 mg/dL) 2.6 Magnesium (1.6 - 2.3 mg/dL) 2.0 Total Bilirubin (0.2 - 1.3 mg/dL) 0.6 AST (14 - 36 U/L) 28 ALT (9 - 52 U/L) 49 Albumin (3.5 - 5.0 g/dL) 2.2 L Hematology CBC w Diff NO MAN DIFF REQ WBC (4.8 - 10.8 /CUMM) 4.7 L RBC (4.20 - 5.40 /CUMM) 3.29 L Hgb (12.0 - 16.0 G/DL) 8.0 L Hct (37 - 47 %) 25.3 L MCV (81.0 - 99.0 FL) 76.9 L MCH (27.0 - 31.0 PG) 24.3 L RDW (11.5 - 14.5 %) 19.8 H Plt Count (130 - 400 /CUMM) 129 L MPV (7.4 - 10.4 FL) 10.1 Gran % (42.2 - 75.2 %) 67.1 Lymphocytes % (20.5 - 51.1 %) 18.6 L Monocytes % (1.7 - 9.3 %) 8.4 Eosinophils % (0 - 5 %) 4.7 Basophils % (0.0 - 2.0 %) 1.2 Absolute Granulocytes (1.4 - 6.5 /CUMM) 3.1 Absolute Lymphocytes (1.2 - 3.4 /CUMM) 0.9 L Absolute Monocytes (0.10 - 0.60 /CUMM) 0.4 Absolute Eosinophils (0.0 - 0.7 /CUMM) 0.2 Absolute Basophils (0.0 - 0.2 /CUMM) 0.1 PUBS MCHC (33.0 - 37.0 G/DL) 31.6 L Last 24 Hours of Gui Results: Blood cultures November 15 negative Sputum culture November 15 mixed erin Urine culture November 14 greater than 100,000 colonies of coag-negative Staph Recent Imaging Studies: Chest x-ray November 17, personally reviewed, reveals no change in the haziness of the left mid to lower lung opacities Assessment/Plan Impression: Stable with temperatures and white blood cell count remaining normal on Ceftriaxone Day 3 of treatment for presumed aspiration pneumonia in the setting of an upper GI bleed felt to be secondary to esophageal varices, which were banded 3 days ago. The positive urine culture is of unclear significance and likely represents asymptomatic bacteriuria or contamination, though the urinalysis did reveal 50-75 white blood cells. Suggestion: 1. Further management of her anemia per GI and Medicine 2. Continue Ceftriaxone
--- NOTE | 2016-11-17 11:35 | NUR ---
@0800-PT OPENS EYES TO VERBAL STIM, FOLLOWS SIMPLE COMMANDS. PERIODS OF AGITATION NOTED. BILAT WRISTS RESTRAINTS CONT FOR SAFETY OF ETT. CONT ON VENT-NO CHANGE TO SETTINGS-FIO2 30% AND O2SAT 99%. RHONCHI AUSCULTATED, SUCTIONED FOR MOD AMTS OF WHITE THICK SECRETIONS. MOUTH CARE PROVIDED. SB/NSR HR 60S. BP 130S-160S. REMAINS NPO DUE TO NO OGT/NGT ABLE TO BE PLACED DUE TO RECENT BANDS PLACED FOR ESOPHAGEAL VARICIES. RECTAL TUBE IN PLACE FOR LACTULOSE ENEMAS BID. DE IN PLACE WITH 20-30ML OF CHAITANYA URINE NOTED. L HEEL CALLUS CONT, CREAM APPLIED AND ELEVATED LLE ON PILLOWS. DSG TO R HEEL AND RLE INTACT AT THIS TIME. BUE EDEMA CONT L>R WITH BILAT FOREARMS RED. OPEN AREA TO L CHEEK HAS FOAM DSG INTACT. BLE EDEMA CONT. IVF CONT AT 125ML/HR, OCTREOTIDE GTT INFUSING AT 25MCG. PT TO RECIEVE 3 BOLUSES OF K+ WHEN IV ACCESS ESTABLISHED THIS AM.-? POSSIBLE PICC PLACEMENT. CONT TO MONITOR CLOSELY.
--- NOTE | 2016-11-17 11:38 | RADIOLOGY REPORT ---
EXAMINATION: XR PORTABLE CHEST CLINICAL INFORMATION: PICC placement. COMPARISON: 11/17/2016 TECHNIQUE: Portable frontal view of the chest was obtained. FINDINGS: The endotracheal tube terminates 5 cm above the buzz. Right-sided PICC line terminates near the cavoatrial junction. Cardiac leads overlie the chest. Low lung volumes. Persistent small left pleural effusion with basilar airspace opacity. No pneumothorax. The cardiomediastinal silhouette is unchanged. IMPRESSION: Endotracheal tube terminating 5 cm above the buzz. New right-sided PICC line terminates near the cavoatrial junction. Persistent small left pleural effusion with associated airspace opacity.
--- NOTE | 2016-11-17 11:43 | NUR ---
@1030-THIS RN AT BEDSIDE TO ASSIST WITH PICC LINE PLACEMENT TO RUE. STAT CXR DONE AT 1115 TO CONFIRM PICC PLACEMENT. CONT TO MONITOR.
--- NOTE | 2016-11-17 12:08 | NUR ---
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
--- NOTE | 2016-11-17 17:13 | NUR ---
@[id number]-OI ON CPAP TRIAL, PRESSURE SUPPORT 8. PT DIAN WELL WITH O2SAT 97%. SON AT BEDSIDE AND UPDATED ON POC.
[2016-11-18] VITALS (11 sets, daily range): BP systolic 102–171; BP diastolic 47–82
[2016-11-18 06:44] LABS: ABSOLUTE BASOPHIL COUNT 0 /CUMM (0.0-0.2); ABSOLUTE EOSINOPHIL COUNT 0.2 /CUMM (0.0-0.7); ABSOLUTE GRANULOCYTE CT 1.6 /CUMM (1.4-6.5); ABSOLUTE LYMPH COUNT 0.7 /CUMM (1.2-3.4); ABSOLUTE MONOCYTE COUNT 0.3 /CUMM (0.10-0.60); BASOPHIL % 0.7 % (0.0-2.0); EOSINOPHIL % 7.8 % (0-5); GRANULOCYTE % 55.6 % (42.2-75.2); HEMATOCRIT 20.4 % (37-47); MEAN CORPUSCULAR HGB 24.5 PG (27.0-31.0); MEAN CORPUSCULAR HGB CONC 31.8 G/DL (33.0-37.0); PLATELET COUNT 108 /CUMM (130-400); RBC DISTRIBUTION WIDTH 20.3 % (11.5-14.5); RED BLOOD CELL CT 2.66 /CUMM (4.20-5.40); WHITE BLOOD CELL COUNT 2.9 /CUMM (4.8-10.8)
--- NOTE | 2016-11-18 08:15 | PN- Resident CRCU ---
Subjective HPI/CRCU Issues: Afebrile, hemodynamically stable, saturating well on mechanical ventilator 30% oxygen. She tolerates weaning trial yesterday very well. We will try to extubate her later today. 24 Hour Events: * Mechanically ventilated * Tmax:99.1 * HR: 60s-80s. * BP: In an acceptable range Objective Vital Signs & I&O Last 8 Hrs of Vitals and I&O: Vital Signs Date Time Temp Pulse Resp B/P B/P Pulse O2 O2 Flow FiO2 Mean Ox Delivery Rate 11/18 0821 30 11/18 0600 60 12 134/50 / 0541 30 11/18 0400 97.0 68 27 130/76 / 0400 100 Ventilator 30% 11/18 0353 30 11/18 0200 66 23 132/82 11/18 0022 30 / 0000 97.2 79 16 160/72 06/ 0000 97.2 79 16 160/72 95 Ventilator 30% 11/18 0000 95 Ventilator 30% 11/17 2219 30 11/17 2200 68 13 131/43 11/18 1999 98.2 80 24 164/57 11/18 1999 97 Ventilator 30% / 1921 30 06/14 1617 30 06/14 1600 97 Ventilator 30% /14 1600 99.1 88 19 160/72 97 Ventilator 30% /14 1400 30 /14 1207 98.1 79 12 168/52 100 Ventilator 30% /14 1200 95 Ventilator 30% Intake & Output 11/18 1600 /15 0800 /15 0000 Intake Total 1448 1080 Output Total 250 300 Balance 1198 780 Intake, IV 948 1080 Intake, Oral 0 0 Intake, Other 500 Number 300 100 Bowel Movements Output, Urine 250 300 Exam General Appearance: alert, awake, intubated Head: atraumatic, normal appearance Respiratory: normal breath sounds, chest non-tender, no respiratory distress Cardiovascular: regular rate/rhythm Gastrointestinal: soft, non-tender Extremities: LE edema B/L Weaning Parameters NIF: 15 Minute Volume: 8.39 Resp rate: 38 Vt: 364 Heart Rate: 87 Weaning Schedule Start Time: 1615 Minute Volume: 11.6 Resp Rate: 26 Vt: 459 Heart Rate: 89 End Time: 1715 Minute Volume: 10.1 Resp Rate: 24 Vt: 563 Heart Rate: 85 Start Time: 1930 Minute Volume: 9.51 Resp Rate: 27 Vt: 384 Heart Rate: 83 End Time: 2030 Minute Volume: 7.14 Resp Rate: 20 Vt: 364 Heart Rate: 82 Current Medications: Current Medications Sig/Marcin Start time Last Medication Dose Route Stop Time Status Admin Ceftriaxone Sodium 2,000 MG DAILY 11/15 1656 AC 15 IV 0937 Lactulose 1 BOT Q12 11/16 1046 AC 11/18 [place] 0937 Nystatin 1 GALO TID PRN 11/15 2115 AC TOP Octreotide Acetate 500 MCG Q20H 11/15 0200 AC 11/18 Dextrose/Water 500 ML IV 1127 Pantoprazole Sodium 40 MG DAILY 11/16 1001 AC 11/18 IV 0937 Potassium Chloride 20 MEQ Q1H 11/18 1030 DC 11/18 IV 11/18 1131 1127 Potassium Chloride 20 MEQ Q1H 11/17 1100 DC 11/17 IV 11/17 1201 1306 Potassium Phosphate 15 mMol ONE ONE 11/18 1200 AC Dextrose/Water 250 ML IV 11/18 1603 Sodium Chloride 1,000 ML Q8H 11/14 1215 r 11/18 IV 1024 Impression/Plan Impression/Problem List Impression: #Respiratory: History of untreated chronic hepatitis C. Patient presents with upper GI bleed, she was intubated for upper endoscopy and esophageal banding. Banded x 4 was performed. Patient still intubated and mechanically ventilated. All sedated medication was discontinued 2 days ago . Utox showed opiates >4000, patient received Narcan 2 days ago. This morning she is alert and awake. * Ventilator setting -Vent mode: VC-AC -RR set: 10 -RR act: 12 -TV set: 500 -TV act: 450 -FIO2: 30 -PEEP: 5 Plan 1. We will try to extubate later today #Infection Aspiration pneumonia: Acute pneumonia on chest x-ray in the setting of vomiting. SBP: Should be ruled out given that Patient has a chronic hepatitis C with liver cirrhosis. Abdominal ultrasound showed:Small amount of ascites. An x-ray that was done post intubation showed a possible acute pneumonia. * Tmax:99.1 * WBCs 2.9 Plan 1.Continue ceftriaxone 2 g IV every 24 was started yesterday 3.Pending blood culture results 4.Pending sputum culture results #Cardiology No active heart issue Plan 1. Monitor vitals #Hematology Acute blood loss anemia from esophageal varices. He presents with hemoglobin of 5.7. She received X4 RBCs after which her hemoglobin improved. Patient had a mild drop in her H&H which is most likely secondary to dilution effect given the drop in all blood cell lines. Patient has a dark stool * H&H this AM is 6.5 & 20.4 Plan 1. Transfuse with 2 packed RBCs 2. Repeat CBC Posttransfusion then Repeat CBC Q 12 3. Will inform GI about the drop in H&H before extubating the patient later today #Neurology Patient was alert on admission, On 11/14/16 she was sedated & prophylactically intubated for Upper endoscopy. Post endoscopy she was on 1 mg/h IV Ativan drip, she was lethargic but responsive to tactile stimuli. Head CT showed:No acute intracranial pathology. Hepatic encephalopathy was expected as she received lactulose enema and ammonia level came back normal. UTox was done and showed Opiates > 4000(Patient received IV morphine during admission) patient was given 1 dose of IV Narcan. * Awake and alert * Patient follow commands * She is not on any sedating medication right now Plan 1. Continue neurological check 2. Continue lactulose #GI Patient presented with upper GI bleed, upper endoscopy was done and esophageal varices was ligated X4. Patient would most likely need to go for another endoscopy to exclude gastric varicoceles. However this can affect esophageal varices ligation integrity. Plan 1.We will monitor for any symptom of bleeding, it happens patient will go for upper endoscopy 2.Continue PPI as a prophylaxis #Renal Cr is 0.5 and BUN is 13. Plan 1.NTD #Skin She has chronic LE venous stasis with chronic venous ulcers S/P recent care by Dr. Anna Jessica * Wound is stable with no evidence of infection * Would continue local wound care and treat with alginate, and wrap with Kerlix/ Teodoro from foot- knee * Patient will be instructed to follow with wound Center after discharge Plan 1. Wound consult was placed Nothing by mouth DVT prophylaxis with Alps GI prophylaxis with PPI Full code Problem List: 1. Esophageal varices Pain Ratin Tomorrow's Labs & Rationales: CBC and ICU bundle Plan DVT/Prophylaxis: mechanical
--- NOTE | 2016-11-18 08:17 | PN- CRCU ---
Subjective HPI/Critical Care Issues: The patient is awake and alert. She remains on mechanical ventilation. Her mental status has significantly improved off sedation. Her oxygen requirements are down to 30%. The patient had to CPAP trials yesterday evening, noting that she tolerated trialing well. She is afebrile and hemodynamically stable. She has excellent urine output. She is not able to offer complaints. Objective Current Medications: Current Medications Sig/Marcin Start time Last Medication Dose Route Stop Time Status Admin Ceftriaxone Sodium 2,000 MG DAILY 11/15 1656 AC 11/17 IV 0953 Lactulose 1 BOT Q12 11/16 1046 AC 11/17 [place] 2254 Nystatin 1 GALO TID PRN 11/15 2115 AC TOP Octreotide Acetate 500 MCG Q20H 11/15 0200 AC 11/17 Dextrose/Water 500 ML IV 1619 Pantoprazole Sodium 40 MG DAILY 11/16 1001 AC 11/17 IV 0954 Potassium Chloride 20 MEQ Q1H 11/17 1100 DC 11/17 IV 11/17 1201 1306 Potassium Chloride 10 MEQ Q1H 11/17 0615 CAN IV 11/17 1200 Sodium Chloride 1,000 ML Q8H 11/14 1215 AC 11/17 IV 2254 Vital Signs & I&O Last 24 Hrs of Vitals and I&O: Vital Signs Date Time Temp Pulse Resp B/P B/P Pulse O2 O2 Flow FiO2 Mean Ox Delivery Rate 11/18 0541 30 11/18 0400 97.0 68 27 130/76 11/18 0400 100 Ventilator 30% 11/18 0353 30 11/18 0200 66 23 132/82 11/18 0022 30 11/18 0000 97.2 79 16 160/72 11/18 0000 97.2 79 16 160/72 95 Ventilator 30% 11/18 0000 95 Ventilator 30% 11/17 2219 30 11/17 2200 68 13 131/43 11/18 1999 98.2 80 24 164/57 11/18 1999 97 Ventilator 30% 11/17 1921 30 11/17 1617 30 11/17 1600 97 Ventilator 30% 11/17 1600 99.1 88 19 160/72 97 Ventilator 30% / 1400 30 11/17 1207 98.1 79 12 168/52 100 Ventilator 30% 11/17 1200 95 Ventilator 30% 11/17 1123 30 11/17 0822 30 11/17 0800 97.8 70 14 132/70 100 Ventilator 30% 11/17 0800 98 Ventilator 30% Intake & Output 11/18 0800 15 0000 11/17 1600 Intake Total 1080 1435 Output Total 300 250 Balance 780 1185 Intake, IV 1080 1435 Intake, Oral 0 0 Number 100 25 Bowel Movements Output, Urine 300 250 Exam General Appearance: no apparent distress, intubated, lethargic Head: atraumatic, normal appearance Respiratory: a few scattered anterior rhonchi were heard Cardiovascular: regular rate/rhythm Gastrointestinal: normal bowel sounds, soft Extremities: chronic changes , +2 LE edema Impression/Plan Impression/Plan Impression/Plan: 1. Aspiration pneumonia with respiratory failure, improving on ceftriaxone. 2. Variceal bleeding, status post banding 4 days ago, without evidence of significant rebleeding. The patient remains on Protonix and octreotide drip. 3. Change in mental status, likely secondary to opiates/benzodiazepines. The patient did have an elevated ammonia level and remains on lactulose enemas. 4. Worsening anemia, without active bleeding. 5. Cirrhosis with thrombocytopenia. 6. Malnutrition. Recommendations: * Weaning trials to continue. Will extubate if parameters are acceptable. * Follow up AM CXR results. * Will continue Octreotide and Protonix as per GI. * BID lactulose enemas. * Type and screen. * Transfuse 2 units of PRBCs. * Please discuss worsening anemia with GI. * Continue antibiotics as per ID. * Potassium replacement underway. * Decrease NS to 50 ml per hour. * Alps for DVT prophylaxis. * Continue all supportive care.
--- NOTE | 2016-11-18 08:51 | RADIOLOGY REPORT ---
EXAMINATION: XR PORTABLE CHEST CLINICAL INFORMATION: Mechanical ventilation. Intubated patient. COMPARISON: Several prior chest x-rays, most recent of which is dated 11/16/2016. TECHNIQUE: Portable AP semierect view of the chest was obtained. FINDINGS: Endotracheal tube tip is 3.8 cm above the buzz. A right subclavian PICC line is in place with tip in the deep SVC, unchanged. The cardiac mediastinal silhouette is poorly assessed due to technique of film and extremely low lung volumes. Ectasia and tortuosity of the aorta is suggested. Markedly low lung volumes are seen, rendering the image virtually nondiagnostic. Previously noted perihilar and bibasilar opacities are again noted. No pneumothorax is seen. Bony structures are unremarkable. IMPRESSION: 1. Endotracheal tube tip 3.8 cm above the buzz. 2. Right subclavian PICC line in deep SVC. 3. Extremely low lung volumes with suboptimal assessment of the lungs. Findings are likely unchanged from prior exam.
--- NOTE | 2016-11-18 09:10 | PN- Att Addend ---
Attending Addendum Attending Brief Note Patient intubated. Awake and alert responding to questions. General Appearance: Intubated, awake and alert Skin: Lymphedema bilateral lower extremity Cardiovascular: Regular Rate, Normal S1, Normal S2, No Murmurs Lungs: Clear to Auscultation, Normal Air Movement Abdomen: Mildly distended Extremities: 2+ edema, right foot wound Assessment Patient remains intubated. 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 on IV ceftriaxone for possible aspiration. Ultrasound abdomen suggest small sciatic fluid, unlikely SBP. Patient is more awake today and overriding the vent. She might be ready for extubation however there has been a drop in her hemoglobin. We'll follow with GI if she might need a follow-up endoscopy prior to extubation. Continue mild hydration. Continue wound care. Continue weaning trials. Plan Transfuse 1 unit PRBC Discuss with GI regarding the need for repeat endoscopy prior to extubation Continue lactulose Continue mild hydration, decrease IV fluids to 75 mL/h Continue current antibiotics weaning trials Follow consults recommendations Current Medications Sig/Marcin Start time Last Medication Dose Route Stop Time Status Admin Ceftriaxone Sodium 2,000 MG DAILY 11/15 1656 11/17 IV 0953 Lactulose 1 BOT Q12 11/16 1046 11/17 [place] 2254 Nystatin 1 GALO TID PRN 11/15 2115 [facility] Octreotide Acetate 500 MCG Q20H 11/15 0200 11/17 Dextrose/Water 500 ML IV 1619 Pantoprazole Sodium 40 MG DAILY 11/16 1001 AC 11/17 IV 0954 Potassium Chloride 20 MEQ Q1H 11/17 1100 DC 11/17 IV 11/17 1201 1306 Potassium Chloride 10 MEQ Q1H 11/17 0615 CAN IV 11/17 1200 Sodium Chloride 1,000 ML Q8H 11/14 1215 AC 11/17 IV 2254 Laboratory Tests 11/18 0530 Chemistry Sodium (137 - 145 mmol/L) 140 Potassium (3.5 - 5.1 mmol/L) 3.1 L Chloride (98 - 107 mmol/L) 113 H Carbon Dioxide (22 - 30 mmol/L) 22 Anion Gap (5 - 16) 5 BUN (7 - 17 mg/dL) 13 Creatinine (0.5 - 1.0 mg/dL) 0.5 Estimated GFR (>60 ml/min) > 60 Glucose (65 - 99 mg/dL) 110 H Calcium (8.4 - 10.2 mg/dL) 7.0 L Phosphorus (2.5 - 4.5 mg/dL) 2.5 Magnesium (1.6 - 2.3 mg/dL) 2.1 Total Bilirubin (0.2 - 1.3 mg/dL) 0.5 AST (14 - 36 U/L) 21 ALT (9 - 52 U/L) 37 Albumin (3.5 - 5.0 g/dL) 1.8 L Prealbumin (17.6 - 36.0 mg/dL) 3.1 L Hematology CBC w Diff NO MAN DIFF REQ WBC (4.8 - 10.8 /CUMM) 2.9 L RBC (4.20 - 5.40 /CUMM) 2.66 L Hgb (12.0 - 16.0 G/DL) 6.5 *L Hct (37 - 47 %) 20.4 L MCV (81.0 - 99.0 FL) 77.0 L MCH (27.0 - 31.0 PG) 24.5 L RDW (11.5 - 14.5 %) 20.3 H Plt Count (130 - 400 /CUMM) 108 L MPV (7.4 - 10.4 FL) 9.0 Gran % (42.2 - 75.2 %) 55.6 Lymphocytes % (20.5 - 51.1 %) 24.8 Monocytes % (1.7 - 9.3 %) 11.1 H Eosinophils % (0 - 5 %) 7.8 H Basophils % (0.0 - 2.0 %) 0.7 Absolute Granulocytes (1.4 - 6.5 /CUMM) 1.6 Absolute Lymphocytes (1.2 - 3.4 /CUMM) 0.7 L Absolute Monocytes (0.10 - 0.60 /CUMM) 0.3 Absolute Eosinophils (0.0 - 0.7 /CUMM) 0.2 Absolute Basophils (0.0 - 0.2 /CUMM) 0 PUBS MCHC (33.0 - 37.0 G/DL) 31.8 L Vital Signs Date Time Temp Pulse Resp B/P B/P Pulse O2 O2 Flow FiO2 Mean Ox Delivery Rate 11/18 0821 30 11/18 0600 60 12 134/50 11/18 0541 30 11/18 0400 97.0 68 27 130/76 06/15 0400 100 Ventilator 30% 06/15 0353 30 06/15 0200 66 23 132/82 06/15 0022 30 06/15 0000 97.2 79 16 160/72 06/15 0000 97.2 79 16 160/72 95 Ventilator 30% 06/15 0000 95 Ventilator 30% 06/14 2219 30 06/14 2200 68 13 131/43 06/14 1999 98.2 80 24 164/57 06/14 1999 97 Ventilator 30% 06/14 1921 30 06/14 1617 30 06/14 1600 97 Ventilator 30% 06/14 1600 99.1 88 19 160/72 97 Ventilator 30% 06/14 1400 30 06/14 1207 98.1 79 12 168/52 100 Ventilator 30% 06/14 1200 95 Ventilator 30% 06/14 1123 30
--- NOTE | 2016-11-18 09:58 | PN- Infect Dx ---
Subjective Subjective: Afebrile without complaints Objective Last 24 Hrs of Vital Signs/I&O Vital Signs Date Time Temp Pulse Resp B/P B/P Pulse O2 O2 Flow FiO2 Mean Ox Delivery Rate 11/18 0821 30 11/18 0600 60 12 134/50 11/18 0541 30 11/18 0400 97.0 68 27 130/76 11/18 0400 100 Ventilator 30% 11/18 0353 30 11/18 0200 66 23 132/82 11/18 0022 30 11/18 0000 97.2 79 16 160/72 06/ 0000 97.2 79 16 160/72 95 Ventilator 30% 11/18 0000 95 Ventilator 30% 11/17 2219 30 11/17 2200 68 13 131/43 11/18 1999 98.2 80 24 164/57 11/18 1999 97 Ventilator 30% 11/17 1921 30 11/17 1617 30 11/17 1600 97 Ventilator 30% 11/17 1600 99.1 88 19 160/72 97 Ventilator 30% 11/17 1400 30 11/17 1207 98.1 79 12 168/52 100 Ventilator 30% 11/17 1200 95 Ventilator 30% 14 1123 30 Intake & Output 11/18 1600 15 0800 11/18 0000 Intake Total 1448 1080 Output Total 250 300 Balance 1198 780 Intake, IV 948 1080 Intake, Oral 0 0 Intake, Other 500 Number 300 100 Bowel Movements Output, Urine 250 300 Physical Exam Other Physical Findings: She is awake and alert, mildly anxious, but in no acute distress Lungs crackles on the left Heart regular rhythm with no murmur Abdomen is distended, nontender with positive bowel sounds Extremities chronic changes to both lower extremities; right foot dressing intact; PICC in the right upper extremity with no inflammation at the site Remy catheter remains in place Results Last 24 Hours of Lab Results: Laboratory Tests 11/18 0530 Chemistry Sodium (137 - 145 mmol/L) 140 Potassium (3.5 - 5.1 mmol/L) 3.1 L Chloride (98 - 107 mmol/L) 113 H Carbon Dioxide (22 - 30 mmol/L) 22 Anion Gap (5 - 16) 5 BUN (7 - 17 mg/dL) 13 Creatinine (0.5 - 1.0 mg/dL) 0.5 Estimated GFR (>60 ml/min) > 60 Glucose (65 - 99 mg/dL) 110 H Calcium (8.4 - 10.2 mg/dL) 7.0 L Phosphorus (2.5 - 4.5 mg/dL) 2.5 Magnesium (1.6 - 2.3 mg/dL) 2.1 Total Bilirubin (0.2 - 1.3 mg/dL) 0.5 AST (14 - 36 U/L) 21 ALT (9 - 52 U/L) 37 Albumin (3.5 - 5.0 g/dL) 1.8 L Prealbumin (17.6 - 36.0 mg/dL) 3.1 L Hematology CBC w Diff NO MAN DIFF REQ WBC (4.8 - 10.8 /CUMM) 2.9 L RBC (4.20 - 5.40 /CUMM) 2.66 L Hgb (12.0 - 16.0 G/DL) 6.5 *L Hct (37 - 47 %) 20.4 L MCV (81.0 - 99.0 FL) 77.0 L MCH (27.0 - 31.0 PG) 24.5 L RDW (11.5 - 14.5 %) 20.3 H Plt Count (130 - 400 /CUMM) 108 L MPV (7.4 - 10.4 FL) 9.0 Gran % (42.2 - 75.2 %) 55.6 Lymphocytes % (20.5 - 51.1 %) 24.8 Monocytes % (1.7 - 9.3 %) 11.1 H Eosinophils % (0 - 5 %) 7.8 H Basophils % (0.0 - 2.0 %) 0.7 Absolute Granulocytes (1.4 - 6.5 /CUMM) 1.6 Absolute Lymphocytes (1.2 - 3.4 /CUMM) 0.7 L Absolute Monocytes (0.10 - 0.60 /CUMM) 0.3 Absolute Eosinophils (0.0 - 0.7 /CUMM) 0.2 Absolute Basophils (0.0 - 0.2 /CUMM) 0 PUBS MCHC (33.0 - 37.0 G/DL) 31.8 L Last 24 Hours of Gui Results: Blood cultures November 15 negative Recent Imaging Studies: Chest x-ray November 18, personally reviewed, reveals increased markings bilaterally Assessment/Plan Impression: Stable with temperatures and white blood cell count remaining normal on Ceftriaxone Day 4 of treatment for presumed aspiration pneumonia and prophylaxis for this patient with cirrhosis in the setting of an upper GI bleed secondary to esophageal varices, which were banded 4 days ago. Her H&H has again decreased, raising concern for a rebleed and will await GI evaluation. The positive urine culture is of unclear significance and likely represents asymptomatic bacteriuria or contamination. Her respiratory status appears to be improving, though her chest x-ray does suggest increased markings, possibly secondary to fluid overload. Suggestion: 1. GI reevaluation regarding her decrease in H&H 2. Reevaluation of her fluid status per Medicine 3. Continue Ceftriaxone
--- NOTE | 2016-11-18 12:43 | NUR ---
LATE ENTRY: PATIENT WAS ON TRIAL SUPPORT FROM 09- 1199 PRESSURE SUPPORT 5/6 30% OYXGEN. TOLERATED WELL. EXTUBATED AT 1201, PLACED ON 3L NC, SAT 99% PATIENT ABLE TO SELF SUCTION WITH YANKEUR. WILL MONITOR.
--- NOTE | 2016-11-18 12:49 | NUR ---
UPON EXTUBATING PATIENT, PATIENT NOTED TO HAVE WOUNDS TO BILATERAL CHEEKS UNDER THE ETT PLACEMENT GARCÍA. PATIENT ALSO NOTED UPON TURNING AND REPOSITIONING TO HAVE A WOUND TO LLE CALF. MATCHER OFFBEARER ERICKA NOTIFIED TO COME ASSESS. WILL MONITOR.
--- NOTE | 2016-11-18 13:52 | PN- Gastroenterology ---
Assessment/Plan Assessment/Recommendations: Assessment: Ms. Villarreal is a 76-year-old female with hepatitis C cirrhosis was admitted with a varieal bleed s/p EGD on 11/15/16 with esophageal banding and while her HGB has trended downward since the EGD she has been without ongoing overt GI bleeding. She was extubated until this morning as she wasn't waking up , but she was more alert today and was able to be successfully extubated. She has been continued on an IV octreotide drip which I would recommend continuing for a full 5 days if access isn't an issue. She is still on antibiotics which was given for prophylaxis with a variceal bleed, but unless she has an obvious source of infection this can be discontinued now (3 days after the bleeding has stopped). Recommendations: 1. Continue IV octreotide drip x one more day 2. Follow CBC q12hr and transfuse as needed to keep hgb > 7 3. Avoid nsaids 4. Start propanolol at 20mg po tid and titrate to a HR of 55-60 or a 20% drop in cardiac output 5. Advance to low sodium diet as tolearted 6. Change to an oral PPI 7. If no source of infection would d/c antibiotics 8. Treatment of HCV as an outpatient 9. Repeat EGD in 1-2 weeks to reassess varices and apply further banding until the varices are obliterated 10. GI should be notified for signs of ovet GI bleeding. I will continue to follow this patient and make further recommendations based on her clinical course and results of repeat blood work. I will continue to follow this patient and make further recommendations based on her clinical course and results of repeat blood work. Subjective Subjective: Pt was more alert today and she was able to be successfully extubated. She has been without any brbpr, melena, or hematemesis since the EGD. She denies any significant abdominal pain. Objective Vital Signs and I&Os Vital Signs Date Time Temp Pulse Resp B/P B/P Pulse O2 O2 Flow FiO2 Mean Ox Delivery Rate 11/18 0821 30 11/18 0600 60 12 134/50 11/18 0541 30 11/18 0400 97.0 68 27 130/76 11/18 0400 100 Ventilator 30% 11/18 0353 30 11/18 0200 66 23 132/82 06/15 0022 30 11/18 0000 97.2 79 16 160/72 11/18 0000 97.2 79 16 160/72 95 Ventilator 30% 11/18 0000 95 Ventilator 30% 11/17 2219 30 11/17 2200 68 13 131/43 11/18 1999 98.2 80 24 164/57 11/18 1999 97 Ventilator 30% 11/17 1921 30 / 1617 30 / 1600 97 Ventilator 30% 11/17 1600 99.1 88 19 160/72 97 Ventilator 30% 11/17 1400 30 Intake & Output 11/18 1600 11/18 0400 11/17 1600 11/17 0400 11/16 1600 11/16 0400 Intake Total 1448 1080 2039.9 983 2404 1024 Output Total 898 912 9309 0213 089 5338 Balance 1198 780 889.9 -117 1754 -876 Intake, IV 948 1080 2039.9 983 2404 1024 Intake, Oral 0 0 0 0 0 0 Intake, Other 500 Number 300 100 25 Bowel Movements Output, Stool 750 900 100 300 Output, Urine 250 300 400 818 628 0949 Patient 217 lb Weight Physical Exam General Appearance: well developed/nourished, no apparent distress, comfortable Neck: normal inspection, supple Respiratory: chest non-tender, decreased breath sounds Cardiovascular: regular rate/rhythm Abdomen: normal bowel sounds, soft, distention Extremities: swelling Current Medications: Current Medications Sig/Marcin Start time Last Medication Dose Route Stop Time Status Admin Ceftriaxone Sodium 2,000 MG DAILY 11/15 1656 AC 11/18 IV 0937 Lactulose 1 BOT Q12 11/16 1046 AC 11/18 [place] 0937 Nystatin 1 GALO TID PRN 11/15 2115 [facility] Octreotide Acetate 500 MCG Q20H 11/15 0200 AC 11/18 Dextrose/Water 500 ML IV 1127 Pantoprazole Sodium 40 MG DAILY 11/16 1001 AC 11/18 IV 0937 Potassium Chloride 20 MEQ Q1H 11/18 1030 DC 11/18 IV 11/18 1131 1127 Potassium Phosphate 15 mMol ONE ONE 11/18 1200 AC 11/18 Dextrose/Water 250 ML IV 11/18 1603 1320 Sodium Chloride 1,000 ML Q13H 11/18 1200 AC 11/18 IV 1320 Sodium Chloride 1,000 ML Q8H 11/14 1215 DC 11/18 IV 1024 Results Pertinent Lab Results: Laboratory Tests 11/18 11/18 1125 0530 Blood Gas pH (7.35 - 7.45 PH) 7.42 pCO2 (35 - 45 TORR) 32 L pO2 (80 - 100 TORR) 93 HCO3 (21 - 28 MEQ/L) 21 ABG O2 Sat (Measured) (>96.0 %) 97.0 P-50 (Temp Corrected) N Carboxyhemoglobin (1.5 - 5.0 %) 0.7 L O2 Concentration % 30% Respiration Rate (BPM) 21 O2 Delivery Method VENT Vent Mode CPAP/PSV TRIAL Expiratory Pressure (CMH2O/P) 5 Tidal Volume (CC) 521 Pressure Support (CMH2O/P) 6 Chemistry Sodium (137 - 145 mmol/L) 140 Potassium (3.5 - 5.1 mmol/L) 3.1 L Chloride (98 - 107 mmol/L) 113 H Carbon Dioxide (22 - 30 mmol/L) 22 Anion Gap (5 - 16) 5 BUN (7 - 17 mg/dL) 13 Creatinine (0.5 - 1.0 mg/dL) 0.5 Estimated GFR (>60 ml/min) > 60 Glucose (65 - 99 mg/dL) 110 H Calcium (8.4 - 10.2 mg/dL) 7.0 L Phosphorus (2.5 - 4.5 mg/dL) 2.5 Magnesium (1.6 - 2.3 mg/dL) 2.1 Total Bilirubin (0.2 - 1.3 mg/dL) 0.5 AST (14 - 36 U/L) 21 ALT (9 - 52 U/L) 37 Albumin (3.5 - 5.0 g/dL) 1.8 L Prealbumin (17.6 - 36.0 mg/dL) 3.1 L Hematology CBC w Diff NO MAN DIFF REQ WBC (4.8 - 10.8 /CUMM) 2.9 L RBC (4.20 - 5.40 /CUMM) 2.66 L Hgb (12.0 - 16.0 G/DL) 6.5 *L Hct (37 - 47 %) 20.4 L MCV (81.0 - 99.0 FL) 77.0 L MCH (27.0 - 31.0 PG) 24.5 L RDW (11.5 - 14.5 %) 20.3 H Plt Count (130 - 400 /CUMM) 108 L MPV (7.4 - 10.4 FL) 9.0 Gran % (42.2 - 75.2 %) 55.6 Lymphocytes % (20.5 - 51.1 %) 24.8 Monocytes % (1.7 - 9.3 %) 11.1 H Eosinophils % (0 - 5 %) 7.8 H Basophils % (0.0 - 2.0 %) 0.7 Absolute Granulocytes (1.4 - 6.5 /CUMM) 1.6 Absolute Lymphocytes (1.2 - 3.4 /CUMM) 0.7 L Absolute Monocytes (0.10 - 0.60 /CUMM) 0.3 Absolute Eosinophils (0.0 - 0.7 /CUMM) 0.2 Absolute Basophils (0.0 - 0.2 /CUMM) 0 PUBS MCHC (33.0 - 37.0 G/DL) 31.8 L Miscellaneous Phlebotomy Draw Site LEFT RADIAL 11/17 11/16 2831 2040 Chemistry Sodium (137 - 145 mmol/L) 139 Potassium (3.5 - 5.1 mmol/L) 3.4 L Chloride (98 - 107 mmol/L) 114 H Carbon Dioxide (22 - 30 mmol/L) 19 L Anion Gap (5 - 16) 6 BUN (7 - 17 mg/dL) 17 Creatinine (0.5 - 1.0 mg/dL) 0.5 Estimated GFR (>60 ml/min) > 60 Glucose (65 - 99 mg/dL) 118 H Lactic Acid (0.7 - 2.1 mmol/L) 1.3 Calcium (8.4 - 10.2 mg/dL) 7.0 L Phosphorus (2.5 - 4.5 mg/dL) 2.8 Magnesium (1.6 - 2.3 mg/dL) 2.0 Total Bilirubin (0.2 - 1.3 mg/dL) 0.6 AST (14 - 36 U/L) 27 ALT (9 - 52 U/L) 37 Albumin (3.5 - 5.0 g/dL) 2.0 L Hematology CBC w Diff NO MAN DIFF REQ WBC (4.8 - 10.8 /CUMM) 4.7 L RBC (4.20 - 5.40 /CUMM) 3.14 L Hgb (12.0 - 16.0 G/DL) 7.7 L Hct (37 - 47 %) 24.2 L MCV (81.0 - 99.0 FL) 77.1 L MCH (27.0 - 31.0 PG) 24.5 L RDW (11.5 - 14.5 %) 19.7 H Plt Count (130 - 400 /CUMM) 124 L MPV (7.4 - 10.4 FL) 9.8 Gran % (42.2 - 75.2 %) 66.3 Lymphocytes % (20.5 - 51.1 %) 19.4 L Monocytes % (1.7 - 9.3 %) 8.7 Eosinophils % (0 - 5 %) 4.4 Basophils % (0.0 - 2.0 %) 1.2 Absolute Granulocytes (1.4 - 6.5 /CUMM) 3.1 Absolute Lymphocytes (1.2 - 3.4 /CUMM) 0.9 L Absolute Monocytes (0.10 - 0.60 /CUMM) 0.4 Absolute Eosinophils (0.0 - 0.7 /CUMM) 0.2 Absolute Basophils (0.0 - 0.2 /CUMM) 0.1 PUBS MCHC (33.0 - 37.0 G/DL) 31.7 L 11/16 11/16 1855 0810 Chemistry Sodium (137 - 145 mmol/L) 130 L Potassium (3.5 - 5.1 mmol/L) 3.6 Chloride (98 - 107 mmol/L) 104 Carbon Dioxide (22 - 30 mmol/L) 19 L Anion Gap (5 - 16) 7 BUN (7 - 17 mg/dL) 16 Creatinine (0.5 - 1.0 mg/dL) 0.5 Estimated GFR (>60 ml/min) > 60 Glucose (65 - 99 mg/dL) 329 H Calcium (8.4 - 10.2 mg/dL) 6.7 L Phosphorus (2.5 - 4.5 mg/dL) 2.6 Magnesium (1.6 - 2.3 mg/dL) 2.0 Total Bilirubin (0.2 - 1.3 mg/dL) 0.6 AST (14 - 36 U/L) 28 ALT (9 - 52 U/L) 49 Albumin (3.5 - 5.0 g/dL) 2.2 L Hematology CBC w Diff NO MAN DIFF REQ WBC (4.8 - 10.8 /CUMM) 4.7 L RBC (4.20 - 5.40 /CUMM) 3.29 L Hgb (12.0 - 16.0 G/DL) 8.0 L Hct (37 - 47 %) 25.3 L MCV (81.0 - 99.0 FL) 76.9 L MCH (27.0 - 31.0 PG) 24.3 L RDW (11.5 - 14.5 %) 19.8 H Plt Count (130 - 400 /CUMM) 129 L MPV (7.4 - 10.4 FL) 10.1 Gran % (42.2 - 75.2 %) 67.1 Lymphocytes % (20.5 - 51.1 %) 18.6 L Monocytes % (1.7 - 9.3 %) 8.4 Eosinophils % (0 - 5 %) 4.7 Basophils % (0.0 - 2.0 %) 1.2 Absolute Granulocytes (1.4 - 6.5 /CUMM) 3.1 Absolute Lymphocytes (1.2 - 3.4 /CUMM) 0.9 L Absolute Monocytes (0.10 - 0.60 /CUMM) 0.4 Absolute Eosinophils (0.0 - 0.7 /CUMM) 0.2 Absolute Basophils (0.0 - 0.2 /CUMM) 0.1 PUBS MCHC (33.0 - 37.0 G/DL) 31.6 L Toxicology Urine Opiates Screen (>2000 NG/ML) > 4000.00 H Methadone Screen (>300 NG/ML) < 40 Barbiturate Screen (>200 NG/ML) < 60 Ur Phencyclidine Scrn (>25 NG/ML) < 6.00 Amphetamines Screen (>1000 NG/ML) < 100 U Benzodiazepines Scrn (>200 NG/ML) < 85 Urine Cocaine Screen (>300 NG/ML) < 50 Urine Cannabis Screen (>50 NG/ML) < 5.00 11/16 11/15 0410 1725 Chemistry Sodium (137 - 145 mmol/L) 139 139 Potassium (3.5 - 5.1 mmol/L) 3.3 L 3.4 L Chloride (98 - 107 mmol/L) 113 H 110 H Carbon Dioxide (22 - 30 mmol/L) 21 L 22 Anion Gap (5 - 16) 5 7 BUN (7 - 17 mg/dL) 20 H 21 H Creatinine (0.5 - 1.0 mg/dL) 0.5 0.6 Estimated GFR (>60 ml/min) > 60 > 60 Glucose (65 - 99 mg/dL) 125 H 124 H Lactic Acid (0.7 - 2.1 mmol/L) 2.3 H Calcium (8.4 - 10.2 mg/dL) 7.0 L 7.2 L Phosphorus (2.5 - 4.5 mg/dL) 2.7 3.0 Magnesium (1.6 - 2.3 mg/dL) 2.0 1.9 Total Bilirubin (0.2 - 1.3 mg/dL) 0.7 1.1 AST (14 - 36 U/L) 33 40 H ALT (9 - 52 U/L) 43 50 Albumin (3.5 - 5.0 g/dL) 2.0 L 2.3 L Hematology CBC w Diff NO MAN DIFF REQ WBC (4.8 - 10.8 /CUMM) 4.1 L RBC (4.20 - 5.40 /CUMM) 3.16 L Hgb (12.0 - 16.0 G/DL) 7.6 L Hct (37 - 47 %) 24.3 L MCV (81.0 - 99.0 FL) 76.7 L MCH (27.0 - 31.0 PG) 23.9 L RDW (11.5 - 14.5 %) 19.8 H Plt Count (130 - 400 /CUMM) 120 L MPV (7.4 - 10.4 FL) 9.5 Gran % (42.2 - 75.2 %) 59.1 Lymphocytes % (20.5 - 51.1 %) 22.9 Monocytes % (1.7 - 9.3 %) 9.2 Eosinophils % (0 - 5 %) 7.6 H Basophils % (0.0 - 2.0 %) 1.2 Absolute Granulocytes (1.4 - 6.5 /CUMM) 2.4 Absolute Lymphocytes (1.2 - 3.4 /CUMM) 0.9 L Absolute Monocytes (0.10 - 0.60 /CUMM) 0.4 Absolute Eosinophils (0.0 - 0.7 /CUMM) 0.3 Absolute Basophils (0.0 - 0.2 /CUMM) 0.1 PUBS MCHC (33.0 - 37.0 G/DL) 31.2 L 11/15 1430 Chemistry Lactic Acid (0.7 - 2.1 mmol/L) 3.5 H Ammonia (9 - 30 umol/L) 28 Hematology CBC w Diff NO MAN DIFF REQ WBC (4.8 - 10.8 /CUMM) 5.9 RBC (4.20 - 5.40 /CUMM) 3.68 L Hgb (12.0 - 16.0 G/DL) 9.0 L Hct (37 - 47 %) 28.3 L MCV (81.0 - 99.0 FL) 76.9 L MCH (27.0 - 31.0 PG) 24.5 L RDW (11.5 - 14.5 %) 19.2 H Plt Count (130 - 400 /CUMM) 159 MPV (7.4 - 10.4 FL) 9.9 Gran % (42.2 - 75.2 %) 76.2 H Lymphocytes % (20.5 - 51.1 %) 11.6 L Monocytes % (1.7 - 9.3 %) 8.8 Eosinophils % (0 - 5 %) 2.9 Basophils % (0.0 - 2.0 %) 0.5 Absolute Granulocytes (1.4 - 6.5 /CUMM) 4.5 Absolute Lymphocytes (1.2 - 3.4 /CUMM) 0.7 L Absolute Monocytes (0.10 - 0.60 /CUMM) 0.5 Absolute Eosinophils (0.0 - 0.7 /CUMM) 0.2 Absolute Basophils (0.0 - 0.2 /CUMM) 0 PUBS MCHC (33.0 - 37.0 G/DL) 31.8 L
--- NOTE | 2016-11-18 14:04 | NUR ---
WOUND CARE: PT SEEN TODAY AT REQUEST OF RESPIRATORY THERAPIST - UPON REMOVAL OF ANCHOR FAST SYSTEM, PT NOTED WITH JOSELYN CHEEK WOUNDS PRESUMED DUE TO SKIN STRIPPING OF EPIDERMAL LATER - RIGHT CHEEK PARTIAL THICNKESS CLEAN PINK DERMAL FILL 2X2 CM AND LEFT CHEEK 0.8 X 1.2 CM PARTIAL THICNKESS - NON DRNG - PT C/O TENDERNESS TO AREA - NO EVIDENCE OF INFECTION - PRESUMED HYPERSENSITIVITY TO HYDROCOLLOID ADHESSIVE WHICH HAD CCAUSED SKIN REACTION / BREAKDOWN - LEFT POSTERIOR LEG NOTED WITH A FULL THICNKESS VENOUS STASIS ULCERATION 1 X 0.6 CM PALE PINK AND YELLOW FILL PRESENTS SHALLOW CRATER - PT REPORTS THE FOLLOWING: PRESENT ON ADMISSION, HOME CARE NURSE HAD REMOVED SCAB ON LEG AND THAT WOUND WAS NOTED BENEATH SURFACE FOR WEEKS RECOMMENDATION: DUE TO SENSITIVITY OF PTS SKIN AT PRESENT, AVOID ADHESIVES ON FACE AT THIS TIME - CLEANSE CHEEK WOUNDS WITH NS FB BACITRACIN OINTMENT AND ADAPTIC TOUCH DRESSING (WITHOUT SECONDARY DRESSING) QD - PT MAY BENEFIT FROM SILICONE DRESSING VS TRADITIONAL XEROFORM IT WILL BE MORE GENTLE ON THE SKIN - CLEANSE LEFT LEG WOUND WTIH NS FB ADAPTIC TOUCH AND KERLIX DAILY WELL - MONITOR CHEEK WOUNDS QS PLEASE
--- NOTE | 2016-11-18 17:00 | NUR ---
REPEAT LABS DRAWN AND SENT AT THIS TIME. ICU BUNDLE AND CBC. S/P 1 UNIT PRBC AND 20 MEQ KCL X2, K PHOS X1.
--- NOTE | 2016-11-18 17:06 | Patient Discharge Instructions ---
Discharge Instructions General Discharge Information Special Instructions: Follow-up with GI as outpatient, patient will need treatment of hepatitis C virus as an outpatient. You will need a repeat EGD in 1-2 weeks to reassess the lower arises and apply further banding. Avoid NSAIDS, continue PPI Please continue to follow with GI after discharge. Please follow up with the primary care within 1 week of discharge. Acute Coronary Syndrome Inclusion Criteria At DC or during hospital stay patient has or had the following: ACS DIAGNOSIS No Discharge Core Measures Meds if any: Prescribed or Continued at Discharge Meds if any: NOT Prescribed or Continued at Discharge Congestive Heart Failure Inclusion Criteria At DC or during hospital stay patient has or had the following: CHF DIAGNOSIS No Discharge Core Measures Meds if any: Prescribed or Continued at Discharge Meds if any: NOT Prescribed or Continued at Discharge Cerebrovascular accident Inclusion Criteria At DC or during hospital stay patient has or had the following: CVA/TIA Diagnosis No Discharge Core Measures Meds if any: Prescribed or Continued at Discharge Meds if any: NOT Prescribed or Continued at Discharge Venous thromboembolism Inclusion Criteria VTE Diagnosis No VTE Type NONE VTE Confirmed by (Test) NONE Discharge Core Measures - Per Current guidelines, there needs to be overlap - treatment for the first 5 days of Warfarin therapy. - If discharged on Warfarin prior to 5 days of - overlap therapy, the patient will need to be - assessed for post discharge needs including - *Post discharge parental anticoagulation - *Warfarin and/or parental anticoagulation education - *Follow up date to check INR post discharge At least 5 days overlap therapy as Inpatient No Meds if any: Prescribed or Continued at Discharge Note: Overlap Therapy is Warfarin and Anticoagulant Meds if any: NOT Prescribed or Continued at Discharge
[2016-11-18 17:38] LABS: ABSOLUTE BASOPHIL COUNT 0 /CUMM (0.0-0.2); ABSOLUTE EOSINOPHIL COUNT 0.3 /CUMM (0.0-0.7); ABSOLUTE GRANULOCYTE CT 2.3 /CUMM (1.4-6.5); ABSOLUTE LYMPH COUNT 0.8 /CUMM (1.2-3.4); ABSOLUTE MONOCYTE COUNT 0.4 /CUMM (0.10-0.60); EOSINOPHIL % 7.3 % (0-5); GRANULOCYTE % 60.8 % (42.2-75.2); MEAN CORPUSCULAR HGB CONC 31.8 G/DL (33.0-37.0); MEAN CORPUSCULAR VOLUME 78.5 FL (81.0-99.0); MEAN PLATELET VOLUME 9.3 FL (7.4-10.4); PLATELET COUNT 125 /CUMM (130-400); RBC DISTRIBUTION WIDTH 20.2 % (11.5-14.5); WHITE BLOOD CELL COUNT 3.8 /CUMM (4.8-10.8)
[2016-11-18 17:43] LABS: HEMATOCRIT 26.6 % (37-47)
[2016-11-18 17:44] LABS: RED BLOOD CELL CT 3.39 /CUMM (4.20-5.40)
[2016-11-19] VITALS: BP 1314/62; BP 134/62
[2016-11-19 02:00] VITALS: BP 106/39
[2016-11-19 04:00] VITALS: BP 118/54
[2016-11-19 05:33] LABS: ABSOLUTE BASOPHIL COUNT 0 /CUMM (0.0-0.2); ABSOLUTE EOSINOPHIL COUNT 0.4 /CUMM (0.0-0.7); ABSOLUTE GRANULOCYTE CT 2.3 /CUMM (1.4-6.5); ABSOLUTE MONOCYTE COUNT 0.5 /CUMM (0.10-0.60); EOSINOPHIL % 8.9 % (0-5); GRANULOCYTE % 53.4 % (42.2-75.2); HEMATOCRIT 25.1 % (37-47); MEAN CORPUSCULAR HGB CONC 31.8 G/DL (33.0-37.0); MEAN CORPUSCULAR VOLUME 78.5 FL (81.0-99.0); MEAN PLATELET VOLUME 9.2 FL (7.4-10.4); PLATELET COUNT 132 /CUMM (130-400); RBC DISTRIBUTION WIDTH 20.7 % (11.5-14.5); WHITE BLOOD CELL COUNT 4.3 /CUMM (4.8-10.8)
[2016-11-19 06:00] VITALS: BP 99/39
--- NOTE | 2016-11-19 07:31 | PN- Resident CRCU ---
Subjective HPI/CRCU Issues: Afebrile, hemodynamically stable, status post extubation yesterday, saturating well on 2 L nasal cannula, no overnight events were reported, no active bleeding were observed. Patient denies any current active complaints. Patient is stable and will most likely be downgraded to telemetry. 24 Hour Events: MAXIMUM TEMPERATURE 100.7 Current temperature 98 Objective Vital Signs & I&O Last 8 Hrs of Vitals and I&O: Intake & Output 11/19 1600 11/19 0800 11/19 0000 Intake Total 1197 1262 Output Total 310 470 Balance 887 792 Intake, IV 757 582 Intake, Oral 440 680 Number 1 1 Bowel Movements Output, Stool 100 Output, Urine 310 370 Exam General Appearance: well developed/nourished, no apparent distress, alert, awake , comfortable Respiratory: normal breath sounds, chest non-tender, no respiratory distress, quiet respiration, lungs clear Cardiovascular: regular rate/rhythm Gastrointestinal: normal bowel sounds, soft, non-tender Extremities: normal inspection Weaning Parameters NIF: 31 Minute Volume: 12.8 Resp rate: 20 Vt: 642 Heart Rate: 65 Weaning Schedule Start Time: 0911 Minute Volume: 11.5 Resp Rate: 22 Vt: 523 Heart Rate: 70 End Time: 1201 Minute Volume: 10.4 Resp Rate: 20 Vt: 521 Heart Rate: 70 Start Time: 1930 Minute Volume: 9.51 Resp Rate: 27 Vt: 384 Heart Rate: 83 End Time: 2030 Minute Volume: 7.14 Resp Rate: 20 Vt: 364 Heart Rate: 82 Current Medications: Current Medications Sig/Marcin Start time Last Medication Dose Route Stop Time Status Admin Ceftriaxone Sodium 2,000 MG DAILY 11/15 1656 AC 11/19 IV 1016 Furosemide 20 MG DAILY 11/19 1000 AC 11/19 PO 1006 Lactulose 20 GM BID 11/18 2200 AC 11/19 PO 1005 Lactulose 1 BOT Q12 11/16 1046 DC 11/18 GA 0937 Nystatin 1 GALO TID PRN 11/15 2115 TOP Octreotide Acetate 500 MCG Q20H 11/15 0200 DC 11/18 Dextrose/Water 500 ML IV 1127 Omeprazole 40 MG DAILY AC 11/19 0700 AC 11/19 PO 0622 Pantoprazole Sodium 40 MG DAILY 11/16 1001 DC 11/18 IV 0937 Potassium Chloride 20 MEQ ONCE ONE 06/16 1115 AC PO 11/19 1116 Potassium Chloride 20 MEQ ONCE ONE 11/19 0745 DC PO 11/19 0746 Potassium Chloride 40 MEQ ONCE ONE 11/18 2045 DC 11/18 PO 11/18 204 2220 Potassium Chloride 20 MEQ Q1H 11/18 1030 DC /15 IV 11/18 1131 1127 Potassium Phosphate 15 mMol ONE ONE 11/18 1200 DC 11/18 Dextrose/Water 250 ML IV 11/18 1603 1320 Propranolol HCl 20 MG TID 11/18 1715 AC 11/18 PO 1821 Sodium Chloride 1,000 ML Q13H 11/18 1200 DC 11/19 IV 0622 Sodium Chloride 1,000 ML Q8H 11/14 1215 DC 11/18 IV 1024 Spironolactone 25 MG DAILY 11/19 1000 AC PO Impression/Plan Impression/Problem List Impression: #Respiratory: History of untreated chronic hepatitis C. Patient presents with upper GI bleed, she was intubated for upper endoscopy and esophageal banding. Banded x 4 was performed. Patient still intubated and mechanically ventilated. All sedated medication was discontinued 2 days ago . Utox showed opiates >4000, patient received Narcan 2 days ago. This morning she is alert and awake. * Patient is doing well off the ventilator * RESPIRATORY physical exam are normal Plan NTD #Infection Aspiration pneumonia: Acute pneumonia on chest x-ray in the setting of vomiting. SBP: Should be ruled out given that Patient has a chronic hepatitis C with liver cirrhosis. Abdominal ultrasound showed:Small amount of ascites. An x-ray that was done post intubation showed a possible acute pneumonia. * Tmax:100.7 * WBCs 4 Plan 1.DC ceftriaxone 2 g IV every 24 was started yesterday 2.DC Jonel #Cardiology * Bradycardia this morning * On propranolol Plan 1. Monitor vitals 2. We will hold propranolol #Hematology Acute blood loss anemia from esophageal varices. He presents with hemoglobin of 5.7. She received X4 RBCs after which her hemoglobin improved. Patient had a mild drop in her H&H which is most likely secondary to dilution effect given the drop in all blood cell lines. Patient has a dark stool. Patient is status post transfusion yesterday after which H&H became stable * H&H this AM is 8 & 25 Plan 2. Repeat CBC daily #Neurology Patient was alert on admission, On 11/14/16 she was sedated & prophylactically intubated for Upper endoscopy. Post endoscopy she was on 1 mg/h IV Ativan drip, she was lethargic but responsive to tactile stimuli. Head CT showed:No acute intracranial pathology. Hepatic encephalopathy was expected as she received lactulose enema and ammonia level came back normal. UTox was done and showed Opiates > 4000(Patient received IV morphine during admission) patient was given 1 dose of IV Narcan. * Awake, alert and oriented X3 * Patient's neurological exam are within normal limits Plan 1.Continue lactulose to avoid hepatic encephalopathic #GI Patient presented with upper GI bleed, upper endoscopy was done and esophageal varices was ligated X4. Patient would most likely need to go for another endoscopy to exclude gastric varicoceles. However this can affect esophageal varices ligation integrity. Plan 1.We will monitor for any symptom of bleeding, it happens patient will go for upper endoscopy 2.Continue PPI as a prophylaxis #Renal Cr is 0.5 and BUN is 10 Plan 1.NTD #Skin She has chronic LE venous stasis with chronic venous ulcers S/P recent care by Dr. Anna Jessica * Wound is stable with no evidence of infection * Would continue local wound care and treat with alginate, and wrap with Kerlix/ Teodoro from foot- knee * Patient will be instructed to follow with wound Center after discharge Plan 1. Wound consult was placed Nothing by mouth DVT prophylaxis with Alps GI prophylaxis with PPI Full code Problem List: 1. GI bleed Pain Ratin Tomorrow's Labs & Rationales: CBC and BEP Plan DVT/Prophylaxis: mechanical
[2016-11-19 08:00] VITALS: BP 108/62; BP 108/64
--- NOTE | 2016-11-19 08:35 | PN- CRCU ---
Subjective HPI/Critical Care Issues: The patient is awake and alert. She is doing well post extubation. She is currently on 2 L nasal cannula with saturations in the mid 90s. She had a Tmax of 100. She is hemodynamically stable. She has excellent urine output. She denies any active bleeding. Overall, she feels markedly improved and denies any new complaints at the present time. She has had significant improvement in her hemoglobin posttransfusion. Objective Current Medications: Current Medications Sig/Marcin Start time Last Medication Dose Route Stop Time Status Admin Ceftriaxone Sodium 2,000 MG DAILY 11/15 1656 AC 11/18 IV 0937 Lactulose 20 GM BID 11/18 2200 AC 11/18 PO 2220 Lactulose 1 BOT Q12 11/16 1046 DC 11/18 MI 0937 Nystatin 1 GALO TID PRN 11/15 2115 TOP Octreotide Acetate 500 MCG Q20H 11/15 0200 AC 11/18 Dextrose/Water 500 ML IV 1127 Omeprazole 40 MG DAILY AC 11/19 0700 AC 11/19 PO 0622 Pantoprazole Sodium 40 MG DAILY 11/16 1001 DC 11/18 IV 0937 Potassium Chloride 20 MEQ ONCE ONE 11/19 0745 DC PO 11/19 0746 Potassium Chloride 40 MEQ ONCE ONE 11/18 2045 DC 11/18 PO 11/18 2046 2220 Potassium Chloride 20 MEQ Q1H 11/18 1030 DC 11/18 IV 11/18 1131 1127 Potassium Phosphate 15 mMol ONE ONE 11/18 1200 DC 11/18 Dextrose/Water 250 ML IV 11/18 1603 1320 Propranolol HCl 20 MG TID 11/18 1715 AC 11/18 PO 1821 Sodium Chloride 1,000 ML Q13H 11/18 1200 AC 11/19 IV 0622 Sodium Chloride 1,000 ML Q8H 11/14 1215 DC 11/18 IV 1024 Vital Signs & I&O Last 24 Hrs of Vitals and I&O: Vital Signs Date Time Temp Pulse Resp B/P B/P Pulse O2 O2 Flow FiO2 Mean Ox Delivery Rate 11/19 0600 52 16 99/39 11/19 0400 99.2 58 18 118/54 11/19 0400 94 Nasal 2.0L Cannula 11/19 0200 56 12 106/39 11/19 0000 58 18 1314/62 11/19 0000 100.7 58 18 134/62 94 Room Air 11/19 0000 93 Room Air 11/18 2220 56 171/65 11/18 2200 60 22 171/65 11/19 1999 96.8 62 24 156/72 11/19 1999 94 Room Air 11/18 1821 80 130/60 11/18 1600 Nasal 2.0L Cannula 11/18 1600 98.1 64 20 102/82 11/18 1600 98.1 64 20 136/66 99 Nasal 2.0L Cannula 11/18 1400 66 20 149/60 11/18 1200 Nasal 3.0L Cannula 11/18 1200 97.8 80 20 140/60 11/18 1000 70 16 127/47 Intake & Output 11/19 1600 11/19 0800 11/19 0000 Intake Total 1197 1262 Output Total 310 470 Balance 887 792 Intake, IV 757 582 Intake, Oral 440 680 Number 1 1 Bowel Movements Output, Stool 100 Output, Urine 310 370 Exam General Appearance: no apparent distress, awake and alert, comfortable on nasal cannula Head: atraumatic, normal appearance Respiratory: a few scattered anterior rhonchi were heard Cardiovascular: regular rate/rhythm Gastrointestinal: normal bowel sounds, soft Extremities: chronic changes , +2 LE edema Results Last 24 Hrs of Lab Results: Laboratory Tests 11/19/16 0445: Anion Gap 3 L, Estimated GFR > 60, Glucose 120 H, Calcium 7.0 L, Phosphorus 2.4 L, Magnesium 1.9, Total Bilirubin 0.8, AST 20, ALT 34, Albumin 1.8 L, CBC w Diff NO MAN DIFF REQ, RBC 3.20 L, MCV 78.5 L, MCH 25.0 L, RDW 20.7 H, MPV 9.2, Gran % 53.4, Lymphocytes % 24.5, Monocytes % 12.2 H, Eosinophils % 8.9 H, Basophils % 1.0, Absolute Granulocytes 2.3, Absolute Lymphocytes 1.0 L, Absolute Monocytes 0.5, Absolute Eosinophils 0.4, Absolute Basophils 0, PUBS MCHC 31.8 L 11/18/16 1650: Anion Gap 5, Estimated GFR > 60, BUN/Creatinine Ratio 22.0, CBC w Diff NO MAN DIFF REQ, RBC 3.39 L, MCV 78.5 L, MCH 25.0 L, RDW 20.2 H, MPV 9.3, Gran % 60.8, Lymphocytes % 20.3 L, Monocytes % 10.6 H, Eosinophils % 7.3 H, Basophils % 1.0, Absolute Granulocytes 2.3, Absolute Lymphocytes 0.8 L, Absolute Monocytes 0.4, Absolute Eosinophils 0.3, Absolute Basophils 0, PUBS MCHC 31.8 L 11/18/16 1400: Sodium Cancelled, Potassium Cancelled, Chloride Cancelled, Carbon Dioxide Cancelled, Anion Gap Cancelled, BUN Cancelled, Creatinine Cancelled, BUN/ Creatinine Ratio Cancelled 11/18/16 1125: pH 7.42, pCO2 32 L, pO2 93, HCO3 21, ABG O2 Sat (Measured) 97.0, P-50 (Temp Corrected) N, Carboxyhemoglobin 0.7 L, O2 Concentration % 30%, Respiration Rate 21, O2 Delivery Method VENT, Vent Mode CPAP/PSV TRIAL, Expiratory Pressure 5, Tidal Volume 521, Pressure Support 6, Phlebotomy Draw Site LEFT RADIAL Impression/Plan Impression/Plan Impression/Plan: 1. Aspiration pneumonia with respiratory failure, improved. 2. Variceal bleeding, status post banding 4 days ago, without evidence of significant rebleeding. 3. Improved mental status. 4. Anemia, without active bleeding. 5. Chronic liver cirrhosis. 6. Malnutrition. 7. Bradycardia, on propanolol which will be held today. Recommendations: * Discontinue IVFs. * Out of bed to chair. PT evaluation. * Hold lactulose enemas, monitor mental status. * No intervention for anemia, as per GI. * Continue omeprazole and octreotide, follow-up with GI recommendations. * Continue antibiotics as per ID. * Alps for DVT prophylaxis. No heparin due to previous bleeding. * Downgrade to telemetry. * Continue all supportive care.
--- NOTE | 2016-11-19 09:13 | PN- Att Addend ---
Attending Addendum Attending Brief Note Patient awake and alert. General Appearance: Intubated, awake and alert Skin: Lymphedema bilateral lower extremity Cardiovascular: Regular Rate, Normal S1, Normal S2, No Murmurs Lungs: Left basilar crackles Abdomen: Mildly distended Extremities: 2+ edema, right foot wound Assessment Patient extubated. Hemoglobin somewhat stable. Noted mild drop in blood pressure since beginning propranolol. She will benefit with some diuresis. At this point we'll continue to monitor CBC and titrate beta blockers based on blood pressure. Continue wound care. Continue weaning trials. Given upper GI bleed she will not be a candidate for full anticoagulation. However we will repeat an ultrasound of her left subclavian and axillary to evaluate the extent and severity. Plan Ultrasound left subclavian and axillary Continue propranolol Resume low-dose Lasix and home dose spironolactone Discontinue Remy and IV fluids Continue lactulose Antibiotics per ID Daily CBC Incentive spirometry Out of bed to chair PT evaluation Follow consults recommendations Patient stable for transfer to telemetry Current Medications Sig/Marcin Start time Last Medication Dose Route Stop Time Status Admin Ceftriaxone Sodium 2,000 MG DAILY 11/15 1656 AC 11/18 IV 0937 Furosemide 20 MG DAILY 11/19 1000 AC PO Lactulose 20 GM BID 11/18 2200 AC 11/18 PO 2220 Lactulose 1 BOT Q12 11/16 1046 DC 11/18 NC 0937 Nystatin 1 GALO TID PRN 11/15 2115 AC TOP Octreotide Acetate 500 MCG Q20H 11/15 0200 DC 11/18 Dextrose/Water 500 ML IV 1127 Omeprazole 40 MG DAILY AC 11/19 0700 AC 11/19 PO 0622 Pantoprazole Sodium 40 MG DAILY 11/16 1001 DC 11/18 IV 0937 Potassium Chloride 20 MEQ ONCE ONE 11/19 0745 DC PO 11/19 0746 Potassium Chloride 40 MEQ ONCE ONE 11/18 2045 DC 11/18 PO 11/18 2046 2220 Potassium Chloride 20 MEQ Q1H 11/18 1030 DC 11/18 IV 11/18 1131 1127 Potassium Phosphate 15 mMol ONE ONE 11/18 1200 DC 11/18 Dextrose/Water 250 ML IV 11/18 1603 1320 Propranolol HCl 20 MG TID 11/18 1715 AC 11/18 PO 1821 Sodium Chloride 1,000 ML Q13H 11/18 1200 DC 11/19 IV 0622 Sodium Chloride 1,000 ML Q8H 11/14 1215 DC 11/18 IV 1024 Spironolactone 25 MG DAILY 11/19 1000 AC PO Laboratory Tests 11/19 11/18 0445 1650 Chemistry Sodium (137 - 145 mmol/L) 137 138 Potassium (3.5 - 5.1 mmol/L) 3.8 3.7 Chloride (98 - 107 mmol/L) 111 H 111 H Carbon Dioxide (22 - 30 mmol/L) 23 23 Anion Gap (5 - 16) 3 L 5 BUN (7 - 17 mg/dL) 10 11 Creatinine (0.5 - 1.0 mg/dL) 0.5 0.5 Estimated GFR (>60 ml/min) > 60 > 60 BUN/Creatinine Ratio (7 - 25 %) 22.0 Glucose (65 - 99 mg/dL) 120 H Calcium (8.4 - 10.2 mg/dL) 7.0 L Phosphorus (2.5 - 4.5 mg/dL) 2.4 L Magnesium (1.6 - 2.3 mg/dL) 1.9 Total Bilirubin (0.2 - 1.3 mg/dL) 0.8 AST (14 - 36 U/L) 20 ALT (9 - 52 U/L) 34 Albumin (3.5 - 5.0 g/dL) 1.8 L Hematology CBC w Diff NO MAN DIFF REQ NO MAN DIFF REQ WBC (4.8 - 10.8 /CUMM) 4.3 L 3.8 L RBC (4.20 - 5.40 /CUMM) 3.20 L 3.39 L Hgb (12.0 - 16.0 G/DL) 8.0 L 8.5 L Hct (37 - 47 %) 25.1 L 26.6 L MCV (81.0 - 99.0 FL) 78.5 L 78.5 L MCH (27.0 - 31.0 PG) 25.0 L 25.0 L RDW (11.5 - 14.5 %) 20.7 H 20.2 H Plt Count (130 - 400 /CUMM) 132 125 L MPV (7.4 - 10.4 FL) 9.2 9.3 Gran % (42.2 - 75.2 %) 53.4 60.8 Lymphocytes % (20.5 - 51.1 %) 24.5 20.3 L Monocytes % (1.7 - 9.3 %) 12.2 H 10.6 H Eosinophils % (0 - 5 %) 8.9 H 7.3 H Basophils % (0.0 - 2.0 %) 1.0 1.0 Absolute Granulocytes (1.4 - 6.5 /CUMM) 2.3 2.3 Absolute Lymphocytes (1.2 - 3.4 /CUMM) 1.0 L 0.8 L Absolute Monocytes (0.10 - 0.60 /CUMM) 0.5 0.4 Absolute Eosinophils (0.0 - 0.7 /CUMM) 0.4 0.3 Absolute Basophils (0.0 - 0.2 /CUMM) 0 0 PUBS MCHC (33.0 - 37.0 G/DL) 31.8 L 31.8 L 11/18 11/18 1400 1125 Blood Gas pH (7.35 - 7.45 PH) 7.42 pCO2 (35 - 45 TORR) 32 L pO2 (80 - 100 TORR) 93 HCO3 (21 - 28 MEQ/L) 21 ABG O2 Sat (Measured) (>96.0 %) 97.0 P-50 (Temp Corrected) N Carboxyhemoglobin (1.5 - 5.0 %) 0.7 L O2 Concentration % 30% Respiration Rate (BPM) 21 O2 Delivery Method VENT Vent Mode CPAP/PSV TRIAL Expiratory Pressure (CMH2O/P) 5 Tidal Volume (CC) 521 Pressure Support (CMH2O/P) 6 Chemistry Sodium Cancelled Potassium Cancelled Chloride Cancelled Carbon Dioxide Cancelled Anion Gap Cancelled BUN Cancelled Creatinine Cancelled BUN/Creatinine Ratio Cancelled Miscellaneous Phlebotomy Draw Site LEFT RADIAL Vital Signs Date Time Temp Pulse Resp B/P B/P Pulse O2 O2 Flow FiO2 Mean Ox Delivery Rate 11/19 0600 52 16 99/39 11/19 0400 99.2 58 18 118/54 11/19 0400 94 Nasal 2.0L Cannula 11/19 0200 56 12 106/39 16 0000 58 18 1314/62 11/19 0000 100.7 58 18 134/62 94 Room Air 11/19 0000 93 Room Air 11/18 2220 56 171/65 11/18 2200 60 22 171/65 11/19 1999 96.8 62 24 156/72 11/19 1999 94 Room Air 11/18 1821 80 130/60 06/15 1600 Nasal 2.0L Cannula 11/18 1600 98.1 64 20 102/82 06/ 1600 98.1 64 20 136/66 99 Nasal 2.0L Cannula 11/18 1400 66 20 149/60 0615 1200 Nasal 3.0L Cannula / 1200 97.8 80 20 140/60 06/15 1000 70 16 127/47
--- NOTE | 2016-11-19 10:06 | PN- Infect Dx ---
Subjective Subjective: MAXIMUM TEMPERATURE 100.7. She feels well with no complaints. She continues to have loose stools on lactulose. Objective Last 24 Hrs of Vital Signs/I&O Vital Signs Date Time Temp Pulse Resp B/P B/P Pulse O2 O2 Flow FiO2 Mean Ox Delivery Rate 11/19 0800 98.9 52 20 108/64 11/19 0600 52 16 99/39 11/19 0400 99.2 58 18 118/54 11/19 0400 94 Nasal 2.0L Cannula 11/19 0200 56 12 106/39 11/19 0000 58 18 1314/62 11/19 0000 100.7 58 18 134/62 94 Room Air 11/19 0000 93 Room Air 11/18 2220 56 171/65 11/18 2200 60 22 171/65 11/18 2000 96.8 62 24 156/72 11/18 2000 94 Room Air 11/18 1821 80 130/60 11/18 1600 Nasal 2.0L Cannula 11/18 1600 98.1 64 20 102/82 11/18 1600 98.1 64 20 136/66 99 Nasal 2.0L Cannula 11/18 1400 66 20 149/60 11/18 1200 Nasal 3.0L Cannula 11/18 1200 97.8 80 20 140/60 11/18 1000 70 16 127/47 Intake & Output 11/19 1600 11/19 0800 11/19 0000 Intake Total 1197 1262 Output Total 310 470 Balance 887 792 Intake, IV 757 582 Intake, Oral 440 680 Number 1 1 Bowel Movements Output, Stool 100 Output, Urine 310 370 Physical Exam Other Physical Findings: She appears comfortable in no acute distress Lungs are clear Heart regular rhythm with a 1-2/6 systolic ejection murmur Abdomen is distended, nontender with positive bowel sounds Extremities 1+ edema all extremities, with chronic changes to both lower extremities; PICC in the right upper extremity with no inflammation at the site Remy catheter remains in place Results Last 24 Hours of Lab Results: Laboratory Tests 11/19 11/18 0445 1650 Chemistry Sodium (137 - 145 mmol/L) 137 138 Potassium (3.5 - 5.1 mmol/L) 3.8 3.7 Chloride (98 - 107 mmol/L) 111 H 111 H Carbon Dioxide (22 - 30 mmol/L) 23 23 Anion Gap (5 - 16) 3 L 5 BUN (7 - 17 mg/dL) 10 11 Creatinine (0.5 - 1.0 mg/dL) 0.5 0.5 Estimated GFR (>60 ml/min) > 60 > 60 BUN/Creatinine Ratio (7 - 25 %) 22.0 Glucose (65 - 99 mg/dL) 120 H Calcium (8.4 - 10.2 mg/dL) 7.0 L Phosphorus (2.5 - 4.5 mg/dL) 2.4 L Magnesium (1.6 - 2.3 mg/dL) 1.9 Total Bilirubin (0.2 - 1.3 mg/dL) 0.8 AST (14 - 36 U/L) 20 ALT (9 - 52 U/L) 34 Albumin (3.5 - 5.0 g/dL) 1.8 L Hematology CBC w Diff NO MAN DIFF REQ NO MAN DIFF REQ WBC (4.8 - 10.8 /CUMM) 4.3 L 3.8 L RBC (4.20 - 5.40 /CUMM) 3.20 L 3.39 L Hgb (12.0 - 16.0 G/DL) 8.0 L 8.5 L Hct (37 - 47 %) 25.1 L 26.6 L MCV (81.0 - 99.0 FL) 78.5 L 78.5 L MCH (27.0 - 31.0 PG) 25.0 L 25.0 L RDW (11.5 - 14.5 %) 20.7 H 20.2 H Plt Count (130 - 400 /CUMM) 132 125 L MPV (7.4 - 10.4 FL) 9.2 9.3 Gran % (42.2 - 75.2 %) 53.4 60.8 Lymphocytes % (20.5 - 51.1 %) 24.5 20.3 L Monocytes % (1.7 - 9.3 %) 12.2 H 10.6 H Eosinophils % (0 - 5 %) 8.9 H 7.3 H Basophils % (0.0 - 2.0 %) 1.0 1.0 Absolute Granulocytes (1.4 - 6.5 /CUMM) 2.3 2.3 Absolute Lymphocytes (1.2 - 3.4 /CUMM) 1.0 L 0.8 L Absolute Monocytes (0.10 - 0.60 /CUMM) 0.5 0.4 Absolute Eosinophils (0.0 - 0.7 /CUMM) 0.4 0.3 Absolute Basophils (0.0 - 0.2 /CUMM) 0 0 PUBS MCHC (33.0 - 37.0 G/DL) 31.8 L 31.8 L 11/18 11/18 1400 1125 Blood Gas pH (7.35 - 7.45 PH) 7.42 pCO2 (35 - 45 TORR) 32 L pO2 (80 - 100 TORR) 93 HCO3 (21 - 28 MEQ/L) 21 ABG O2 Sat (Measured) (>96.0 %) 97.0 P-50 (Temp Corrected) N Carboxyhemoglobin (1.5 - 5.0 %) 0.7 L O2 Concentration % 30% Respiration Rate (BPM) 21 O2 Delivery Method VENT Vent Mode CPAP/PSV TRIAL Expiratory Pressure (CMH2O/P) 5 Tidal Volume (CC) 521 Pressure Support (CMH2O/P) 6 Chemistry Sodium Cancelled Potassium Cancelled Chloride Cancelled Carbon Dioxide Cancelled Anion Gap Cancelled BUN Cancelled Creatinine Cancelled BUN/Creatinine Ratio Cancelled Miscellaneous Phlebotomy Draw Site LEFT RADIAL Last 24 Hours of Gui Results: Blood cultures 2 November 15 remain negative Assessment/Plan Impression: Stable overall status post successful extubation yesterday though with a low- grade fever overnight of unclear significance now Day 5 of Ceftriaxone for presumed aspiration pneumonia and prophylaxis for this patient with cirrhosis in the setting of an upper GI bleed secondary to esophageal varices, which were banded 5 days ago. She does have diarrhea, felt to be secondary to the lactulose, though C. difficile could be considered. Her H&H has remained stable from yesterday after a blood transfusion, with GI reevaluation noted. Suggestion: 1. Stool C. difficile if diarrhea persists 2. Remove Remy catheter 3. Discontinue Ceftriaxone and follow off antibiotics
--- NOTE | 2016-11-19 11:35 | Transfer of Care Summary ---
Hospital Course Course Hospital Course: 76-year-old female with extensive past medical history includes pulmonary limited to chronic hepatitis c diagnosed in 2005, iron deficiency anemia, history of recent DVT started recentrly on Eliquis, h/o GI bleeeding, stage II esophageal varices, gastritis and liver cirrhosis, whp presented to the ED for the chief complaint of vomiting bright red blood mixed with blood clots that started suddenly on the day of admission Patient presents with upper GI bleed, she was intubated to protect the airway given altered mental status and multiple vomiting with upper GI bleed. Upper endoscopy and esophageal banding, Banded x 4 was performed, after which upper GI bleeding stopped. On admission hemoglobin was 5.7. She received X4 RBCs after which her hemoglobin improved and became stable. She was covered with proton pump inhibitor for GI prophylaxis throughout the admission. Given the multiple vomiting and just x-ray finding suggestive of pneumonia, patient was covered with antibiotic for aspiration pneumonia. On discharge patient will be instructed to do the following: * Repeat EGD in 1-2 weeks to reassess varices and apply further banding until the varices are obliterated * Treatment of HCV as an outpatient * Continue oral PPI * Avoid nsaids Patient has a chronic lower extremity changes including right leg ulcer. Wound consult was placed and their recommendation was followed. She is noncompliant and recently underwent a venous ablation of the leg. She did not return for follow-up. On discharge patient will be instructed to follow with her wound Doctor Assessment/Plan: See hospital course
--- NOTE | 2016-11-19 13:35 | PN- Gastroenterology ---
Assessment/Plan Assessment/Recommendations: Assessment: Ms. Villarreal is a 76-year-old female with hepatitis C cirrhosis was admitted with a varieal bleed s/p EGD on 11/15/16 with esophageal banding done then without further overt GI bleeding since. Her Hgb corrected appropriatedly with transfusion and she is tolerating a diet. As it has now been about 5 days since her bleed would d/c the octreotide and unless she has an active infection would also discontinue the abx. She is tolerating propanolol at 20mg po tid and her HR is in the 50s so would not increase the dose further and would change to once a day nadolol in the am if she remains asymptomatic on it. Recommendations: 1. D/c IV octreotide 2. Follow CBC daily and transfuse as needed to keep hgb > 7 3. Avoid nsaids 4. Continue propanolol at 20mg po tid and if no significant drop in BP would change to once a day nadolol in the am 5. Low sodium diet as tolearted 6. Continue oral PPI 7. If no source of infection would d/c antibiotics 8. Treatment of HCV as an outpatient 9. Repeat EGD in 1-2 weeks to reassess varices and apply further banding until the varices are obliterated 10. GI should be notified for signs of ovet GI bleeding. I will continue to follow this patient and make further recommendations based on her clinical course and results of repeat blood work. Subjective Subjective: pt s/p extubation yesterday and trasnfustion with PRBCs. tolerating a diet today. no vomiting, denies abd pain and she has been without melena or brbpr. she has been started on propanolol which her BP is tolerating well and she denies lightheadedness. Objective Vital Signs and I&Os Vital Signs Date Time Temp Pulse Resp B/P B/P Pulse O2 O2 Flow FiO2 Mean Ox Delivery Rate 11/19 1006 52 11/19 0800 98.9 52 20 108/64 11/19 0800 98.9 51 20 108/62 94 Nasal 2.0L Cannula 11/19 0800 98 Nasal 2.0L Cannula 11/19 0600 52 16 99/39 11/19 0400 99.2 58 18 118/54 11/19 0400 94 Nasal 2.0L Cannula 11/19 0200 56 12 106/39 11/19 0000 58 18 1314/62 11/19 0000 100.7 58 18 134/62 94 Room Air 11/19 0000 93 Room Air 11/18 2220 56 171/65 11/18 2200 60 22 171/65 11/19 1999 96.8 62 24 156/72 11/19 1999 94 Room Air 11/18 1821 80 130/60 11/18 1600 Nasal 2.0L Cannula 11/18 1600 98.1 64 20 102/82 11/18 1600 98.1 64 20 136/66 99 Nasal 2.0L Cannula 11/18 1400 66 20 149/60 Intake & Output 11/19 1600 11/19 0400 11/18 1600 11/18 0400 11/17 1600 11/17 0400 Intake Total 1197 1262 2981 1080 2039.9 983 Output Total 310 470 902 839 8648 1100 Balance 075 914 6538 780 889.9 -117 Intake, Blood 370 Product Intake, IV 599 613 4559 1080 2039.9 983 Intake, Oral 440 680 0 0 0 0 Intake, Other 500 Number 1 1 301 100 25 Bowel Movements Output, Stool 100 150 750 900 Output, Urine 310 370 475 300 400 200 Physical Exam General Appearance: well developed/nourished, no apparent distress, alert, awake Neck: normal inspection, supple Respiratory: normal breath sounds Cardiovascular: regular rate/rhythm Abdomen: normal bowel sounds, soft, non-tender Extremities: swelling Neurologic/Psychiatric: no motor/sensory deficits, awake, alert, oriented x 3 Current Medications: Current Medications Sig/Marcin Start time Last Medication Dose Route Stop Time Status Admin Ceftriaxone Sodium 2,000 MG DAILY 11/15 1656 AC 11/19 IV 1016 Furosemide 20 MG DAILY 11/19 1000 AC 11/19 PO 1006 Lactulose 20 GM BID 11/18 2200 AC 11/19 PO 1005 Lactulose 1 BOT Q12 11/16 1046 DC 11/18 MN 0937 Nystatin 1 GALO TID PRN 11/15 2115 TOP Octreotide Acetate 500 MCG Q20H 11/15 0200 DC 11/18 Dextrose/Water 500 ML IV 1127 Omeprazole 40 MG DAILY AC 11/19 0700 AC 11/19 PO 0622 Pantoprazole Sodium 40 MG DAILY 11/16 1001 DC 11/18 IV 0937 Phosphate 250 MG PC AND AT BEDTIME 06/16 1300 AC PO Potassium Chloride 10 MEQ Q1H 11/19 1230 AC IV 11/19 1331 Potassium Chloride 20 MEQ ONCE ONE 11/19 1115 CAN PO 11/19 1116 Potassium Chloride 20 MEQ ONCE ONE 11/19 0745 DC PO 11/19 0746 Potassium Chloride 40 MEQ ONCE ONE 11/18 2045 DC 11/18 PO 11/18 2045 2220 Potassium Phosphate 15 mMol ONE ONE 11/18 1200 DC 11/18 Dextrose/Water 250 ML IV 11/18 1603 1320 Propranolol HCl 20 MG TID 11/18 1715 AC 11/18 PO 1821 Sodium Chloride 1,000 ML Q13H 11/18 1200 DC 11/19 IV 0622 Spironolactone 25 MG DAILY 11/19 1000 AC PO Results Pertinent Lab Results: Laboratory Tests 11/19 11/18 0445 1650 Chemistry Sodium (137 - 145 mmol/L) 137 138 Potassium (3.5 - 5.1 mmol/L) 3.8 3.7 Chloride (98 - 107 mmol/L) 111 H 111 H Carbon Dioxide (22 - 30 mmol/L) 23 23 Anion Gap (5 - 16) 3 L 5 BUN (7 - 17 mg/dL) 10 11 Creatinine (0.5 - 1.0 mg/dL) 0.5 0.5 Estimated GFR (>60 ml/min) > 60 > 60 BUN/Creatinine Ratio (7 - 25 %) 22.0 Glucose (65 - 99 mg/dL) 120 H Calcium (8.4 - 10.2 mg/dL) 7.0 L Phosphorus (2.5 - 4.5 mg/dL) 2.4 L Magnesium (1.6 - 2.3 mg/dL) 1.9 Total Bilirubin (0.2 - 1.3 mg/dL) 0.8 AST (14 - 36 U/L) 20 ALT (9 - 52 U/L) 34 Albumin (3.5 - 5.0 g/dL) 1.8 L Hematology CBC w Diff NO MAN DIFF REQ NO MAN DIFF REQ WBC (4.8 - 10.8 /CUMM) 4.3 L 3.8 L RBC (4.20 - 5.40 /CUMM) 3.20 L 3.39 L Hgb (12.0 - 16.0 G/DL) 8.0 L 8.5 L Hct (37 - 47 %) 25.1 L 26.6 L MCV (81.0 - 99.0 FL) 78.5 L 78.5 L MCH (27.0 - 31.0 PG) 25.0 L 25.0 L RDW (11.5 - 14.5 %) 20.7 H 20.2 H Plt Count (130 - 400 /CUMM) 132 125 L MPV (7.4 - 10.4 FL) 9.2 9.3 Gran % (42.2 - 75.2 %) 53.4 60.8 Lymphocytes % (20.5 - 51.1 %) 24.5 20.3 L Monocytes % (1.7 - 9.3 %) 12.2 H 10.6 H Eosinophils % (0 - 5 %) 8.9 H 7.3 H Basophils % (0.0 - 2.0 %) 1.0 1.0 Absolute Granulocytes (1.4 - 6.5 /CUMM) 2.3 2.3 Absolute Lymphocytes (1.2 - 3.4 /CUMM) 1.0 L 0.8 L Absolute Monocytes (0.10 - 0.60 /CUMM) 0.5 0.4 Absolute Eosinophils (0.0 - 0.7 /CUMM) 0.4 0.3 Absolute Basophils (0.0 - 0.2 /CUMM) 0 0 PUBS MCHC (33.0 - 37.0 G/DL) 31.8 L 31.8 L 11/18 11/18 1400 1125 Blood Gas pH (7.35 - 7.45 PH) 7.42 pCO2 (35 - 45 TORR) 32 L pO2 (80 - 100 TORR) 93 HCO3 (21 - 28 MEQ/L) 21 ABG O2 Sat (Measured) (>96.0 %) 97.0 P-50 (Temp Corrected) N Carboxyhemoglobin (1.5 - 5.0 %) 0.7 L O2 Concentration % 30% Respiration Rate (BPM) 21 O2 Delivery Method VENT Vent Mode CPAP/PSV TRIAL Expiratory Pressure (CMH2O/P) 5 Tidal Volume (CC) 521 Pressure Support (CMH2O/P) 6 Chemistry Sodium Cancelled Potassium Cancelled Chloride Cancelled Carbon Dioxide Cancelled Anion Gap Cancelled BUN Cancelled Creatinine Cancelled BUN/Creatinine Ratio Cancelled Miscellaneous Phlebotomy Draw Site LEFT RADIAL 11/18 11/17 4964 0070 Chemistry Sodium (137 - 145 mmol/L) 140 139 Potassium (3.5 - 5.1 mmol/L) 3.1 L 3.4 L Chloride (98 - 107 mmol/L) 113 H 114 H Carbon Dioxide (22 - 30 mmol/L) 22 19 L Anion Gap (5 - 16) 5 6 BUN (7 - 17 mg/dL) 13 17 Creatinine (0.5 - 1.0 mg/dL) 0.5 0.5 Estimated GFR (>60 ml/min) > 60 > 60 Glucose (65 - 99 mg/dL) 110 H 118 H Calcium (8.4 - 10.2 mg/dL) 7.0 L 7.0 L Phosphorus (2.5 - 4.5 mg/dL) 2.5 2.8 Magnesium (1.6 - 2.3 mg/dL) 2.1 2.0 Total Bilirubin (0.2 - 1.3 mg/dL) 0.5 0.6 AST (14 - 36 U/L) 21 27 ALT (9 - 52 U/L) 37 37 Albumin (3.5 - 5.0 g/dL) 1.8 L 2.0 L Prealbumin (17.6 - 36.0 mg/dL) 3.1 L Hematology CBC w Diff NO MAN DIFF REQ NO MAN DIFF REQ WBC (4.8 - 10.8 /CUMM) 2.9 L 4.7 L RBC (4.20 - 5.40 /CUMM) 2.66 L 3.14 L Hgb (12.0 - 16.0 G/DL) 6.5 *L 7.7 L Hct (37 - 47 %) 20.4 L 24.2 L MCV (81.0 - 99.0 FL) 77.0 L 77.1 L MCH (27.0 - 31.0 PG) 24.5 L 24.5 L RDW (11.5 - 14.5 %) 20.3 H 19.7 H Plt Count (130 - 400 /CUMM) 108 L 124 L MPV (7.4 - 10.4 FL) 9.0 9.8 Gran % (42.2 - 75.2 %) 55.6 66.3 Lymphocytes % (20.5 - 51.1 %) 24.8 19.4 L Monocytes % (1.7 - 9.3 %) 11.1 H 8.7 Eosinophils % (0 - 5 %) 7.8 H 4.4 Basophils % (0.0 - 2.0 %) 0.7 1.2 Absolute Granulocytes (1.4 - 6.5 /CUMM) 1.6 3.1 Absolute Lymphocytes (1.2 - 3.4 /CUMM) 0.7 L 0.9 L Absolute Monocytes (0.10 - 0.60 /CUMM) 0.3 0.4 Absolute Eosinophils (0.0 - 0.7 /CUMM) 0.2 0.2 Absolute Basophils (0.0 - 0.2 /CUMM) 0 0.1 PUBS MCHC (33.0 - 37.0 G/DL) 31.8 L 31.7 L 11/16 1855 Chemistry Sodium (137 - 145 mmol/L) 130 L Potassium (3.5 - 5.1 mmol/L) 3.6 Chloride (98 - 107 mmol/L) 104 Carbon Dioxide (22 - 30 mmol/L) 19 L Anion Gap (5 - 16) 7 BUN (7 - 17 mg/dL) 16 Creatinine (0.5 - 1.0 mg/dL) 0.5 Estimated GFR (>60 ml/min) > 60 Glucose (65 - 99 mg/dL) 329 H Lactic Acid (0.7 - 2.1 mmol/L) 1.3 Calcium (8.4 - 10.2 mg/dL) 6.7 L Phosphorus (2.5 - 4.5 mg/dL) 2.6 Magnesium (1.6 - 2.3 mg/dL) 2.0 Total Bilirubin (0.2 - 1.3 mg/dL) 0.6 AST (14 - 36 U/L) 28 ALT (9 - 52 U/L) 49 Albumin (3.5 - 5.0 g/dL) 2.2 L Hematology CBC w Diff NO MAN DIFF REQ WBC (4.8 - 10.8 /CUMM) 4.7 L RBC (4.20 - 5.40 /CUMM) 3.29 L Hgb (12.0 - 16.0 G/DL) 8.0 L Hct (37 - 47 %) 25.3 L MCV (81.0 - 99.0 FL) 76.9 L MCH (27.0 - 31.0 PG) 24.3 L RDW (11.5 - 14.5 %) 19.8 H Plt Count (130 - 400 /CUMM) 129 L MPV (7.4 - 10.4 FL) 10.1 Gran % (42.2 - 75.2 %) 67.1 Lymphocytes % (20.5 - 51.1 %) 18.6 L Monocytes % (1.7 - 9.3 %) 8.4 Eosinophils % (0 - 5 %) 4.7 Basophils % (0.0 - 2.0 %) 1.2 Absolute Granulocytes (1.4 - 6.5 /CUMM) 3.1 Absolute Lymphocytes (1.2 - 3.4 /CUMM) 0.9 L Absolute Monocytes (0.10 - 0.60 /CUMM) 0.4 Absolute Eosinophils (0.0 - 0.7 /CUMM) 0.2 Absolute Basophils (0.0 - 0.2 /CUMM) 0.1 PUBS MCHC (33.0 - 37.0 G/DL) 31.6 L
[2016-11-19 16:00] VITALS: BP 116/64
--- NOTE | 2016-11-19 17:17 | ULTRASOUND REPORT ---
EXAMINATION: US TRIPLEX UPPER EXTREMITY, LEFT CLINICAL INFORMATION: History of deep venous thrombosis of the left upper extremity. Left upper extremity edema and swelling. COMPARISON: Triplex ultrasound of the left upper extremity veins 07/29/2016. TECHNIQUE: Color-flow triplex imaging with spectral analysis and compression Doppler were performed on the left upper extremity. FINDINGS: Multiple grayscale, color Doppler and spectral Doppler images of the left upper extremity veins demonstrate interval development of nonocclusive thrombus within the left cephalic vein, which is a superficial vein. The remaining imaged veins of the left upper extremity are patent, without evidence of deep venous thrombosis. Specifically, the left internal jugular, subclavian, axillary, brachial and basilic veins are patent, without deep venous thrombosis. Previously noted partially occlusive thrombus within the left subclavian vein is no longer identified on this exam. IMPRESSION: Interval development of nonocclusive thrombus within the left cephalic vein, which is a superficial vein. Otherwise, no evidence of deep venous thrombosis of the left upper extremity. Previously noted thrombus within the left subclavian vein, extending into the axillary vein, has resolved. This critical result was discussed with Dr. Wilhelm at 5:13 PM on 11/19/2016 and it was ascertained that the content and urgency of the report was understood at the time of direct communication.
--- NOTE | 2016-11-19 17:56 | NUR ---
Patient continues to have lots of loose stools, c-diff sent. Will monitor.
[2016-11-20] VITALS: BP 138/60
[2016-11-20 04:00] VITALS: BP 138/80
[2016-11-20 08:12] VITALS: BP 140/60
[2016-11-20 09:07] LABS: ABSOLUTE BASOPHIL COUNT 0 /CUMM (0.0-0.2); ABSOLUTE EOSINOPHIL COUNT 0.3 /CUMM (0.0-0.7); ABSOLUTE GRANULOCYTE CT 1.4 /CUMM (1.4-6.5); ABSOLUTE MONOCYTE COUNT 0.4 /CUMM (0.10-0.60); BASOPHIL % 0.9 % (0.0-2.0); EOSINOPHIL % 9.9 % (0-5); HEMATOCRIT 24.1 % (37-47); MEAN CORPUSCULAR HGB 24.8 PG (27.0-31.0); MEAN CORPUSCULAR HGB CONC 31.8 G/DL (33.0-37.0); MEAN CORPUSCULAR VOLUME 77.9 FL (81.0-99.0); RBC DISTRIBUTION WIDTH 20.5 % (11.5-14.5); WHITE BLOOD CELL COUNT 3.1 /CUMM (4.8-10.8)
[2016-11-20 09:40] LABS: PLATELET COUNT 96 /CUMM (130-400)
--- NOTE | 2016-11-20 09:58 | PN- Housestaff ---
Subjective Follow-up For: Variceal bleeding Anemia Aspiration pneumonia and respiratory failure Bradycardia Watery nonbloody diarrhea Malnutrition Tele-Events Since Last Visit: Normal sinus rhythm with heart rate in the range of 64-75 Subjective: This morning patient is alert, awake and oriented. She is still complaining of generalized weakness and diarrhea. Denies any nausea, vomiting, chest pain or discomfort, palpitations. She is also concerned about her left upper extremity swelling. Review of Systems Constitutional: Reports: see HPI. Objective Last 24 Hrs of Vital Signs/I&O Vital Signs Date Time Temp Pulse Resp B/P B/P Pulse O2 O2 Flow FiO2 Mean Ox Delivery Rate 11/20 0812 98.5 70 18 140/60 92 Room Air 11/20 0400 98.0 66 16 138/80 11/20 0000 98.0 68 16 138/60 93 Room Air 11/19 1600 Room Air 11/19 1600 98.5 58 18 116/64 11/19 1600 98.5 58 18 116/64 95 Room Air 11/19 1006 52 Intake & Output 11/20 1600 11/20 0800 11/20 0000 Intake Total 120 960 Output Total Balance 120 960 Intake, Oral 120 960 Number 2 5 Bowel Movements Physical Exam General Appearance: Alert, Oriented X3, Cooperative, No Acute Distress Neck: Supple Cardiovascular: Regular Rate Lungs: Clear to Auscultation Abdomen: distended and firm but non tender Neurological: Normal Speech, Sensation Intact Extremities: left UE swelling. B/L lower ext chronic venous stasis changes. right foot bandbage intact. 1+ edema Current Medications: Current Medications Sig/Marcin Start time Last Medication Dose Route Stop Time Status Admin Ceftriaxone Sodium 2,000 MG DAILY 11/15 1656 DC 11/19 IV 1016 Furosemide 20 MG DAILY 11/19 1000 AC 11/19 PO 1006 Lactulose 20 GM BID 11/18 2200 AC 11/19 PO 1005 Nystatin 1 GALO TID PRN 11/15 2115 DC TOP Omeprazole 40 MG DAILY AC 11/19 0700 AC 11/20 PO 0720 Phosphate 250 MG PC AND AT BEDTIME 11/19 1300 AC 11/19 PO 1957 Potassium Chloride 20 MEQ .STK-MED ONE 11/19 1314 DC IV 11/19 1315 Potassium Chloride 10 MEQ Q1H 11/19 1230 DC 11/19 IV 11/19 1331 1446 Potassium Chloride 20 MEQ ONCE ONE 11/19 1115 CAN PO 11/19 1116 Propranolol HCl 20 MG TID 11/18 1715 AC 11/18 PO 1821 Spironolactone 25 MG DAILY 11/19 1000 AC 11/19 PO 1542 Last 24 Hrs of Lab/Gui Results Last 24 Hrs of Labs/Mics: Laboratory Tests 11/20/16 0810: Anion Gap 2 L, Estimated GFR > 60, BUN/Creatinine Ratio 14.0, CBC w Diff Pending, WBC Pending, RBC Pending, Hgb Pending, Hct Pending, MCV Pending, MCH Pending, RDW Pending, Plt Count Pending, MPV Pending, PUBS MCHC Pending Microbiology 11/19 1730 STOOL: Clostridium difficile Toxin A & B - RECD Assessment/Plan Assessment: 76-year-old woman with PMH of hypertension, PVD , thyroid nodules (never biopsied), Chronic non healing right lrg ulcer status post recent vein stripping ? MRSA wound, low Vit D, rheumatic fever, history of actively replicating Hepatitis C with known esophageal varices and left upper extremity DVT on Eliquis. Problem list 1. Aspiration pneumonia. Improved. Patient is off antibiotics. Has been afebrile overnight. She is on room air saturating well. 2. Variceal bleeding, status post banding. No evidence of rebleeding. 3. Anemia. Status post 4 units of blood transfusion. Hemoglobin stable. Today H&H is 7.7/24.1. 4. Thrombocytopenia. Secondary to hepatitis C. Platelet count today is 96. No evidence of active bleeding 5. Watery nonbloody diarrhea. 3 episodes overnight. She is on lactulose 20 g twice a day. 6. 6. Bradycardia. Patient was bradycardic down to 50s previously. Heart rate stable now in 70s. Blood pressure stable. Patient is on propranolol 20 mg 3 times a day. 7. Chronic liver cirrhosis. GI following. 8. Malnutrition 9. Chronic nonhealing right leg ulcer. No evidence of active infection 9. Left upper extremity swelling with evidence of nonocclusive thrombus within the left cephalic vein Plan * Monitor vitals closely * Monitor CBC daily * Transfuse if hemoglobin is less than 7 * Avoid NSAIDs * Follow-up stool C. difficile. will titrate lactulose dose up to 2-3 soft bowel movements per day. * Continue propranolol for now. Will follow further GI recommendations * Continue PPI * Was for overt GI bleed and call GI if happens so * HCV treatment as an outpatient and plan is for repeat EGD in 1-2 weeks to reassess varices * Continue local wound care. Follow-up at wound care center after discharge * Physical therapy evaluation and treatment * Warm compresses to left upper extremity and elevation * No anticoagulation upon discharge * Alps for DVT prophylaxis * Full code Problem List: 1. Esophageal varices Pain Ratin Pain Location: no Pain Goal: Pain 4 or less Pain Plan: tylenol Tomorrow's Labs & Rationales: cbc DVT/Prophylaxis: mechanical
--- NOTE | 2016-11-20 10:18 | NUR ---
RECEIVED PATIENT FROM ICU ABOUT 12MIDNIGHT ON A STRETCHER. PATIENT ALERT AND ORIENTED TO PERSON, PLACE AND TIME. HAS BILATERAL WOUND ON HER FLOWER EXTREMITIES.ALSO HER BILATERAL CHEEK WITH ABRASION. WOUND CARE PERFOREMED ON PATIENT BEFORE SHE WAS TRANSPORTED. INTRODUCED PATIENT TO HER ROOM, CALL YOU, BED REMOTE AND LIGHT. BED IN LOW POSITION. HAD DIARRHEA MIXED WITH URINE, TWICE DURING THE SHIFT, NOT BLOODY, NOT FOUL SMELLING. PATIENT ASSESSED FOR PAIN AND SHE DENIES PAIN DURING THE SHIFT. POSITIONED FOR COMFORT, TURNED AND POSITION Q2HRS NEEDED. PATIENT APPEARS COMFORTABLE DURING THE NIGHT. REPORT GIVEN TO THE NEXT SHIFT. VSS.BLE ELEVATED.
--- NOTE | 2016-11-20 11:43 | PN- Att Addend ---
Attending Addendum Attending Brief Note Patient awake and alert. She complains of insomnia. General Appearance: awake and alert Skin: Lymphedema bilateral lower extremity Cardiovascular: Regular Rate, Normal S1, Normal S2, No Murmurs Lungs: Clear lungs Abdomen: Mildly distended Extremities: 2+ edema, right foot wound Assessment Patient extubated. Noted mild drop in hemoglobin however no overt bleeding. She will benefit with some diuresis. At this point we'll continue to monitor CBC and titrate beta blockers based on blood pressure. Continue wound care. ultrasound of her left subclavian and axillary shows resolved DVT and she has a superficial cephalic vein thrombus. Patient is however not a candidate for further anticoagulation. Advised her to avoid NSAIDs and use 1 Tylenol every day when necessary pain. Plan Continue propranolol low-dose Lasix and home dose spironolactone Continue lactulose Daily CBC Incentive spirometry Out of bed to chair PT evaluation Follow consults recommendations STR placement Current Medications Sig/Marcin Start time Last Medication Dose Route Stop Time Status Admin Ceftriaxone Sodium 2,000 MG DAILY 11/15 1656 DC 11/19 IV 1016 Furosemide 20 MG DAILY 11/19 1000 AC 11/20 PO 1129 Lactulose 20 GM BID 11/18 2200 AC 11/19 PO 1005 Melatonin 3 MG AT BEDTIME 11/20 2200 AC PO Nystatin 1 GALO TID PRN 11/15 2115 DC TOP Omeprazole 40 MG DAILY AC 11/19 0700 AC 11/20 PO 0720 Phosphate 250 MG PC AND AT BEDTIME 11/19 1300 AC 11/20 PO 1128 Potassium Chloride 20 MEQ .STK-MED ONE 11/19 1314 DC IV 11/19 1315 Potassium Chloride 10 MEQ Q1H 11/19 1230 DC 11/19 IV 11/19 1331 1446 Potassium Chloride 20 MEQ ONCE ONE 11/19 1115 CAN PO 11/19 1116 Propranolol HCl 20 MG TID 11/18 1715 AC 11/18 PO 1821 Spironolactone 25 MG DAILY 11/19 1000 AC 11/19 PO 1542 Laboratory Tests 11/20 0810 Chemistry Sodium (137 - 145 mmol/L) 135 L Potassium (3.5 - 5.1 mmol/L) 3.5 Chloride (98 - 107 mmol/L) 108 H Carbon Dioxide (22 - 30 mmol/L) 26 Anion Gap (5 - 16) 2 L BUN (7 - 17 mg/dL) 7 Creatinine (0.5 - 1.0 mg/dL) 0.5 Estimated GFR (>60 ml/min) > 60 BUN/Creatinine Ratio (7 - 25 %) 14.0 Hematology CBC w Diff NO MAN DIFF REQ WBC (4.8 - 10.8 /CUMM) 3.1 L RBC (4.20 - 5.40 /CUMM) 3.10 L Hgb (12.0 - 16.0 G/DL) 7.7 L Hct (37 - 47 %) 24.1 L MCV (81.0 - 99.0 FL) 77.9 L MCH (27.0 - 31.0 PG) 24.8 L RDW (11.5 - 14.5 %) 20.5 H Plt Count (130 - 400 /CUMM) 96 L MPV (7.4 - 10.4 FL) 9.0 Gran % (42.2 - 75.2 %) 46.0 Lymphocytes % (20.5 - 51.1 %) 31.0 Monocytes % (1.7 - 9.3 %) 12.2 H Eosinophils % (0 - 5 %) 9.9 H Basophils % (0.0 - 2.0 %) 0.9 Absolute Granulocytes (1.4 - 6.5 /CUMM) 1.4 Absolute Lymphocytes (1.2 - 3.4 /CUMM) 1.0 L Absolute Monocytes (0.10 - 0.60 /CUMM) 0.4 Absolute Eosinophils (0.0 - 0.7 /CUMM) 0.3 Absolute Basophils (0.0 - 0.2 /CUMM) 0 PUBS MCHC (33.0 - 37.0 G/DL) 31.8 L Vital Signs Date Time Temp Pulse Resp B/P B/P Pulse O2 O2 Flow FiO2 Mean Ox Delivery Rate 11/20 0812 98.5 70 18 140/60 92 Room Air 11/20 0400 98.0 66 16 138/80 11/20 0000 98.0 68 16 138/60 93 Room Air 11/19 1600 Room Air 11/19 1600 98.5 58 18 116/64 11/19 1600 98.5 58 18 116/64 95 Room Air
--- NOTE | 2016-11-20 12:38 | PN- Pulmonary ---
Subjective HPI/Critical Care Issues: pt seen and examined hemodynamically stable, afebrile transferred out of icu saturating well and comfortable Objective Current Medications: Current Medications Sig/Marcin Start time Last Medication Dose Route Stop Time Status Admin Ceftriaxone Sodium 2,000 MG DAILY 11/15 1656 DC 11/19 IV 1016 Furosemide 20 MG DAILY 11/19 1000 AC 11/20 PO 1129 Lactulose 20 GM BID 11/18 2200 AC 11/19 PO 1005 Melatonin 3 MG AT BEDTIME 11/20 2200 AC PO Nystatin 1 GALO TID PRN 11/15 2115 DC TOP Omeprazole 40 MG DAILY AC 11/19 0700 AC 11/20 PO 0720 Phosphate 250 MG PC AND AT BEDTIME 11/19 1300 AC 11/20 PO 1128 Potassium Chloride 20 MEQ .STK-MED ONE 11/19 1314 DC IV 11/19 1315 Potassium Chloride 10 MEQ Q1H 11/19 1230 DC 11/19 IV 11/19 1331 1446 Propranolol HCl 20 MG TID 11/18 1715 AC 11/18 PO 1821 Spironolactone 25 MG DAILY 11/19 1000 AC 11/20 PO 1144 Vital Signs & I&O Last 24 Hrs of Vitals and I&O: Vital Signs Date Time Temp Pulse Resp B/P B/P Pulse O2 O2 Flow FiO2 Mean Ox Delivery Rate 11/20 1143 72 140/60 11/20 0812 98.5 70 18 140/60 92 Room Air 11/20 0400 98.0 66 16 138/80 11/20 0000 98.0 68 16 138/60 93 Room Air 11/19 1600 Room Air 11/19 1600 98.5 58 18 116/64 11/19 1600 98.5 58 18 116/64 95 Room Air Intake & Output 11/20 1600 11/20 0800 11/20 0000 Intake Total 120 960 Output Total Balance 120 960 Intake, Oral 120 960 Number 2 5 Bowel Movements Exam Other Physical Findings: gen awake and alert heent ncat cvs s1, s2 lungs diminished at bases abd obese ext edematous, dressing on right foot Results Last 24 Hrs of Lab Results: Laboratory Tests 11/20/16 0810: Anion Gap 2 L, Estimated GFR > 60, BUN/Creatinine Ratio 14.0, CBC w Diff NO MAN DIFF REQ, RBC 3.10 L, MCV 77.9 L, MCH 24.8 L, RDW 20.5 H, MPV 9.0, Gran % 46.0, Lymphocytes % 31.0, Monocytes % 12.2 H, Eosinophils % 9.9 H, Basophils % 0.9, Absolute Granulocytes 1.4, Absolute Lymphocytes 1.0 L, Absolute Monocytes 0.4, Absolute Eosinophils 0.3, Absolute Basophils 0, PUBS MCHC 31.8 L Impression/Plan Impression/Plan Impression/Plan: Impression 76 year old woman * s/p acute blood loss anemia, now stabilized * superficial cephalic vein thrombus * improved respiratory failure Plan -check CXR for improvement -monitor hgb -oob -IST -dc planning DVT prophylaxis at all times
--- NOTE | 2016-11-20 12:59 | PN- Gastroenterology ---
Assessment/Plan Assessment/Recommendations: Patient is a 76-year-old female with hepatitis C cirrhosis was admitted with a varieal bleed s/p EGD on 11/15/16 with esophageal banding done then without further overt GI bleeding since. Hgb stable and octrotide and antibiotics stopped yesterday. She is tolerating propanolol at 20mg po tid but her pulse has increased from the 50's. Would monitor for now. Will consider increase tomorrow. Recommendations: 1. Follow CBC daily and transfuse as needed to keep hgb > 7 3. Avoid nsaids 5. Low sodium diet as tolearted 6. Continue oral PPI 8. Treatment of HCV as an outpatient 9. Repeat EGD in 1-2 weeks to reassess varices and apply further banding until the varices are obliterated 10. GI should be notified for signs of ovet GI bleeding. 11. No additional complications such as encephalopathy, infection, renal failure. I will continue to follow this patient and make further recommendations based on her clinical course and results of repeat blood work tomorrow. Subjective Subjective: Patient was seen in her hospital room. Lying comfortably in bed and eating her lunch. No chest pain shortness of breath palpitations abdominal pain confusion. Objective Vital Signs and I&Os Vital Signs Date Time Temp Pulse Resp B/P B/P Pulse O2 O2 Flow FiO2 Mean Ox Delivery Rate 11/20 1143 72 140/60 11/20 0812 98.5 70 18 140/60 92 Room Air 11/20 0400 98.0 66 16 138/80 11/20 0000 98.0 68 16 138/60 93 Room Air 11/19 1600 Room Air 11/19 1600 98.5 58 18 116/64 11/19 1600 98.5 58 18 116/64 95 Room Air Intake & Output 11/20 1600 11/20 0400 11/19 1600 11/19 0400 11/18 1600 11/18 0400 Intake Total 543 406 1419 1262 2981 1080 Output Total 785 470 625 300 Balance 182 716 8620 792 2356 780 Intake, Blood 370 Product Intake, IV 406 577 3045 1080 Intake, Oral 090 260 4470 680 0 0 Intake, Other 500 Number 2 5 4 1 301 100 Bowel Movements Output, Stool 100 150 Output, Urine 785 370 475 300 Results Pertinent Lab Results: Laboratory Tests 11/20 11/19 0810 0445 Chemistry Sodium (137 - 145 mmol/L) 135 L 137 Potassium (3.5 - 5.1 mmol/L) 3.5 3.8 Chloride (98 - 107 mmol/L) 108 H 111 H Carbon Dioxide (22 - 30 mmol/L) 26 23 Anion Gap (5 - 16) 2 L 3 L BUN (7 - 17 mg/dL) 7 10 Creatinine (0.5 - 1.0 mg/dL) 0.5 0.5 Estimated GFR (>60 ml/min) > 60 > 60 BUN/Creatinine Ratio (7 - 25 %) 14.0 Glucose (65 - 99 mg/dL) 120 H Calcium (8.4 - 10.2 mg/dL) 7.0 L Phosphorus (2.5 - 4.5 mg/dL) 2.4 L Magnesium (1.6 - 2.3 mg/dL) 1.9 Total Bilirubin (0.2 - 1.3 mg/dL) 0.8 AST (14 - 36 U/L) 20 ALT (9 - 52 U/L) 34 Albumin (3.5 - 5.0 g/dL) 1.8 L Hematology CBC w Diff NO MAN DIFF REQ NO MAN DIFF REQ WBC (4.8 - 10.8 /CUMM) 3.1 L 4.3 L RBC (4.20 - 5.40 /CUMM) 3.10 L 3.20 L Hgb (12.0 - 16.0 G/DL) 7.7 L 8.0 L Hct (37 - 47 %) 24.1 L 25.1 L MCV (81.0 - 99.0 FL) 77.9 L 78.5 L MCH (27.0 - 31.0 PG) 24.8 L 25.0 L RDW (11.5 - 14.5 %) 20.5 H 20.7 H Plt Count (130 - 400 /CUMM) 96 L 132 MPV (7.4 - 10.4 FL) 9.0 9.2 Gran % (42.2 - 75.2 %) 46.0 53.4 Lymphocytes % (20.5 - 51.1 %) 31.0 24.5 Monocytes % (1.7 - 9.3 %) 12.2 H 12.2 H Eosinophils % (0 - 5 %) 9.9 H 8.9 H Basophils % (0.0 - 2.0 %) 0.9 1.0 Absolute Granulocytes (1.4 - 6.5 /CUMM) 1.4 2.3 Absolute Lymphocytes (1.2 - 3.4 /CUMM) 1.0 L 1.0 L Absolute Monocytes (0.10 - 0.60 /CUMM) 0.4 0.5 Absolute Eosinophils (0.0 - 0.7 /CUMM) 0.3 0.4 Absolute Basophils (0.0 - 0.2 /CUMM) 0 0 PUBS MCHC (33.0 - 37.0 G/DL) 31.8 L 31.8 L 11/18 11/18 1650 1400 Chemistry Sodium (137 - 145 mmol/L) 138 Cancelled Potassium (3.5 - 5.1 mmol/L) 3.7 Cancelled Chloride (98 - 107 mmol/L) 111 H Cancelled Carbon Dioxide (22 - 30 mmol/L) 23 Cancelled Anion Gap (5 - 16) 5 Cancelled BUN (7 - 17 mg/dL) 11 Cancelled Creatinine (0.5 - 1.0 mg/dL) 0.5 Cancelled Estimated GFR (>60 ml/min) > 60 BUN/Creatinine Ratio (7 - 25 %) 22.0 Cancelled Hematology CBC w Diff NO MAN DIFF REQ WBC (4.8 - 10.8 /CUMM) 3.8 L RBC (4.20 - 5.40 /CUMM) 3.39 L Hgb (12.0 - 16.0 G/DL) 8.5 L Hct (37 - 47 %) 26.6 L MCV (81.0 - 99.0 FL) 78.5 L MCH (27.0 - 31.0 PG) 25.0 L RDW (11.5 - 14.5 %) 20.2 H Plt Count (130 - 400 /CUMM) 125 L MPV (7.4 - 10.4 FL) 9.3 Gran % (42.2 - 75.2 %) 60.8 Lymphocytes % (20.5 - 51.1 %) 20.3 L Monocytes % (1.7 - 9.3 %) 10.6 H Eosinophils % (0 - 5 %) 7.3 H Basophils % (0.0 - 2.0 %) 1.0 Absolute Granulocytes (1.4 - 6.5 /CUMM) 2.3 Absolute Lymphocytes (1.2 - 3.4 /CUMM) 0.8 L Absolute Monocytes (0.10 - 0.60 /CUMM) 0.4 Absolute Eosinophils (0.0 - 0.7 /CUMM) 0.3 Absolute Basophils (0.0 - 0.2 /CUMM) 0 PUBS MCHC (33.0 - 37.0 G/DL) 31.8 L 11/18 11/18 1125 0530 Blood Gas pH (7.35 - 7.45 PH) 7.42 pCO2 (35 - 45 TORR) 32 L pO2 (80 - 100 TORR) 93 HCO3 (21 - 28 MEQ/L) 21 ABG O2 Sat (Measured) (>96.0 %) 97.0 P-50 (Temp Corrected) N Carboxyhemoglobin (1.5 - 5.0 %) 0.7 L O2 Concentration % 30% Respiration Rate (BPM) 21 O2 Delivery Method VENT Vent Mode CPAP/PSV TRIAL Expiratory Pressure (CMH2O/P) 5 Tidal Volume (CC) 521 Pressure Support (CMH2O/P) 6 Chemistry Sodium (137 - 145 mmol/L) 140 Potassium (3.5 - 5.1 mmol/L) 3.1 L Chloride (98 - 107 mmol/L) 113 H Carbon Dioxide (22 - 30 mmol/L) 22 Anion Gap (5 - 16) 5 BUN (7 - 17 mg/dL) 13 Creatinine (0.5 - 1.0 mg/dL) 0.5 Estimated GFR (>60 ml/min) > 60 Glucose (65 - 99 mg/dL) 110 H Calcium (8.4 - 10.2 mg/dL) 7.0 L Phosphorus (2.5 - 4.5 mg/dL) 2.5 Magnesium (1.6 - 2.3 mg/dL) 2.1 Total Bilirubin (0.2 - 1.3 mg/dL) 0.5 AST (14 - 36 U/L) 21 ALT (9 - 52 U/L) 37 Albumin (3.5 - 5.0 g/dL) 1.8 L Prealbumin (17.6 - 36.0 mg/dL) 3.1 L Hematology CBC w Diff NO MAN DIFF REQ WBC (4.8 - 10.8 /CUMM) 2.9 L RBC (4.20 - 5.40 /CUMM) 2.66 L Hgb (12.0 - 16.0 G/DL) 6.5 *L Hct (37 - 47 %) 20.4 L MCV (81.0 - 99.0 FL) 77.0 L MCH (27.0 - 31.0 PG) 24.5 L RDW (11.5 - 14.5 %) 20.3 H Plt Count (130 - 400 /CUMM) 108 L MPV (7.4 - 10.4 FL) 9.0 Gran % (42.2 - 75.2 %) 55.6 Lymphocytes % (20.5 - 51.1 %) 24.8 Monocytes % (1.7 - 9.3 %) 11.1 H Eosinophils % (0 - 5 %) 7.8 H Basophils % (0.0 - 2.0 %) 0.7 Absolute Granulocytes (1.4 - 6.5 /CUMM) 1.6 Absolute Lymphocytes (1.2 - 3.4 /CUMM) 0.7 L Absolute Monocytes (0.10 - 0.60 /CUMM) 0.3 Absolute Eosinophils (0.0 - 0.7 /CUMM) 0.2 Absolute Basophils (0.0 - 0.2 /CUMM) 0 PUBS MCHC (33.0 - 37.0 G/DL) 31.8 L Miscellaneous Phlebotomy Draw Site LEFT RADIAL
--- NOTE | 2016-11-20 13:33 | RADIOLOGY REPORT ---
EXAMINATION: XR PORTABLE CHEST CLINICAL INFORMATION: Follow-up of aspiration pneumonia. COMPARISON: Several prior chest x-rays, most recent of which is dated 11/18/2016. TECHNIQUE: Portable semierect view of the chest was obtained. FINDINGS: Endotracheal tube has been removed in the interim. A right subclavian PICC line remains in place with tip in the deep SVC, unchanged. The cardiomediastinal silhouette remains prominent in size on these portable films. Ectasia and tortuosity of the aorta is again seen, unchanged. There are persistent left mid and lower lung parenchymal opacities, unchanged from prior exam. Mild increased opacities medially in the right lung base are also stable. No significant pleural effusion or pneumothorax is seen. IMPRESSION: 1. PICC line tip in the SVC. 2. No interval change in prominent parenchymal opacities in the left perihilar and left lower lung and in the mild parenchymal opacities in the right lower lung. Findings would be consistent with chemical or infectious pneumonia.
[2016-11-20 15:38] VITALS: BP 128/58
[2016-11-21 00:33] VITALS: BP 102/46
[2016-11-21 02:00] VITALS: BP 106/48
[2016-11-21 08:26] LABS: ABSOLUTE BASOPHIL COUNT 0 /CUMM (0.0-0.2); ABSOLUTE EOSINOPHIL COUNT 0.2 /CUMM (0.0-0.7); ABSOLUTE GRANULOCYTE CT 1.3 /CUMM (1.4-6.5); ABSOLUTE MONOCYTE COUNT 0.4 /CUMM (0.10-0.60); BASOPHIL % 1.2 % (0.0-2.0); EOSINOPHIL % 7.9 % (0-5); GRANULOCYTE % 44.9 % (42.2-75.2); HEMATOCRIT 24.2 % (37-47); MEAN CORPUSCULAR HGB 25.1 PG (27.0-31.0); MEAN CORPUSCULAR HGB CONC 32.5 G/DL (33.0-37.0); MEAN CORPUSCULAR VOLUME 77.3 FL (81.0-99.0); MEAN PLATELET VOLUME 9.4 FL (7.4-10.4); RBC DISTRIBUTION WIDTH 21.2 % (11.5-14.5); RED BLOOD CELL CT 3.13 /CUMM (4.20-5.40); WHITE BLOOD CELL COUNT 2.9 /CUMM (4.8-10.8)
--- NOTE | 2016-11-21 08:29 | PN- Att Addend ---
Attending Addendum Attending Brief Note Patient awake and alert. She complains of persistent diarrhea despite holding lactulose. General Appearance: awake and alert Skin: Lymphedema bilateral lower extremity Cardiovascular: Regular Rate, Normal S1, Normal S2, No Murmurs Lungs: Clear lungs Abdomen: Mildly distended Extremities: 2+ edema, right foot wound Assessment Patient extubated. Noted mild drop in hemoglobin however no overt bleeding. She will benefit with some diuresis. At this point we'll continue to monitor CBC and titrate beta blockers based on blood pressure. Continue wound care. ultrasound of her left subclavian and axillary shows resolved DVT and she has a superficial cephalic vein thrombus. Patient is however not a candidate for further anticoagulation. Advised her to avoid NSAIDs and use 1 Tylenol every day when necessary pain. Currently she is having diarrhea and lactulose is on hold. Plan Check C. difficile if she has persistent diarrhea Continue propranolol low-dose Lasix and home dose spironolactone Daily CBC, transfuse for hemoglobin less than 7 Check TSH levels Incentive spirometry Out of bed to chair PT evaluation Follow consults recommendations STR placement Current Medications Sig/Marcin Start time Last Medication Dose Route Stop Time Status Admin Furosemide 20 MG DAILY 11/19 1000 AC 11/20 PO 1129 Lactulose 20 GM BID 11/18 2200 AC 11/19 PO 1005 Melatonin 3 MG AT BEDTIME 11/20 2200 AC 11/20 PO 2211 Omeprazole 40 MG DAILY AC 11/19 0700 AC 11/21 PO 0634 Phosphate 250 MG PC AND AT BEDTIME 11/19 1300 AC 11/20 PO 2211 Propranolol HCl 20 MG TID 11/18 1715 AC 11/20 PO 2218 Spironolactone 25 MG DAILY 11/19 1000 AC 11/20 PO 1144 Laboratory Tests 11/21 0640 Hematology CBC w Diff Pending WBC Pending RBC Pending Hgb Pending Hct Pending MCV Pending MCH Pending RDW Pending Plt Count Pending MPV Pending PUBS MCHC Pending Vital Signs Date Time Temp Pulse Resp B/P B/P Pulse O2 O2 Flow FiO2 Mean Ox Delivery Rate 11/21 0200 98.0 60 18 106/48 11/21 0033 98.7 60 20 102/46 93 11/20 2218 65 116/50 11/20 1813 78 11/20 1538 98.6 67 18 128/58 95 Room Air 11/20 1143 72 140/60
[2016-11-21 09:00] LABS: PLATELET COUNT 92 /CUMM (130-400)
[2016-11-21 09:36] VITALS: BP 100/48
--- NOTE | 2016-11-21 10:13 | PN- Infect Dx ---
Subjective Subjective: Afebrile. She continues to complain of diarrhea with 4 loose bowel movements reported yesterday and 3 overnight. She denies any nausea, vomiting or abdominal pain. Objective Last 24 Hrs of Vital Signs/I&O Vital Signs Date Time Temp Pulse Resp B/P B/P Pulse O2 O2 Flow FiO2 Mean Ox Delivery Rate 11/21 0936 98.0 60 18 100/48 92 Room Air 11/21 0200 98.0 60 18 106/48 11/21 0033 98.7 60 20 102/46 93 11/20 2218 65 116/50 11/20 1813 78 11/20 1538 98.6 67 18 128/58 95 Room Air 11/20 1143 72 140/60 Intake & Output 11/21 1600 11/21 0800 11/21 0000 Intake Total 50 450 Output Total 250 Balance 50 200 Intake, Oral 50 450 Number 3 2 Bowel Movements Output, Urine 250 Physical Exam Other Physical Findings: She appears comfortable in no acute distress Lungs decreased breath sounds bilaterally Heart regular rhythm with a 1/6 systolic ejection murmur Abdomen is distended, nontender with positive bowel sounds Extremities no cyanosis, clubbing or edema of the lower extremities Results Last 24 Hours of Lab Results: Laboratory Tests 11/21 0640 Hematology CBC w Diff NO MAN DIFF REQ WBC (4.8 - 10.8 /CUMM) 2.9 L RBC (4.20 - 5.40 /CUMM) 3.13 L Hgb (12.0 - 16.0 G/DL) 7.9 L Hct (37 - 47 %) 24.2 L MCV (81.0 - 99.0 FL) 77.3 L MCH (27.0 - 31.0 PG) 25.1 L RDW (11.5 - 14.5 %) 21.2 H Plt Count (130 - 400 /CUMM) 92 L MPV (7.4 - 10.4 FL) 9.4 Gran % (42.2 - 75.2 %) 44.9 Lymphocytes % (20.5 - 51.1 %) 32.9 Monocytes % (1.7 - 9.3 %) 13.1 H Eosinophils % (0 - 5 %) 7.9 H Basophils % (0.0 - 2.0 %) 1.2 Absolute Granulocytes (1.4 - 6.5 /CUMM) 1.3 L Absolute Lymphocytes (1.2 - 3.4 /CUMM) 1.0 L Absolute Monocytes (0.10 - 0.60 /CUMM) 0.4 Absolute Eosinophils (0.0 - 0.7 /CUMM) 0.2 Absolute Basophils (0.0 - 0.2 /CUMM) 0 PUBS MCHC (33.0 - 37.0 G/DL) 32.5 L Last 24 Hours of Gui Results: Stool C. difficile November 19 negative Recent Imaging Studies: Left upper extremity Doppler November 19 reveals the development of a nonocclusive thrombus within the left cephalic vein Chest x-ray November 20 reveals no change in the prominent parenchymal opacities in the left perihilar and left lower lobe and in the right lower lobe Assessment/Plan Impression: Stable with temperatures and white blood cell count remaining normal now off antibiotics after a 5 day course of Ceftriaxone for presumed aspiration pneumonia and prophylaxis for this patient with cirrhosis in the setting of an upper GI bleed secondary to esophageal varices, which were banded 1 week ago. She continues to have diarrhea, felt most likely to be secondary to the lactulose, with the C. difficile negative. Her platelet count is decreasing and her medications should be reviewed. The left upper extremity Doppler results are noted with a superficial vein thrombosis found. Suggestion: 1. Review all medications in view of her decreasing platelet count 2. Continue to follow off antibiotics
--- NOTE | 2016-11-21 11:36 | PN- Pulmonary ---
Subjective HPI/Critical Care Issues: Patient seen and examined this morning. She is on room air and comfortable. Her chest x-ray is consistent with some atelectasis most likely. However she would benefit from interval short-term follow-up. Objective Current Medications: Current Medications Sig/Marcin Start time Last Medication Dose Route Stop Time Status Admin Furosemide 20 MG DAILY 11/19 1000 AC 11/20 PO 1129 Lactulose 20 GM BID 11/18 2200 AC 11/19 PO 1005 Melatonin 3 MG AT BEDTIME 11/20 2200 AC 11/20 PO 2211 Omeprazole 40 MG DAILY AC 11/19 0700 AC 11/21 PO 0634 Phosphate 250 MG PC AND AT BEDTIME 11/19 1300 AC 11/20 PO 2211 Propranolol HCl 20 MG TID 11/18 1715 AC 11/20 PO 2218 Spironolactone 25 MG DAILY 11/19 1000 AC 11/20 PO 1144 Vital Signs & I&O Last 24 Hrs of Vitals and I&O: Vital Signs Date Time Temp Pulse Resp B/P B/P Pulse O2 O2 Flow FiO2 Mean Ox Delivery Rate 11/21 0936 98.0 60 18 100/48 92 Room Air 11/21 0200 98.0 60 18 106/48 11/21 0033 98.7 60 20 102/46 93 11/20 2218 65 116/50 11/20 1813 78 11/20 1538 98.6 67 18 128/58 95 Room Air 11/20 1143 72 140/60 Intake & Output 11/21 1600 11/21 0800 11/21 0000 Intake Total 50 450 Output Total 250 Balance 50 200 Intake, Oral 50 450 Number 3 2 Bowel Movements Output, Urine 250 Exam Other Physical Findings: gen awake and alert heent ncat cvs s1, s2 lungs diminished at bases abd obese ext edematous, dressing on right foot Results Last 24 Hrs of Lab Results: Laboratory Tests 11/21/16 1125: TSH Pending 11/21/16 0640: CBC w Diff NO MAN DIFF REQ, RBC 3.13 L, MCV 77.3 L, MCH 25.1 L, RDW 21.2 H, MPV 9.4, Gran % 44.9, Lymphocytes % 32.9, Monocytes % 13.1 H, Eosinophils % 7.9 H, Basophils % 1.2, Absolute Granulocytes 1.3 L, Absolute Lymphocytes 1.0 L, Absolute Monocytes 0.4, Absolute Eosinophils 0.2, Absolute Basophils 0, PUBS MCHC 32.5 L Impression/Plan Impression/Plan Impression/Plan: Impression 76 year old woman * s/p acute blood loss anemia, now stabilized * superficial cephalic vein thrombus * resolved respiratory failure Plan -Recommend short-term chest x-ray follow-up within roughly a week or 2 -monitor hgb -oob -IST -dc planning DVT prophylaxis at all times
--- NOTE | 2016-11-21 14:00 | PN- Gastroenterology ---
Assessment/Plan Assessment/Recommendations: Patient is a 76-year-old female with hepatitis C cirrhosis was admitted with a variceal bleed s/p EGD on 11/15/16 with esophageal banding done then without further overt GI bleeding since. Hgb stable and octrotide and antibiotics stopped yesterday. Pulse between 50 and 60 on propranolol. Still having very liquid stool but frequency of bowel movement has decreased from 6 on November 18 4 on the to 3 over the last 24 hours. Patient is alert and orientated and agree with holding lactulose until consistency of bowel movements has improved. Recommendations: 1. Follow CBC daily and transfuse as needed to keep hgb > 7 3. Avoid nsaids 5. Low sodium diet as tolearted 6. Continue oral PPI 8. Treatment of HCV as an outpatient 9. Repeat EGD in 1-2 weeks to reassess varices and apply further banding until the varices are obliterated 10. No additional complications such as encephalopathy, infection, renal failure. I will continue to follow this patient and make further recommendations based on her clinical course and results of repeat blood work tomorrow. Subjective Subjective: x Objective Vital Signs and I&Os Vital Signs Date Time Temp Pulse Resp B/P B/P Pulse O2 O2 Flow FiO2 Mean Ox Delivery Rate 11/21 1207 50 100/48 11/21 0936 98.0 60 18 100/48 92 Room Air 11/21 0200 98.0 60 18 106/48 11/21 0033 98.7 60 20 102/46 93 11/20 2218 65 116/50 11/20 1813 78 11/20 1538 98.6 67 18 128/58 95 Room Air Intake & Output 11/21 1600 11/21 0400 11/20 1600 11/20 0400 11/19 1600 11/19 0400 Intake Total 50 450 503 169 8171 1262 Output Total 250 200 785 470 Balance 50 200 254 642 8177 792 Intake, IV 987 582 Intake, Oral 50 450 015 076 0872 680 Number 2 3 2 5 4 1 Bowel Movements Output, Stool 100 Output, Urine 250 200 785 370 Results Pertinent Lab Results: Laboratory Tests 11/21 11/21 1125 0640 Chemistry TSH (0.270 - 4.200 uIU/mL) 1.740 Hematology CBC w Diff NO MAN DIFF REQ WBC (4.8 - 10.8 /CUMM) 2.9 L RBC (4.20 - 5.40 /CUMM) 3.13 L Hgb (12.0 - 16.0 G/DL) 7.9 L Hct (37 - 47 %) 24.2 L MCV (81.0 - 99.0 FL) 77.3 L MCH (27.0 - 31.0 PG) 25.1 L RDW (11.5 - 14.5 %) 21.2 H Plt Count (130 - 400 /CUMM) 92 L MPV (7.4 - 10.4 FL) 9.4 Gran % (42.2 - 75.2 %) 44.9 Lymphocytes % (20.5 - 51.1 %) 32.9 Monocytes % (1.7 - 9.3 %) 13.1 H Eosinophils % (0 - 5 %) 7.9 H Basophils % (0.0 - 2.0 %) 1.2 Absolute Granulocytes (1.4 - 6.5 /CUMM) 1.3 L Absolute Lymphocytes (1.2 - 3.4 /CUMM) 1.0 L Absolute Monocytes (0.10 - 0.60 /CUMM) 0.4 Absolute Eosinophils (0.0 - 0.7 /CUMM) 0.2 Absolute Basophils (0.0 - 0.2 /CUMM) 0 PUBS MCHC (33.0 - 37.0 G/DL) 32.5 L 11/20 05/16 0810 0445 Chemistry Sodium (137 - 145 mmol/L) 135 L 137 Potassium (3.5 - 5.1 mmol/L) 3.5 3.8 Chloride (98 - 107 mmol/L) 108 H 111 H Carbon Dioxide (22 - 30 mmol/L) 26 23 Anion Gap (5 - 16) 2 L 3 L BUN (7 - 17 mg/dL) 7 10 Creatinine (0.5 - 1.0 mg/dL) 0.5 0.5 Estimated GFR (>60 ml/min) > 60 > 60 BUN/Creatinine Ratio (7 - 25 %) 14.0 Glucose (65 - 99 mg/dL) 120 H Calcium (8.4 - 10.2 mg/dL) 7.0 L Phosphorus (2.5 - 4.5 mg/dL) 2.4 L Magnesium (1.6 - 2.3 mg/dL) 1.9 Total Bilirubin (0.2 - 1.3 mg/dL) 0.8 AST (14 - 36 U/L) 20 ALT (9 - 52 U/L) 34 Albumin (3.5 - 5.0 g/dL) 1.8 L Hematology CBC w Diff NO MAN DIFF REQ NO MAN DIFF REQ WBC (4.8 - 10.8 /CUMM) 3.1 L 4.3 L RBC (4.20 - 5.40 /CUMM) 3.10 L 3.20 L Hgb (12.0 - 16.0 G/DL) 7.7 L 8.0 L Hct (37 - 47 %) 24.1 L 25.1 L MCV (81.0 - 99.0 FL) 77.9 L 78.5 L MCH (27.0 - 31.0 PG) 24.8 L 25.0 L RDW (11.5 - 14.5 %) 20.5 H 20.7 H Plt Count (130 - 400 /CUMM) 96 L 132 MPV (7.4 - 10.4 FL) 9.0 9.2 Gran % (42.2 - 75.2 %) 46.0 53.4 Lymphocytes % (20.5 - 51.1 %) 31.0 24.5 Monocytes % (1.7 - 9.3 %) 12.2 H 12.2 H Eosinophils % (0 - 5 %) 9.9 H 8.9 H Basophils % (0.0 - 2.0 %) 0.9 1.0 Absolute Granulocytes (1.4 - 6.5 /CUMM) 1.4 2.3 Absolute Lymphocytes (1.2 - 3.4 /CUMM) 1.0 L 1.0 L Absolute Monocytes (0.10 - 0.60 /CUMM) 0.4 0.5 Absolute Eosinophils (0.0 - 0.7 /CUMM) 0.3 0.4 Absolute Basophils (0.0 - 0.2 /CUMM) 0 0 PUBS MCHC (33.0 - 37.0 G/DL) 31.8 L 31.8 L 11/18 1650 Chemistry Sodium (137 - 145 mmol/L) 138 Potassium (3.5 - 5.1 mmol/L) 3.7 Chloride (98 - 107 mmol/L) 111 H Carbon Dioxide (22 - 30 mmol/L) 23 Anion Gap (5 - 16) 5 BUN (7 - 17 mg/dL) 11 Creatinine (0.5 - 1.0 mg/dL) 0.5 Estimated GFR (>60 ml/min) > 60 BUN/Creatinine Ratio (7 - 25 %) 22.0 Hematology CBC w Diff NO MAN DIFF REQ WBC (4.8 - 10.8 /CUMM) 3.8 L RBC (4.20 - 5.40 /CUMM) 3.39 L Hgb (12.0 - 16.0 G/DL) 8.5 L Hct (37 - 47 %) 26.6 L MCV (81.0 - 99.0 FL) 78.5 L MCH (27.0 - 31.0 PG) 25.0 L RDW (11.5 - 14.5 %) 20.2 H Plt Count (130 - 400 /CUMM) 125 L MPV (7.4 - 10.4 FL) 9.3 Gran % (42.2 - 75.2 %) 60.8 Lymphocytes % (20.5 - 51.1 %) 20.3 L Monocytes % (1.7 - 9.3 %) 10.6 H Eosinophils % (0 - 5 %) 7.3 H Basophils % (0.0 - 2.0 %) 1.0 Absolute Granulocytes (1.4 - 6.5 /CUMM) 2.3 Absolute Lymphocytes (1.2 - 3.4 /CUMM) 0.8 L Absolute Monocytes (0.10 - 0.60 /CUMM) 0.4 Absolute Eosinophils (0.0 - 0.7 /CUMM) 0.3 Absolute Basophils (0.0 - 0.2 /CUMM) 0 PUBS MCHC (33.0 - 37.0 G/DL) 31.8 L
[2016-11-21 15:43] VITALS: BP 108/56
[2016-11-22 00:25] VITALS: BP 110/60
--- NOTE | 2016-11-22 07:16 | PN- Housestaff ---
Subjective Follow-up For: Variceal bleeding Anemia Aspiration pneumonia and respiratory failure Bradycardia Watery nonbloody diarrhea Malnutrition Tele-Events Since Last Visit: Sinus bradycardia, 49-58 Subjective: PAtient seen and examined, alert and oriented, no active complaints. Denies any nausea, vomiting, chest pain or discomfort, palpitations. Tolerating PO intake well, she is to b discharged to [facility] today. Review of Systems Constitutional: Reports: see HPI. Objective Last 24 Hrs of Vital Signs/I&O Vital Signs Date Time Temp Pulse Resp B/P B/P Pulse O2 O2 Flow FiO2 Mean Ox Delivery Rate 11/22 0958 60 122/60 11/22 0934 Room Air 2.0L 11/22 0918 Room Air 2.0L 11/22 0818 98.2 52 18 122/60 92 Room Air 11/22 0025 98.7 56 18 110/60 95 Room Air 11/22 0000 Room Air 11/21 1758 63 128/60 11/21 1543 97.4 58 18 108/56 96 Room Air 11/21 1430 Room Air Intake & Output 11/22 1600 11/22 0800 11/22 0000 Intake Total 240 240 Output Total 350 300 Balance -110 -60 Intake, Oral 240 240 Number 2 1 Bowel Movements Output, Urine 350 300 Physical Exam General Appearance: Alert, Oriented X3, Cooperative, No Acute Distress Cardiovascular: Regular Rate, Normal S1, Normal S2, No Murmurs Lungs: Clear to Auscultation, Normal Air Movement Abdomen: Normal Bowel Sounds, Soft, No Tenderness Extremities: No Clubbing, No Cyanosis, B/L lower ext chronic venous stasis changes. right foot bandbage intact. 1+ edema Current Medications: Current Medications Sig/Marcin Start time Last Medication Dose Route Stop Time Status Admin Acetaminophen 650 MG ONCE ONE 11/21 1615 DC 11/21 PO 11/21 1616 1759 Furosemide 20 MG DAILY 11/19 1000 AC 11/22 PO 0958 Lactulose 20 GM BID 11/18 2200 AC 11/19 PO 1005 Melatonin 3 MG AT BEDTIME 11/20 2200 AC 11/21 PO 2209 Omeprazole 40 MG DAILY AC 11/19 0700 AC 11/22 PO 0616 Phosphate 250 MG PC AND AT BEDTIME 11/19 1300 AC 11/22 PO 0958 Propranolol HCl 20 MG TID 11/18 1715 AC 11/22 PO 0958 Spironolactone 25 MG DAILY 11/19 1000 AC 11/22 PO 0958 Vitamin A/Vitamin D 1 GALO BID 11/22 1000 AC 11/22 TOP 0959 Zinc Oxide 1 GALO BID 11/22 1000 AC 11/22 TOP 0959 Last 24 Hrs of Lab/Gui Results Last 24 Hrs of Labs/Mics: Laboratory Tests 11/22/16 0623: CBC w Diff NO MAN DIFF REQ, RBC 3.31 L, MCV 77.8 L, MCH 24.6 L, RDW 21.5 H, MPV 9.7, Gran % 40.5 L, Lymphocytes % 35.8, Monocytes % 14.2 H, Eosinophils % 8.7 H, Basophils % 0.8, Absolute Granulocytes 1.2 L, Absolute Lymphocytes 1.0 L, Absolute Monocytes 0.4, Absolute Eosinophils 0.3, Absolute Basophils 0, PUBS MCHC 31.6 L Microbiology 11/22 1851 STOOL: Clostridium difficile Toxin A & B - COMP Assessment/Plan Assessment: 76-year-old woman with PMH of hypertension, PVD , thyroid nodules (never biopsied), Chronic non healing right lrg ulcer status post recent vein stripping ? MRSA wound, low Vit D, rheumatic fever, history of actively replicating Hepatitis C with known esophageal varices and left upper extremity DVT on Eliquis. Problem list 1. Aspiration pneumonia. Improved. Patient is off antibiotics. Has been afebrile overnight. She is on room air saturating well. 2. Variceal bleeding, status post banding. No evidence of rebleeding. 3. Anemia. Status post 4 units of blood transfusion. Hemoglobin stable. Today H&H is 7.7/24.1. 4. Thrombocytopenia. Secondary to hepatitis C. Platelet count today is 96. No evidence of active bleeding 5. Watery nonbloody diarrhea. 3 episodes overnight. She is on lactulose 20 g twice a day. 6. 6. Bradycardia. Patient was bradycardic down to 50s previously. Heart rate stable now in 70s. Blood pressure stable. Patient is on propranolol 20 mg 3 times a day. 7. Chronic liver cirrhosis. GI following. 8. Malnutrition 9. Chronic nonhealing right leg ulcer. No evidence of active infection 9. Left upper extremity swelling with evidence of nonocclusive thrombus within the left cephalic vein Plan * Monitor vitals closely * Monitor CBC daily * Transfuse if hemoglobin is less than 7 * Avoid NSAIDs * Cdiff negative * Continue propranolol * Continue PPI * Was for overt GI bleed and call GI if happens so * HCV treatment as an outpatient and plan is for repeat EGD in 1-2 weeks to reassess varices * Continue local wound care. Follow-up at wound care center after discharge * Physical therapy evaluation and treatment * Warm compresses to left upper extremity and elevation * No anticoagulation upon discharge * Alps for DVT prophylaxis * Full code Problem List: 1. Hepatitis C 2. Esophageal varices 3. Upper GI bleed Pain Ratin Pain Location: none Pain Goal: Remain pain free Pain Plan: mpp Tomorrow's Labs & Rationales: none
[2016-11-22 08:10] LABS: ABSOLUTE BASOPHIL COUNT 0 /CUMM (0.0-0.2); ABSOLUTE EOSINOPHIL COUNT 0.3 /CUMM (0.0-0.7); ABSOLUTE GRANULOCYTE CT 1.2 /CUMM (1.4-6.5); ABSOLUTE MONOCYTE COUNT 0.4 /CUMM (0.10-0.60); BASOPHIL % 0.8 % (0.0-2.0); EOSINOPHIL % 8.7 % (0-5); GRANULOCYTE % 40.5 % (42.2-75.2); HEMATOCRIT 25.8 % (37-47); MEAN CORPUSCULAR HGB 24.6 PG (27.0-31.0); MEAN CORPUSCULAR HGB CONC 31.6 G/DL (33.0-37.0); MEAN CORPUSCULAR VOLUME 77.8 FL (81.0-99.0); MEAN PLATELET VOLUME 9.7 FL (7.4-10.4); RBC DISTRIBUTION WIDTH 21.5 % (11.5-14.5); RED BLOOD CELL CT 3.31 /CUMM (4.20-5.40); WHITE BLOOD CELL COUNT 2.9 /CUMM (4.8-10.8)
[2016-11-22 08:16] LABS: PLATELET COUNT 93 /CUMM (130-400)
[2016-11-22 08:18] VITALS: BP 122/60
--- NOTE | 2016-11-22 09:44 | PN- Att Addend ---
Attending Addendum Attending Brief Note Patient awake and alert. She complains of persistent diarrhea despite holding lactulose. She complains of pain in her buttocks. General Appearance: awake and alert Skin: Lymphedema bilateral lower extremity Cardiovascular: Regular Rate, Normal S1, Normal S2, No Murmurs Lungs: Clear lungs Abdomen: Mildly distended Extremities: 2+ edema, right foot wound Assessment Patient extubated. Noted mild drop in hemoglobin however no overt bleeding. She will benefit with some diuresis. At this point we'll continue to monitor CBC and titrate beta blockers based on blood pressure. Continue wound care. ultrasound of her left subclavian and axillary shows resolved DVT and she has a superficial cephalic vein thrombus. Patient is however not a candidate for further anticoagulation. Advised her to avoid NSAIDs and use 1 Tylenol every day when necessary pain. Currently she is having diarrhea and lactulose is on hold. C. difficile pending. Patient was evaluated previously for thrombocytopenia and leukopenia and was determined as hepatitis C and hypersplenism as possible cause. Further evaluation can be done as outpatient. Plan Check C. difficile Continue propranolol low-dose Lasix and home dose spironolactone Daily CBC, transfuse for hemoglobin less than 7 Incentive spirometry Out of bed to chair Follow consults recommendations STR placement Current Medications Sig/Marcin Start time Last Medication Dose Route Stop Time Status Admin Acetaminophen 650 MG ONCE ONE 11/21 1615 DC 11/21 PO 11/21 1616 1759 Furosemide 20 MG DAILY 11/19 1000 AC 11/21 PO 1203 Lactulose 20 GM BID 11/18 2200 AC 11/19 PO 1005 Melatonin 3 MG AT BEDTIME 11/20 2200 AC 11/21 PO 2209 Omeprazole 40 MG DAILY AC 11/19 0700 AC 11/22 PO 0616 Phosphate 250 MG PC AND AT BEDTIME 11/19 1300 AC 11/21 PO 1758 Propranolol HCl 20 MG TID 11/18 1715 AC 11/21 PO 2209 Spironolactone 25 MG DAILY 11/19 1000 AC 11/21 PO 1202 Vitamin A/Vitamin D 1 GALO BID 11/22 1000 AC TOP Zinc Oxide 1 GALO BID 11/22 1000 AC TOP Laboratory Tests 11/22 11/21 0623 1125 Chemistry TSH (0.270 - 4.200 uIU/mL) 1.740 Hematology CBC w Diff NO MAN DIFF REQ WBC (4.8 - 10.8 /CUMM) 2.9 L RBC (4.20 - 5.40 /CUMM) 3.31 L Hgb (12.0 - 16.0 G/DL) 8.1 L Hct (37 - 47 %) 25.8 L MCV (81.0 - 99.0 FL) 77.8 L MCH (27.0 - 31.0 PG) 24.6 L RDW (11.5 - 14.5 %) 21.5 H Plt Count (130 - 400 /CUMM) 93 L MPV (7.4 - 10.4 FL) 9.7 Gran % (42.2 - 75.2 %) 40.5 L Lymphocytes % (20.5 - 51.1 %) 35.8 Monocytes % (1.7 - 9.3 %) 14.2 H Eosinophils % (0 - 5 %) 8.7 H Basophils % (0.0 - 2.0 %) 0.8 Absolute Granulocytes (1.4 - 6.5 /CUMM) 1.2 L Absolute Lymphocytes (1.2 - 3.4 /CUMM) 1.0 L Absolute Monocytes (0.10 - 0.60 /CUMM) 0.4 Absolute Eosinophils (0.0 - 0.7 /CUMM) 0.3 Absolute Basophils (0.0 - 0.2 /CUMM) 0 PUBS MCHC (33.0 - 37.0 G/DL) 31.6 L Vital Signs Date Time Temp Pulse Resp B/P B/P Pulse O2 O2 Flow FiO2 Mean Ox Delivery Rate 11/22 0934 Room Air 2.0L 11/22 0918 Room Air 2.0L 11/22 0818 98.2 52 18 122/60 92 Room Air 11/22 0025 98.7 56 18 110/60 95 Room Air 11/22 0000 Room Air 11/21 1758 63 128/60 11/21 1543 97.4 58 18 108/56 96 Room Air 11/21 1430 Room Air 11/21 1207 50 100/48
--- NOTE | 2016-11-22 12:00 | Discharge Summary ---
Visit Information Visit Dates Admission Date: 11/14/16 Discharge Date: 11/22/16 Hospital Course Course Attending Physician: MAR WEAVER MD Primary Care Physician: OSKAR EMERY,[facility] Course: 76-year-old female with extensive past medical history includes pulmonary limited to chronic hepatitis c diagnosed in 2005, iron deficiency anemia, history of recent DVT started recentrly on Eliquis, h/o GI bleeeding, stage II esophageal varices, gastritis and liver cirrhosis, who presented to the ED for evaluation of sudden onset vomiting bright red blood mixed with blood clots with altered mental status. ED course: Vitals on admission temperature 98.0, pulse 90,Respiratory rate 22, blood pressure 108/61 on room air. Pertinent labs on admission :CBC 4.6, H/H 5.7/18.4, MCV 70.8, RDW 18.8, PLT 162, PT 14.5, INR 1.39, glucose 124, BUN/Cr 30/0.5, GFR > 60, Na 139, K 4.3, HCO3 22, AG 7, lactate 2.5 (2.1), Ca 7.6, albumin 2.4, globulin 2.5, TBil 0.5, alk phos 83, AST 45, ALT 44, normal amylase/lipase 32/68, NH3 85, troponin < .01, [EtOH] < 10, MELD- García 1/UNOS 10; U/A- hazy, yellow, 1.020, 6.0, 50-75 WBC, mod bact, mod epith, micro otherwise negative except trace protein, pos nitirite, neg esterase. EKG showed normal sinus rhythm with left axis deviation borderline QT prolongation Following problems were his chest while patient was in ICU 1. Acute upper GI bleed(variceal bleeding): Patient was admitted to ICU she was intubated to protect her airways given her altered mental status and multiple vomiting with upper GI bleed. Carotid GI consult was obtained and upper endoscopy with esophageal banding was done.Banded x 4 was performed, after which upper GI bleeding stopped. On admission hemoglobin was 5.7. She received X4 RBCs after which her hemoglobin improved. She was covered with proton pump inhibitor for GI prophylaxis throughout the admission. Given the multiple vomiting and chest x-ray finding suggestive of pneumonia, patient was covered with antibiotic for aspiration pneumonia. Her clinical condition improved and she was ultimately extubated Patient was seen by physical therapy in the hospital recommended to discharge to the STR on discharge patient was given instructions to see a solder cream maker within 1-2 week for repeat EGD to reassess varices and apply further banding until the varices are obliterated. Oral PPI were continued patient was advised to avoid any NSAIDs. Patient was also advised to follow-up with a solder cream maker for outpatient HCV treatment. 2. Chronic lower extremity edema including right leg ulcer: Wound consult was placed and their recommendation was followed. She is noncompliant and recently underwent a venous ablation of the leg. She did not return for follow-up. Patient was evaluated by vascular surgery during the hospitalization, recommended to continue with continue local wound care and treat with alginate, and wrap with Kerlix/Teodoro from foot- knee--PLEASE DO NOT PLACE TELFA ON THE WOUND. Patient was advised to follow-up with the wound center after the discharge. 3. Altered mental status on admission: It is suspected that change in mental status was likely secondary to opiates/ benzodiazepines. Patient did have elevated ammonia levels she was kept on lactulose enemas. Mental status improved during her stay in the hospital. Regular diet(mechanical soft regular than diet) Alps for DVT prophylaxis Full code Allergies: Coded Allergies: Penicillins (RASH 08/05/15) Sulfa (Sulfonamide Antibiotics) (UNKNOWN - PER PT SON 08/05/15) cephalexin (From KEFLEX) (RASH 07/27/16) clindamycin (UNKNOWN - PER PT SON 08/05/15) Significant Procedures: XAM TYPE: US - US-COMPLETE ABDOMEN EXAMINATION: US ABDOMEN COMPLETE CLINICAL INFORMATION: Check for ascites. Hepatitis C.. COMPARISON: 07/29/2016 TECHNIQUE: Real-time imaging of the abdominal viscera. FINDINGS: PANCREAS: Visualized portions of pancreas are unremarkable. Much of the pancreas is obscured by bowel gas. ABDOMINAL AORTA: The proximal segment is normal in caliber. INFERIOR VENA CAVA: Visualized portions are normal. LIVER: Heterogeneous echotexture compatible with fibrosis without a focal liver lesion. No intrahepatic biliary ductal dilatation. GALLBLADDER: The gallbladder has been removed. COMMON BILE DUCT: Normal in caliber measuring 0.4 cm in diameter. RIGHT KIDNEY: Normal. No hydronephrosis. No renal calculi or focal parenchymal lesions. The kidney measures 9.2 cm in maximum dimension. LEFT KIDNEY: Normal. No hydronephrosis. No renal calculi or focal parenchymal lesions. The kidney measures 9.9 cm in maximum dimension. SPLEEN: Mildly enlarged. The spleen measures 15.6 cm in maximum dimension. FREE FLUID: Trace ascites is demonstrated in the right and left upper quadrants. IMPRESSION: Small amount of ascites. Echogenic and coarsened liver compatible with fibrosis/cirrhosis. Mild splenomegaly. DICTATED BY: ENRIQUETA CINTRON MD DATE/TIME DICTATED:11/15/161203 BOARDING HOUSE MANAGER:LUBNA DATE/TIME TRANSCRIBED:11/15/161203 CONFIDENTIAL, DO NOT COPY WITHOUT APPROPRIATE AUTHORIZATION. <Electronically signed in Other Vendor System> SIGNED BY: ENRIQUETA CINTRON MD 05/22 1212 Endoscopy Procedure Medical History: unchanged Mental Status: alert/oriented Heart/Lung Eval Prior to Sedation: within normal limits Candidate for Sedation? Yes Procedure Date: 11/14/16 Procedure Type: EGD with esophageal variceal banding Die Cleaner: SANJAY EMERY,WEI Orozco ASA Classification: IV (IV-E) Indications: (*Please refer to GI consult from earlier today, 11/14/16). INDX: 76 y/o female, noncompliant, with untreated Hep C, cirrhosis, *hematemesis /UGI bleed, ex-Ibuprofen, anemia, pancytopenia, history of ascites. Instrument: diagnostic gastroscope, therapeutic gastroscope Meds Received: MAC Patient's Tolerance: good Complications: none Extent Reached: second part of duodenum Procedure: Upper endoscopy to the second portion of the duodenum with esophageal banding, was performed at the bedside in the [facility] (Room # 105), after prophylactic antibiotics (IV Cipro/Flagyl- PCN/cephalosporin allergic), and after prophylactic intubation by Dr. South (poor dentition preop, with no upper teeth and loose lower teeth), initially with the Olympus high definition single channel videoendoscope, switched back and forth to the Olympus high-definition double-channel video endoscope, after obtaining informed consent from the patient, with the director of cardiac rehabilitation and pulse oximeter, with the assistance of Dr. South, of [facility], & the GI RNs, Dalton Torres, and Salma. A mouthpiece was placed in the usual fashion to protect the patient's residual teeth. The patient was placed in the left lateral decubitus position and sedated & prophylactically intubated by [facility]. At this point, initially the single channel endoscope was advanced from the mouth into the esophagus, using direct visualization technique. The ET tube was seen entering the trachea. The vocal cords were obscured by this. There were no esophageal rings, webs, lesions, strictures, or ulcers. There was no monilia or vesicles. There was no esophageal ribbing. The Z line was well demarcated at 40 cm. There was no hiatal hernia pouch. No significant esophageal inflammation was seen. There were no ectopic islands, nor gross Castro's esophagus. There was no Danielle-Orr tear. There were approximately 3 columns of 2+ esophageal varices from 30-40 cm, some of which had a red kristin sign. Clots and blood were seen emanating near the GE junction. The GE junction was cleared by using the Y-iopsy water jet in an antegrade fashion. No definite gastric varices were seen, but a small portion of the gastric cardia was obscured by food and clots. The vast majority of the gastric cardia was cleared using the Cox Net, and most of the clots and food were deposited in the gastric antrum. The patient was carefully repositioned, but a small portion of the gastric cardia stool could not be completely cleared. The ni of the stomach distended normally with air insufflation. Direct and retroflexed views of the stomach were performed. There was nothing endoscopically to suggest gastroparesis or portal gastropathy. The remainder of the mucosa of the gastric cardia was normal. The mucosa of the fundus, lesser curvature, incisura, body, and antrum appeared normal, without any gastric ulcers or gastric lesions. The pylorus was patent, without any gastric outlet obstruction or channel ulcer. The duodenal bulb appeared normal except for some mild superficial nodularity, consistent with probable Isidro gland hypertrophy vs. gastric metaplasia, which was left intact. There were no ulcers in the duodenal bulb. I was not able to see the ampulla. The duodenal sweep appeared normal, without any duodenal ulcers, distal ulcerations, or angiodysplasias. The folds of the second portion of the duodenum were normal in caliber, without any flattening, nodularity, scalloping, or mosaic pattern. [place] through the procedure, the single channel endoscope was switched to the double-channel endoscope, in an attempt to clear the gastric cardia. *It appeared that the majority of the active upper GI bleeding had subsided, but as no other significant abnormalities were seen to the duodenal sweep, I had to assume that the patient's significant upper GI bleeding was from the esophageal varices. After clearing the gastric cardia as best as possible, a decision was made to band the esophageal varices. At this point, I switched back to the double-channel endoscope, using the Speed Band Super View Super 7 Multiple Band Ligator. Starting at approximately 40 cm in the esophagus, and working my way up, a total of 4 bands were placed in the distal esophagus. These deployed in excellent location. A fifth band did not deploy. No active bleeding was seen at this point. The patient tolerated the procedure well. There was no head and neck or chest wall crepitus postoperatively. She was maintained on the ventilator postoperatively, in case she has to be re-endoscoped tomorrow. Sedation will be ordered by the medical house staff. *Documenting photographs were placed inside the patient's chart. The above findings and recommendations were discussed with the patient's son, Bobby Villarreal, in the ICU, as well as with the medical house staff, postoperatively. Impression: 1. 3 columns of 2+ esophageal varices from 30-40 cm, a few with red kristin sign. Banded x 4. 2. Clots, blood, and food seen in gastric cardia, the majority cleared with the Cox Net. A small portion of the gastric cardia could not be inspected, despite repositioning the patient, while on the ventilator 3. Mild superficial nodularity in the duodenal bulb, Isidro gland hypertrophy vs. gastric metaplasia, left intact. 4. No active peptic ulcer disease seen. No Danielle-Orr tear. Recommendations: Maintain on ventilator (vent settings & sedation as per ICU team). NPO. 2 large-bore IVs. Transfuse to Hgb > 7 (do not overinflate varices; no documented history of ASHD). Continue IV Protonix drip and IV Octreotide drips (this may be overkill, & can adjust medications tomorrow). Maintain in ICU. Supplemental O2. *No NSAIDs. Panculture. Continue empiric IV Cipro/Flagyl for now (PCN/ cephalosporin-allergic; given for prophylaxis for variceal banding, & as well as to cover ascites, although no previous history of SBP). Advise CXR & abdominal sono. If positive ascites, please tap & send for gram stain, cell count, C&S ( previosly had chemistries & cytology sent from ascites). Outpatient [facility] per Dr. Moody, as patient allows. The patient will need outpatient hepatoma surveillance with serial AFP & RUQ sono Q 6 months, as she allows. Advise Hepatitis A booster shot (the patient is immune to Hep B), annual flu shot, and Pneumovax, if applicable. Avoid hepatotoxins. Keep Tylenol use to a minimum. The patient most likely will need resumption of non-selective beta blockers and diuretics as an outpatient, as she allows. Dr. Moody will assume the patient's GI care at [facility] on 11/15/16. Consideration for repeat EGD on 11/15/2016, while on vent. Further recommendation to follow, depending on clinical course. The above was discussed with the medical housestaff & with the patient's son, Bobby Villarreal in the ICU, postoperatively. CC: MALDONADO GIBBS MD; DEAN SCHMITT MD; FRANK MOODY MD DICTATED BY: WEI GRACE MD DATE/TIME DICTATED:11/14/161717 BOARDING HOUSE MANAGER:PATRICIO DATE/TIME TRANSCRIBED:11/14/161717 REPORT NUMBER:[id number] CONFIDENTIAL, DO NOT COPY WITHOUT APPROPRIATE AUTHORIZATION. <Electronically signed by WEI GRACE MD> 11/14/16 4029 CC: WEI GRACE MD; MALDONADO GIBBS MD; DEAN SCHMITT MD Report Status: Signed Report #: [id number] Page[p pg] EXAM TYPE: RAD - XRY-PORTABLE CHEST XRAY EXAMINATION: XR PORTABLE CHEST CLINICAL INFORMATION: Intubated COMPARISON: 11/14/2016 TECHNIQUE: Portable frontal view of the chest was obtained. FINDINGS: An endotracheal tube terminates 3.4 cm above the buzz. The cardiomediastinal silhouette is stable with central pulmonary vascular prominence accentuated by supine technique. Bilateral perihilar prominence, similar to the prior given differences in technique. Hazy airspace opacification within the left lung appears slightly more extensive than on the prior study. A layering left-sided pleural effusion is suspected. No definitive right-sided consolidation is visualized. No defined pneumothorax on this supine study. IMPRESSION: Endotracheal tube terminating 3.4 cm above the buzz. Hazy opacification overlying the left lung appears slightly more extensive than on the prior study, which is suspected to be a combination of airspace opacification and pleural fluid. DICTATED BY: ITZEL KENYON MD DATE/TIME DICTATED:11/15/161133 BOARDING HOUSE MANAGER:LUBNA DATE/TIME TRANSCRIBED:11/15/161133 CONFIDENTIAL, DO NOT COPY WITHOUT APPROPRIATE AUTHORIZATION. <Electronically signed in Other Vendor System> SIGNED BY: ITZEL KENYON MD 11/15/16 1142 Disposition Summary Disposition Principal Diagnosis: Acute upper GI bleed(variceal bleeding) Additional Diagnosis: Chronic lower extremity edema including right leg ulcer Discharge Disposition: SNF Discharge Instructions General Discharge Information Code Status: Full Code Patient's Diet: Regular diet(mechanical soft regular than diet) Patient's Activity: As tolerated Follow-Up Instructions/Appts: Follow-up with GI as outpatient, patient will need treatment of hepatitis C virus as an outpatient. You will need a repeat EGD in 1-2 weeks to reassess the lower arises and apply further banding. Avoid NSAIDS, continue PPI Please continue to follow with GI after discharge. Please follow up with the primary care within 1 week of discharge. Medications at Discharge Discharge Medications: Stop taking the following medications: Apixaban (Eliquis) 2.5 MG TABLET ORAL TWICE DAILY Qty = 60 Continue taking these medications: Ferrous Sulfate (IRON) 325 MG (65 MG IRON) TABLET 1 Tablet ORAL THREE TIMES DAILY Qty = 90 Potassium Chloride (Klor-Con) 20 MEQ PACKET 1 Packet ORAL DAILY Qty = 14 Propranolol HCl (Propranolol HCl) 10 MG TABLET 0.5 Tablet ORAL DAILY Qty = 30 Instructions: Please monitor blood pressure and heart rate twice a day for 1 week. Send the results to your PCP and he will adjust the dose of this medication moving forward Furosemide (Furosemide) 20 MG TABLET 1 Tablet ORAL DAILY Qty = 30 Spironolactone (Spironolactone) 25 MG TABLET 1 Tablet ORAL DAILY Qty = 30 Copies To: DEAN SCHMITT MD
[2016-11-22 15:48] VITALS: BP 114/54
[2016-11-22 16:06] VITALS: BP 114/54
== END 2016-11-22 16:30 | DRG 432 ==
LOC: ERH 07:30 → 1NO 08:38 → ERHI 08:38 → CRI 08:38 → ENRESERV 10:29 → CRI 11:18 → 1NO 11-19 23:56 → ENPENDDIS 11-22 15:55 → 1NO 11-22 16:30
PROVIDERS: Emergency Medicine; Internal Medicine; Internal Medicine Adolescent Medicine; Student in an Organized Health Care Education/Training Program; ADMIT Internal Medicine
PROC: 06L34CZ Occlusion of Esophageal Vein with Extraluminal Device, Percutaneous Endoscopic Approach (ICD-10-PCS; principal; 2016-11-14)
PROC: 5A1945Z Respiratory Ventilation, 24-96 Consecutive Hours (ICD-10-PCS; 2016-11-14)
PROC: 0BH17EZ Insertion of Endotracheal Airway into Trachea, Via Natural or Artificial Opening (ICD-10-PCS; 2016-11-14)
PROC: 30233N1 Transfusion of Nonautologous Red Blood Cells into Peripheral Vein, Percutaneous Approach (ICD-10-PCS; 2016-11-15)
DX: K74.60 Unspecified cirrhosis of liver (principal); I85.11 Secondary esophageal varices with bleeding; J69.0 Pneumonitis due to inhalation of food and vomit; J96.90 Respiratory failure, unspecified, unspecified whether with hypoxia or hypercapnia; E46 Unspecified protein-calorie malnutrition; D61.818 Other pancytopenia; E72.20 Disorder of urea cycle metabolism, unspecified; R18.8 Other ascites; K72.00 Acute and subacute hepatic failure without coma; D62 Acute posthemorrhagic anemia; L97.319 Non-pressure chronic ulcer of right ankle with unspecified severity; I82.619 Acute embolism and thrombosis of superficial veins of unspecified upper extremity; D68.9 Coagulation defect, unspecified; I50.9 Heart failure, unspecified; I83.013 Varicose veins of right lower extremity with ulcer of ankle; B18.2 Chronic viral hepatitis C; Z91.19 Patient's noncompliance with other medical treatment and regimen; F41.9 Anxiety disorder, unspecified; Z86.718 Personal history of other venous thrombosis and embolism; Z87.891 Personal history of nicotine dependence; I11.0 Hypertensive heart disease with heart failure; E04.1 Nontoxic single thyroid nodule; E66.9 Obesity, unspecified; Z68.34 Body mass index [BMI] 34.0-34.9, adult
CPT/HCPCS: 1NP; 87184; CCU; 36415; 80307; 81001; 82436; 86902; 86920; 86922; 87040; 87070; 87086; 87147; 93005; 93010; 96374; 97161-GP; 97530-GO; 99291; C1769; G0480; J0131; J0696; J0744; J1940; J2060; J2310; J2354; J2405; J7040; J7060; P9016

== ENCOUNTER 2017-10-26 11:03 | Inpatient (IN) | payer OTHER, MEDICARE ==
[~2017-10-26] VITALS: Ht 167.6 cm; Wt 81.6 kg
[~2017-10-26 11:03] MED LIST changes: +CIPRO500 M1 PO; +FLAGYL500 MG PO; +IBUPROFEN400 M1 PO; +KEFLEX500 M1 PO; +KRISTALOSE10 GM PO; +MULTIVITAMINS1 EAC9 PO; +OMEPRAZOLE40 M1 PO; +PROMOD946 ML PO; +XIFAXAN550 M1 PO
--- NOTE | 2017-10-26 11:28 | ED GENERAL ADULT ---
History of Present Illness General Chief Complaint: Low Back Pain/Injury Stated Complaint: BIBA CHRONIC LOW BACK PAIN Source: patient, family Exam Limitations: no limitations Vital Signs & Intake/Output Vital Signs & Intake/Output Vital Signs Date Time Temp Pulse Resp B/P B/P Pulse O2 O2 Flow FiO2 Mean Ox Delivery Rate 10/26 1456 98.3 63 20 144/60 96 Room Air 10/26 1316 98.0 62 20 140/60 100 Room Air 10/26 1104 98.3 68 20 168/96 97 Room Air Allergies Coded Allergies: Penicillins (RASH 08/05/15) Sulfa (Sulfonamide Antibiotics) (UNKNOWN - PER PT SON 08/05/15) cephalexin (From KEFLEX) (RASH 07/27/16) clindamycin (UNKNOWN - PER PT SON 08/05/15) Reconcile Medications Furosemide 20 MG TABLET 1 TAB PO DAILY Fluid overload Levofloxacin 750 MG TABLET 1 TAB PO DAILY PYELO Omeprazole 40 MG CAPSULE.DR 1 CAP PO DAILY GI (Reported) Propranolol HCl 10 MG TABLET 0.5 TAB PO DAILY Gastric varices Please monitor blood pressure and heart rate twice a day for 1 week. Send the results to your PCP and he will adjust the dose of this medication moving forward Spironolactone 25 MG TABLET 1 TAB PO DAILY Fluid balance Triage Note: PT BIBA FROM HOME FOR C/O CHRONIC BACK PAIN. PT STATES THE PAIN IS SO BAD SHE IS UNABLE TO AMBULATE. DENIES ANY RECENT FALL OR INJURY. PT WITH B/L LE DRESSED WOUNDS, STATES VISITING NURSES WERE AT HER HOUSE THIS AM AND PLACED DRESSINGS. PT APPEARS UNKEPT. A/OX3. VSS. AWAITING PROVIDER EVAL. Triage Nurses Notes Reviewed? yes HPI: Patient is a 77-year-old female with past history of nonalcoholic liver cirrhosis and hepatitis with prior esophageal varices requiring endoscopic intervention, who presents today with back/flank pain. She reports that she is prescribed furosemide but has been missing dosages recently because of the frequency of her urination and her desire to decrease the frequency. She localizes the pain to the right lateral chest wall. She denies any fall or trauma, nor does she have any chest pain, tremors breath, fever, hematuria, or other such features. She reports that she takes acetaminophen daily despite her hepatitis, which was cleared by her physician as the lesser of two evils since she cannot take ibuprofen because of her varices. She takes only 150 mg of acetaminophen approximately 4 times daily, placing her well below the toxic threshold. Past History Travel History Traveled to [place] past 21 day No Medical History Any Pertinent Medical History? 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 , Age 84; Cause: Renal cell cancer. MOTHER, , Age 74; Cause: CVA (cerebrovascular accident due to intracerebral hemorrhage). Hx Contributory? Yes Review of Systems Review of Systems Constitutional: Reports: see HPI. EENTM: Reports: no symptoms. Respiratory: Reports: no symptoms. Cardiovascular: Denies: chest pain, orthopena, palpitations, peripheral edema. GI: Denies: abdominal pain, bloating, constipation, diarrhea, bowel incontinence, melena, nausea, vomiting. Genitourinary: Reports: no symptoms. Musculoskeletal: Reports: see HPI, back pain. Skin: Reports: no symptoms. Neurological/Psychological: Reports: no symptoms. Hematologic/Endocrine: Reports: no symptoms. Immunologic/Allergic: Reports: no symptoms. All Other Systems: Reviewed and Negative Physical Exam Physical Exam General Appearance: anxious, mild distress Comments: HEENT: Inspection of the head reveals a normocephalic cranium with no signs of trauma. Ophtho: Extraocular muscles are intact and pupils are equal and reactive to light bilaterally with no afferent pupillary defect. The sclera are noninjected , and there is no obvious discharge. Neck: The trachea is midline, there is no obvious asymmetry or mass over the thyroid, and there is no midline cervical spine tenderness Respiratory: The lungs are clear and equal to auscultation bilaterally without wheezes, rales, or rhonchi. The patient exhibits no signs of labored breathing. Cardiac: Regular rhythm and non-tachycardic. Low-grade systolic ejection murmur. No obvious JVD. Chest wall: The patient's tenderness is most well localized to the posterior lateral aspect of the thoracic cage just below the level of the inframammary fold. GI: Examination of the abdomen reveals no significant focal tenderness in any of the four quadrants. Specifically, palpation of the right upper quadrant reveals no tenderness of the liver. There is negative Radford's sign, negative McBurney' s point tenderness, negative Mukund sign, negative Ramírez-Ortiz sign, and no signs of peritonitis whatsoever on percussion or deep palpation. The skin is intact with no sign of trauma or infection. : Deferred Musculoskeletal: Right-sided flank pain does not directly over the CVA but in that region. No midline thoracolumbar pain. Neuro: The patient is oriented to person, place, time, and situation, with no obvious focal motor deficits. There were no sensory deficits, and the patient exhibit purposeful movement of all 4 extremities. Cranial nerves II through XII are intact, and gait is normal. Behavioral: Calm and cooperative Dermatologic: Dermatologic examination reveals no diffuse rashes or exanthems, no petechiae, no ecchymoses, and no other signs of erythema or infection. Core Measures ACS in differential dx? Yes CVA/TIA Diagnosis: No Sepsis Present: No Sepsis Focused Exam Completed? No Progress Differential Diagnoses I considered the following diagnoses in my evaluation of the patient: Pneumonia, rib contusion, intercostal muscle sprain, acute coronary syndrome, hepatitis/ liver pain, UTI, pyelonephritis, ureterolithiasis Plan of Care: Orders Procedure Date/time Status EKG 10/26 1147 Active URINALYSIS 10/26 1127 Complete COMPREHENSIVE METABOLIC PANEL 10/26 112 Complete CBC WITHOUT DIFFERENTIAL 10/26 112 Complete Current Medications Sig/Marcin Start time Last Medication Dose Stop Time Status Admin Ciprofloxacin 400 MG ONCE ONE 10/26 1545 UNir (Cipro) 10/26 1546 Laboratory Tests 10/26/17 1206: Urine Color YEL, Urine Clarity HAZY H, Urine pH 6.5, Ur Specific [place] 1.020, Urine Protein 30 H, Urine Ketones NEG, Urine Nitrite NEG, Urine Bilirubin NEG, Urine Urobilinogen 0.2, Ur Leukocyte Esterase LARGE H, Ur Microscopic SEDIMENT EXAMINED, Urine RBC 1-3, Urine WBC > 75 H, Ur Epithelial Cells RARE, Urine Bacteria MANY H, Urine Hemoglobin SMALL H, Urine Glucose NEG 10/26/17 1004: Anion Gap 8, Estimated GFR > 60, BUN/Creatinine Ratio 18.6, Glucose 109 H, Calcium 8.0 L, Total Bilirubin 0.7, AST 38 H, ALT 23, Alkaline Phosphatase 102 , Total Protein 6.9, Albumin 2.9 L, Globulin 4.0, Albumin/Globulin Ratio 0.7 L , CBC w Diff NO MAN DIFF REQ, RBC 3.78 L, MCV 77.5 L, MCH 25.3 L, MCHC 32.7 L, RDW 17.1 H, MPV 9.0, Gran % 63.1, Lymphocytes % 19.9 L, Monocytes % 11.1 H , Eosinophils % 5.4 H, Basophils % 0.5, Absolute Granulocytes 2.0, Absolute Lymphocytes 0.6 L, Absolute Monocytes 0.4, Absolute Eosinophils 0.2, Absolute Basophils 0 Initial ED EKG: ekg PERFORMED AT 12:00 pm READ AT 12:02 pm, NORMAL SINUS RHYTHM AT A RATE OF 62 BPM WITH LEFTWARD AXIS. pr INTERVAL, qrs, AND qtC INTERVALS, ALL UNREMARKABLE. t WAVES NORMAL, NO st SEGMENT ABNORMALITIES, NO CHANGE SINCE 04/09/2017. nO stemi. Comments: PATIENT: OTONIEL SANCHES PRESENT AGE: 77 PATIENT ACCOUNT NO: [id number] : 42 LOCATION: [facility], [place] ORDERING PHYSICIAN: Sridhar Bah DO SERVICE DATE: 10/26/17 EXAM TYPE: RAD - XRY-RIBS UNILATERAL-RIGHT EXAMINATION: XR RIBS, RIGHT CLINICAL INFORMATION: Pain. Evaluate for rib fracture. COMPARISON: CXR from 11/20/2016 TECHNIQUE: Right ribs, 3 views FINDINGS: The right lung is well expanded and clear with exception of a thin, linear focus of scar in the lateral aspect of the right midlung. No pulmonary edema, consolidation or pleural effusion. Cardiac silhouette is mildly enlarged. The aortic arch is slightly uncoiled. The right-sided ribs are intact. No evidence of a lytic or blastic rib lesion. No acute, displaced rib fracture. IMPRESSION: 1. No acute pulmonary disease. 2. The right-sided ribs are unremarkable. Specifically, no evidence of an acute rib fracture. DICTATED BY: Ivan Magdaleno MD DATE/TIME DICTATED:10/26/171210 DATA SCIENCES DIRECTOR:LUBNA DATE/TIME TRANSCRIBED:10/26/171210 CONFIDENTIAL, DO NOT COPY WITHOUT APPROPRIATE AUTHORIZATION. <Electronically signed in Other Vendor System> SIGNED BY: Ivan Magdaleno MD 10/26/178 Departure Departure Time of Disposition: 1535 Disposition: STILL A PATIENT Condition: Fair Clinical Impression Primary Impression: UTI (urinary tract infection) Qualifiers: Urinary tract infection type: acute cystitis Hematuria presence: without hematuria Qualified Code: N30.00 - Acute cystitis without hematuria Secondary Impressions: Weakness Referrals: Claudette Palomares MD Departure Forms: Customer Survey General Discharge Information Prescriptions: Current Visit Scripts Levofloxacin 1 TAB PO DAILY #7 TAB Admission Note Spoke With: Nelli EMERY,Rachel Documentation of Exam: Documentation of any treatments & extenuating circumstances including Concerns Regarding Discharge (functional status, medication knowledge or non-compliance, living conditions, etc.) that warrant an admission rather than observation: Patient presented today for flank pain and urinary frequency. Urinalysis shows obvious UTI, and flank pain seems to correlate with her costovertebral angle region. Noted to rule out infected ureterolithiasis I obtained a CT scan which was negative, showing only her chronic disease processes. Rib series obtained prior to that showed no rib fractures. Laboratory studies were largely unremarkable. We attempted to ambulate the patient in the hopes that she could be discharged with oral antibiotics, however she did very poorly. She was able to only shuffle a few feet and required full assistance. I feel that she represents an unsafe discharge and an unacceptably high fall risk. She will require hospitalization for IV antibiotics, physical therapy, and case management for possible placement as she is weak secondary to her UTI and far off of her functional baseline. Hospitalized in fair condition, hemodynamically stable. Critical Care Note Critical Care Note Critical Care Time: non-applicable
--- NOTE | 2017-10-26 12:18 | RADIOLOGY REPORT ---
EXAMINATION: XR RIBS, RIGHT CLINICAL INFORMATION: Pain. Evaluate for rib fracture. COMPARISON: CXR from 11/20/2016 TECHNIQUE: Right ribs, 3 views FINDINGS: The right lung is well expanded and clear with exception of a thin, linear focus of scar in the lateral aspect of the right midlung. No pulmonary edema, consolidation or pleural effusion. Cardiac silhouette is mildly enlarged. The aortic arch is slightly uncoiled. The right-sided ribs are intact. No evidence of a lytic or blastic rib lesion. No acute, displaced rib fracture. IMPRESSION: 1. No acute pulmonary disease. 2. The right-sided ribs are unremarkable. Specifically, no evidence of an acute rib fracture.
[2017-10-26 12:22] LABS: ABSOLUTE BASOPHIL COUNT 0 /CUMM (0.0-0.2); ABSOLUTE EOSINOPHIL COUNT 0.2 /CUMM (0.0-0.7); ABSOLUTE LYMPH COUNT 0.6 /CUMM (1.2-3.4); ABSOLUTE MONOCYTE COUNT 0.4 /CUMM (0.10-0.60); BASOPHIL % 0.5 % (0.0-2.0); EOSINOPHIL % 5.4 % (0-5); GRANULOCYTE % 63.1 % (42.2-75.2); HEMATOCRIT 29.3 % (37-47); MEAN CORPUSCULAR HGB 25.3 PG (27.0-31.0); MEAN CORPUSCULAR HGB CONC 32.7 G/DL (33.0-37.0); MEAN CORPUSCULAR VOLUME 77.5 FL (81.0-99.0); PLATELET COUNT 125 /CUMM (130-400); RBC DISTRIBUTION WIDTH 17.1 % (11.5-14.5); RED BLOOD CELL CT 3.78 /CUMM (4.20-5.40); WHITE BLOOD CELL COUNT 3.2 /CUMM (4.8-10.8)
[2017-10-26] MEDS ORDERED: LEVOFLOXACIN750 M1 PO (13:46)
--- NOTE | 2017-10-26 14:26 | CT SCAN REPORT ---
EXAMINATION: CT ABDOMEN AND PELVIS WITHOUT CONTRAST CLINICAL INFORMATION: Right flank pain and pyuria. COMPARISON: 04/09/2017 TECHNIQUE: Multidetector volumetric imaging was performed from the superior aspect of the liver through the pubic symphysis. Sagittal and coronal reformatted images were obtained on the technologist's workstation. DLP: 817 mGy-cm FINDINGS: LUNG BASES: Trace bilateral pleural effusions. The left pleural effusion has decreased compared to 04/09/2017. Scattered linear, hazy opacities of mild atelectasis in lung bases. Cardiomegaly (dilated left atrium) and atherosclerotic calcification of coronary arteries. LIVER, GALLBLADDER, AND BILIARY TREE: No acute findings. No focal hepatic lesion or intrahepatic bile duct dilatation. Gallbladder is surgically absent. PANCREAS: No acute findings. SPLEEN: Large spleen measures up to 15 cm AP and 16.4 cm craniocaudal. No focal splenic lesion. ADRENAL GLANDS: Unremarkable. KIDNEYS AND URETERS: Kidneys have normal size, cortical thickness and cortical attenuation. No nephrolithiasis or hydroureteronephrosis. There are peripelvic cysts of the left kidney. BLADDER: There is borderline circumferential wall thickening of the urinary bladder. No bladder calculi. GASTROINTESTINAL TRACT: Stomach is underdistended. Loops of bowel are normal in caliber. Abdominal ascites has nearly completely resolved. There is residual haziness/edema of the mesentery. ABDOMINAL WALL: Minimal fat and fluid within the umbilicus. No significant hernia. LYMPH NODES: Overall, no significant interval change in previous noted lymphadenopathy. Again noted are large retroperitoneal lymph nodes, largest measuring 1.3 cm short axis dimension, unchanged. A prominent portacaval lymph node is 1.3 cm AP. There are chronically enlarged iliac chain lymph nodes in the pelvis. A deep right inguinal lymph node is 1.8 cm short axis dimension, compared to 1.6 cm on 04/09/2017. Again noted are multiple mildly enlarged lymph nodes within the mesentery. VASCULAR: Mild atherosclerosis of the abdominal aorta and iliac arteries without aneurysm. PELVIC VISCERA: The uterus is grossly unremarkable. No adnexal mass. Small amount of free fluid is present in the pelvis. OSSEOUS STRUCTURES: Mild dextrocurvature of the degenerated lumbar spine. Chronic multilevel degenerative disc disease and facet arthropathy. No aggressive osseous lesions. IMPRESSION: 1. Anasarca has improved compared to 04/09/2017. 2. Chronic cirrhosis and splenomegaly. 3. Borderline thickening of the urinary bladder wall without bladder calculi. Given history of pyuria, a mild cystitis is not excluded. No evidence of nephrolithiasis or upper urinary tract obstruction. 4. Chronic lymphadenopathy within the abdomen and pelvis.
--- NOTE | 2017-10-26 16:35 | Admission Certification ---
Admission Certification Certification Statement - As attending physician, I certify that at the time of - admission, based on clinical presentation, severity of - symptoms, need for further diagnostic testing and - therapeutic interventions, and risk of adverse outcomes - without in-hospital treatment, in my clinical assessment, - this patient requires an acute hospital stay for a minimum - of two nights or longer. I have also considered psychsocial - factors such as support system, advanced age, financial - issues, cognitive issues, and failed out-patient treatments, - past re-admission history, safety of patient, and lack of - compliance as applicable. Specific rationale supporting this admission is: Back pain and inability to ambulate and thrombo cytopenia
--- NOTE | 2017-10-26 16:41 | PN- Att Addend ---
Attending Addendum Attending Brief Note Patient seen and examined in the emergency room. Patient's son was at the bedside. Plan of care discussed with the medical team and the patient. Available lab work and radiology test reports were reviewed. Patient is 77-year -old female with history of a nonalcoholic steatosis and liver cirrhosis with ascites who presents with the gradually worsening mid back pain mostly felt in right flank area and right lower posterior rib cage without any history of trauma. Patient does not report any fever chills nausea vomiting any difficulty breathing chest pain. She does not report any weight loss and her appetite has been good. She was ablated in ED with the hope of going home however she was not able to ambulate. Allergies Coded Allergies: Penicillins (RASH 08/05/15) Sulfa (Sulfonamide Antibiotics) (UNKNOWN - PER PT SON 08/05/15) cephalexin (From KEFLEX) (RASH 07/27/16) clindamycin (UNKNOWN - PER PT SON 08/05/15) Reconcile Medications Furosemide 20 MG TABLET 1 TAB PO DAILY Fluid overload Levofloxacin 750 MG TABLET 1 TAB PO DAILY PYELO Omeprazole 40 MG CAPSULE.DR 1 CAP PO DAILY GI (Reported) Propranolol HCl 10 MG TABLET 0.5 TAB PO DAILY Gastric varices Please monitor blood pressure and heart rate twice a day for 1 week. Send the results to your PCP and he will adjust the dose of this medication moving forward Spironolactone 25 MG TABLET 1 TAB PO DAILY Fluid balance Medical History Any Pertinent Medical History? 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 , Age 84; Cause: Renal cell cancer. MOTHER, , Age 74; Cause: CVA (cerebrovascular accident due to intracerebral hemorrhage). Exam: General: Patient awake alert oriented without any distress CVS: S1 plus S2 without any murmur or gallops Chest: Few scattered crepitation without any wheeze. There is no respiratory distress. 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 without any focal neuro deficit and follows commands appropriately Extremities: No edema; no clubbing or cyanosis noted Laboratory Tests 10/26/17 1206: Urine Color YEL, Urine Clarity HAZY H, Urine pH 6.5, Ur Specific [place] 1.020, Urine Protein 30 H, Urine Ketones NEG, Urine Nitrite NEG, Urine Bilirubin NEG, Urine Urobilinogen 0.2, Ur Leukocyte Esterase LARGE H, Ur Microscopic SEDIMENT EXAMINED, Urine RBC 1-3, Urine WBC > 75 H, Ur Epithelial Cells RARE, Urine Bacteria MANY H, Urine Hemoglobin SMALL H, Urine Glucose NEG 10/26/17 1004: Anion Gap 8, Estimated GFR > 60, BUN/Creatinine Ratio 18.6, Glucose 109 H, Calcium 8.0 L, Total Bilirubin 0.7, AST 38 H, ALT 23, Alkaline Phosphatase 102 , Total Protein 6.9, Albumin 2.9 L, Globulin 4.0, Albumin/Globulin Ratio 0.7 L , CBC w Diff NO MAN DIFF REQ, RBC 3.78 L, MCV 77.5 L, MCH 25.3 L, MCHC 32.7 L, RDW 17.1 H, MPV 9.0, Gran % 63.1, Lymphocytes % 19.9 L, Monocytes % 11.1 H , Eosinophils % 5.4 H, Basophils % 0.5, Absolute Granulocytes 2.0, Absolute Lymphocytes 0.6 L, Absolute Monocytes 0.4, Absolute Eosinophils 0.2, Absolute Basophils [address] CT abd 1. Anasarca has improved compared to 04/09/2017. 2. Chronic cirrhosis and splenomegaly. 3. Borderline thickening of the urinary bladder wall without bladder calculi. Given history of pyuria, a mild cystitis is not excluded. No evidence of nephrolithiasis or upper urinary tract obstruction. 4. Chronic lymphadenopathy within the abdomen and pelvis. Rib xray 1. No acute pulmonary disease. 2. The right-sided ribs are unremarkable. Specifically, no evidence of an acute rib fracture. 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 There is no evidence of any UTI or pyelonephritis * Repeat CBC tomorrow * Replace phosphorus by mouth * Check reticulocyte count * Consider a short course of iron sulfate given low iron and ferritin level * PT evaluation * Continue home medication * Lidocaine patch to right chest; can add low-dose Neurontin 100 mg 3 times a day; add Ultram for pain control when necessary; avoid Tylenol and Motrin
--- NOTE | 2017-10-26 17:34 | History & Physical ---
See Addendum General Information and HPI MD Statement: I have seen and personally examined OTONIEL SANCHES and documented this H&P. 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 She comes to us for right sided mid back pain that began 2 days ago. She states that the pain started "suddenly". She denies any injury of the area. Denies any recent falls, usually ambulates with two canes short distances. Admits to increased pain on movement and walking, no increased pain on inspiration. She states that around the time the pain began, she felt that she had "a cold coming on". Due to the back pain it is hard for her to cough, but when she does, she is able to produce clear sputum. Due to the position of the pain (at the level of the liver) and her liver disease, she became worried and came to the ED. She has had decreased sleep the last couple days due to the pain. She denies any other pain. The patient has had blood transfusions in 1986 and 1992, the first for "burst leg vein". She notes family history of vascular issues in the legs. She contracted hep C and unfortunately, cirrhosis leading to generalized anasarca on and off and esophageal varicies. The patient had her esophageal varicies treated back in November 2016. She had a massive GI bleed at the time, was in the ICU at [facility]. She received multiple units of blood. Afterwards, she went to rehab for some time and had a home physical therapist until August of this year. With the cold weather, she admits that she became less active. Currently she notes that she is "very weak" and that her son, who lives with her, helps her with most everything. She uses canes but also a wheelchair when needed. The last time she ambulated was two days ago, she stopped secondary to the pain. The patient was taking spironolactone and lasix for chronic lower extremity edema/anasarca and reported CHFuntil about a month ago when she stopped both. Apparently she was having incontinence and soiling herself so stopped lasix so she would urinate less. However the increased urination did not stop, patient did soil herself on interview. She denies hematuria or dysuria. She notes that she is dehydrated but attributes that to her not liking water. She has not noticed increased swelling but states she has been trying to elevate her feet every night. Her nurse changes her lower leg bandages every other day and she follows up with the wound center here at [facility]. She admits to orthopnea, is not on any home oxygen. No CPAP. She notes normal stool but increased mucus, no blood. No nausea or vomiting, no chills, fever, diaphoresis. The patient also notes that she has had some problems with choking on food but does ok with peas (and other small bite foods). Her son says that it is due to her teeth but she does also admit to issues with initiating swallow as well. She notes that she has been eating less recently "because i need to pay the electric" but still notes she gets adequate nutrition. Allergies/Medications Allergies: Coded Allergies: Penicillins (RASH 08/05/15) Sulfa (Sulfonamide Antibiotics) (UNKNOWN - PER PT SON 08/05/15) cephalexin (From KEFLEX) (RASH 07/27/16) clindamycin (UNKNOWN - PER PT SON 08/05/15) Home Med list Furosemide 20 MG TABLET 1 TAB PO DAILY Fluid overload Omeprazole 40 MG CAPSULE.DR 1 CAP PO DAILY GI (Reported) Propranolol HCl 10 MG TABLET 0.5 TAB PO DAILY Gastric varices Please monitor blood pressure and heart rate twice a day for 1 week. Send the results to your PCP and he will adjust the dose of this medication moving forward Spironolactone 25 MG TABLET 1 TAB PO DAILY Fluid balance Compliance With Home Meds: POOR Past History Travel History Traveled to [place] past 21 day No Medical History Neurological: NONE EENT: NONE Cardiovascular: CHF, chronic venous insuff, hypertension, RHEUMATIC FEVER Respiratory: NONE Gastrointestinal: ESOPHAGEAL VARICES Hepatic: cirrhosis, hepatitis C Renal: NONE Psychiatric: anxiety Endocrine: THYROID NODULES Blood Disorders: anemia, coagulopathy (mild (cirrhotic)), DVT (LUE), pancytopenia Cancer(s): NONE 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 , Age 84; Cause: Renal cell cancer. MOTHER, , Age 74; Cause: CVA (cerebrovascular accident due to intracerebral hemorrhage). Psychosocial History Who Do You Live With? child (son, Bobby Sanches) Services at Home: Nursing Primary Language: Azeri ETOH Use: denies use Illicit Drug Use: denies illicit drug use Living Will? no Power of Associate Store Director/HCP? no Functional Ability ADLs Independent: dressing, eating, toileting. Unknown: bathing. Ambulation: cane (2 quad canes) IADLs Independent: finances, food prep, telephone, medication admin. Needs Assist: shopping, housework, transportation. Review of Systems Review of Systems Constitutional: Reports: weakness. EENTM: Reports: no symptoms. Cardiovascular: Reports: orthopena. Respiratory: Reports: cough, orthopnea, sputum production. GI: Reports: no symptoms. Genitourinary: Reports: frequency. Musculoskeletal: Reports: back pain, muscle pain. Skin: Reports: no symptoms. Neurological/Psychological: Reports: no symptoms. Hematologic/Endocrine: Reports: no symptoms. Immunologic/Allergic: Reports: no symptoms. All Other Systems: Reviewed and Negative Exam & Diagnostic Data Last 24 Hrs of Vital Signs/I&O Vital Signs Date Time Temp Pulse Resp B/P B/P Pulse O2 O2 Flow FiO2 Mean Ox Delivery Rate 10/26 1701 98.0 68 18 131/60 96 Room Air 10/26 1456 98.3 63 20 144/60 96 Room Air 10/26 1316 98.0 62 20 140/60 100 Room Air 10/26 1104 98.3 68 20 168/96 97 Room Air Intake & Output 10/26 1600 10/26 0800 10/26 0000 Intake Total 100 Output Total Balance 100 Intake, IV 100 Patient 170 lb Weight Weight Reported by Patient Measurement Method Physical Exam General Appearance Alert, Oriented X3, Cooperative, No Acute Distress Skin No Rashes, No Significant Lesion, Back pain right sided, questionably worse on palpation. no rash, no pain on light touch. no open wound. pain on movement. no pain on inspiration. Skin Temp/Moisture Exam: Warm/Dry Sepsis Skin Exam (color): Normal for Ethnicity HEENT Atraumatic, PERRLA, EOMI, Mucous Membr. moist/pink Neck Supple Cardiovascular Regular Rate, Normal S1, Normal S2, No Murmurs Lungs Clear to Auscultation, Normal Air Movement Abdomen Normal Bowel Sounds, Soft, mild tenderness throughout Neurological Normal Speech Extremities No Clubbing, No Cyanosis, lower extremity swelling, bandages, open wounds. normal motor and sensation. Vascular Normal Pulses, Pulses Symmetrical Last 24 Hrs of Labs/Gui: Laboratory Tests 10/26/17 1206: Urine Color YEL, Urine Clarity HAZY H, Urine pH 6.5, Ur Specific Carlyle 1.020, Urine Protein 30 H, Urine Ketones NEG, Urine Nitrite NEG, Urine Bilirubin NEG, Urine Urobilinogen 0.2, Ur Leukocyte Esterase LARGE H, Ur Microscopic SEDIMENT EXAMINED, Urine RBC 1-3, Urine WBC > 75 H, Ur Epithelial Cells RARE, Urine Bacteria MANY H, Urine Hemoglobin SMALL H, Urine Glucose NEG 10/26/17 1004: Anion Gap 8, Estimated GFR > 60, BUN/Creatinine Ratio 18.6, Glucose 109 H, Calcium 8.0 L, Total Bilirubin 0.7, AST 38 H, ALT 23, Alkaline Phosphatase 102 , Total Protein 6.9, Albumin 2.9 L, Globulin 4.0, Albumin/Globulin Ratio 0.7 L , CBC w Diff NO MAN DIFF REQ, RBC 3.78 L, MCV 77.5 L, MCH 25.3 L, MCHC 32.7 L, RDW 17.1 H, MPV 9.0, Gran % 63.1, Lymphocytes % 19.9 L, Monocytes % 11.1 H , Eosinophils % 5.4 H, Basophils % 0.5, Absolute Granulocytes 2.0, Absolute Lymphocytes 0.6 L, Absolute Monocytes 0.4, Absolute Eosinophils 0.2, Absolute Basophils 0 Assessment/Plan Assessment: This is a 77 year old female with PMH significant for CHF, chronic venous insufficiency, hypertension, RF, thyroid nodules, anxiety, pancytopenia, anasarca and esophagel varicies, ligated, 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 She comes to us for right sided mid back pain that began 2 days ago fairly suddenly, urinary frequency, and weakness/deconditioning, most recently not being able to get out of bed due to the pain. In the ED, physical exam showed clear lungs with no tenderness on palpation of back, a soft and non- tender abdomen, edema of her extremities, elevated JVD. During interview patient was noted to be unable to control her bladder. UA showed urine protein, LE, WBC, bacteria. Labs showed a decrease in all blood cell lines, MCV 77, low albumin of 2.9, CT ABDOMEN showed: 1. Anasarca has improved compared to 04/09/2017. 2. Chronic cirrhosis and splenomegaly. 3. Borderline thickening of the urinary bladder wall without bladder calculi. Given history of pyuria, a mild cystitis is not excluded. No evidence of nephrolithiasis or upper urinary tract obstruction. 4. Chronic lymphadenopathy within the abdomen and pelvis. RIB XRAY showed: 1. No acute pulmonary disease. 2. The right-sided ribs are unremarkable. Specifically, no evidence of an acute rib fracture. Etiology of patient's back pain can include any of the followin. Muskuloskeletal: patient has been quite inactive of late and her pain is worse on movement. As discussed below, imaging and labs make this the most likely diagnosis by exclusion. 2. Nerve: patient could potentially be experiencing the beginning of shingles. However there is no rash at all, no pain on palpation. 3. Esophageal as patient had ligation/banding and now notes some difficulty initiating swallow with her son admitting that she sometimes chokes on bigger pieces of food. 4. Hepatic/abdominal as she has had issues with her liver. Cirrhotic livers are not usually painful and there is not much distension in the abdomen noted however. LFTS are normal but in cirrhotic livers that have expended their synthetic power, this would be the case. Infection is less likely as she is afebrile but a low WBC count can be seen in infection. All of her cell lines are low which could signal a hematologic problem masking an infection. Another explanation for decrease in blood cell lines is liver disease which she has with , at least for thrombocytopenia, decrease in TPO made by hepatocytes. WBCs and RBCs may be experiecing splenic sequestration. She is of note found to have chronic lymphadenopathy within the abdomen and pelvis. 5. Lung: while the position of her pain overlays the lung, nothing is seen on CXR. No sign of infection on labs but again CBC is unreliable. Plan Back Pain -PT for discharge planning and treatment -Pain control with Tramadol, avoiding NSAIDs and Tylenol. Lidocaine patch. Deconditioning and weakness -TSHr -HbA1c -Blood cultures Difficulty initiating swallow: patient passed bedside swallow and admits to chopping her food into small pieces, has trouble initiating swallow in the setting of prior esophageal procedure. Patient placed on chopped diet with thin liquids. -formal swallow eval tomorrow Edema and elevated JVD -Last echo was in 2010, repeat echo -Start lasix and spironolactone again in the morning Increased urinary frequency: patient blames on the Lasix and is why she stopped it. However, frequency has continued even after discontinuing Lasix 1 month ago. -Watch off antibiotics for now and monitor vitals -Follow urine culture Anemia: -Iron tests -Guaic stools Full code Regular diet DVT prophylaxis with PHARM As Ranked By This Provider Problem List: 1. CHRONIC VENOUS INSUFFICIENCY 2. LEG WOUND 3. Weakness 4. Bilateral lower extremity edema Core Measures/Misc (02/20) Acute Coronary Syndrome ACS Diagnosis: No Congestive Heart Failure Congestive Heart Failure Diagnosis No Cerebrovascular Accident CVA/TIA Diagnosis: No VTE (View Protocol) VTE Risk Factors Immobility No Mechanical VTE Prophylaxis d/t Physical Contraindication No VTE Pharm Prophylaxis d/t NA PharmProphylax ordered Sepsis (View protocol) Sepsis Present: No If YES complete Sepsis Event Note If YES complete Sepsis Event Note
[2017-10-26 18:00] VITALS: BP 152/68
[2017-10-26 21:51] VITALS: BP 154/66
[2017-10-27 06:20] VITALS: BP 148/76
--- NOTE | 2017-10-27 09:14 | PN- Housestaff ---
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 She states that due to the pain medications that she was given, she today has blurry eyes today. The patient has no allergies to opiates. Patient denies any chest pain, abdominal pain, nausea, vomiting, fever, chills. She continues to be concerned about her increased urination. Review of Systems Constitutional: Reports: no symptoms. EENTM: Reports: no symptoms. Cardiovascular: Reports: no symptoms. Respiratory: Reports: no symptoms. Gastrointestinal: Reports: no symptoms. Genitourinary: Reports: frequency. Musculoskeletal: Reports: back pain. Skin: Reports: no symptoms. Neurological/Psychological: Reports: no symptoms. Objective Last 24 Hrs of Vital Signs/I&O Vital Signs Date Time Temp Pulse Resp B/P B/P Pulse O2 O2 Flow FiO2 Mean Ox Delivery Rate 10/27 1645 Room Air 10/27 1435 98.6 60 20 130/80 96 Room Air 10/27 1000 64.0 122/60 10/27 0800 Room Air 10/27 0620 98.2 81 18 148/76 95 Room Air 10/26 2151 98.0 64 18 154/66 96 Room Air Intake & Output 10/27 1600 10/27 0800 10/27 0000 Intake Total 600 200 180 Output Total Balance 600 200 180 Intake, Oral 600 200 180 Number 1 Bowel Movements Patient 180 lb Weight Weight Reported by Patient Measurement Method Physical Exam General Appearance: Alert, Oriented X3, Cooperative, No Acute Distress Skin: No Rashes, No Breakdown, lower extremity wounds secondary to her anasarca, lower extremity edema Skin Temp/Moisture Exam: Warm/Dry Sepsis Skin Exam (color): Normal for Ethnicity HEENT: Atraumatic, PERRLA, EOMI, Mucous Membr. moist/pink Neck: Supple Cardiovascular: Regular Rate, Normal S1, Normal S2 Lungs: Clear to Auscultation, Normal Air Movement Abdomen: Normal Bowel Sounds, Soft, No Tenderness Neurological: Normal Speech Extremities: No Clubbing, No Cyanosis Vascular: Normal Pulses, Pulses Symmetrical Current Medications: Current Medications Sig/Marcin Start time Last Medication Dose Route Stop Time Status Admin Ciprofloxacin 500 MG ONCE ONE 10/27 1615 CAN PO 10/27 1616 Enoxaparin Sodium 40 MG DAILY 10/26 1800 AC 10/27 SC 0955 Ferrous Sulfate 325 MG BID 10/27 2100 AC PO Furosemide 10 MG DAILY 10/28 0900 AC PO Furosemide 20 MG DAILY 10/27 0900 DC 10/27 PO 0955 Gabapentin 100 MG BID 10/27 0900 AC 10/27 PO 0956 Gabapentin 100 MG Q8H 10/27 0500 DC 10/27 PO 0549 Gabapentin 100 MG Q8 10/26 1755 DC 10/26 PO 2009 Ibuprofen 400 MG .STK-MED ONE 10/27 0951 DC PO 10/27 0952 Ibuprofen 200 MG Q6P PRN 10/26 1800 AC PO Lidocaine 1 PAT 10/27 2000 AC TOP Lidocaine 1 PAT ONCE ONE 10/26 1930 DC TOP 10/26 1931 Lidocaine 1 PAT DAILY 10/26 1800 DC 10/26 TOP 2010 Morphine Sulfate 2 MG Q6-PRN PRN 10/26 1800 DC IV Omeprazole 40 MG DAILY AC 10/27 0700 AC 10/27 PO 0549 Patient Medication 1 ED ONE ONE 10/27 1545 DC Teaching ED 10/27 1546 Phosphate 250 MG PC AND AT BEDTIME 10/26 1800 DC 10/27 PO 10/27 0901 0954 Propranolol HCl 5 MG DAILY 10/27 0900 AC 10/27 PO 1000 Senna/Docusate Sodium 2 TAB AT BEDTIME PRN 10/26 1800 AC PO Spironolactone 25 MG DAILY 10/27 0900 AC 10/27 PO 0954 Tramadol HCl 50 MG Q6P PRN 10/26 1800 AC 10/27 PO 0554 Last 24 Hrs of Lab/Gui Results Last 24 Hrs of Labs/Mics: Laboratory Tests 10/27/17 0650: Anion Gap 9, Estimated GFR > 60, BUN/Creatinine Ratio 18.3, Triglycerides 70, Cholesterol 105, LDL Cholesterol, Calc 64 L, HDL Cholesterol 27 L, Cholesterol /HDL Ratio 4, TSH &T3 &Free T4 Intrp 1.030, CBC w Diff NO MAN DIFF REQ, RBC 3.58 L, MCV 77.2 L, MCH 25.2 L, MCHC 32.7 L, RDW 17.2 H, MPV 9.1, Gran % 50.1, Lymphocytes % 30.7, Monocytes % 12.9 H, Eosinophils % 5.6 H, Basophils % 0.7, Absolute Granulocytes 1.3 L, Absolute Lymphocytes 0.8 L, Absolute Monocytes 0.3, Absolute Eosinophils 0.1, Absolute Basophils 0 10/26/172049: Hemoglobin A1c 5.3 Microbiology 10/26 2054 BLOOD: Blood Culture - RES 10/26 2049 BLOOD: Blood Culture - RES Assessment/Plan Assessment: This is a 77 year old female with PMH significant for CHF, chronic venous insufficiency, hypertension, RF, thyroid nodules, anxiety, pancytopenia, anasarca and esophagel varicies, ligated, 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 She comes to us for right sided mid back pain that began 2 days ago fairly suddenly, urinary frequency, and weakness/deconditioning, most recently not being able to get out of bed due to the pain. In the ED, physical exam showed clear lungs with no tenderness on palpation of back, a soft and non- tender abdomen, edema of her extremities, elevated JVD. During interview patient was noted to be unable to control her bladder. UA showed urine protein, LE, WBC, bacteria. Labs showed a decrease in all blood cell lines, MCV 77, low albumin of 2.9, CT ABDOMEN showed: 1. Anasarca has improved compared to 04/09/2017. 2. Chronic cirrhosis and splenomegaly. 3. Borderline thickening of the urinary bladder wall without bladder calculi. Given history of pyuria, a mild cystitis is not excluded. No evidence of nephrolithiasis or upper urinary tract obstruction. 4. Chronic lymphadenopathy within the abdomen and pelvis. RIB XRAY showed: 1. No acute pulmonary disease. 2. The right-sided ribs are unremarkable. Specifically, no evidence of an acute rib fracture. Etiology of patient's back pain can include any of the followin. Muskuloskeletal: patient has been quite inactive of late and her pain is worse on movement. As discussed below, imaging and labs make this the most likely diagnosis by exclusion. 2. Nerve: patient could potentially be experiencing the beginning of shingles. However there is no rash at all, no pain on palpation. 3. Esophageal as patient had ligation/banding and now notes some difficulty initiating swallow with her son admitting that she sometimes chokes on bigger pieces of food. 4. Hepatic/abdominal as she has had issues with her liver. Cirrhotic livers are not usually painful and there is not much distension in the abdomen noted however. LFTS are normal but in cirrhotic livers that have expended their synthetic power, this would be the case. Infection is less likely as she is afebrile but a low WBC count can be seen in infection. All of her cell lines are low which could signal a hematologic problem masking an infection. Another explanation for decrease in blood cell lines is liver disease which she has with , at least for thrombocytopenia, decrease in TPO made by hepatocytes. WBCs and RBCs may be experiecing splenic sequestration. She is of note found to have chronic lymphadenopathy within the abdomen and pelvis. 5. Lung: while the position of her pain overlays the lung, nothing is seen on CXR. No sign of infection on labs but again CBC is unreliable. Plan Back Pain -PT for discharge planning and treatment -Pain control with Tramadol, avoiding NSAIDs and Tylenol. Lidocaine patch. -Lumbar spine x-ray showed no fracture or dislocation but a convex right thoracic lumbar scoliosis with multilevel moderate to severe degenerative disease and facet arthropathy. -We placed her on Neurontin for her pathic pain 3 times a day but will decrease the dose to 100 mg twice a day. Deconditioning and weakness -PT consult Difficulty initiating swallow: patient passed bedside swallow and admits to chopping her food into small pieces, has trouble initiating swallow in the setting of prior esophageal procedure. Patient placed on chopped diet with thin liquids. -Patient passed informal swallow evaluation -Nutritional consult as patient is stating that she is eating less to save money for her electric bills. Edema and elevated JVD -Last echo was in 2010, repeat echo -We started Lasix 10 mg every morning and spironolactone 25 mg daily Increased urinary frequency: patient blames on the Lasix and is why she stopped it. However, frequency has continued even after discontinuing Lasix 1 month ago. -Watch off antibiotics for now and monitor vitals -Culture has shown gram-negative rods but we will follow her off antibiotics for today and reassess tomorrow. Anemia: -Iron tests show low ferritin, we will supplement with iron sulfate. -Guaic stools Full code Regular diet DVT prophylaxis with PHARM as Alps will cause pain in her lower extremity wounds Problem List: 1. Weakness 2. Esophageal varices Pain Ratin Pain Location: right back Pain Goal: Pain 4 or less Pain Plan: prn ultram Tomorrow's Labs & Rationales: cbc bep
[2017-10-27 09:24] LABS: ABSOLUTE BASOPHIL COUNT 0 /CUMM (0.0-0.2); ABSOLUTE EOSINOPHIL COUNT 0.1 /CUMM (0.0-0.7); ABSOLUTE GRANULOCYTE CT 1.3 /CUMM (1.4-6.5); ABSOLUTE LYMPH COUNT 0.8 /CUMM (1.2-3.4); ABSOLUTE MONOCYTE COUNT 0.3 /CUMM (0.10-0.60); BASOPHIL % 0.7 % (0.0-2.0); EOSINOPHIL % 5.6 % (0-5); GRANULOCYTE % 50.1 % (42.2-75.2); HEMATOCRIT 27.7 % (37-47); MEAN CORPUSCULAR HGB 25.2 PG (27.0-31.0); MEAN CORPUSCULAR HGB CONC 32.7 G/DL (33.0-37.0); MEAN CORPUSCULAR VOLUME 77.2 FL (81.0-99.0); MEAN PLATELET VOLUME 9.1 FL (7.4-10.4); PLATELET COUNT 115 /CUMM (130-400); RBC DISTRIBUTION WIDTH 17.2 % (11.5-14.5); RED BLOOD CELL CT 3.58 /CUMM (4.20-5.40); WHITE BLOOD CELL COUNT 2.6 /CUMM (4.8-10.8)
--- NOTE | 2017-10-27 12:25 | PN- Att Addend ---
Attending Addendum Attending Brief Note Patient seen and examined in the emergency room. Patient's son was at the bedside. Plan of care discussed with the medical team and the patient. Available lab work and radiology test reports were reviewed. Patient complains of for having blurred vision up to starting Neurontin and Ultram. She states that her back pain is somewhat better. She required assist of 2 people to get out of bed to chair. Exam: General: Patient awake alert oriented without any distress CVS: S1 plus S2 without any murmur or gallops Chest: Few scattered crepitation without any wheeze. There is no respiratory distress. 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 There is no evidence of any UTI or pyelonephritis * Restart Lasix and Aldactone but reduce Lasix dose to 10 mg every morning * Consider a short course of iron sulfate given low iron and ferritin level * Continue PT; patient likely will need rehabilitation * Continue Lidocaine patch to right chest; reduce Neurontin 100 mg 2 times a day ; continue Ultram for pain control when necessary; avoid Tylenol and Motrin * Nutrition consult and consider protein supplementation Current Medications Sig/Marcin Start time Last Medication Dose Route Stop Time Status Admin Ciprofloxacin 400 MG ONCE ONE 10/26 1600 DC N/A 1 UNIT IV 10/26 1659 Ciprofloxacin 400 MG ONCE ONE 10/26 1600 DC 10/26 N/A 1 UNIT IV 10/26 1659 1608 Ciprofloxacin 400 MG ONCE ONE 10/26 1545 DC IV 10/26 1546 Enoxaparin Sodium 40 MG DAILY 10/26 1800 AC 10/27 SC 0955 Furosemide 10 MG DAILY 10/28 09 AC PO Furosemide 20 MG DAILY 10/27 0900 DC 10/27 PO 0955 Gabapentin 100 MG BID 10/27 0900 AC 10/27 PO 0956 Gabapentin 100 MG Q8H 10/27 0500 DC 10/27 PO 0549 Gabapentin 100 MG Q8 10/26 1755 DC 10/26 PO 2009 Ibuprofen 200 MG Q6P PRN 10/26 1800 AC PO Ketorolac 15 MG Q6P PRN 10/26 1800 CAN Tromethamine IV Lidocaine 1 PAT 10/27 AC TOP Lidocaine 1 PAT ONCE ONE 10/26 1930 DC TOP 10/26 193 Lidocaine 1 PAT DAILY 10/26 1800 DC 10/26 TOP 2010 Morphine Sulfate 2 MG Q6-PRN PRN 10/26 1800 DC IV Omeprazole 40 MG DAILY AC 10/27 0700 AC 10/27 PO 0549 Phosphate 250 MG PC AND AT BEDTIME 10/26 1800 DC 10/27 PO 10/27 0901 0954 Propranolol HCl 5 MG DAILY 10/27 0900 AC 10/27 PO 1000 Senna/Docusate Sodium 2 TAB AT BEDTIME PRN 10/26 1800 AC PO Spironolactone 25 MG DAILY 10/27 0900 AC 10/27 PO 0954 Tramadol HCl 50 MG Q6P PRN 10/26 1800 AC 10/27 PO 0554 Laboratory Tests 10/27/17 0650: Anion Gap 9, Estimated GFR > 60, BUN/Creatinine Ratio 18.3, Triglycerides 70, Cholesterol 105, LDL Cholesterol, Calc 64 L, HDL Cholesterol 27 L, Cholesterol /HDL Ratio 4, TSH &T3 &Free T4 Intrp 1.030, CBC w Diff NO MAN DIFF REQ, RBC 3.58 L, MCV 77.2 L, MCH 25.2 L, MCHC 32.7 L, RDW 17.2 H, MPV 9.1, Gran % 50.1, Lymphocytes % 30.7, Monocytes % 12.9 H, Eosinophils % 5.6 H, Basophils % 0.7, Absolute Granulocytes 1.3 L, Absolute Lymphocytes 0.8 L, Absolute Monocytes 0.3, Absolute Eosinophils 0.1, Absolute Basophils 0 10/26/172049: Hemoglobin A1c 5.3 10/26/17 1206: Urine Color YEL, Urine Clarity HAZY H, Urine pH 6.5, Ur Specific [place] 1.020, Urine Protein 30 H, Urine Ketones NEG, Urine Nitrite NEG, Urine Bilirubin NEG, Urine Urobilinogen 0.2, Ur Leukocyte Esterase LARGE H, Ur Microscopic SEDIMENT EXAMINED, Urine RBC 1-3, Urine WBC > 75 H, Ur Epithelial Cells RARE, Urine Bacteria MANY H, Urine Hemoglobin SMALL H, Urine Glucose NEG 10/26/17 1004: Anion Gap 8, Estimated GFR > 60, BUN/Creatinine Ratio 18.6, Glucose 109 H, Calcium 8.0 L, Phosphorus 3.8, Iron 31 L, TIBC 345, Ferritin 15.1, Total Bilirubin 0.7, AST 38 H, ALT 23, Alkaline Phosphatase 102, Total Protein 6.9, Albumin 2.9 L, Globulin 4.0, Albumin/Globulin Ratio 0.7 L, CBC w Diff NO MAN DIFF REQ, RBC 3.78 L, MCV 77.5 L, MCH 25.3 L, MCHC 32.7 L, RDW 17.1 H, MPV 9.0, Gran % 63.1, Lymphocytes % 19.9 L, Monocytes % 11.1 H, Eosinophils % 5.4 H, Basophils % 0.5, Absolute Granulocytes 2.0, Absolute Lymphocytes 0.6 L, Absolute Monocytes 0.4, Absolute Eosinophils 0.2, Absolute Basophils 0, Retic Count 1.25 Microbiology 10/26 2054 BLOOD: Blood Culture - RECD 10/26 2049 BLOOD: Blood Culture - RECD 10/26 120 URINE ROUT: Urine Culture - RECD Vital Signs Date Time Temp Pulse Resp B/P B/P Pulse O2 O2 Flow FiO2 Mean Ox Delivery Rate 10/27 1000 64.0 122/60 10/27 0620 98.2 81 18 148/76 95 Room Air 10/26 2151 98.0 64 18 154/66 96 Room Air 10/26 1800 97.5 61 20 152/68 98 Room Air 10/26 1701 98.0 68 18 131/60 96 Room Air 10/26 1456 98.3 63 20 144/60 96 Room Air 10/26 1316 98.0 62 20 140/60 100 Room Air Intake & Output 10/27 1600 10/27 0800 10/27 0000 Intake Total 200 180 Output Total Balance 200 180 Intake, Oral 200 180 Number 1 Bowel Movements Patient 180 lb Weight Weight Reported by Patient Measurement Method
[2017-10-27 14:35] VITALS: BP 130/80
--- NOTE | 2017-10-27 15:29 | RADIOLOGY REPORT ---
EXAMINATION: XR LUMBOSACRAL SPINE CLINICAL INFORMATION: Right-sided back pain, lower. Presumptive diagnosis of degenerative changes. COMPARISON: CT scan of the abdomen and pelvis dated 08/26/2017. TECHNIQUE: 2 views of the lumbosacral spine were obtained. FINDINGS: Evaluation is limited as the lateral view had to be performed as a crosstable lateral. There were difficulties in patient cooperation. There is a convex right thoracolumbar scoliosis. No acute fracture or dislocation is seen. There is moderate to severe degenerative disc disease at L3-L4, L4-L5 and T12-L1 with disc space narrowing, vertebral endplate sclerosis and spurring. Vacuum disc phenomenon is also seen at T12-L1. There is severe facet arthropathy throughout the lumbar spine. Vertebral spondylosis in the included portions of lower thoracic spine also noted. The bony pelvis is largely obscured by overlying bowel gas. Right upper quadrant silvano in place from prior cholecystectomy. IMPRESSION: 1. Difficult exam due to overlying bowel gas and difficulties with patient positioning/cooperation. No acute fracture or dislocation. 2. Convex right thoracolumbar scoliosis with multilevel moderate to severe degenerative disc disease and facet arthropathy as discussed above.
[2017-10-27 22:29] VITALS: BP 140/60
[2017-10-28 06:31] VITALS: BP 124/68
--- NOTE | 2017-10-28 07:29 | Discharge Summary ---
Visit Information Visit Dates Admission Date: 10/26/17 Discharge Date: 10/29/17 Hospital Course Course Attending Physician: Nelli EMERY,Rachel Primary Care Physician: Comfort EMERY,Trace Ford Hospital Course: Patient is a 77 year old female with PMH significant for CHF, chronic venous insufficiency, hypertension, RF, thyroid nodules, anxiety, pancytopenia, anasarca and esophagel varicies, ligated, secondary to cirrhosis secondary to hepatits C (that she contracted by blood transfusion "years ago") came with right sided mid back pain that began 2 days ago. She states that the pain started "suddenly". She denies any injury of the area. Denied any recent falls , usually ambulates with two canes short distances. Admits to increased pain on movement and walking, no increased pain on inspiration. She states that around the time the pain began, she felt that she had "a cold coming on". Due to the back pain it is hard for her to cough, but when she does, she is able to produce clear sputum. The patient had her esophageal varicies treated back in November 2016. She had a massive GI bleed at the time, was in the ICU at [facility]. She received multiple units of blood. Afterwards, she went to rehab for some time and had a home physical therapist until August of this year. With the cold weather, she admits that she became less active. Currently she notes that she is "very weak" and that her son, who lives with her, helps her with most everything. She uses canes but also a wheelchair when needed. The last time she ambulated was two days ago, she stopped secondary to the pain. The patient was taking spironolactone and lasix for chronic lower extremity edema/anasarca and reported CHF until about a month ago when she stopped both. Apparently she was having incontinence and soiling herself so stopped lasix so she would urinate less. 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 Lumbar spine x-ray showed no fracture or dislocation but a convex right thoracic lumbar scoliosis with multilevel moderate to severe degenerative disease and facet arthropathy. We placed her on Neurontin for her neuropathic pain 3 times a day but she felt very drowsy therefore the dose was changed to 100 mg twice a day. Deconditioning and weakness: Patient needs physical therapy for muscle strengthening Difficulty initiating swallow: patient passed bedside swallow and admits to chopping her food into small pieces, has trouble initiating swallow in the setting of prior esophageal procedure. Patient was placed on chopped diet with thin liquids. Increased urinary frequency: patient blames on the Lasix and is why she stopped it. However, frequency has continued even after discontinuing Lasix 1 month ago. Suspicion of UTI was very low therefore she was watched off antibiotics. Her urine cultures showed gram negative rods. Anemia: -Iron tests show low ferritin, we will supplement with iron sulfate. Allergies: Coded Allergies: Penicillins (RASH 08/05/15) Sulfa (Sulfonamide Antibiotics) (UNKNOWN - PER PT SON 08/05/15) cephalexin (From KEFLEX) (RASH 07/27/16) clindamycin (UNKNOWN - PER PT SON 08/05/15) Disposition Summary Disposition Principal Diagnosis: back pain Additional Diagnosis: see above Discharge Disposition: SNF Discharge Instructions General Discharge Information Code Status: Full Code Patient's Diet: chopped with thin liquids Patient's Activity: as tolerated Follow-Up Instructions/Appts: please follow upw ith PCP within 7 days of discharge Medications at Discharge Discharge Medications: Stop taking the following medications: Furosemide (Furosemide) 20 MG TABLET ORAL DAILY Qty = 30 Continue taking these medications: Propranolol HCl (Propranolol HCl) 10 MG TABLET 0.5 Tablet ORAL DAILY Qty = 30 Instructions: Please monitor blood pressure and heart rate twice a day for 1 week. Send the results to your PCP and he will adjust the dose of this medication moving forward Comments: Last Taken: 11/22/16 Time: 10 AM Spironolactone (Spironolactone) 25 MG TABLET 1 Tablet ORAL DAILY Qty = 30 Comments: Last Taken: 11/22/16 Time: 10 AM Omeprazole (Omeprazole) 40 MG CAPSULE. 1 Capsule ORAL DAILY Qty = 90 Start taking the following new medications: Ferrous Sulfate (Ferrous Sulfate) 325 MG (65 MG IRON) TABLET. 325 Milligram ORAL TWICE DAILY Qty = 60 No Refills Furosemide (Furosemide) 20 MG TABLET 10 Milligram ORAL DAILY Qty = 60 No Refills Gabapentin (Gabapentin) 100 MG CAPSULE 100 Milligram ORAL TWICE DAILY Qty = 60 No Refills Lidocaine (Lidoderm) 5 % ADH..PATCH 1 Patch On the skin 1999 Qty = 20 No Refills Sennosides/Docusate Sodium (Senna Plus Tablet) 8.6 MG-50 MG TABLET 2 Tablet ORAL AT BEDTIME as needed for CONSTIPATION Qty = 60 No Refills Copies To: Comfort EMERY,Trace Ford Attending MD Review Statement Documenting Attending: Nelli EMERY,Rachel
[2017-10-28] MEDS ORDERED: FERROUS SULFAT325 M2 PO (08:12)
[2017-10-28] MEDS ORDERED: SENNA PLUS TAB1 EACH PO (08:12)
[2017-10-28] MEDS ORDERED: FUROSEMIDE20 M1 PO (08:12)
[2017-10-28] MEDS ORDERED: GABAPENTIN100 M2 PO (08:12)
[2017-10-28] MEDS ORDERED: LIDODERM1 EACH TOP (08:12)
--- NOTE | 2017-10-28 08:12 | PN- Housestaff ---
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 Patient states she feels okay. She still notes some blurred vision that she attributes to receiving pain medication and her first day here. Patient still complains of some lingering back pain but states that it is less. She has no urinary symptoms. She has no abdominal pain, no shortness of breath. She does have chronic lower extremity wounds and edema. The patient is walking with assist of 2 Review of Systems Constitutional: Reports: weakness. EENTM: Reports: no symptoms. Cardiovascular: Reports: no symptoms. Respiratory: Reports: no symptoms. Gastrointestinal: Reports: no symptoms. Genitourinary: Reports: no symptoms. Musculoskeletal: Reports: back pain. Skin: Reports: lesions. Neurological/Psychological: Reports: no symptoms. Hematologic/Endocrine: Reports: no symptoms. Objective Last 24 Hrs of Vital Signs/I&O Vital Signs Date Time Temp Pulse Resp B/P B/P Pulse O2 O2 Flow FiO2 Mean Ox Delivery Rate 10/28 1457 99.1 61 18 130/80 94 10/28 1005 63 110/60 10/28 0800 Room Air 10/28 0631 97.7 62 18 124/68 94 Room Air 10/27 2229 98.2 68 20 140/60 95 Room Air Intake & Output 10/28 1600 10/28 0800 10/28 0000 Intake Total 1100 100 50 Output Total Balance 1100 100 50 Intake, Oral 1100 100 50 Number 0 Bowel Movements Patient 180 lb Weight Physical Exam General Appearance: Alert, Oriented X3, Cooperative, No Acute Distress Skin: No Rashes, lower extremity covered wounds from peripheral edema. Skin Temp/Moisture Exam: Warm/Dry Sepsis Skin Exam (color): Normal for Ethnicity HEENT: Atraumatic, EOMI, Mucous Membr. moist/pink Neck: Supple, No JVD (jvd) Cardiovascular: Regular Rate, Normal S1, Normal S2 Lungs: Clear to Auscultation, Normal Air Movement Abdomen: Normal Bowel Sounds, Soft, No Tenderness Neurological: Normal Speech Extremities: No Clubbing, No Cyanosis, Normal Pulses Sepsis Peripheral Pulse Location: Radial Current Medications: Current Medications Sig/Marcin Start time Last Medication Dose Route Stop Time Status Admin Ciprofloxacin 500 MG ONCE ONE 10/27 1615 CAN PO 10/27 1616 Enoxaparin Sodium 40 MG DAILY 10/26 1800 AC 10/28 SC 1003 Ferrous Sulfate 325 MG BID 10/27 2100 AC 10/28 PO 1002 Furosemide 10 MG DAILY 10/28 09 AC 10/28 PO 1004 Gabapentin 100 MG BID 10/27 0900 AC 10/28 PO 1002 Ibuprofen 200 MG Q6P PRN 10/26 1800 AC PO Lidocaine 1 PAT 10/27 AC 10/27 TOP 2116 Omeprazole 40 MG DAILY AC 10/27 0700 AC 10/28 PO 0616 Propranolol HCl 5 MG DAILY 10/27 09 AC 10/28 PO 1005 Senna/Docusate Sodium 2 TAB AT BEDTIME PRN 10/26 1800 AC PO Spironolactone 25 MG DAILY 10/27 09 AC 10/28 PO 1003 Tramadol HCl 50 MG Q6P PRN 10/26 1800 AC 10/28 PO 1332 Last 24 Hrs of Lab/Gui Results Last 24 Hrs of Labs/Mics: Laboratory Tests 10/28/17 0747: CBC w Diff NO MAN DIFF REQ, RBC 3.53 L, MCV 77.3 L, MCH 25.7 L, MCHC 33.2, RDW 17.8 H, MPV 9.2, Gran % 48.1, Lymphocytes % 31.7, Monocytes % 12.4 H, Eosinophils % 6.7 H, Basophils % 1.1, Absolute Granulocytes 1.3 L, Absolute Lymphocytes 0.9 L, Absolute Monocytes 0.3, Absolute Eosinophils 0.2, Absolute Basophils 0 Assessment/Plan Assessment: This is a 77 year old female with PMH significant for CHF, chronic venous insufficiency, hypertension, RF, thyroid nodules, anxiety, pancytopenia, anasarca and esophagel varicies, ligated, 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 She comes to us for right sided mid back pain that began 2 days ago fairly suddenly, urinary frequency, and weakness/deconditioning, most recently not being able to get out of bed due to the pain. In the ED, physical exam showed clear lungs with no tenderness on palpation of back, a soft and non- tender abdomen, edema of her extremities, elevated JVD. During interview patient was noted to be unable to control her bladder. UA showed urine protein, LE, WBC, bacteria. Labs showed a decrease in all blood cell lines, MCV 77, low albumin of 2.9, CT ABDOMEN showed: 1. Anasarca has improved compared to 04/09/2017. 2. Chronic cirrhosis and splenomegaly. 3. Borderline thickening of the urinary bladder wall without bladder calculi. Given history of pyuria, a mild cystitis is not excluded. No evidence of nephrolithiasis or upper urinary tract obstruction. 4. Chronic lymphadenopathy within the abdomen and pelvis. RIB XRAY showed: 1. No acute pulmonary disease. 2. The right-sided ribs are unremarkable. Specifically, no evidence of an acute rib fracture. Etiology of patient's back pain can include any of the followin. Muskuloskeletal: patient has been quite inactive of late and her pain is worse on movement. As discussed below, imaging and labs make this the most likely diagnosis by exclusion. 2. Nerve: patient could potentially be experiencing the beginning of shingles. However there is no rash at all, no pain on palpation. 3. Esophageal as patient had ligation/banding and now notes some difficulty initiating swallow with her son admitting that she sometimes chokes on bigger pieces of food. 4. Hepatic/abdominal as she has had issues with her liver. Cirrhotic livers are not usually painful and there is not much distension in the abdomen noted however. LFTS are normal but in cirrhotic livers that have expended their synthetic power, this would be the case. Infection is less likely as she is afebrile but a low WBC count can be seen in infection. All of her cell lines are low which could signal a hematologic problem masking an infection. Another explanation for decrease in blood cell lines is liver disease which she has with , at least for thrombocytopenia, decrease in TPO made by hepatocytes. WBCs and RBCs may be experiecing splenic sequestration. She is of note found to have chronic lymphadenopathy within the abdomen and pelvis. 5. Lung: while the position of her pain overlays the lung, nothing is seen on CXR. No sign of infection on labs but again CBC is unreliable. Plan Back Pain -PT for discharge planning and treatment -Pain control with Tramadol, avoiding NSAIDs and Tylenol. Lidocaine patch. -Lumbar spine x-ray showed no fracture or dislocation but a convex right thoracic lumbar scoliosis with multilevel moderate to severe degenerative disease and facet arthropathy. -We placed her on Neurontin for her pathic pain 3 times a day but will decrease the dose to 100 mg twice a day. Deconditioning and weakness -PT consult is suggesting STR Periodontal disease -Referal to [facility] on discharge Difficulty initiating swallow: patient passed bedside swallow and admits to chopping her food into small pieces, has trouble initiating swallow in the setting of prior esophageal procedure. Patient placed on chopped diet with thin liquids. -Patient passed informal swallow evaluation -Nutritional consult as patient is stating that she is eating less to save money for her electric bills. Edema and elevated JVD -Last echo was in 2010, repeat echo -We started Lasix 10 mg every morning and spironolactone 25 mg daily Increased urinary frequency: patient blames on the Lasix and is why she stopped it. However, frequency has continued even after discontinuing Lasix 1 month ago. -Watch off antibiotics for now and monitor vitals -Culture has shown gram-negative rods but we will follow her off antibiotics for today and reassess tomorrow. -Referral to urology outpatient Anemia: -Iron tests show low ferritin, we will supplement with iron sulfate. -Guaic stools Lower extremity wounds: -Wound care seeing Full code Regular diet DVT prophylaxis with PHARM as Alps will cause pain in her lower extremity wounds Problem List: 1. Asymptomatic bacteriuria 2. Periodontal disease 3. Weakness Pain Ratin Pain Location: back Pain Goal: Pain 4 or less Pain Plan: prn Tomorrow's Labs & Rationales: na
--- NOTE | 2017-10-28 08:14 | Patient Discharge Instructions ---
Discharge Instructions General Discharge Information You were seen/treated for: BACK PAIN Other wound care: cleanse lower extremities with normal saline fb kaltostat fb kerlix and alex wrap frombase of toes to tibial tuberosity - f/u with podiatry post DISCHARGE Special Instructions: 1. PLEASE FOLLOW UP WITH YOUR PCP WITHIN A WEEK 2. Please follow up with [facility] for dental care 3. Please follow up with Dr. Garcia, urologist in 1-2 weeks for urinary incontinence 4. Please follow up with podiatry for lower extremity wounds Diet Continue normal diet: Yes Additional DIET Information: TOLERATED, small bites Activity Full Activity/No Limits: Yes Acute Coronary Syndrome Inclusion Criteria At DC or during hospital stay patient has or had the following: ACS DIAGNOSIS No Discharge Core Measures Meds if any: Prescribed or Continued at Discharge Meds if any: NOT Prescribed or Continued at Discharge Congestive Heart Failure Inclusion Criteria At DC or during hospital stay patient has or had the following: CHF DIAGNOSIS No Discharge Core Measures Meds if any: Prescribed or Continued at Discharge Meds if any: NOT Prescribed or Continued at Discharge Cerebrovascular accident Inclusion Criteria At DC or during hospital stay patient has or had the following: CVA/TIA Diagnosis No Discharge Core Measures Meds if any: Prescribed or Continued at Discharge Meds if any: NOT Prescribed or Continued at Discharge Venous thromboembolism Inclusion Criteria VTE Diagnosis No VTE Type NONE VTE Confirmed by (Test) NONE Discharge Core Measures - Per Current guidelines, there needs to be overlap - treatment for the first 5 days of Warfarin therapy. - If discharged on Warfarin prior to 5 days of - overlap therapy, the patient will need to be - assessed for post discharge needs including - *Post discharge parental anticoagulation - *Warfarin and/or parental anticoagulation education - *Follow up date to check INR post discharge At least 5 days overlap therapy as Inpatient No Meds if any: Prescribed or Continued at Discharge Note: Overlap Therapy is Warfarin and Anticoagulant Meds if any: NOT Prescribed or Continued at Discharge
[2017-10-28 08:59] LABS: ABSOLUTE BASOPHIL COUNT 0 /CUMM (0.0-0.2); ABSOLUTE EOSINOPHIL COUNT 0.2 /CUMM (0.0-0.7); ABSOLUTE GRANULOCYTE CT 1.3 /CUMM (1.4-6.5); ABSOLUTE LYMPH COUNT 0.9 /CUMM (1.2-3.4); ABSOLUTE MONOCYTE COUNT 0.3 /CUMM (0.10-0.60); BASOPHIL % 1.1 % (0.0-2.0); EOSINOPHIL % 6.7 % (0-5); GRANULOCYTE % 48.1 % (42.2-75.2); HEMATOCRIT 27.3 % (37-47); MEAN CORPUSCULAR HGB 25.7 PG (27.0-31.0); MEAN CORPUSCULAR HGB CONC 33.2 G/DL (33.0-37.0); MEAN CORPUSCULAR VOLUME 77.3 FL (81.0-99.0); MEAN PLATELET VOLUME 9.2 FL (7.4-10.4); PLATELET COUNT 126 /CUMM (130-400); RBC DISTRIBUTION WIDTH 17.8 % (11.5-14.5); RED BLOOD CELL CT 3.53 /CUMM (4.20-5.40); WHITE BLOOD CELL COUNT 2.7 /CUMM (4.8-10.8)
--- NOTE | 2017-10-28 10:39 | PN- Att Addend ---
Attending Addendum Attending Brief Note Patient seen and examined in the emergency room. Patient's son was at the bedside. Plan of care discussed with the medical team and the patient. Available lab work and radiology test reports were reviewed. Patient reports that her blood vision has improved with decreasing Neurontin does. Her pain in the back is much better controlled. She appears awake alert interactive and without any distress. She does not like chopped food and wants to eat regular food. Exam: General: Patient awake alert oriented without any distress CVS: S1 plus S2 without any murmur or gallops Chest: Few scattered crepitation without any wheeze. There is no respiratory distress. 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 There is no evidence of any UTI or pyelonephritis; patient had no symptoms related to UTI or cystitis. sHe has no fever or WBC elevation. Her UA is similar to pass urinalysis in 2017. patient was given 1 dose of IV Cipro in the emergency room. Note that her frequency is related to her taking Lasix and Aldactone which are she had apparently stopped before coming to hospital. * Continue Lasix and Aldactone ; Lasix dose to 10 mg every morning * Continue iron sulfate given low iron and ferritin level * Continue PT; patient likely will need rehabilitation with plan for discharge in a.m.; prepare CMR, discharge summary and w-10 * Continue Lidocaine patch to right chest; continue Neurontin 100 mg 2 times a day; continue Ultram for pain control when necessary; avoid Tylenol and Motrin * Nutrition consult and consider protein supplementation; change diet to regular Current Medications Sig/Marcin Start time Last Medication Dose Route Stop Time Status Admin Ciprofloxacin 500 MG ONCE ONE 10/27 1615 CAN PO 10/27 1616 Enoxaparin Sodium 40 MG DAILY 10/26 1800 AC 10/28 SC 1003 Ferrous Sulfate 325 MG BID 10/27 2100 AC 10/28 PO 1002 Furosemide 10 MG DAILY 10/28 899 AC 10/28 PO 1004 Furosemide 20 MG DAILY 10/27 09 DC 10/27 PO 0955 Gabapentin 100 MG BID 10/27 899 AC 10/28 PO 1002 Ibuprofen 200 MG Q6P PRN 10/26 1800 AC PO Lidocaine 1 PAT 10/27 AC 10/27 TOP 2116 Omeprazole 40 MG DAILY AC 10/27 07 AC 10/28 PO 0616 Patient Medication 1 ED ONE ONE 10/27 1545 DC Teaching ED 10/27 1546 Propranolol HCl 5 MG DAILY 10/27 899 AC 10/28 PO 1005 Senna/Docusate Sodium 2 TAB AT BEDTIME PRN 10/26 1800 AC PO Spironolactone 25 MG DAILY 10/27 899 AC 10/28 PO 1003 Tramadol HCl 50 MG Q6P PRN 10/26 1800 AC 10/27 PO 2117 Vital Signs Date Time Temp Pulse Resp B/P B/P Pulse O2 O2 Flow FiO2 Mean Ox Delivery Rate 10/28 1005 63 110/60 10/28 0631 97.7 62 18 124/68 94 Room Air 10/27 2229 98.2 68 20 140/60 95 Room Air 10/27 1645 Room Air 10/27 1435 98.6 60 20 130/80 96 Room Air Intake & Output 10/28 1600 10/28 0800 10/28 0000 Intake Total 100 50 Output Total Balance 100 50 Intake, Oral 100 50 Number 0 Bowel Movements Patient 180 lb Weight
--- NOTE | 2017-10-28 13:36 | Cons- Infect Disease ---
General Information and HPI Consulting Request Date of Consult: 10/28/17 Requested By: Nelli EMERY,Rachel Reason for Consult: Positive urine culture Source of Information: patient, old records History of Present Illness: This is a 77-year-old woman with a history of cirrhosis, with esophageal varices , hepatitis C, and venous insufficiency with a chronic nonhealing ulcer on the right leg, last hospitalized 6 months prior to admission with diarrhea and abdominal pain, found to have a positive urine culture and treated at that time with antibiotics, admitted on October 26 after presenting to the emergency room with a one day history of right sided back pain, worse with ambulation, with no dysuria or diarrhea, but with a one month history of urinary incontinence. On admission she was afebrile. Laboratory data revealed a white blood cell count of 3000, H&H 10 and 29, platelets 125,000, BUN/creatinine 13 and 0.7, AST ALT 38 and 23. Urinalysis 1-3 RBC/greater than 75 WBCs. X-ray of the right ribs was negative. CT of the abdomen and pelvis revealed borderline thickening of the urinary bladder wall with no bladder calculi. She was given a dose of Ciprofloxacin and then followed off antibiotics. Allergies/Medications Allergies: Coded Allergies: Penicillins (RASH 08/05/15) Sulfa (Sulfonamide Antibiotics) (UNKNOWN - PER PT SON 08/05/15) cephalexin (From KEFLEX) (RASH 07/27/16) clindamycin (UNKNOWN - PER PT SON 08/05/15) Home Med List: Ferrous Sulfate 325 MG (65 MG IRON) TABLET.DR 325 MG PO BID ANEMIA Furosemide 20 MG TABLET 10 MG PO DAILY DIURETIC Furosemide 20 MG TABLET 1 TAB PO DAILY Fluid overload Gabapentin 100 MG CAPSULE 100 MG PO BID PAIN Lidocaine (Lidoderm) 5 % ADH..PATCH 1 PAT TOP 2000 BACK PAIN Omeprazole 40 MG CAPSULE.DR 1 CAP PO DAILY GI (Reported) Propranolol HCl 10 MG TABLET 0.5 TAB PO DAILY Gastric varices Please monitor blood pressure and heart rate twice a day for 1 week. Send the results to your PCP and he will adjust the dose of this medication moving forward Sennosides/Docusate Sodium (Senna Plus Tablet) 8.6 MG-50 MG TABLET 2 TAB PO AT BEDTIME PRN CONSTIPATION Spironolactone 25 MG TABLET 1 TAB PO DAILY Fluid balance Past History Travel History Traveled to [place] past 21 day No Medical History Blood Transfusion Hx: Yes Neurological: NONE EENT: NONE Cardiovascular: CHF, chronic venous insuff, hypertension, RHEUMATIC FEVER Respiratory: NONE Gastrointestinal: ESOPHAGEAL VARICES Hepatic: cirrhosis, hepatitis C Renal: NONE Psychiatric: anxiety Endocrine: THYROID NODULES Blood Disorders: anemia, coagulopathy (mild (cirrhotic)), DVT (LUE), pancytopenia Cancer(s): NONE 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 , Age 84; Cause: Renal cell cancer. MOTHER, , Age 74; Cause: CVA (cerebrovascular accident due to intracerebral hemorrhage). Psychosocial History Who Do You Live With? child (son, Bobby Villarreal) Services at Home: Nursing Primary Language: Tongan Smoking Status: Former Smoker ETOH Use: denies use Illicit Drug Use: denies illicit drug use Living Will? 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 no Functional Ability ADLs Independent: dressing, eating, toileting. Unknown: bathing. Ambulation: cane (2 quad canes) IADLs Independent: finances, food prep, telephone, medication admin. Needs Assist: shopping, housework, transportation. Review of Systems Review of Systems All Other Systems: Reviewed and Negative Exam & Diagnostic Data Last 24 Hrs of Vital Signs/I&O Vital Signs Date Time Temp Pulse Resp B/P B/P Pulse O2 O2 Flow FiO2 Mean Ox Delivery Rate 10/28 1005 63 110/60 10/28 0800 Room Air 10/28 0631 97.7 62 18 124/68 94 Room Air 10/27 2229 98.2 68 20 140/60 95 Room Air 10/27 1645 Room Air 10/27 1435 98.6 60 20 130/80 96 Room Air Intake & Output 10/28 1600 10/28 0800 10/28 0000 Intake Total 100 50 Output Total Balance 100 50 Intake, Oral 100 50 Number 0 Bowel Movements Patient 180 lb Weight Physical Exam Other Physical Findings: She is awake and alert in no acute distress. She is afebrile. Skin reveals no rash. HEENT exam is negative. Neck is supple with no adenopathy. Lungs decreased breath sounds of the left base. Heart regular rhythm with no murmur. Abdomen is soft, nontender with positive bowel sounds. Back no CVA tenderness. Extremities dressings intact over both lower extremities. Neuro is without focality. Last 24 Hours of Lab Results: Laboratory Tests 10/28 0747 Hematology CBC w Diff NO MAN DIFF REQ WBC (4.8 - 10.8 /CUMM) 2.7 L RBC (4.20 - 5.40 /CUMM) 3.53 L Hgb (12.0 - 16.0 G/DL) 9.1 L Hct (37 - 47 %) 27.3 L MCV (81.0 - 99.0 FL) 77.3 L MCH (27.0 - 31.0 PG) 25.7 L MCHC (33.0 - 37.0 G/DL) 33.2 RDW (11.5 - 14.5 %) 17.8 H Plt Count (130 - 400 /CUMM) 126 L MPV (7.4 - 10.4 FL) 9.2 Gran % (42.2 - 75.2 %) 48.1 Lymphocytes % (20.5 - 51.1 %) 31.7 Monocytes % (1.7 - 9.3 %) 12.4 H Eosinophils % (0 - 5 %) 6.7 H Basophils % (0.0 - 2.0 %) 1.1 Absolute Granulocytes (1.4 - 6.5 /CUMM) 1.3 L Absolute Lymphocytes (1.2 - 3.4 /CUMM) 0.9 L Absolute Monocytes (0.10 - 0.60 /CUMM) 0.3 Absolute Eosinophils (0.0 - 0.7 /CUMM) 0.2 Absolute Basophils (0.0 - 0.2 /CUMM) 0 Last 24 Hours of Gui Results: Blood cultures 2 October 26 negative Urine culture October 26 greater than 100,000 colonies of E. coli sensitive to all antibiotics Diagnostic Data Recent Imaging Findings: X-ray of the right ribs was negative. CT of the abdomen and pelvis revealed borderline thickening of the urinary bladder wall with no bladder calculi. X-ray of the lumbosacral spine October 27 negative for any fracture or dislocation; multilevel moderate to severe degenerative disc disease and facet arthropathy Assessment/Plan Assessment/Plan Impression: This is a 77-year-old woman with a history of cirrhosis admitted on October 26 after presenting to the emergency room with a one day history of right sided back pain , worse with ambulation, with no dysuria or diarrhea, but with a one month history of urinary incontinence, found to be afebrile with a normal white blood cell count and pyuria and with a urine culture positive for greater than 100,000 colonies of E. coli. The significance of the positive urine culture is unclear. I suspect that it represents asymptomatic bacteriuria given the absence of any dysuria, urgency or frequency. She does have urinary incontinence, though this has been a problem for at least one month and is likely secondary to a noninfectious etiology. As she is stable I feel she can be followed off antibiotics pending further evaluation. Suggestion: 1. Urology evaluation for her urinary incontinence 2. Would continue to follow off antibiotics Consult Acknowledgment - Thank you for your consult request.
[2017-10-28 14:57] VITALS: BP 130/80
[2017-10-28 21:43] VITALS: BP 122/60
--- NOTE | 2017-10-29 05:15 | PN- Housestaff ---
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 Complained of 5/10 pain in her ankle wound but was given her pain medication shortly after that. She is concerned that she does not feel very comfortable in being transported in wheel chair to the transport, and would rather prefer a stretcher. Review of Systems Constitutional: Reports: see HPI. Objective Last 24 Hrs of Vital Signs/I&O Vital Signs Date Time Temp Pulse Resp B/P B/P Pulse O2 O2 Flow FiO2 Mean Ox Delivery Rate 10/28 2143 99.2 72 20 122/60 92 Room Air 10/28 1457 99.1 61 18 130/80 94 10/28 1005 63 110/60 10/28 0800 Room Air 10/28 0631 97.7 62 18 124/68 94 Room Air Intake & Output 10/29 0800 10/29 0000 10/28 1600 Intake Total 250 1100 Output Total Balance 250 1100 Intake, IV 10 Intake, Oral 240 1100 Number 1 Bowel Movements Patient 81.647 kg Weight Physical Exam General Appearance: Alert, Oriented X3, Cooperative, No Acute Distress Skin Temp/Moisture Exam: Warm/Dry HEENT: Atraumatic Neck: Supple Cardiovascular: Normal S1, Normal S2 Lungs: Clear to Auscultation, Normal Air Movement Abdomen: Soft, No Tenderness Neurological: Normal Speech, Normal Tone Extremities: b/l ankle wounds covered with dressing Current Medications: Current Medications Sig/Maricn Start time Last Medication Dose Route Stop Time Status Admin Enoxaparin Sodium 40 MG DAILY 10/26 1800 AC 10/28 SC 1003 Ferrous Sulfate 325 MG BID 10/27 2100 AC 10/28 PO 2122 Furosemide 10 MG DAILY 10/28 09 AC 10/28 PO 1004 Gabapentin 100 MG BID 10/27 09 AC 10/28 PO 2121 Ibuprofen 200 MG Q6P PRN 10/26 1800 AC PO Lidocaine 1 PAT 10/27 AC 10/28 TOP 2122 Omeprazole 40 MG DAILY AC 10/27 0700 AC 10/29 PO 0532 Propranolol HCl 5 MG DAILY 10/27 09 AC 10/28 PO 1005 Senna/Docusate Sodium 2 TAB AT BEDTIME PRN 10/26 1800 AC PO Spironolactone 25 MG DAILY 10/27 0900 AC 10/28 PO 1003 Tramadol HCl 50 MG Q6P PRN 10/26 1800 AC 10/29 PO 0532 Last 24 Hrs of Lab/Gui Results Last 24 Hrs of Labs/Mics: Laboratory Tests 10/28/17 0747: CBC w Diff NO MAN DIFF REQ, RBC 3.53 L, MCV 77.3 L, MCH 25.7 L, MCHC 33.2, RDW 17.8 H, MPV 9.2, Gran % 48.1, Lymphocytes % 31.7, Monocytes % 12.4 H, Eosinophils % 6.7 H, Basophils % 1.1, Absolute Granulocytes 1.3 L, Absolute Lymphocytes 0.9 L, Absolute Monocytes 0.3, Absolute Eosinophils 0.2, Absolute Basophils 0 Assessment/Plan Assessment: Patient is a 77 year old female with PMH significant for CHF, chronic venous insufficiency, hypertension, RF, thyroid nodules, anxiety, pancytopenia, anasarca and esophagel varicies, ligated, secondary to cirrhosis secondary to hepatits C (that she contracted by blood transfusion "years ago") came with right sided mid back pain that began 2 days ago. She states that the pain started "suddenly". She denies any injury of the area. Denied any recent falls , usually ambulates with two canes short distances. Admits to increased pain on movement and walking, no increased pain on inspiration. She states that around the time the pain began, she felt that she had "a cold coming on". Due to the back pain it is hard for her to cough, but when she does, she is able to produce clear sputum. Back Pain: Pain was controlled with Tramadol and lidocain patch, avoiding NSAIDs and Tylenol. Lumbar spine x-ray showed no fracture or dislocation but a convex right thoracic lumbar scoliosis with multilevel moderate to severe degenerative disease and facet arthropathy. We placed her on Neurontin for her neuropathic pain 3 times a day but she felt very drowsy therefore the dose was changed to 100 mg twice a day. Deconditioning and weakness: Patient needs physical therapy for muscle strengthening Difficulty initiating swallow: patient passed bedside swallow and admits to chopping her food into small pieces, has trouble initiating swallow in the setting of prior esophageal procedure. Patient was placed on chopped diet with thin liquids. Increased urinary frequency: patient blames on the Lasix and is why she stopped it. However, frequency has continued even after discontinuing Lasix 1 month ago. Suspicion of UTI was very low therefore she was watched off antibiotics. Her urine cultures showed gram negative rods. Anemia: -Iron tests show low ferritin, we will supplement with iron sulfate. Problem List: 1. Asymptomatic bacteriuria 2. Periodontal disease 3. Weakness Pain Ratin Pain Location: b/l ankle wound Pain Goal: Pain 4 or less Pain Plan: gabapentin, lidocaine, tramadol Tomorrow's Labs & Rationales: none
[2017-10-29 06:20] VITALS: BP 130/70
--- NOTE | 2017-10-29 07:23 | ECHOCARDIOGRAM REPORT ---
OTONIEL SANCHES Age: 77 : 1940 Gender: F Exam Date: 10/28/2017 08:53 Exam Location: [address] Ht (in): 66 Wt (lb): 180 BSA: 1.97 BP: 148 / 76 Ordering Physician: Bela Cristobal MD Referring Physician: Beal Cristobal MD Technologist: Shawn Hernandez [facility] Room Number: [id number] Indications: Shortness of breath Rhythm: Sinus Technical Quality: good FINDINGS Left Ventricle Normal left ventricular size, wall thickness and systolic function with no obvious regional wall motion abnormalities. Normal left ventricular diastolic filling pattern for age. The ejection fraction is visually estimated at 60%. Right Ventricle The right ventricle is normal in size and function. Right Atrium The right atrium is normal in size. Left Atrium The left atrium is normal in size. The interatrial septum is intact. Mitral Valve The mitral valve is normal in structure and function. There is trace mitral regurgitation. Aortic Valve Structurally normal aortic valve without significant sclerosis or stenosis. There is no aortic regurgitation. Tricuspid Valve The tricuspid valve is normal in structure and function. There is trace tricuspid regurgitation. Pulmonary artery systolic pressure is normal. Pulmonic Valve Structurally normal pulmonic valve. There is no pulmonic regurgitation. Pericardium Normal pericardium without effusion. No pleural effusion. Great Vessels Normal aortic root dimension. The aortic arch and great vessels are well seen and are normal. CONCLUSIONS 1. Normal EF of 60%. 2. Trace MR. 3. Trace TRDorita Mchugh M.D. (Electronically Signed) Final Date: 29 Oct 2017 07:22 MEASUREMENTS (Male / Female) Normal Values 2D ECHO LV Diastolic Diameter PLAX 5.4 cm 4.2 - 5.9 / 3.9 - 5.3 cm LV Systolic Diameter PLAX 3.4 cm 2.1 - 4.0 cm LV Fractional Shortening PLAX 37.0 % 25 - 46 % LV Ejection Fraction 2D Teich 66.4 % IVS Diastolic Thickness 1.0 cm LVPW Diastolic Thickness 1.1 cm LV Relative Wall Thickness 0.4 RV Internal Dim ED PLAX 3.3 cm 1.9 - 3.8 cm LVOT Diameter 2.1 cm Aortic Root Diameter 2.6 cm LA Volume 97.0 cm 18 - 58 / 22 - 52 cm Ascending Aorta Diameter 3.3 cm DOPPLER AV Peak Velocity 185.0 cm/s AV Peak Gradient 13.7 mmHg AV Mean Velocity 124.0 cm/s AV Mean Gradient 7.0 mmHg AV Velocity Time Integral 46.0 cm LVOT Peak Velocity 94.0 cm/s LVOT Peak Gradient 3.5 mmHg LVOT Mean Velocity 58.6 cm/s LVOT Mean Gradient 2.0 mmHg LVOT Velocity Time Integral 22.6 cm LVOT Stroke Volume 78.3 cm AV Area Cont Eq vti 1.7 cm AV Area Cont Eq pk 1.8 cm MV Peak Velocity 106.0 cm/s MV Peak Gradient 4.5 mmHg MV Mean Velocity 56.0 cm/s MV Mean Gradient 2.0 mmHg Mitral E Point Velocity 73.5 cm/s Mitral A Point Velocity 62.7 cm/s Mitral E to A Ratio 1.2 MV PHT Velocity 108.0 cm/s MV Deceleration [place] 389.0 cm/s MV Pressure Half Time 83.3 ms MV Area PHT 2.6 cm MV Deceleration Time 310.0 ms TR Peak Velocity 249.0 cm/s TR Peak Gradient 24.8 mmHg Right Atrial Pressure 10.0 mmHg Pulmonary Artery Systolic Pressu 34.8 mmHg Right Ventricular Systolic Press 34.8 mmHg PV Peak Velocity 149.0 cm/s PV Peak Gradient 8.9 mmHg PV Mean Velocity 102.0 cm/s PV Mean Gradient 5.0 mmHg PV Velocity Time Integral 34.7 cm LV E' Lateral Velocity 14.9 cm/s Mitral E to LV E' Lateral Ratio 4.9 LV E' Septal Velocity 9.0 cm/s Mitral E to LV E' Septal Ratio 8.2
[2017-10-29 08:32] LABS: ABSOLUTE BASOPHIL COUNT 0 /CUMM (0.0-0.2); ABSOLUTE EOSINOPHIL COUNT 0.2 /CUMM (0.0-0.7); ABSOLUTE GRANULOCYTE CT 1.3 /CUMM (1.4-6.5); ABSOLUTE LYMPH COUNT 0.8 /CUMM (1.2-3.4); ABSOLUTE MONOCYTE COUNT 0.4 /CUMM (0.10-0.60); BASOPHIL % 0.6 % (0.0-2.0); EOSINOPHIL % 7.8 % (0-5); GRANULOCYTE % 48.2 % (42.2-75.2); HEMATOCRIT 27.4 % (37-47); MEAN CORPUSCULAR HGB 25.3 PG (27.0-31.0); MEAN CORPUSCULAR VOLUME 76.6 FL (81.0-99.0); MEAN PLATELET VOLUME 9.4 FL (7.4-10.4); PLATELET COUNT 124 /CUMM (130-400); RBC DISTRIBUTION WIDTH 17.4 % (11.5-14.5); RED BLOOD CELL CT 3.58 /CUMM (4.20-5.40); WHITE BLOOD CELL COUNT 2.6 /CUMM (4.8-10.8)
--- NOTE | 2017-10-29 11:28 | PN- Att Addend ---
Attending Addendum Attending Brief Note Patient seen and examined in the emergency room. Patient's son was at the bedside. Plan of care discussed with the medical team and the patient. Available lab work and radiology test reports were reviewed. She appears awake alert interactive and without any distress. She has no new complaints this morning. Exam: General: Patient awake alert oriented without any distress CVS: S1 plus S2 without any murmur or gallops Chest: Few scattered crepitation without any wheeze. There is no respiratory distress. 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 without any focal neuro deficit and follows commands appropriately Extremities: No edema; no clubbing or cyanosis noted; both feet are covered by dressing Assessment * Acute back pain-improved * Inability to ambulate due to back pain * History of liver cirrhosis and ascites and splenomegaly and esophageal varices * History of hepatitis C * History of CHF and hypertension-prior echo showed preserved ejection fraction * Remote history of rheumatic fever * 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 * Decubitus ulcers * Malnutrition Plan * Patient stable for discharge short-term rehabilitation today * Continue Lasix and Aldactone ; Lasix dose to 10 mg every morning * Continue iron sulfate given low iron and ferritin level * Continue Lidocaine patch to right chest; continue Neurontin 100 mg 2 times a day; continue Ultram for pain control when necessary; avoid Tylenol and Motrin Current Medications Sig/Marcin Start time Last Medication Dose Route Stop Time Status Admin Enoxaparin Sodium 40 MG DAILY 10/26 1800 AC 10/29 SC 0853 Ferrous Sulfate 325 MG BID 10/27 2100 AC 10/29 PO 0852 Furosemide 10 MG DAILY 10/28 09 AC 10/29 PO 0853 Gabapentin 100 MG BID 10/27 0900 AC 10/29 PO 0852 Ibuprofen 200 MG Q6P PRN 10/26 1800 AC PO Lidocaine 1 PAT 2000 10/28 1999 AC 10/28 TOP 2122 Omeprazole 40 MG DAILY AC 10/27 07 AC 10/29 PO 0532 Propranolol HCl 5 MG DAILY 10/27 09 AC 10/29 PO 0900 Senna/Docusate Sodium 2 TAB AT BEDTIME PRN 10/26 1800 AC PO Spironolactone 25 MG DAILY 10/27 09 AC 10/29 PO 0852 Tramadol HCl 50 MG Q6P PRN 10/26 1800 AC 10/29 PO 0532 Laboratory Tests 10/29/17 0633: CBC w Diff NO MAN DIFF REQ, RBC 3.58 L, MCV 76.6 L, MCH 25.3 L, MCHC 33.0, RDW 17.4 H, MPV 9.4, Gran % 48.2, Lymphocytes % 29.8, Monocytes % 13.6 H, Eosinophils % 7.8 H, Basophils % 0.6, Absolute Granulocytes 1.3 L, Absolute Lymphocytes 0.8 L, Absolute Monocytes 0.4, Absolute Eosinophils 0.2, Absolute Basophils 0 10/28/17 0747: CBC w Diff NO MAN DIFF REQ, RBC 3.53 L, MCV 77.3 L, MCH 25.7 L, MCHC 33.2, RDW 17.8 H, MPV 9.2, Gran % 48.1, Lymphocytes % 31.7, Monocytes % 12.4 H, Eosinophils % 6.7 H, Basophils % 1.1, Absolute Granulocytes 1.3 L, Absolute Lymphocytes 0.9 L, Absolute Monocytes 0.3, Absolute Eosinophils 0.2, Absolute Basophils 0 10/27/17 0650: Anion Gap 9, Estimated GFR > 60, BUN/Creatinine Ratio 18.3, Triglycerides 70, Cholesterol 105, LDL Cholesterol, Calc 64 L, HDL Cholesterol 27 L, Cholesterol /HDL Ratio 4, TSH &T3 &Free T4 Intrp 1.030, CBC w Diff NO MAN DIFF REQ, RBC 3.58 L, MCV 77.2 L, MCH 25.2 L, MCHC 32.7 L, RDW 17.2 H, MPV 9.1, Gran % 50.1, Lymphocytes % 30.7, Monocytes % 12.9 H, Eosinophils % 5.6 H, Basophils % 0.7, Absolute Granulocytes 1.3 L, Absolute Lymphocytes 0.8 L, Absolute Monocytes 0.3, Absolute Eosinophils 0.1, Absolute Basophils 0 10/26/172049: Hemoglobin A1c 5.3 10/26/17 1206: Urine Color YEL, Urine Clarity HAZY H, Urine pH 6.5, Ur Specific [place] 1.020, Urine Protein 30 H, Urine Ketones NEG, Urine Nitrite NEG, Urine Bilirubin NEG, Urine Urobilinogen 0.2, Ur Leukocyte Esterase LARGE H, Ur Microscopic SEDIMENT EXAMINED, Urine RBC 1-3, Urine WBC > 75 H, Ur Epithelial Cells RARE, Urine Bacteria MANY H, Urine Hemoglobin SMALL H, Urine Glucose NEG Microbiology 10/26 2054 BLOOD: Blood Culture - RES 10/26 2049 BLOOD: Blood Culture - RES 10/26 120 URINE ROUT: Urine Culture - COMP ESCHERICHIA COLI Vital Signs Date Time Temp Pulse Resp B/P B/P Pulse O2 O2 Flow FiO2 Mean Ox Delivery Rate 10/29 0900 82 118/50 10/29 0800 Room Air Room Air 10/29 0620 98.4 80 18 130/70 93 Room Air 10/28 2143 99.2 72 20 122/60 92 Room Air 10/28 1457 99.1 61 18 130/80 94 Intake & Output 10/29 1600 10/29 0800 10/29 0000 Intake Total 130 250 Output Total 200 Balance -200 130 250 Intake, IV 10 10 Intake, Oral 120 240 Number 1 0 1 Bowel Movements Output, Urine 200 Total time spent in preparation for discharge plan, patient education, and CMR preparation was 35 minutes.
[2017-10-29 11:32] VITALS: BP 118/50
== END 2017-10-29 13:50 | DRG 552 ==
LOC: ERH 11:03 → ERHI 15:49 → 2NA 15:49 → ENRESERV 16:51 → ENTRNSPT 17:42 → EDTRNSPTSTS 17:54 → 2NA 18:01 → CMPTRNSPT 18:15 → ENPENDDIS 10-29 10:40 → 2NA 10-29 13:50
PROVIDERS: Internal Medicine Cardiovascular Disease; Student in an Organized Health Care Education/Training Program
DX: M54.9 Dorsalgia, unspecified (principal); D61.818 Other pancytopenia; E46 Unspecified protein-calorie malnutrition; D69.6 Thrombocytopenia, unspecified; I85.00 Esophageal varices without bleeding; I11.0 Hypertensive heart disease with heart failure; I50.32 Chronic diastolic (congestive) heart failure; D68.9 Coagulation defect, unspecified; L97.819 Non-pressure chronic ulcer of other part of right lower leg with unspecified severity; N30.01 Acute cystitis with hematuria; R18.8 Other ascites; R16.1 Splenomegaly, not elsewhere classified; D64.9 Anemia, unspecified; K74.69 Other cirrhosis of liver; B19.20 Unspecified viral hepatitis C without hepatic coma; F41.9 Anxiety disorder, unspecified; R26.2 Difficulty in walking, not elsewhere classified; I73.89 Other specified peripheral vascular diseases; Z86.718 Personal history of other venous thrombosis and embolism; K74.60 Unspecified cirrhosis of liver; B18.2 Chronic viral hepatitis C; R32 Unspecified urinary incontinence; Z68.29 Body mass index [BMI] 29.0-29.9, adult
CPT/HCPCS: 2NAP; 36592; 71100-RT; 72100; 74176; 81001; 82436; 87040; 87086; 93005; 93010; 93306; 96374; 97161-GP; 97530-GO; J0131; J0744; J1650

== ENCOUNTER 2017-12-29 14:59 | Inpatient (IN) | payer OTHER, MEDICARE ==
[~2017-12-29] VITALS: Ht 170.2 cm; Wt 88.5 kg
[~2017-12-29 14:59] MED LIST changes: +GABAPENTIN100 M2 PO; +LEVOFLOXACIN750 M1 PO; +LIDODERM1 EACH TOP; +SENNA PLUS TAB1 EACH PO
--- NOTE | 2017-12-29 17:08 | ED GI/GU/ABDOMINAL COMPLAINT ---
History of Present Illness General Chief Complaint: General Adult Stated Complaint: BIBA WITH A GI BLEED Source: patient Exam Limitations: no limitations Vital Signs & Intake/Output Vital Signs & Intake/Output Vital Signs Date Time Temp Pulse Resp B/P B/P Pulse O2 O2 Flow FiO2 Mean Ox Delivery Rate 12/31 0639 98.1 71 20 138/58 96 Room Air 12/30 2210 99.6 68 20 132/54 95 Room Air 12/30 1437 99.0 78 20 132/84 96 Room Air 12/30 0846 73 124/500 ED Intake and Output 12/31 0000 12/30 1200 Intake Total 1735 720 Output Total Balance 1735 720 Intake, IV 875 600 Intake, Oral 860 120 Number 2 3 Bowel Movements Patient 195 lb Weight Allergies Coded Allergies: Penicillins (RASH 08/05/15) Sulfa (Sulfonamide Antibiotics) (UNKNOWN - PER PT SON 08/05/15) cephalexin (From KEFLEX) (RASH 07/27/16) clindamycin (UNKNOWN - PER PT SON 08/05/15) Triage Note: PT BIBA FROM HOME WITH C/O RECTAL BLEEDING x2 DAYS. PT AND SON REPORT THAT SHE NOTICED BRIGHT RED BLOOD IN TOILET AFTER A BM YESTERDAY, AND HAD CONCERNS THAT SHE "CUT" EITHER A POLYP OR A HEMORRHOID. PT CONTINUES TO BLEED FROM THE RECTUM TODAY, NOTING CLOTS ADN A FEELING OF RECTAL "FULLNESS" SIMILAR TO THE NEED TO HAVE A BM. PT STATES THAT SHE IS "DRIPPING CONSTANTLY", ALTHOUGH NO BLOOD NOTED ON INCONTINENCE BRIEFS Triage Nurses Notes Reviewed? yes ? N Is pt currently ? No Onset: Abrupt Duration: day(s): Timing: recent history HPI: 77 y/o female with PMHx of hepatitis C presents to the ED with complaints of rectal bleeding x 2 days. Pt states she has been seeing bright red blood in her stool after defecation which has never happened to her before. Pt also complains of feeling something strange around her rectum that she wants to get checked out. Pt denies taking any medications. Pt denies fever, chills, abdominal pain, N/V/D, dysuria, polyuria, hematemesis, melena, or pain with defecation. (Tristian VILLARREAL,Mukul) Reconcile Medications Ferrous Sulfate 325 MG (65 MG IRON) TABLET 1 TAB PO DAILY SUPPLEMENT ( Reported) Furosemide 20 MG TABLET 10 MG PO DAILY DIURETIC Gabapentin 100 MG CAPSULE 100 MG PO BID PAIN Lidocaine (Lidoderm) 5 % ADH..PATCH 1 PAT TOP 2000 BACK PAIN Omeprazole 40 MG CAPSULE.DR 1 CAP PO DAILY GI (Reported) Propranolol HCl 10 MG TABLET 0.5 TAB PO DAILY Gastric varices Please monitor blood pressure and heart rate twice a day for 1 week. Send the results to your PCP and he will adjust the dose of this medication moving forward Sennosides/Docusate Sodium (Senna Plus Tablet) 8.6 MG-50 MG TABLET 2 TAB PO AT BEDTIME PRN CONSTIPATION Spironolactone 25 MG TABLET 1 TAB PO DAILY Fluid balance (Gilma EMERY,[facility]) Past History Travel History Traveled to [place] past 21 day No Medical History Any Pertinent Medical History? 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 , Age 84; Cause: Renal cell cancer. MOTHER, , Age 74; Cause: CVA (cerebrovascular accident due to intracerebral hemorrhage). Hx Contributory? No (Mukul Burnett) Review of Systems Review of Systems Constitutional: Reports: see HPI. EENTM: Reports: no symptoms. Respiratory: Reports: no symptoms. Cardiovascular: Reports: no symptoms. GI: Reports: see HPI. Genitourinary: Reports: no symptoms. Musculoskeletal: Reports: no symptoms. Skin: Reports: no symptoms. Neurological/Psychological: Reports: no symptoms. Hematologic/Endocrine: Reports: see HPI. Immunologic/Allergic: Reports: no symptoms. All Other Systems: Reviewed and Negative (Mukul Burnett) Physical Exam Physical Exam General Appearance: well developed/nourished, no apparent distress, alert, awake Head: atraumatic, normal appearance Eyes: Bilateral: normal appearance. Ears, Nose, Throat, Mouth: hearing grossly normal, moist mucous membrane Neck: normal inspection Respiratory: normal breath sounds, no respiratory distress, lungs clear Cardiovascular: regular rate/rhythm, normal peripheral pulses Gastrointestinal: normal bowel sounds, soft, non-tender, no organomegaly Rectal: heme negative stool, hemmorrhoids Back: normal inspection Extremities: normal range of motion Neurologic/Psych: awake, alert, oriented x 3 Skin: intact Core Measures ACS in differential dx? No Sepsis Present: No Sepsis Focused Exam Completed? No (Tristian VILLARREAL,Mukul) Progress Differential Diagnosis: DIVERTICULOSIS, EXTERNAL HEMORRHOID, ANAL FISSURE, Plan of Care: Orders Procedure Date/time Status CBC WITHOUT DIFFERENTIAL 12/31 0600 Active Regular Diet 12/30 L Active C.DIFFICILE 12/30 1700 Active Wound Care/Dressing 12/30 UNK Active Nursing Misc 12/30 UNK Active Current Medications Sig/Marcin Start time Last Medication Dose Stop Time Status Admin Pantoprazole Sodium 40 MG DAILY 12/30 0900 AC 12/30 (Protonix) 0846 Propranolol HCl 5 MG DAILY 12/30 0900 AC 12/30 (Inderal 10 MG 0846 Tablet.) Acetaminophen 650 MG Q4P PRN 12/30 0145 AC 12/30 (Tylenol) 0851 Dextrose/Water 1,000 ML Q10H 12/30 0045 AC 12/31 (D5W 1000) 0453 Laboratory Tests 12/31/17 0652: CBC w Diff Pending, WBC Pending, RBC Pending, Hgb Pending, Hct Pending, MCV Pending, MCH Pending, MCHC Pending, RDW Pending, Plt Count Pending, MPV Pending 12/30/17 0842: CBC w Diff NO MAN DIFF REQ, RBC 3.19 L, MCV 79.1 L, MCH 26.2 L, MCHC 33.1, RDW 19.1 H, MPV 9.2, Gran % 54.8, Lymphocytes % 26.6, Monocytes % 10.8 H, Eosinophils % 7.3 H, Basophils % 0.5, Absolute Granulocytes 1.3 L, Absolute Lymphocytes 0.6 L, Absolute Monocytes 0.3, Absolute Eosinophils 0.2, Absolute Basophils 0 Microbiology 12/30 1703 STOOL: Clostridium difficile Toxin A & B - RECD Initial ED EKG: normal sinus rhythm, rate (60), nonspecific ST T wave chg (Mukul Burnett) Departure Departure Disposition: STILL A PATIENT Condition: Stable Clinical Impression Primary Impression: Lower GI bleed Referrals: Comfort EMERY,Trace Ford (PCP/Family) Departure Forms: Customer Survey General Discharge Information Observation Note Spoke With: Brett Godinez MD Physician Advisor Notified: AFTAB CARLTON DO Place Patient In: Non-ED OBS Care Area Rationale for Observation: My rational for observation is as follows . (Mukul Burnett) PA/AGRISCIENCE TECHNOLOGY INSTRUCTOR Co-Sign Statement Statement: ED Attending supervision documentation- [X] I saw and evaluated the patient. I have also reviewed all the pertinent lab results and diagnostic results. I agree with the findings and the plan of care as documented in the PA's/AGRISCIENCE TECHNOLOGY INSTRUCTOR's documentation. [] I have reviewed the ED Record and agree with the PA's/AGRISCIENCE TECHNOLOGY INSTRUCTOR's documentation. [] Additions or exceptions (if any) to the PAs/AGRISCIENCE TECHNOLOGY INSTRUCTOR's note and plan are summarized below: 77-year-old female with a history of hepatitis C reports gross bleeding with stools. She has a history of anemia, she continues to be anemic. The patient has currently stable vital signs. Based on the physical exam of Mukul, PA patient is not actively bleeding but she had 2 days of bleeding. She has needed transfusions in the past. Given this history, and the lack of any colonoscopy report available to us, I recommend the patient be admitted or at least observe. Currently the vital signs are stable. But the patient is a high-risk candidate given her age. Abdomen is completely soft and benign, no fever or leukocytosis. We will not be doing a CT scan at this time. We will keep the patient in close observation and if there is pain we will do imaging. The patient does have a hemorrhoid. But has no formal history of hemorrhoidal bleed as well. Currently the hemorrhoid is not bleeding. Given that there is no known source and the patient's age and hepatitis, we will recommend admission. (Gilma EMERY,[facility])
[2017-12-29 17:30] LABS: ABSOLUTE BASOPHIL COUNT 0 /CUMM (0.0-0.2); ABSOLUTE EOSINOPHIL COUNT 0.2 /CUMM (0.0-0.7); ABSOLUTE GRANULOCYTE CT 1.4 /CUMM (1.4-6.5); ABSOLUTE LYMPH COUNT 0.7 /CUMM (1.2-3.4); ABSOLUTE MONOCYTE COUNT 0.3 /CUMM (0.10-0.60); BASOPHIL % 0.7 % (0.0-2.0); EOSINOPHIL % 8.9 % (0-5); GRANULOCYTE % 52.3 % (42.2-75.2); HEMATOCRIT 28.4 % (37-47); MEAN CORPUSCULAR HGB CONC 32.8 G/DL (33.0-37.0); MEAN PLATELET VOLUME 8.9 FL (7.4-10.4); PLATELET COUNT 112 /CUMM (130-400); RBC DISTRIBUTION WIDTH 19.6 % (11.5-14.5); RED BLOOD CELL CT 3.59 /CUMM (4.20-5.40); WHITE BLOOD CELL COUNT 2.7 /CUMM (4.8-10.8)
[2017-12-29] MEDS ORDERED: FERROUS SULFAT325 M3 PO (17:33)
[2017-12-29 17:44] LABS: PT 12.7 SEC (9.4-12.5)
[2017-12-29 17:45] LABS: PTT 29 SEC (25-37)
--- NOTE | 2017-12-29 20:52 | History & Physical ---
Nathaly Torres 12/29/172051: General Information and HPI MD Statement: I have seen and personally examined SANA VILLARREALOPE Darrell and documented this H&P. The patient is a 77 year old F who presented with a patient stated chief complaint of []. 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 The son noticed gissell blood trickling down the back of her leg while she got up to use the bathroom in the morning today. The bleeding is bright red, painless, accompanied with clots and filled the toilet bowl. The patient was told that she had prolapsed hemorrhoids. She reported that she has had hemorrhoids in the past when her son was born. She denies palpitations, lightheadedness, dizziness, SOB. She was in a rehab centre last month for lower back pain and has visiting nurses come to her house thrice a week for her wound dressing. Allergies/Medications Allergies: Coded Allergies: Penicillins (RASH 08/05/15) Sulfa (Sulfonamide Antibiotics) (UNKNOWN - PER PT SON 08/05/15) cephalexin (From KEFLEX) (RASH 07/27/16) clindamycin (UNKNOWN - PER PT SON 08/05/15) Home Med list Ferrous Sulfate 325 MG (65 MG IRON) TABLET 1 TAB PO DAILY SUPPLEMENT ( Reported) Furosemide 20 MG TABLET 10 MG PO DAILY DIURETIC Gabapentin 100 MG CAPSULE 100 MG PO BID PAIN Lidocaine (Lidoderm) 5 % ADH..PATCH 1 PAT TOP 2000 BACK PAIN Omeprazole 40 MG CAPSULE.DR 1 CAP PO DAILY GI (Reported) Propranolol HCl 10 MG TABLET 0.5 TAB PO DAILY Gastric varices Please monitor blood pressure and heart rate twice a day for 1 week. Send the results to your PCP and he will adjust the dose of this medication moving forward Sennosides/Docusate Sodium (Senna Plus Tablet) 8.6 MG-50 MG TABLET 2 TAB PO AT BEDTIME PRN CONSTIPATION Spironolactone 25 MG TABLET 1 TAB PO DAILY Fluid balance Observation Initial Note - I have personally examined OTONIEL VILLARREAL on 12/30/17 at 0611. The disposition of OTONIEL VILLARREAL is uncertain at this time and before a determination can be made, she requires a period of observation for the following reasons lower gi bleed Past History Travel History Traveled to [place] past 21 day No (.) Medical History Neurological: NONE EENT: NONE Cardiovascular: CHF, chronic venous insuff, hypertension, RHEUMATIC FEVER Respiratory: NONE Gastrointestinal: ESOPHAGEAL VARICES Hepatic: cirrhosis, hepatitis C Renal: NONE Psychiatric: anxiety Endocrine: THYROID NODULES Blood Disorders: anemia, coagulopathy (mild (cirrhotic)), DVT (LUE), pancytopenia Cancer(s): 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 , Age 84; Cause: Renal cell cancer. MOTHER, , Age 74; Cause: CVA (cerebrovascular accident due to intracerebral hemorrhage). Psychosocial History Who Do You Live With? child (son, Bobby Villarreal) Services at Home: Nursing Primary Language: Mozambican ETOH Use: denies use Living Will? no Power of Tangled Yarn Spool Straightener/HCP? no Functional Ability ADLs Independent: dressing, eating, toileting. Unknown: bathing. Ambulation: cane (2 quad canes) IADLs Independent: finances, food prep, telephone, medication admin. Needs Assist: shopping, housework, transportation. Review of Systems Review of Systems Constitutional: Denies: chills, diaphoresis, fever, malaise, weakness. EENTM: Reports: no symptoms. Cardiovascular: Reports: no symptoms. Respiratory: Reports: no symptoms. GI: Reports: abdominal pain, bloody stool, changes in stool. Denies: diarrhea, bowel incontinence, vomiting. Genitourinary: Reports: no symptoms. Musculoskeletal: Reports: no symptoms. Skin: Reports: lesions. Neurological/Psychological: Reports: no symptoms. Hematologic/Endocrine: Reports: bleeding. Immunologic/Allergic: Reports: other. Exam & Diagnostic Data Last 24 Hrs of Vital Signs/I&O Vital Signs Date Time Temp Pulse Resp B/P B/P Pulse O2 O2 Flow FiO2 Mean Ox Delivery Rate 07/27 0000 98.3 63 18 152/60 97 Room Air 12/29 2301 98.7 67 18 137/60 97 Room Air 12/29 1735 97.9 62 16 138/71 96 Room Air 12/29 1709 Room Air 12/29 1521 97.6 58 16 147/67 98 Room Air Intake & Output 12/30 0800 12/30 0000 12/29 1600 Intake Total 0 Output Total Balance 0 Intake, Oral 0 Patient 195 lb Weight Physical Exam General Appearance Alert, Oriented X3, Cooperative, No Acute Distress Skin Dressed wounds on b/l lower limb. The patient deferred examination till morning. Skin Temp/Moisture Exam: Warm/Dry Sepsis Skin Exam (color): Pale HEENT Atraumatic, PERRLA Neck Supple Cardiovascular Regular Rate, Normal S2, short systolic murmur Lungs Clear to Auscultation Abdomen Soft, No Tenderness Neurological Normal Speech, Sensation Intact Extremities Normal Pulses Pelvic (FEMALE) Discharge+ not blood stained Rectal Guiac Negative, prolapsed hemorrhoids seen at 6 o'clock and 9 o'clock positions. Patient actively bleeding from the rectum at the slightest stretching of the anus Assessment/Plan Assessment: 77 yo Female with past medical history of hypertension, chronic leg ulcers/ wounds, Rheumatic fever, untreated Hep C leading ot cirrhosis(compensated), ruptured esophageal varices s/p banding, pancytopenia secondary to ?active Hep C / polyclonal gammopathy is brought to the ER by her son with complainy of painless bleeding from the rectum 3 times since yesterday. On examination, the patient is alert, oriented x3, and in no acute distress. She is pale, with dry mucous membranes. On rectal examination, she has ?prolapsed hemorrrhoids at 6 o' clock and 9 o'clock and is actively bleeding at the sligtest touch. No vaginal bleeding noticed. She deferred the examination of her wounds till morning. Her Hgb dropped from 9.3 to 8.7 in about 6 hours after she presented to the ED. Guaic was -ve in the ED. PLAN Place the patient for obsrervation with Q 4 hrly monitoring of vitals 1.Hematochezia: -Supplemental oxygen, iv access, constant monitoring for hemodynamic stability -Start on iv fluids -Repeat Hgb in the am -GI consult 2. BL lower extremity wounds: -Patient deferred examination till morning -wound consult 3. Hep C with Compensated Cirrhosis -Last Ultrasound done 11/15/16 showed heterogeneous echotexture compatible with fibrosis without a focal liver lesion. -History of actively replicating Hepatitis C (12/02/2015: + Quantitative HCV RNA IU/ML 785080, + Quantitative HCV RNA LOG IU/ML 5.19; genotype 1a), for which she saw Dr. Moody 12/15/2015 and Jesi was advised. Inadequately treated due to non compliance. Pancytopenia -? Secondary to actively replicating Hep C virus/ polyclonal gammopathy -Possible Hematology consult DVT prophylaxis: No mechanical prophylaxis due to multiple lower limb wounds No pharmacological prophylaxis due to active bleeding NPO for possible intervention in the am Code status: FC As Ranked By This Provider Problem List: 1. GI bleed 2. Bleeding hemorrhoids 3. Esophageal varices 4. Pancytopenia 5. Cirrhosis 6. Venous insufficiency 7. Hepatitis C 8. Anemia 9. Hypertension Core Measures/Misc (02/20) Acute Coronary Syndrome ACS Diagnosis: No Congestive Heart Failure Congestive Heart Failure Diagnosis No Cerebrovascular Accident CVA/TIA Diagnosis: No VTE (View Protocol) VTE Risk Factors Age>40 No Mechanical VTE Prophylaxis d/t Physical Contraindication No VTE Pharm Prophylaxis d/t Bleeding (Active) Sepsis (View protocol) Sepsis Present: No If YES complete Sepsis Event Note If YES complete Sepsis Event Note Brett Godinez MD 12/29/17 2233: Core Measures/Misc (02/20) Sepsis (View protocol) If YES complete Sepsis Event Note If YES complete Sepsis Event Note Attending MD Review Statement Attending Statement Attending MD Statement: examined this patient, discuss w/resident/PA/SOCIETY EDITOR, agreed w/resident/PA/SOCIETY EDITOR, reviewed EMR data (avail), discussed with nursing, amended to note Attending Assessment/Plan: 77-year-old female with history significant for chronic congestive heart failure , chronic venous insufficiency, hypertension, cirrhosis secondary to hepatitis C , pancytopenia, esophageal varices, anxiety disorder. Patient and son initially reported to the emergency room staff that she saw bright red blood per rectum. This persisted today. She reports moving her bowels earlier today and seeing blood in the toilet bowl. Son was concerned and brought her to the emergency room for evaluation. She arrived here hemodynamically stable. Hemoglobin is stable at baseline values. INR is within normal limits. At the time of my evaluation urinalysis was not obtained neither was a stool guaiac done. Patient was resting comfortably on the stretcher not in any acute distress. Denies nausea vomiting. No abdominal pain. Denied Diarrhea or constipation. Heart sounds are regular. Lungs are clear to auscultation bilaterally. Abdomen is soft and nontender. Bilateral lower extremities were wrapped she states that she has chronic wounds for which she goes to the wound center. Impression: Colonoscopy July 2016. 1. Grossly normal colonic mucosa status post random biopsies. 2. Fair prep so that lesions less than 1 cm could not be entirely ruled out. 3. Small internal and external hemorrhoids. Impression: EGD November 2016. 1. 3 columns of 2+ esophageal varices from 30-40 cm, a few with red kristin sign. Banded x 4. 2. Clots, blood, and food seen in gastric cardia, the majority cleared with the Cox Net. A small portion of the gastric cardia could not be inspected, despite repositioning the patient, while on the ventilator 3. Mild superficial nodularity in the duodenal bulb, Isidro gland hypertrophy vs. gastric metaplasia, left intact. 4. No active peptic ulcer disease seen. No Danielle-Orr tear. Problems 1. Hematochezia; likely from hemorrhoids 2. Pancytopenia 3. Cirrhosis 4. Chronic lower extremity wounds Plan: -Place on observation level of care. -Trend H&H. Transfuse to keep hemoglobin levels greater than 7. -GI consultation in a.m. - DVT prophylaxis with sequential compression device. Tamara Aguilar 12/29/17 2325: Core Measures/Misc (02/20) Sepsis (View protocol) If YES complete Sepsis Event Note If YES complete Sepsis Event Note Resident Review Statement Resident Statement: examined this patient, discussed with investigator internal revenue, agreed with investigator internal revenue, reviewed EMR data (avail) Other Findings: 76-year-old woman from home with pmh significant for hypertension, PVD, chronic LE ulcers, thyroid nodules (never biopsied), ? MRSA wound, low Vit D, rheumatic fever, histoy of hepatitis C, cirrhosis, h/o esophageal varices s/p banding, chronic pancytopenia, comes in for evaluation of 2-3 episodes of painless BRBPR filling entire toilet bowel (picture taken by son) of one day duration. Denies chest pain, papitations, dizziness, LOC. Examination as above. Labs significant for chronic pancytopenia, chronic microcytic anemia, INR is within normal limits. Problem list Hematochezia 2/2 hemorrhoidal bleed vs chronic mircrocytic anemia h/o esophageal varices s/p banding history of inadequated treated hep C with compensated cirrhosis chronic pancytopenia HTN asssement/plan: Hematochezia: Place as obs in general medicine floor, vital q4hrly, monitor for hemodynamic instability, adequate IV access, supplemental oxygen will repeat cbc now and in am will start maintanence IVF GI consult in am Guaic examination: external hemorrhoids active bleeding noted at 3 and 9 O' clock. No Vaginal bleeding noted. guaic neg in ed. Colonoscopy done July 2016. small mixed hemorrhoids BL lower extremity wounds: pt declined examination and did not wish us to examine her wounds. wound consult history of Hep C with Compensated Cirrhosis Last Ultrasound done 11/15/16 showed heterogeneous echotexture compatible with fibrosis without a focal liver lesion. History of actively replicating Hepatitis C (12/02/2015: + Quantitative HCV RNA IU/ML [id number], + Quantitative HCV RNA LOG IU/ML 5.19; genotype 1a), for which she saw Dr. Moody 12/15/2015 and Jesi was advised. Inadequately treated due to non compliance. 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 Clear liquid diet DVT PPx: no pharm due 2/2 low H.H, no mechanical due to chronic lLE wounds. Code Status: Full code
[2017-12-30] VITALS: BP 152/60
[2017-12-30 01:30] VITALS: BP 140/58
[2017-12-30 01:53] LABS: HEMATOCRIT 26.6 % (37-47); MEAN CORPUSCULAR HGB 26.1 PG (27.0-31.0); MEAN CORPUSCULAR HGB CONC 32.8 G/DL (33.0-37.0); MEAN CORPUSCULAR VOLUME 79.8 FL (81.0-99.0); PLATELET COUNT 104 /CUMM (130-400); RBC DISTRIBUTION WIDTH 19.4 % (11.5-14.5); RED BLOOD CELL CT 3.34 /CUMM (4.20-5.40); WHITE BLOOD CELL COUNT 2.7 /CUMM (4.8-10.8)
[2017-12-30 01:54] LABS: ABSOLUTE EOSINOPHIL COUNT 0.2 /CUMM (0.0-0.7); ABSOLUTE GRANULOCYTE CT 1.4 /CUMM (1.4-6.5); ABSOLUTE LYMPH COUNT 0.8 /CUMM (1.2-3.4); ABSOLUTE MONOCYTE COUNT 0.3 /CUMM (0.10-0.60); BASOPHIL % 1.1 % (0.0-2.0); GRANULOCYTE % 52.7 % (42.2-75.2)
[2017-12-30 06:33] VITALS: BP 124/50
--- NOTE | 2017-12-30 08:20 | Cons- Wound Care ---
General Information and HPI Consulting Request Date of Consult: 12/30/17 Requested By: Aby Mckeon MD Reason for Consult: I lateral venous stasis ulcers present on admission History of Present Illness: Patient is 77-year-old with hepatitis C esophageal varices and long-standing chronic venous stasis ulcers admitted with GI bleeding. She has had long- standing venous stasis ulcers for years with evidence of ectopic calcification. She is being managed at home by visiting nurse with [facility]. She is non- adherent to her regimen of leg elevation Allergies/Medications Allergies: Coded Allergies: Penicillins (RASH 08/05/15) Sulfa (Sulfonamide Antibiotics) (UNKNOWN - PER PT SON 08/05/15) cephalexin (From KEFLEX) (RASH 07/27/16) clindamycin (UNKNOWN - PER PT SON 08/05/15) Home Med List: Ferrous Sulfate 325 MG (65 MG IRON) TABLET 1 TAB PO DAILY SUPPLEMENT ( Reported) Furosemide 20 MG TABLET 10 MG PO DAILY DIURETIC Gabapentin 100 MG CAPSULE 100 MG PO BID PAIN Lidocaine (Lidoderm) 5 % ADH..PATCH 1 PAT TOP 2000 BACK PAIN Omeprazole 40 MG CAPSULE.DR 1 CAP PO DAILY GI (Reported) Propranolol HCl 10 MG TABLET 0.5 TAB PO DAILY Gastric varices Please monitor blood pressure and heart rate twice a day for 1 week. Send the results to your PCP and he will adjust the dose of this medication moving forward Sennosides/Docusate Sodium (Senna Plus Tablet) 8.6 MG-50 MG TABLET 2 TAB PO AT BEDTIME PRN CONSTIPATION Spironolactone 25 MG TABLET 1 TAB PO DAILY Fluid balance Review of Systems Review of Systems: Noncontributory Past History Travel History Traveled to [place] past 21 day No (.) Medical History Blood Transfusion Hx: Yes Neurological: NONE EENT: NONE Cardiovascular: CHF, chronic venous insuff, hypertension, RHEUMATIC FEVER Respiratory: NONE Gastrointestinal: ESOPHAGEAL VARICES Hepatic: cirrhosis, hepatitis C Renal: NONE Psychiatric: anxiety Endocrine: THYROID NODULES Blood Disorders: anemia, coagulopathy (mild (cirrhotic)), DVT (LUE), pancytopenia Cancer(s): 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 , Age 84; Cause: Renal cell cancer. MOTHER, , Age 74; Cause: CVA (cerebrovascular accident due to intracerebral hemorrhage). Psychosocial History Who Do You Live With? child (son, Bobby Villarreal) Services at Home: Nursing Primary Language: Fijian Smoking Status: Never Smoked ETOH Use: denies use Living Will? no Power of Middle Stitcher/HCP? no Functional Ability ADLs Independent: dressing, eating, toileting. Unknown: bathing. Ambulation: cane (2 quad canes) IADLs Independent: finances, food prep, telephone, medication admin. Needs Assist: shopping, housework, transportation. Exam & Diagnostic Data Vital Signs and I&O Vital Signs Result Date Time Pulse Ox 96 12/30 632 B/P 124/50 12/30 632 O2 Delivery Room Air 12/30 632 Temp 98.2 12/30 632 Pulse 73 12/30 632 Resp 20 12/30 632 Intake & Output 12/30 0000 12/29 1600 12/29 0800 Intake Total 0 Output Total Balance 0 Intake, Oral 0 Exam of the left leg shows there to be approximately a 5 x 4 cm venous stasis ulcer with red fill the wound is approximately a millimeter deep and has full- thickness there is no undermining sinus tracking or evidence of soft tissue skin infection over the right lower extremity is approximately a 15 x 8 cm venous stasis ulcer with red and yellow fill copious drainage there is evidence of ectopic calcification there is no evidence of cellulitis Assessment/Plan Impression/Plan: 77-year-old woman with chronic venous stasis ulcers which have been managed at home with VNA. Recommendation is for aggressive cleansing and wound care with Aquacel Ag rolled gauze and leg elevation. Consult Acknowledgment - Thank you for your consult request.
--- NOTE | 2017-12-30 08:55 | PN-Observation ---
Terrell Caraballo 12/30/17 0855: Observation Note Observation Note _ I have personally examined OTONIEL SANCHES. her disposition is uncertain at this time. Before a determination can be made, she requires continued observation for the following reasons [hematochezia]. Assessment/Plan Medical Assessment: 77 yo Female with past medical history of hypertension, chronic leg ulcers/ wounds, Rheumatic fever, untreated Hep C leading ot cirrhosis(compensated), ruptured esophageal varices s/p banding, 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 Is on observation for hematochezia -1.Hematochezia: -Supplemental oxygen, iv access, constant monitoring for hemodynamic stability -On iv fluids -Repeat Hb 8.4, down from 8.7 -Serial CBC -GI consult f/u note -Transfuse is <8 2. BL lower extremity wounds: -Wound consult appreciated, reccs placed in nursing misc order 3. Hep C with Compensated Cirrhosis -Last Ultrasound done 11/15/16 showed heterogeneous echotexture compatible with fibrosis without a focal liver lesion. -History of actively replicating Hepatitis C (12/02/2015: + Quantitative HCV RNA IU/ML [id number], + Quantitative HCV RNA LOG IU/ML 5.19; genotype 1a), for which she saw Dr. Moody 12/15/2015 and Jesi was advised. Inadequately treated due to non compliance. Pancytopenia -? Secondary to actively replicating Hep C virus/ polyclonal gammopathy -Potential outpt heme consult DVT prophylaxis: No mechanical prophylaxis due to multiple lower limb wounds No pharmacological prophylaxis due to active bleeding NPO for possible intervention Code status: FC Problem List: 1. CHRONIC LEG ULCERS 2. Hepatitis C 3. Bleeding hemorrhoids Subjective Follow-up For: Hematochezia Subjective: Patient seen and examined at bedside. Pt states that she has had gissell red blood from the rectum for the past 2 days. Patient states that she has not had hemorrhoids recently, although she was told that they are prolapse. Patient has denied any [id number] treatment for these hemorrhoids. Patient states that she still has some blood on her bowel movements currently. Patient also states that she follows with Dr. Everett for her wounds. Patient denies pain. Denies fevers/chills/night sweats/chest pain/abdominal pain/urinary symptoms/ Review of Systems Constitutional: Reports: see HPI. Objective Last 24 Hrs of Vital Signs/I&O Vital Signs Date Time Temp Pulse Resp B/P B/P Pulse O2 O2 Flow FiO2 Mean Ox Delivery Rate 12/30 0846 73 124/500 12/30 0633 98.2 73 20 124/50 96 Room Air 12/30 0130 99.2 68 26 140/58 95 Room Air 12/30 0000 98.3 63 18 152/60 97 Room Air 12/29 2301 98.7 67 18 137/60 97 Room Air 12/29 1735 97.9 62 16 138/71 96 Room Air 12/29 1709 Room Air 12/29 1521 97.6 58 16 147/67 98 Room Air Intake & Output 12/30 1600 12/30 0800 12/30 0000 Intake Total 720 0 Output Total Balance 720 0 Intake, IV 600 Intake, Oral 120 0 Number 2 1 Bowel Movements Patient 195 lb Weight Physical Exam General Appearance: Alert, Oriented X3, Cooperative, No Acute Distress Skin: chronic LE wounds, no purulent exudate noted Skin Temp/Moisture Exam: Warm/Dry Cardiovascular: Regular Rate, Normal S1, Normal S2 Lungs: Clear to Auscultation, Normal Air Movement Abdomen: Soft, No Tenderness Neurological: Strength at 5/5 X4 Ext, Sensation Intact Extremities: lower extremity wounds Rectal prolapsed internal hemorrhoid 6oclock 9oclock mild blood Current Medications: Current Medications Sig/Marcin Start time Last Medication Dose Route Stop Time Status Admin Acetaminophen 650 MG Q4P PRN 12/30 0145 AC 12/30 PO 0851 Dextrose/Water 1,000 ML Q10H 12/30 0045 AC 12/30 IV 0110 Pantoprazole Sodium 40 MG DAILY 12/30 09 AC 12/30 IV 0846 Propranolol HCl 5 MG DAILY 12/30 09 AC 12/30 PO 0846 Last 24 Hrs of Labs/Mics: Laboratory Tests 12/30/17 0842: CBC w Diff NO MAN DIFF REQ, RBC 3.19 L, MCV 79.1 L, MCH 26.2 L, MCHC 33.1, RDW 19.1 H, MPV 9.2, Gran % 54.8, Lymphocytes % 26.6, Monocytes % 10.8 H, Eosinophils % 7.3 H, Basophils % 0.5, Absolute Granulocytes 1.3 L, Absolute Lymphocytes 0.6 L, Absolute Monocytes 0.3, Absolute Eosinophils 0.2, Absolute Basophils 0 12/30/17 0049: CBC w Diff NO MAN DIFF REQ, RBC 3.34 L, MCV 79.8 L, MCH 26.1 L, MCHC 32.8 L, RDW 19.4 H, MPV 9.0, Gran % 52.7, Lymphocytes % 27.9, Monocytes % 10.3 H, Eosinophils % 8.0 H, Basophils % 1.1, Absolute Granulocytes 1.4, Absolute Lymphocytes 0.8 L, Absolute Monocytes 0.3, Absolute Eosinophils 0.2, Absolute Basophils 0.0 12/29/17 1830: Lactic Acid Cancelled 12/29/17 1719: Anion Gap 7, Estimated GFR > 60, BUN/Creatinine Ratio 20.0, Glucose 99, Lactic Acid 1.0, Calcium 8.2 L, Total Bilirubin 0.7, AST 36, ALT 33, Alkaline Phosphatase 94, Total Protein 6.7, Albumin 2.8 L, Globulin 3.9, Albumin/ Globulin Ratio 0.7 L, PT 12.7 H, INR 1.16, APTT 29, CBC w Diff NO MAN DIFF REQ , RBC 3.59 L, MCV 79.0 L, MCH 26.0 L, MCHC 32.8 L, RDW 19.6 H, MPV 8.9, Gran % 52.3, Lymphocytes % 27.2, Monocytes % 10.9 H, Eosinophils % 8.9 H, Basophils % 0.7, Absolute Granulocytes 1.4, Absolute Lymphocytes 0.7 L, Absolute Monocytes 0.3, Absolute Eosinophils 0.2, Absolute Basophils 0 Aby Mckeon 12/30/17 1132: Attending Addendum Attending Brief Note Patient placed on observation status with [facility]. Episodes of blood in stool noted. EGD and colonscopy done recently. Problems 1. Hematochezia; likely from hemorrhoids 2. Pancytopenia 3. Cirrhosis 4. Chronic lower extremity wounds Plan: -Place on observation level of care. -Trend H&H. Transfuse to keep hemoglobin levels greater than 7. -GI consultation, clear liquid diet. -DVT prophylaxis with sequential compression device. -Wound conuslt appreciated. f/u recommendations
[2017-12-30 10:10] LABS: ABSOLUTE BASOPHIL COUNT 0 /CUMM (0.0-0.2); ABSOLUTE EOSINOPHIL COUNT 0.2 /CUMM (0.0-0.7); ABSOLUTE GRANULOCYTE CT 1.3 /CUMM (1.4-6.5); ABSOLUTE LYMPH COUNT 0.6 /CUMM (1.2-3.4); ABSOLUTE MONOCYTE COUNT 0.3 /CUMM (0.10-0.60); BASOPHIL % 0.5 % (0.0-2.0); EOSINOPHIL % 7.3 % (0-5); GRANULOCYTE % 54.8 % (42.2-75.2); HEMATOCRIT 25.3 % (37-47); MEAN CORPUSCULAR HGB 26.2 PG (27.0-31.0); MEAN CORPUSCULAR HGB CONC 33.1 G/DL (33.0-37.0); MEAN CORPUSCULAR VOLUME 79.1 FL (81.0-99.0); MEAN PLATELET VOLUME 9.2 FL (7.4-10.4); PLATELET COUNT 106 /CUMM (130-400); RBC DISTRIBUTION WIDTH 19.1 % (11.5-14.5); RED BLOOD CELL CT 3.19 /CUMM (4.20-5.40); WHITE BLOOD CELL COUNT 2.4 /CUMM (4.8-10.8)
[2017-12-30 14:37] VITALS: BP 132/84
--- NOTE | 2017-12-30 17:29 | Cons- Gastroenterology ---
General Information and HPI Consulting Request Date of Consult: 12/30/17 Requested By: Aby Mckeon MD Reason for Consult: 1. Hematochezia 2. Anemia Source of Information: patient, electronic medical record Exam Limitations: no limitations History of Present Illness: Patient is a 77-year-old female with a past medical history of hypertension, chronic leg ulcers, Rheumatic Heart Disease, untreated Hepatitis C (from a blood transfusion) complicated by cirrhosis, esophageal varices s/p banding, chronic anemia with thombocytopenia, polyclonal gammopathy who was brought to the [place] ED by her son with a chief complaint of rectal bleeding from the rectum. Ms. Valencia had noticed prolapse of tissue from the rectum and had noticed some fullness impeding bowel movement. Initially she had had bleeding associated with bowel movement and after that had had bleeding not associated with bowel movement. She reports that she had clots The bleeding is bright red, painless, accompanied with clots which filled the toilet bowl. The patient has had rectal bleeding in the past but never quite this much. She reported that she has had hemorrhoids in the past when her son was born. She denies nausea vomiting or abdominal pain. She has no family history of breast, ovarian, uterine, kidney, urinary bladder, or colon cancer. There are no other cancers in her family. She has had no change in bowel habit or stool caliber. She denies diarrhea nor constipation. She has had no dysphagia, odynophagia or symptoms of gastroesophageal reflux disease. Per nursing report she has not had any bleeding since arriving on the floor and the last episode of bleeding was precipitated by rectal exam. Allergies/Medications Allergies: Coded Allergies: Penicillins (RASH 08/05/15) Sulfa (Sulfonamide Antibiotics) (UNKNOWN - PER PT SON 08/05/15) cephalexin (From KEFLEX) (RASH 07/27/16) clindamycin (UNKNOWN - PER PT SON 08/05/15) Home Med List: Ferrous Sulfate 325 MG (65 MG IRON) TABLET 1 TAB PO DAILY SUPPLEMENT ( Reported) Furosemide 20 MG TABLET 10 MG PO DAILY DIURETIC Gabapentin 100 MG CAPSULE 100 MG PO BID PAIN Lidocaine (Lidoderm) 5 % ADH..PATCH 1 PAT TOP 2000 BACK PAIN Omeprazole 40 MG CAPSULE.DR 1 CAP PO DAILY GI (Reported) Propranolol HCl 10 MG TABLET 0.5 TAB PO DAILY Gastric varices Please monitor blood pressure and heart rate twice a day for 1 week. Send the results to your PCP and he will adjust the dose of this medication moving forward Sennosides/Docusate Sodium (Senna Plus Tablet) 8.6 MG-50 MG TABLET 2 TAB PO AT BEDTIME PRN CONSTIPATION Spironolactone 25 MG TABLET 1 TAB PO DAILY Fluid balance Current Medications: Current Medications Sig/Marcin Start time Last Medication Dose Route Stop Time Status Admin Acetaminophen 650 MG Q4P PRN 12/30 0145 AC 12/30 PO 0851 Dextrose/Water 1,000 ML Q10H 12/30 0045 AC 12/30 IV 1451 Pantoprazole Sodium 40 MG DAILY 12/30 0900 AC 12/30 IV 0846 Propranolol HCl 5 MG DAILY 12/30 0900 AC 12/30 PO 0846 Past History Travel History Traveled to [place] past 21 day No (.) Medical History Blood Transfusion Hx: Yes Neurological: NONE EENT: NONE Cardiovascular: CHF, chronic venous insuff, hypertension, RHEUMATIC FEVER Respiratory: NONE Gastrointestinal: ESOPHAGEAL VARICES Hepatic: cirrhosis, hepatitis C Renal: NONE Psychiatric: anxiety Endocrine: THYROID NODULES Blood Disorders: anemia, coagulopathy (mild (cirrhotic)), DVT (LUE), pancytopenia Cancer(s): 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 , Age 84; Cause: Renal cell cancer. MOTHER, , Age 74; Cause: CVA (cerebrovascular accident due to intracerebral hemorrhage). Psychosocial History Who Do You Live With? 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 Unknown: bathing. Ambulation: cane (2 quad canes) IADLs Independent: finances, food prep, telephone, medication admin. Needs Assist: shopping, housework, transportation. Review of Systems Review of Systems Constitutional: Reports: no symptoms. EENTM: Reports: no symptoms. Cardiovascular: Reports: no symptoms. Denies: syncope. Respiratory: Reports: no symptoms. GI: Reports: see HPI. Genitourinary: Reports: no symptoms. Musculoskeletal: Reports: joint pain. Skin: Reports: see HPI. Neurological/Psychological: Reports: no symptoms. Exam & Diagnostic Data Vital Signs and I&O Vital Signs Date Time Temp Pulse Resp B/P B/P Pulse O2 O2 Flow FiO2 Mean Ox Delivery Rate 12/30 1437 99.0 78 20 132/84 96 Room Air 12/30 0846 73 124/500 12/30 0633 98.2 73 20 124/50 96 Room Air 12/30 0130 99.2 68 26 140/58 95 Room Air 12/30 0000 98.3 63 18 152/60 97 Room Air 12/29 2301 98.7 67 18 137/60 97 Room Air 12/29 1735 97.9 62 16 138/71 96 Room Air Intake & Output 12/30 1600 12/30 0400 12/29 1600 12/29 0400 12/28 1600 12/28 0400 Intake Total 1915 0 Output Total Balance 1915 0 Intake, IV 1175 Intake, Oral 740 0 Number 5 Bowel Movements Patient 195 lb Weight Physical Exam General Appearance: well developed/nourished, no apparent distress, comfortable Head: atraumatic, normal appearance Eyes: Bilateral: normal appearance. Ears, Nose, Throat: hearing grossly normal Neck: normal inspection, supple, full range of motion Respiratory: normal breath sounds, lungs clear Cardiovascular: regular rate/rhythm, normal S1 and S2, without rub murmur or gallop. Gastrointestinal: normal bowel sounds, soft, non-tender, no organomegaly Rectal: tenderness, engorged external hemorrhoids. No active bleeding. Full digital rectal exam not done due to patient discomfort., Patient with tenderness on LCARENCE. Full rectal exam not done due to patient discomfort. Extremities: Marked deformity of toes bilaterally. Large deep excavated ulcers of both lower extremities. Neurologic/Psych: awake, alert, oriented x 3 Cranial Nerves: Cranial Neres are grossly intact. Skin: pallor Results Pertinent Lab Results: Laboratory Tests 12/30 12/30 0842 0049 Hematology CBC w Diff NO MAN DIFF REQ NO MAN DIFF REQ WBC (4.8 - 10.8 /CUMM) 2.4 L 2.7 L RBC (4.20 - 5.40 /CUMM) 3.19 L 3.34 L Hgb (12.0 - 16.0 G/DL) 8.4 L 8.7 L Hct (37 - 47 %) 25.3 L 26.6 L MCV (81.0 - 99.0 FL) 79.1 L 79.8 L MCH (27.0 - 31.0 PG) 26.2 L 26.1 L MCHC (33.0 - 37.0 G/DL) 33.1 32.8 L RDW (11.5 - 14.5 %) 19.1 H 19.4 H Plt Count (130 - 400 /CUMM) 106 L 104 L MPV (7.4 - 10.4 FL) 9.2 9.0 Gran % (42.2 - 75.2 %) 54.8 52.7 Lymphocytes % (20.5 - 51.1 %) 26.6 27.9 Monocytes % (1.7 - 9.3 %) 10.8 H 10.3 H Eosinophils % (0 - 5 %) 7.3 H 8.0 H Basophils % (0.0 - 2.0 %) 0.5 1.1 Absolute Granulocytes (1.4 - 6.5 /CUMM) 1.3 L 1.4 Absolute Lymphocytes (1.2 - 3.4 /CUMM) 0.6 L 0.8 L Absolute Monocytes (0.10 - 0.60 /CUMM) 0.3 0.3 Absolute Eosinophils (0.0 - 0.7 /CUMM) 0.2 0.2 Absolute Basophils (0.0 - 0.2 /CUMM) 0 0.0 12/29 12/29 12/29 2315 1830 1719 Chemistry Sodium (137 - 145 mmol/L) 141 Potassium (3.5 - 5.1 mmol/L) 3.5 Chloride (98 - 107 mmol/L) 107 Carbon Dioxide (22 - 30 mmol/L) 26 Anion Gap (5 - 16) 7 BUN (7 - 17 mg/dL) 12 Creatinine (0.5 - 1.0 mg/dL) 0.6 Estimated GFR (>60 ml/min) > 60 BUN/Creatinine Ratio (7 - 25 %) 20.0 Glucose (65 - 99 mg/dL) 99 Lactic Acid (0.7 - 2.1 mmol/L) Cancelled 1.0 Calcium (8.4 - 10.2 mg/dL) 8.2 L Total Bilirubin (0.2 - 1.3 mg/dL) 0.7 AST (14 - 36 U/L) 36 ALT (9 - 52 U/L) 33 Alkaline Phosphatase (<127 U/L) 94 Total Protein (6.3 - 8.2 g/dL) 6.7 Albumin (3.5 - 5.0 g/dL) 2.8 L Globulin (1.9 - 4.2 gm/dL) 3.9 Albumin/Globulin Ratio (1.1 - 2.2 %) 0.7 L Coagulation PT (9.4 - 12.5 SEC) 12.7 H INR (0.90 - 1.19) 1.16 APTT (25 - 37 SEC) 29 Hematology CBC w Diff NO MAN DIFF REQ WBC (4.8 - 10.8 /CUMM) 2.7 L RBC (4.20 - 5.40 /CUMM) 3.59 L Hgb (12.0 - 16.0 G/DL) 9.3 L Hct (37 - 47 %) 28.4 L MCV (81.0 - 99.0 FL) 79.0 L MCH (27.0 - 31.0 PG) 26.0 L MCHC (33.0 - 37.0 G/DL) 32.8 L RDW (11.5 - 14.5 %) 19.6 H Plt Count (130 - 400 /CUMM) 112 L MPV (7.4 - 10.4 FL) 8.9 Gran % (42.2 - 75.2 %) 52.3 Lymphocytes % (20.5 - 51.1 %) 27.2 Monocytes % (1.7 - 9.3 %) 10.9 H Eosinophils % (0 - 5 %) 8.9 H Basophils % (0.0 - 2.0 %) 0.7 Absolute Granulocytes (1.4 - 6.5 /CUMM) 1.4 Absolute Lymphocytes (1.2 - 3.4 /CUMM) 0.7 L Absolute Monocytes (0.10 - 0.60 /CUMM) 0.3 Absolute Eosinophils (0.0 - 0.7 /CUMM) 0.2 Absolute Basophils (0.0 - 0.2 /CUMM) 0 Urines Urine Color Cancelled Urine Clarity Cancelled Urine pH Cancelled Ur Specific [place] Cancelled Urine Protein Cancelled Urine Ketones Cancelled Urine Nitrite Cancelled Urine Bilirubin Cancelled Urine Urobilinogen Cancelled Ur Leukocyte Esterase Cancelled Ur Microscopic Cancelled Urine Hemoglobin Cancelled Urine Glucose Cancelled Imaging/Other Studies: FINDINGS: CT October 2017 LUNG BASES: Trace bilateral pleural effusions. The left pleural effusion has decreased compared to 04/09/2017. Scattered linear, hazy opacities of mild atelectasis in lung bases. Cardiomegaly (dilated left atrium) and atherosclerotic calcification of coronary arteries. LIVER, GALLBLADDER, AND BILIARY TREE: No acute findings. No focal hepatic lesion or intrahepatic bile duct dilatation. Gallbladder is surgically absent. PANCREAS: No acute findings. SPLEEN: Large spleen measures up to 15 cm AP and 16.4 cm craniocaudal. No focal splenic lesion. ADRENAL GLANDS: Unremarkable. KIDNEYS AND URETERS: Kidneys have normal size, cortical thickness and cortical attenuation. No nephrolithiasis or hydroureteronephrosis. There are peripelvic cysts of the left kidney. BLADDER: There is borderline circumferential wall thickening of the urinary bladder. No bladder calculi. GASTROINTESTINAL TRACT: Stomach is underdistended. Loops of bowel are normal in caliber. Abdominal ascites has nearly completely resolved. There is residual haziness/edema of the mesentery. ABDOMINAL WALL: Minimal fat and fluid within the umbilicus. No significant hernia. LYMPH NODES: Overall, no significant interval change in previous noted lymphadenopathy. Again noted are large retroperitoneal lymph nodes, largest measuring 1.3 cm short axis dimension, unchanged. A prominent portacaval lymph node is 1.3 cm AP. There are chronically enlarged iliac chain lymph nodes in the pelvis. A deep right inguinal lymph node is 1.8 cm short axis dimension, compared to 1.6 cm on 04/09/2017. Again noted are multiple mildly enlarged lymph nodes within the mesentery. VASCULAR: Mild atherosclerosis of the abdominal aorta and iliac arteries without aneurysm. PELVIC VISCERA: The uterus is grossly unremarkable. No adnexal mass. Small amount of free fluid is present in the pelvis. OSSEOUS STRUCTURES: Mild dextrocurvature of the degenerated lumbar spine. Chronic multilevel degenerative disc disease and facet arthropathy. No aggressive osseous lesions. IMPRESSION: 1. Anasarca has improved compared to 04/09/2017. 2. Chronic cirrhosis and splenomegaly. 3. Borderline thickening of the urinary bladder wall without bladder calculi. Given history of pyuria, a mild cystitis is not excluded. No evidence of nephrolithiasis or upper urinary tract obstruction. 4. Chronic lymphadenopathy within the abdomen and pelvis. Assessment/Plan Assessment/Recommendations: ASSESSMENT: 1. 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 Hematochezia likely due to hemorrhoidal disease however cannot rule out rectal varices or more proximal lesion 3. Chronic hepatitis C, untreated 4. Compensated cirrhosis 5. History of esophageal varices status post banding. Patient has not had an EGD in well over 2-3 years. 6. Chronic leg ulcers 7. Anemia patient has had gradual decline in hemoglobin from 9 to approximately 8.4 but is near baseline. RECOMMENDATIONS: 1. Would check alpha-fetoprotein. 2. Have offered patient EGD and colonoscopy on Tuesday. Patient is no longer having active bleeding. Should have screening given history of esophageal varices. Also although patient's bleeding appears to be clearly hemorrhoidal must rule out more proximal lesions. I discussed risks and benefits of these procedures with the patient and she appears to be agreeable. 3. Have discussed this with Dr. Mckeon. Should patient choose to have outpatient workup she can follow-up with me in my office and we will schedule her for an outpatient EGD colonoscopy. 4. We'll continue to monitor for ongoing signs of GI blood loss both clinically and by following H&H. Consult Acknowledgment - Thank you for your consult request.
[2017-12-30 22:10] VITALS: BP 132/54
[2017-12-31 06:39] VITALS: BP 138/58
[2017-12-31 08:26] LABS: ABSOLUTE BASOPHIL COUNT 0 /CUMM (0.0-0.2); ABSOLUTE EOSINOPHIL COUNT 0.2 /CUMM (0.0-0.7); ABSOLUTE GRANULOCYTE CT 1.5 /CUMM (1.4-6.5); ABSOLUTE LYMPH COUNT 0.7 /CUMM (1.2-3.4); ABSOLUTE MONOCYTE COUNT 0.3 /CUMM (0.10-0.60); BASOPHIL % 0.5 % (0.0-2.0); EOSINOPHIL % 6.5 % (0-5); HEMATOCRIT 25.6 % (37-47); MEAN CORPUSCULAR HGB CONC 32.8 G/DL (33.0-37.0); MEAN CORPUSCULAR VOLUME 79.3 FL (81.0-99.0); MEAN PLATELET VOLUME 9.5 FL (7.4-10.4); PLATELET COUNT 104 /CUMM (130-400); RBC DISTRIBUTION WIDTH 18.8 % (11.5-14.5); RED BLOOD CELL CT 3.23 /CUMM (4.20-5.40); WHITE BLOOD CELL COUNT 2.8 /CUMM (4.8-10.8)
--- NOTE | 2017-12-31 13:52 | PN- Housestaff ---
Maik Gibbs 12/31/17 1352: Subjective Follow-up For: BRBPR Subjective: Patient seen and examined at the bedside. Patient states she has had bright red blood per rectum for the past 2 days. Patient relieved to find out that she is staying until her scoping on Tuesday. Denies any pain. Denies fever/chills/night sweats/chest pain/abdominal pain/urinary symptoms. Review of Systems Constitutional: Reports: see HPI. Objective Last 24 Hrs of Vital Signs/I&O Vital Signs Date Time Temp Pulse Resp B/P B/P Pulse O2 O2 Flow FiO2 Mean Ox Delivery Rate 12/31 1417 97.9 65 20 128/62 95 Room Air 12/31 0850 71 138/58 12/31 0639 98.1 71 20 138/58 96 Room Air 12/30 2210 99.6 68 20 132/54 95 Room Air Intake & Output 12/31 1600 12/31 0800 12/31 0000 Intake Total 620 1050 540 Output Total Balance 620 1050 540 Intake, IV 800 300 Intake, Oral 620 250 240 Number 1 0 0 Bowel Movements Physical Exam General Appearance: Alert, Oriented X3, Cooperative, No Acute Distress Skin: chronic LE wounds, no purulent exudate noted Skin Temp/Moisture Exam: Warm/Dry HEENT: Atraumatic, PERRLA, EOMI, Mucous Membr. moist/pink Neck: Supple, No JVD, No thryomegaly Lymphatic: Axillary nl, Cervical nl Cardiovascular: Regular Rate, Normal S1, Normal S2, No Murmurs, Gallops, Rubs Lungs: Clear to Auscultation, Normal Air Movement Abdomen: Soft, No Tenderness, No Hepatospenomegaly, No Masses Neurological: Strength at 5/5 X4 Ext, Normal Tone, Sensation Intact Extremities: No Clubbing, No Cyanosis, No Edema, Normal Pulses, LE wounds, chronic Rectal prolapsed internal hemorrhoids at 6 and 9 o'clock positions, scant blood Current Medications: Current Medications Sig/Marcin Start time Last Medication Dose Route Stop Time Status Admin Acetaminophen 650 MG Q4P PRN 12/30 0145 AC 12/30 PO 0851 Dextrose/Water 1,000 ML Q10H 12/30 0045 DC 12/31 IV 0453 Pantoprazole Sodium 40 MG DAILY 12/30 0900 AC 12/31 IV 0850 Propranolol HCl 5 MG DAILY 12/30 0900 AC 12/31 PO 0850 Last 24 Hrs of Lab/Gui Results Last 24 Hrs of Labs/Mics: Laboratory Tests 12/31/17 0652: CBC w Diff NO MAN DIFF REQ, RBC 3.23 L, MCV 79.3 L, MCH 26.0 L, MCHC 32.8 L, RDW 18.8 H, MPV 9.5, Gran % 55.0, Lymphocytes % 25.9, Monocytes % 12.1 H, Eosinophils % 6.5 H, Basophils % 0.5, Absolute Granulocytes 1.5, Absolute Lymphocytes 0.7 L, Absolute Monocytes 0.3, Absolute Eosinophils 0.2, Absolute Basophils 0 Microbiology 12/30 1703 STOOL: Clostridium difficile Toxin A & B - COMP Lines/Diet/Fluids Fluids/Infusions: none (now tolerating diet) Assessment/Plan Assessment: 77 yo Female with past medical history of hypertension, chronic leg ulcers/ wounds, Rheumatic fever, untreated Hep C leading ot cirrhosis(compensated), ruptured esophageal varices s/p banding, 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 Is on observation for hematochezia -1.Hematochezia: -Supplemental oxygen, iv access, constant monitoring for hemodynamic stability -On iv fluids -Repeat Hb 8.4, down from 8.7 -Serial CBC Q morning -GI consult f/u note -Transfuse if <8 2. BL lower extremity wounds: -Wound consult appreciated, reccs placed in nursing misc order 3. Hep C with Compensated Cirrhosis -Last Ultrasound done 11/15/16 showed heterogeneous echotexture compatible with fibrosis without a focal liver lesion. -History of actively replicating Hepatitis C (12/02/2015: + Quantitative HCV RNA IU/ML [id number], + Quantitative HCV RNA LOG IU/ML 5.19; genotype 1a), for which she saw Dr. Moody 12/15/2015 and Jesi was advised. Inadequately treated due to non compliance. Pancytopenia -? Secondary to actively replicating Hep C virus/ polyclonal gammopathy -Potential outpt heme consult DVT prophylaxis: No mechanical prophylaxis due to multiple lower limb wounds No pharmacological prophylaxis due to active bleeding NPO for possible intervention Patient is full code Problem List: 1. CHRONIC LEG ULCERS 2. Hepatitis C 3. Bleeding hemorrhoids Pain Ratin Pain Location: none Pain Goal: Remain pain free Pain Plan: acetaminophen prn Tomorrow's Labs & Rationales: cbc for bleeding Aby Mckeon 12/31/17 1503: Attending MD Review Statement Attending Statement Attending MD Statement: examined this patient, discuss w/resident/PA/MASTER FIRE CONTROL TECHNICIAN, agreed w/resident/PA/MASTER FIRE CONTROL TECHNICIAN, discussed with family, reviewed EMR data (avail), discussed with nursing, discussed with case mgmt, reviewed images, amended to note Attending Assessment/Plan: Patient is admitted here with BRBPR. Gi noted and plan for EGD and colonoscopy for recurrent bleed and acute blood loss anemia. She has poor mobility and her PO intake is poor. She has chronioc wounds at her feet, Wound consult noted. Labs with hb 8.4 Problems 1. BRBPR 2. Pancytopenia 3. Cirrhosis 4. Chronic lower extremity wounds 5. Acute blood loss anemia Plan: -I anticipate >2 midnight stay for her acute medical condition and work up needed as she will fail outpatient appointments with her poor mobility. -Trend H&H. Transfuse if hemoglobin levels <8. -GI appreicated, plan for EGD/Colonscopy on Tuesday. -DVT prophylaxis with sequential compression device. -Wound conuslt appreciated. f/u recommendations
[2017-12-31 14:17] VITALS: BP 128/62
--- NOTE | 2017-12-31 19:30 | PN- Gastroenterology ---
Assessment/Plan GI Assessment/Recommendations: ASSESSMENT: 1. Hematochezia 2. Acute Blood Loss Anemia 3. Thrombocytopenia 4. Hypoalbuminemia 5. History of hepatitis C 6. Hepatic steatosis likely cirrhosis RECOMMENDATIONS: 1. Clear liquid diet beginning tomorrow a.m. 2. Dulcolax 2 tablets in a.m. on Tuesday 3. GoLYTELY 2 L to begin 4 PM on Tuesday. Dulcolax 2 tablets Tuesday PM at bedtime 4. GoLYTELY 2 L to be given Tuesday at 4 AM. Patient to remain nothing by mouth after second 2 L of GoLYTELY have been consumed 5. EGD/Colonoscopy Tuesday to early afternoon pending scheduling GI suite. Subjective Subjective: Patient has had no further signs of significant GI blood loss, although she has had pinked tinged fluid with bowel movement. Denies nausea vomiting or abdominal pain. Objective Vital Signs and I&Os Vital Signs Date Time Temp Pulse Resp B/P B/P Pulse O2 O2 Flow FiO2 Mean Ox Delivery Rate 12/31 1417 97.9 65 20 128/62 95 Room Air 12/31 0850 71 138/58 12/31 0639 98.1 71 20 138/58 96 Room Air 12/30 2210 99.6 68 20 132/54 95 Room Air Intake & Output 12/31 1600 12/31 0400 12/30 1600 12/30 0400 12/29 1600 12/29 0400 Intake Total 3499 719 9156 0 Output Total Balance 4715 315 7835 0 Intake, IV 221 174 8827 Intake, Oral 870 240 740 0 Number 1 0 5 Bowel Movements Patient 195 lb Weight Physical Exam General Appearance: well developed/nourished, no apparent distress, comfortable Cardiovascular: regular rate/rhythm, normal S1, S2 without rub, murmur, or gallop. Abdomen: normal bowel sounds, soft, non-tender Extremities: leg ulcers have been bandaged. Persistent significant brawny edema. Neurologic/Psychiatric: alert, oriented x 3 Current Medications: Current Medications Sig/Marcin Start time Last Medication Dose Route Stop Time Status Admin Acetaminophen 650 MG Q4P PRN 12/30 0145 AC 12/31 PO 1709 Dextrose/Water 1,000 ML Q10H 12/30 0045 DC 12/31 IV 0453 Pantoprazole Sodium 40 MG DAILY 12/30 0900 AC 12/31 IV 0850 Propranolol HCl 5 MG DAILY 12/30 0900 AC 12/31 PO 0850 Results Pertinent Lab Results: Laboratory Tests 12/31 12/30 0652 0842 Hematology CBC w Diff NO MAN DIFF REQ NO MAN DIFF REQ WBC (4.8 - 10.8 /CUMM) 2.8 L 2.4 L RBC (4.20 - 5.40 /CUMM) 3.23 L 3.19 L Hgb (12.0 - 16.0 G/DL) 8.4 L 8.4 L Hct (37 - 47 %) 25.6 L 25.3 L MCV (81.0 - 99.0 FL) 79.3 L 79.1 L MCH (27.0 - 31.0 PG) 26.0 L 26.2 L MCHC (33.0 - 37.0 G/DL) 32.8 L 33.1 RDW (11.5 - 14.5 %) 18.8 H 19.1 H Plt Count (130 - 400 /CUMM) 104 L 106 L MPV (7.4 - 10.4 FL) 9.5 9.2 Gran % (42.2 - 75.2 %) 55.0 54.8 Lymphocytes % (20.5 - 51.1 %) 25.9 26.6 Monocytes % (1.7 - 9.3 %) 12.1 H 10.8 H Eosinophils % (0 - 5 %) 6.5 H 7.3 H Basophils % (0.0 - 2.0 %) 0.5 0.5 Absolute Granulocytes (1.4 - 6.5 /CUMM) 1.5 1.3 L Absolute Lymphocytes (1.2 - 3.4 /CUMM) 0.7 L 0.6 L Absolute Monocytes (0.10 - 0.60 /CUMM) 0.3 0.3 Absolute Eosinophils (0.0 - 0.7 /CUMM) 0.2 0.2 Absolute Basophils (0.0 - 0.2 /CUMM) 0 0 12/30 12/29 12/29 0049 8095 0300 Chemistry Lactic Acid Cancelled Hematology CBC w Diff NO MAN DIFF REQ WBC (4.8 - 10.8 /CUMM) 2.7 L RBC (4.20 - 5.40 /CUMM) 3.34 L Hgb (12.0 - 16.0 G/DL) 8.7 L Hct (37 - 47 %) 26.6 L MCV (81.0 - 99.0 FL) 79.8 L MCH (27.0 - 31.0 PG) 26.1 L MCHC (33.0 - 37.0 G/DL) 32.8 L RDW (11.5 - 14.5 %) 19.4 H Plt Count (130 - 400 /CUMM) 104 L MPV (7.4 - 10.4 FL) 9.0 Gran % (42.2 - 75.2 %) 52.7 Lymphocytes % (20.5 - 51.1 %) 27.9 Monocytes % (1.7 - 9.3 %) 10.3 H Eosinophils % (0 - 5 %) 8.0 H Basophils % (0.0 - 2.0 %) 1.1 Absolute Granulocytes (1.4 - 6.5 /CUMM) 1.4 Absolute Lymphocytes (1.2 - 3.4 /CUMM) 0.8 L Absolute Monocytes (0.10 - 0.60 /CUMM) 0.3 Absolute Eosinophils (0.0 - 0.7 /CUMM) 0.2 Absolute Basophils (0.0 - 0.2 /CUMM) 0.0 Urines Urine Color Cancelled Urine Clarity Cancelled Urine pH Cancelled Ur Specific [place] Cancelled Urine Protein Cancelled Urine Ketones Cancelled Urine Nitrite Cancelled Urine Bilirubin Cancelled Urine Urobilinogen Cancelled Ur Leukocyte Esterase Cancelled Ur Microscopic Cancelled Urine Hemoglobin Cancelled Urine Glucose Cancelled 12/29 1719 Chemistry Sodium (137 - 145 mmol/L) 141 Potassium (3.5 - 5.1 mmol/L) 3.5 Chloride (98 - 107 mmol/L) 107 Carbon Dioxide (22 - 30 mmol/L) 26 Anion Gap (5 - 16) 7 BUN (7 - 17 mg/dL) 12 Creatinine (0.5 - 1.0 mg/dL) 0.6 Estimated GFR (>60 ml/min) > 60 BUN/Creatinine Ratio (7 - 25 %) 20.0 Glucose (65 - 99 mg/dL) 99 Lactic Acid (0.7 - 2.1 mmol/L) 1.0 Calcium (8.4 - 10.2 mg/dL) 8.2 L Total Bilirubin (0.2 - 1.3 mg/dL) 0.7 AST (14 - 36 U/L) 36 ALT (9 - 52 U/L) 33 Alkaline Phosphatase (<127 U/L) 94 Total Protein (6.3 - 8.2 g/dL) 6.7 Albumin (3.5 - 5.0 g/dL) 2.8 L Globulin (1.9 - 4.2 gm/dL) 3.9 Albumin/Globulin Ratio (1.1 - 2.2 %) 0.7 L Coagulation PT (9.4 - 12.5 SEC) 12.7 H INR (0.90 - 1.19) 1.16 APTT (25 - 37 SEC) 29 Hematology CBC w Diff NO MAN DIFF REQ WBC (4.8 - 10.8 /CUMM) 2.7 L RBC (4.20 - 5.40 /CUMM) 3.59 L Hgb (12.0 - 16.0 G/DL) 9.3 L Hct (37 - 47 %) 28.4 L MCV (81.0 - 99.0 FL) 79.0 L MCH (27.0 - 31.0 PG) 26.0 L MCHC (33.0 - 37.0 G/DL) 32.8 L RDW (11.5 - 14.5 %) 19.6 H Plt Count (130 - 400 /CUMM) 112 L MPV (7.4 - 10.4 FL) 8.9 Gran % (42.2 - 75.2 %) 52.3 Lymphocytes % (20.5 - 51.1 %) 27.2 Monocytes % (1.7 - 9.3 %) 10.9 H Eosinophils % (0 - 5 %) 8.9 H Basophils % (0.0 - 2.0 %) 0.7 Absolute Granulocytes (1.4 - 6.5 /CUMM) 1.4 Absolute Lymphocytes (1.2 - 3.4 /CUMM) 0.7 L Absolute Monocytes (0.10 - 0.60 /CUMM) 0.3 Absolute Eosinophils (0.0 - 0.7 /CUMM) 0.2 Absolute Basophils (0.0 - 0.2 /CUMM) 0
[2017-12-31 22:39] VITALS: BP 126/60
[2018-01-01 07:58] VITALS: BP 127/66
[2018-01-01 08:48] LABS: ABSOLUTE BASOPHIL COUNT 0 /CUMM (0.0-0.2); ABSOLUTE EOSINOPHIL COUNT 0.2 /CUMM (0.0-0.7); ABSOLUTE GRANULOCYTE CT 0.9 /CUMM (1.4-6.5); ABSOLUTE LYMPH COUNT 0.8 /CUMM (1.2-3.4); ABSOLUTE MONOCYTE COUNT 0.3 /CUMM (0.10-0.60); BASOPHIL % 0.3 % (0.0-2.0); GRANULOCYTE % 42.6 % (42.2-75.2); HEMATOCRIT 25.4 % (37-47); MEAN CORPUSCULAR HGB 26.4 PG (27.0-31.0); MEAN CORPUSCULAR HGB CONC 33.4 G/DL (33.0-37.0); MEAN CORPUSCULAR VOLUME 79.1 FL (81.0-99.0); MEAN PLATELET VOLUME 9.6 FL (7.4-10.4); PLATELET COUNT 101 /CUMM (130-400); RBC DISTRIBUTION WIDTH 18.7 % (11.5-14.5); RED BLOOD CELL CT 3.21 /CUMM (4.20-5.40); WHITE BLOOD CELL COUNT 2.2 /CUMM (4.8-10.8)
--- NOTE | 2018-01-01 13:27 | PN- Att Addend ---
Attending Addendum Attending Brief Note Patient is admitted here with BRBPR. Gi noted and plan for EGD and colonoscopy for recurrent bleed and acute blood loss anemia. She has poor mobility and her PO intake is poor. She has chronioc wounds at her feet, Wound consult noted. Labs with hb stable. Overnight no complaints. vitals stable. Problems 1. BRBPR 2. Pancytopenia 3. Cirrhosis 4. Chronic lower extremity wounds 5. Acute blood loss anemia Plan: -Trend H&H. Transfuse if hemoglobin levels <8. -GI appreicated, plan for EGD/Colonscopy tomorrow. NPO past MN, bowel prep as per GI. If she is non coperative or cannot tolerate trial of enema. -DVT prophylaxis with sequential compression device. -Wound conuslt appreciated. f/u recommendations Admission Lab Results I reviewed the following labs: Laboratory Tests 01/01 0615 Hematology CBC w Diff NO MAN DIFF REQ WBC (4.8 - 10.8 /CUMM) 2.2 L RBC (4.20 - 5.40 /CUMM) 3.21 L Hgb (12.0 - 16.0 G/DL) 8.5 L Hct (37 - 47 %) 25.4 L MCV (81.0 - 99.0 FL) 79.1 L MCH (27.0 - 31.0 PG) 26.4 L MCHC (33.0 - 37.0 G/DL) 33.4 RDW (11.5 - 14.5 %) 18.7 H Plt Count (130 - 400 /CUMM) 101 L MPV (7.4 - 10.4 FL) 9.6 Gran % (42.2 - 75.2 %) 42.6 Lymphocytes % (20.5 - 51.1 %) 35.0 Monocytes % (1.7 - 9.3 %) 12.1 H Eosinophils % (0 - 5 %) 10.0 H Basophils % (0.0 - 2.0 %) 0.3 Absolute Granulocytes (1.4 - 6.5 /CUMM) 0.9 L Absolute Lymphocytes (1.2 - 3.4 /CUMM) 0.8 L Absolute Monocytes (0.10 - 0.60 /CUMM) 0.3 Absolute Eosinophils (0.0 - 0.7 /CUMM) 0.2 Absolute Basophils (0.0 - 0.2 /CUMM) 0 Admission Meds I reviewed the following Meds: Current Medications Sig/Marcin Start time Last Medication Dose Stop Time Status Admin Acetaminophen 650 MG Q4P PRN 12/30 0145 AC 12/31 (Tylenol) 1709 Bisacodyl 10 MG ONE TIME ONE 01/01 2100 AC (Dulcolax) 01/01 210 Pantoprazole Sodium 40 MG DAILY 12/30 0900 AC 01/01 (Protonix) 0808 Polyethylene Glycol 0.5 GAL 1600,0400 01/01 1600 AC (Golytely Liq 4000 01/02 0401 Ml) Propranolol HCl 5 MG DAILY 12/30 0900 AC 01/01 (Inderal 10 MG 0808 Tablet.)
[2018-01-01 14:53] VITALS: BP 126/59
--- NOTE | 2018-01-01 17:37 | PN- Gastroenterology ---
Assessment/Plan GI Assessment/Recommendations: ASSESSMENT: 1. Hematochezia 2. Acute Blood Loss Anemia 3. Thrombocytopenia 4. Hypoalbuminemia 5. History of hepatitis C 6. Hepatic steatosis likely cirrhosis RECOMMENDATIONS: 1. Cancelled GoLYTELY for tonight. Will prep on Tuesday for procedure on Tuesday 2. Follow CBC 3. Monitor for signs of GI blood loss Subjective Subjective: Patient was fed both breakfast and lunch today. Had received dulcolax, however, will not be able to prep for procedures (EGD and Colonoscopy) for Tuesday. Objective Vital Signs and I&Os Vital Signs Date Time Temp Pulse Resp B/P B/P Pulse O2 O2 Flow FiO2 Mean Ox Delivery Rate 01/01 1453 97.9 76 18 126/59 95 01/01 0808 73 126/70 01/01 0758 98.0 70 20 127/66 92 Room Air 12/31 2239 99.0 60 20 126/60 94 Room Air Intake & Output 01/01 1600 01/01 0400 12/31 1600 12/31 0400 12/30 1600 12/30 0400 Intake Total 944 687 0203 540 1915 0 Output Total Balance 559 140 1237 540 1915 0 Intake, IV 0 440 347 0959 Intake, Oral 800 240 870 240 740 0 Number 2 1 1 0 5 Bowel Movements Patient 195 lb Weight Physical Exam General Appearance: awake, comfortable Neck: supple, full range of motion Respiratory: lungs clear Cardiovascular: regular rate/rhythm Abdomen: normal bowel sounds, soft, non-tender, no organomegaly Extremities: pedal edema, ulcerations bilaterally bandaged Skin: normal color, warm/dry Current Medications: Current Medications Sig/Marcin Start time Last Medication Dose Route Stop Time Status Admin Acetaminophen 650 MG Q4P PRN 12/30 0145 AC 01/01 PO 1332 Bisacodyl 10 MG ONE TIME ONE 01/01 2100 AC PO 01/01 2101 Bisacodyl 10 MG ONE ONE 01/01 1115 DC 01/01 PO 01/01 1116 1331 Pantoprazole Sodium 40 MG DAILY 12/30 0900 AC 01/01 IV 0808 Polyethylene Glycol 0.5 GAL 1600,0400 01/01 1600 AC PO 01/02 0401 Polyethylene Glycol 1 GAL ONCE ONE 01/01 1115 DC PO 01/01 1300 Propranolol HCl 5 MG DAILY 12/30 0900 AC 01/01 PO 0808 Results Pertinent Lab Results: Laboratory Tests 01/01 12/31 0615 0652 Hematology CBC w Diff NO MAN DIFF REQ NO MAN DIFF REQ WBC (4.8 - 10.8 /CUMM) 2.2 L 2.8 L RBC (4.20 - 5.40 /CUMM) 3.21 L 3.23 L Hgb (12.0 - 16.0 G/DL) 8.5 L 8.4 L Hct (37 - 47 %) 25.4 L 25.6 L MCV (81.0 - 99.0 FL) 79.1 L 79.3 L MCH (27.0 - 31.0 PG) 26.4 L 26.0 L MCHC (33.0 - 37.0 G/DL) 33.4 32.8 L RDW (11.5 - 14.5 %) 18.7 H 18.8 H Plt Count (130 - 400 /CUMM) 101 L 104 L MPV (7.4 - 10.4 FL) 9.6 9.5 Gran % (42.2 - 75.2 %) 42.6 55.0 Lymphocytes % (20.5 - 51.1 %) 35.0 25.9 Monocytes % (1.7 - 9.3 %) 12.1 H 12.1 H Eosinophils % (0 - 5 %) 10.0 H 6.5 H Basophils % (0.0 - 2.0 %) 0.3 0.5 Absolute Granulocytes (1.4 - 6.5 /CUMM) 0.9 L 1.5 Absolute Lymphocytes (1.2 - 3.4 /CUMM) 0.8 L 0.7 L Absolute Monocytes (0.10 - 0.60 /CUMM) 0.3 0.3 Absolute Eosinophils (0.0 - 0.7 /CUMM) 0.2 0.2 Absolute Basophils (0.0 - 0.2 /CUMM) 0 0 12/30 12/30 0842 0049 Hematology CBC w Diff NO MAN DIFF REQ NO MAN DIFF REQ WBC (4.8 - 10.8 /CUMM) 2.4 L 2.7 L RBC (4.20 - 5.40 /CUMM) 3.19 L 3.34 L Hgb (12.0 - 16.0 G/DL) 8.4 L 8.7 L Hct (37 - 47 %) 25.3 L 26.6 L MCV (81.0 - 99.0 FL) 79.1 L 79.8 L MCH (27.0 - 31.0 PG) 26.2 L 26.1 L MCHC (33.0 - 37.0 G/DL) 33.1 32.8 L RDW (11.5 - 14.5 %) 19.1 H 19.4 H Plt Count (130 - 400 /CUMM) 106 L 104 L MPV (7.4 - 10.4 FL) 9.2 9.0 Gran % (42.2 - 75.2 %) 54.8 52.7 Lymphocytes % (20.5 - 51.1 %) 26.6 27.9 Monocytes % (1.7 - 9.3 %) 10.8 H 10.3 H Eosinophils % (0 - 5 %) 7.3 H 8.0 H Basophils % (0.0 - 2.0 %) 0.5 1.1 Absolute Granulocytes (1.4 - 6.5 /CUMM) 1.3 L 1.4 Absolute Lymphocytes (1.2 - 3.4 /CUMM) 0.6 L 0.8 L Absolute Monocytes (0.10 - 0.60 /CUMM) 0.3 0.3 Absolute Eosinophils (0.0 - 0.7 /CUMM) 0.2 0.2 Absolute Basophils (0.0 - 0.2 /CUMM) 0 0.0 12/29 12/29 8487 8918 Chemistry Lactic Acid Cancelled Urines Urine Color Cancelled Urine Clarity Cancelled Urine pH Cancelled Ur Specific [place] Cancelled Urine Protein Cancelled Urine Ketones Cancelled Urine Nitrite Cancelled Urine Bilirubin Cancelled Urine Urobilinogen Cancelled Ur Leukocyte Esterase Cancelled Ur Microscopic Cancelled Urine Hemoglobin Cancelled Urine Glucose Cancelled
[2018-01-01 23:17] VITALS: BP 128/54
[2018-01-02 07:01] VITALS: BP 129/64
--- NOTE | 2018-01-02 07:22 | PN- Housestaff ---
See Addendum Subjective Follow-up For: HEMATOCHEZIA Subjective: Patient seen and examined at bedside. Pt denies complaints. States that she has not had any bloody stools recently. States the last time she had bloody stools on Tuesday. Patient states anxiety regarding finances, how she will pay for this admission, she is already in the right. Patient also states anxiety regarding how she will pay for food when she is out as well. Patient was reassured, was told that case management will be able to talk with her. Denies fevers/chills/ night sweats/chest pain/abdominal pain/urinary symptoms/lower extremity edema Review of Systems Constitutional: Reports: see HPI. Objective Last 24 Hrs of Vital Signs/I&O Vital Signs Date Time Temp Pulse Resp B/P B/P Pulse O2 O2 Flow FiO2 Mean Ox Delivery Rate 01/02 0808 63 129/64 01/02 0701 97.9 63 20 129/64 95 Room Air 01/01 2317 98.3 58 18 128/54 94 Room Air 01/01 1600 Room Air 01/01 1453 97.9 76 18 126/59 95 Intake & Output 01/02 1600 01/02 0800 01/02 0000 Intake Total 750 Output Total 150 150 Balance -150 600 Intake, Oral 750 Number 4 Bowel Movements Output, Urine 150 150 Physical Exam General Appearance: Alert, Oriented X3, Cooperative, No Acute Distress Skin: No Rashes, chronic LE wounds w/o purulent exudate, dressing c/d/i Skin Temp/Moisture Exam: Warm/Dry Cardiovascular: Regular Rate, Normal S1, Normal S2 Lungs: Clear to Auscultation, Normal Air Movement Abdomen: Soft, No Tenderness Neurological: Strength at 5/5 X4 Ext Extremities: chronic LE wound changes Rectal prolapsed internal hemorrhoids 6 and 9oclock Current Medications: Current Medications Sig/Marcin Start time Last Medication Dose Route Stop Time Status Admin Acetaminophen 650 MG .STK-MED ONE 01/01 1819 DC PO 01/01 1820 Acetaminophen 650 MG .STK-MED ONE 01/01 1329 DC PO 01/01 1330 Acetaminophen 650 MG Q4P PRN 12/30 0145 AC 01/01 PO 2213 Bisacodyl 10 MG ONE TIME ONE 01/01 2100 DC 01/01 PO 01/01 2101 2213 Bisacodyl 10 MG ONE ONE 01/01 1115 DC 01/01 PO 01/01 1116 1331 Pantoprazole Sodium 40 MG DAILY 12/30 0900 AC 01/02 IV 0808 Polyethylene Glycol 0.5 GAL 1600,0400 01/01 1600 DC PO 01/02 0401 Polyethylene Glycol 1 GAL ONCE ONE 01/01 1115 DC PO 01/01 1300 Propranolol HCl 5 MG DAILY 12/30 0900 AC 01/02 PO 0808 Last 24 Hrs of Lab/Gui Results Last 24 Hrs of Labs/Mics: Laboratory Tests 01/02/18 0800: CBC w Diff Pending, WBC Pending, RBC Pending, Hgb Pending, Hct Pending, MCV Pending, MCH Pending, MCHC Pending, RDW Pending, Plt Count Pending, MPV Pending Assessment/Plan Assessment: 77 yo Female with past medical history of hypertension, chronic leg ulcers/ wounds, Rheumatic fever, untreated Hep C leading ot cirrhosis(compensated), ruptured esophageal varices s/p banding, 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 Is admitted for hematochezia -1.Hematochezia: -Supplemental oxygen, iv access, constant monitoring for hemodynamic stability -On iv fluids -Hb stable at 8.5 today -Serial CBC Q morning -GI consult, will begin bowel prep today for EGD+[place] tomorrow. Currently on clear liquid diet. Pt has expressed anxiety regarding drinking GoLYTEly, will f/ u and encourage proper prep. -Transfuse if <7; has multiple antibodies so will have to call blood bank 4 hrs prior. Will need to anticipate if there is a transfusion 2. BL lower extremity wounds: -Wound consult appreciated, reccs placed in nursing misc order 3. Hep C with Compensated Cirrhosis - stable -Last Ultrasound done 11/15/16 showed heterogeneous echotexture compatible with fibrosis without a focal liver lesion. -History of actively replicating Hepatitis C (12/02/2015: + Quantitative HCV RNA IU/ML [id number], + Quantitative HCV RNA LOG IU/ML 5.19; genotype 1a), for which she saw Dr. Moody 12/15/2015 and Jesi was advised. Inadequately treated due to non compliance. 4. Pancytopenia -? Secondary to actively replicating Hep C virus/ polyclonal gammopathy -Potential outpt heme consult -CBC q morning -Infection precautions - handwashing, monitor for fevers 5. General Deconditioning -Ambulates with cane, WBAT at home -Has been bed bound for 3 days 2/2 GI bleed, LE wounds, diarrhea -Feels weak and unable to ambulate safely, has not stood yet -Will obtain PT consult for ? re discharge: Home vs STR DVT prophylaxis: No mechanical prophylaxis due to multiple lower limb wounds Is now on Pharmacological prophylaxis Clear liquid diet Patient is full code Problem List: 1. CHRONIC LEG ULCERS 2. Hepatitis C 3. Bleeding hemorrhoids Pain Ratin Pain Location: na Pain Goal: Pain 4 or less Pain Plan: pathway Tomorrow's Labs & Rationales: CBC
[2018-01-02 09:29] LABS: ABSOLUTE BASOPHIL COUNT 0 /CUMM (0.0-0.2); ABSOLUTE EOSINOPHIL COUNT 0.2 /CUMM (0.0-0.7); ABSOLUTE GRANULOCYTE CT 0.9 /CUMM (1.4-6.5); ABSOLUTE LYMPH COUNT 0.6 /CUMM (1.2-3.4); ABSOLUTE MONOCYTE COUNT 0.3 /CUMM (0.10-0.60); BASOPHIL % 0.9 % (0.0-2.0); EOSINOPHIL % 12.3 % (0-5); HEMATOCRIT 26.7 % (37-47); MEAN CORPUSCULAR HGB 25.5 PG (27.0-31.0); MEAN CORPUSCULAR HGB CONC 31.9 G/DL (33.0-37.0); MEAN CORPUSCULAR VOLUME 79.9 FL (81.0-99.0); MEAN PLATELET VOLUME 9.2 FL (7.4-10.4); PLATELET COUNT 109 /CUMM (130-400); RBC DISTRIBUTION WIDTH 18.7 % (11.5-14.5); RED BLOOD CELL CT 3.34 /CUMM (4.20-5.40)
[2018-01-02 18:00] VITALS: BP 124/70
--- NOTE | 2018-01-02 18:06 | PN- Gastroenterology ---
Assessment/Plan GI Assessment/Recommendations: ASSESSMENT: 1. Hematochezia --none further 2. Acute Blood Loss Anemia --H&H is stable 3. Thrombocytopenia --likely secondary in the setting of hepatitis C 4. Hypoalbuminemia 5. History of hepatitis C 6. Hepatic steatosis likely cirrhosis RECOMMENDATIONS: 1. Clear liquid diet to continue until Tuesday 5:00 a.m. 2. Dulcolax 2 tablets qhs and in a.m. tomorrow 3. Magnesium Citrate qhs ( and Tuesday night) 4. If patient not clear from below by Tuesday a.m. tap water enemas until clear 5. EGD/Colonoscopy Tuesday morning to early afternoon pending scheduling GI suite. Subjective Subjective: Patient reports that she is unable to tolerate colonic preparation. I discussed with her that we will be able to do a 2 day clear liquid prep. She is had no melena nor bright red blood per rectum. Objective Vital Signs and I&Os Vital Signs Date Time Temp Pulse Resp B/P B/P Pulse O2 O2 Flow FiO2 Mean Ox Delivery Rate 01/02 0808 63 129/64 01/02 0701 97.9 63 20 129/64 95 Room Air 01/01 2317 98.3 58 18 128/54 94 Room Air Intake & Output 01/02 1600 01/02 0400 01/01 1600 01/01 0400 12/31 1600 12/31 0400 Intake Total 620 750 167 466 5366 540 Output Total 150 150 Balance 470 600 256 794 4638 540 Intake, IV 0 800 300 Intake, Oral 620 750 800 240 870 240 Number 7 2 1 1 0 Bowel Movements Output, Urine 150 150 Physical Exam General Appearance: no apparent distress, comfortable Head: atraumatic, normal appearance Respiratory: lungs clear Cardiovascular: regular rate/rhythm Abdomen: normal bowel sounds, soft, non-tender, no organomegaly Neurologic/Psychiatric: awake, alert, oriented x 3 Current Medications: Current Medications Sig/Marcin Start time Last Medication Dose Route Stop Time Status Admin Acetaminophen 650 MG .STK-MED ONE 01/01 1819 DC PO 01/01 182 Acetaminophen 650 MG Q4P PRN 12/30 0145 AC 01/01 PO 221 Bisacodyl 10 MG AT BEDTIME 01/02 2100 AC PO Bisacodyl 10 MG ONE TIME ONE 01/01 2100 DC 01/01 PO 07/29 2101 2213 Heparin Sodium 5,000 UNIT Q8 01/02 1400 AC (Porcine) SC Pantoprazole Sodium 40 MG DAILY 12/30 0900 AC 01/02 IV 0808 Patient Medication 1 ED ONE ONE 01/02 1300 DC Teaching ED 01/02 1301 Polyethylene Glycol 0.5 GAL ONCE ONE 01/03 0400 AC PO 01/03 0401 Polyethylene Glycol 0.5 GAL ONCE ONE 01/02 1600 DC PO 01/02 1601 Polyethylene Glycol 0.5 GAL 1600,0400 01/01 1600 DC PO 01/02 0401 Propranolol HCl 5 MG DAILY 12/30 0900 AC 01/02 PO 0808 Results Pertinent Lab Results: Laboratory Tests 01/02 01/01 0800 0615 Hematology CBC w Diff NO MAN DIFF REQ NO MAN DIFF REQ WBC (4.8 - 10.8 /CUMM) 2.0 L 2.2 L RBC (4.20 - 5.40 /CUMM) 3.34 L 3.21 L Hgb (12.0 - 16.0 G/DL) 8.5 L 8.5 L Hct (37 - 47 %) 26.7 L 25.4 L MCV (81.0 - 99.0 FL) 79.9 L 79.1 L MCH (27.0 - 31.0 PG) 25.5 L 26.4 L MCHC (33.0 - 37.0 G/DL) 31.9 L 33.4 RDW (11.5 - 14.5 %) 18.7 H 18.7 H Plt Count (130 - 400 /CUMM) 109 L 101 L MPV (7.4 - 10.4 FL) 9.2 9.6 Gran % (42.2 - 75.2 %) 42.0 L 42.6 Lymphocytes % (20.5 - 51.1 %) 32.0 35.0 Monocytes % (1.7 - 9.3 %) 12.8 H 12.1 H Eosinophils % (0 - 5 %) 12.3 H 10.0 H Basophils % (0.0 - 2.0 %) 0.9 0.3 Absolute Granulocytes (1.4 - 6.5 /CUMM) 0.9 L 0.9 L Absolute Lymphocytes (1.2 - 3.4 /CUMM) 0.6 L 0.8 L Absolute Monocytes (0.10 - 0.60 /CUMM) 0.3 0.3 Absolute Eosinophils (0.0 - 0.7 /CUMM) 0.2 0.2 Absolute Basophils (0.0 - 0.2 /CUMM) 0 0 12/31 06 Hematology CBC w Diff NO MAN DIFF REQ WBC (4.8 - 10.8 /CUMM) 2.8 L RBC (4.20 - 5.40 /CUMM) 3.23 L Hgb (12.0 - 16.0 G/DL) 8.4 L Hct (37 - 47 %) 25.6 L MCV (81.0 - 99.0 FL) 79.3 L MCH (27.0 - 31.0 PG) 26.0 L MCHC (33.0 - 37.0 G/DL) 32.8 L RDW (11.5 - 14.5 %) 18.8 H Plt Count (130 - 400 /CUMM) 104 L MPV (7.4 - 10.4 FL) 9.5 Gran % (42.2 - 75.2 %) 55.0 Lymphocytes % (20.5 - 51.1 %) 25.9 Monocytes % (1.7 - 9.3 %) 12.1 H Eosinophils % (0 - 5 %) 6.5 H Basophils % (0.0 - 2.0 %) 0.5 Absolute Granulocytes (1.4 - 6.5 /CUMM) 1.5 Absolute Lymphocytes (1.2 - 3.4 /CUMM) 0.7 L Absolute Monocytes (0.10 - 0.60 /CUMM) 0.3 Absolute Eosinophils (0.0 - 0.7 /CUMM) 0.2 Absolute Basophils (0.0 - 0.2 /CUMM) 0
[2018-01-02 23:35] VITALS: BP 128/55
[2018-01-03 07:56] VITALS: BP 134/64
--- NOTE | 2018-01-03 11:05 | PN- Housestaff ---
Subjective Follow-up For: bleeding per rectum Subjective: Patient seen and examined at bedside. Pt denies complaints. States that she has not had any bloody stools recently. States the last time she had bloody stools on Tuesday Denies fevers/chills/night sweats/chest pain/abdominal pain/urinary symptoms/lower extremity edema. Review of Systems Constitutional: Reports: see HPI. 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 Is admitted for hematochezia and generalized weakness. -1.Hematochezia: -Supplemental oxygen, iv access, constant monitoring for hemodynamic stability -On iv fluids -Serial CBC morning -Transfuse if <7; has multiple antibodies so will have to call blood bank 4 hrs prior. Will need to anticipate if there is a transfusion -The patient is due for her bowel preparation tonight for colonoscopy tomorrow in mio am 2. BL lower extremity wounds: -Wound consult appreciated, reccs placed in nursing misc order 3. Hep C with Compensated Cirrhosis - stable -Last Ultrasound done 11/15/16 showed heterogeneous echotexture compatible with fibrosis without a focal liver lesion. -History of actively replicating Hepatitis C (12/02/2015: + Quantitative HCV RNA IU/ML 375066, + Quantitative HCV RNA LOG IU/ML 5.19; genotype 1a), for which she saw Dr. Moody 12/15/2015 and Jesi was advised. Inadequately treated due to non compliance on low viral load -We will consult the patient for an outpatient follow-up 4. Pancytopenia -? Secondary to actively replicating Hep C virus/ polyclonal gammopathy -Potential outpt heme consult -CBC q morning -Infection precautions - handwashing, monitor for fevers 5. General Deconditioning -Ambulates with cane, WBAT at home -Has been bed bound for 5 days 2/2 GI bleed, LE wounds, diarrhea -Feels weak and unable to ambulate safely, has not stood yet -Will obtain PT consult for ? re discharge: Home vs STR DVT prophylaxis: No mechanical prophylaxis due to multiple lower limb wounds Is now on Pharmacological prophylaxis with heparin Problem List: 1. History of esophageal varices 2. Bleeding hemorrhoids 3. Lower GI bleed 4. Periodontal disease 5. Weakness 6. CHRONIC LEG ULCERS Pain Ratin Pain Location: na Pain Goal: Remain pain free Pain Plan: na Tomorrow's Labs & Rationales: cbc
--- NOTE | 2018-01-03 13:52 | PN- Att Addend ---
Attending Addendum Attending Brief Note Patient is admitted here with BRBPR. Gi noted and plan for EGD and colonoscopy for recurrent bleed and acute blood loss anemia. She has poor mobility with chronic wounds at her feet, Wound consult noted. Labs with hb stable. She is little ccoperative today for bowel prep. She had 3 epsidoes of loose stools this am. We have ordered magnesium citrate. I encouraged her to take her bowel prep again today. I hope she drinks. If not then continue with clear liquids and consider tap water enema in morning as per GI recommendations. Problems 1. BRBPR r/o upper GI bleed. 2. Pancytopenia 3. Cirrhosis 4. Chronic lower extremity wounds 5. Acute blood loss anemia Plan: -Trend H&H. Transfuse if hemoglobin levels <8. -GI appreicated, plan for EGD/Colonscopy tomorrow. NPO past MN, bowel prep as per GI. -DVT prophylaxis with sequential compression device. -Wound conuslt appreciated. f/u recommendations Admission Meds I reviewed the following Meds: Current Medications Sig/Marcin Start time Last Medication Dose Stop Time Status Admin Acetaminophen 650 MG Q4P PRN 12/30 0145 AC 01/02 (Tylenol) 2025 Bisacodyl 5 MG QPM 01/03 2100 CAN (Dulcolax) 01/03 210 Bisacodyl 5 MG 1600 01/03 1600 CAN (Dulcolax) 01/03 1601 Bisacodyl 10 MG AT BEDTIME 01/02 2100 AC 01/02 (Dulcolax) 2016 Heparin Sodium 5,000 UNIT Q8 01/02 1400 AC (Porcine) Magnesium Citrate 300 ML 1400 01/03 1400 AC (Citrate Of Magnesia 01/03 1401 300 Ml) Pantoprazole Sodium 40 MG DAILY 12/30 0900 AC 01/03 (Protonix) 0923 Polyethylene Glycol 0.5 GAL ONCE ONE 01/03 0400 CAN (Golytely Liq 4000 01/03 0401 Ml) Polyethylene Glycol 0.5 GAL ONCE ONE 01/02 1600 CAN (Golytely Liq 4000 01/02 1601 Ml) Propranolol HCl 5 MG DAILY 12/30 0900 AC 01/03 (Inderal 10 MG 09 Tablet.)
[2018-01-03 14:16] VITALS: BP 132/60
--- NOTE | 2018-01-03 16:06 | PN- Gastroenterology ---
Assessment/Plan GI Assessment/Recommendations: ASSESSMENT: 1. Hematochezia --none further 2. Acute Blood Loss Anemia --H&H is stable 3. Thrombocytopenia --likely secondary in the setting of hepatitis C 4. Hypoalbuminemia 5. History of hepatitis C 6. Hepatic steatosis likely cirrhosis RECOMMENDATIONS: 1. If patient not clear from below by Tuesday a.m. tap water enemas until clear 2. EGD/Colonoscopy Tuesday morning to early afternoon pending scheduling GI suite. 3. I have asked nursing to give patient additional dulcolax now. She will also receive dulcolax at bedtime tonight. She was to have received magnesium citrate last night which she did not. 4. If patient is not clear from below will likely defer colonoscopy until Subjective Subjective: Patient not drinking magnesium citrate willingly. She is only drinking it slowly. Had bowel movements, but not having diarrheal stools. Objective Vital Signs and I&Os Vital Signs Date Time Temp Pulse Resp B/P B/P Pulse O2 O2 Flow FiO2 Mean Ox Delivery Rate 01/03 1416 98.4 62 16 132/60 97 Room Air 01/03 0923 68 134/64 01/03 0756 98.6 68 20 134/64 96 Room Air 01/02 2335 98.7 68 20 128/55 94 Room Air 01/02 1800 97.6 68 20 124/70 95 Room Air Intake & Output 01/03 1600 01/03 0400 01/02 1600 01/02 0400 01/01 1600 01/01 0400 Intake Total 1210 240 620 750 800 240 Output Total 300 150 150 Balance 910 240 470 600 800 240 Intake, IV 10 0 Intake, Oral 1200 240 620 750 800 240 Number 3 7 2 1 Bowel Movements Output, Urine 300 150 150 Patient 195 lb Weight Physical Exam General Appearance: well developed/nourished, alert, awake Respiratory: normal breath sounds, lungs clear Cardiovascular: regular rate/rhythm, Normal S1 and S2 without rub, murmur or gallop Abdomen: normal bowel sounds, soft, non-tender, no organomegaly Neurologic/Psychiatric: no motor/sensory deficits, awake, alert, oriented x 3 Skin: intact, normal color, warm/dry Current Medications: Current Medications Sig/Marcin Start time Last Medication Dose Route Stop Time Status Admin Acetaminophen 325 MG .STK-MED ONE 01/02 2025 DC PO 01/02 2026 Acetaminophen 650 MG Q4P PRN 12/30 0145 AC 01/02 PO 202 Bisacodyl 5 MG QPM 01/03 2100 CAN PO 01/03 210 Bisacodyl 5 MG 1600 01/03 1600 CAN PO 01/03 160 Bisacodyl 10 MG AT BEDTIME 01/02 2100 AC 01/02 PO 2016 Heparin Sodium 5,000 UNIT Q8 01/02 1400 AC 01/03 (Porcine) SC 1428 Magnesium Citrate 300 ML 1400 01/03 1400 DC 01/03 PO 01/03 1401 1429 Pantoprazole Sodium 40 MG DAILY 12/30 0900 AC 01/03 IV 0923 Polyethylene Glycol 0.5 GAL ONCE ONE 01/03 0400 CAN PO 01/03 0401 Polyethylene Glycol 0.5 GAL ONCE ONE 01/02 1600 CAN PO 01/02 1601 Propranolol HCl 5 MG DAILY 12/30 0900 AC 01/03 PO 0923 Sodium Chloride 1,000 ML Q13H 01/03 2355 AC IV 01/04 1254 Results Pertinent Lab Results: Laboratory Tests 01/02 01/01 0800 0615 Hematology CBC w Diff NO MAN DIFF REQ NO MAN DIFF REQ WBC (4.8 - 10.8 /CUMM) 2.0 L 2.2 L RBC (4.20 - 5.40 /CUMM) 3.34 L 3.21 L Hgb (12.0 - 16.0 G/DL) 8.5 L 8.5 L Hct (37 - 47 %) 26.7 L 25.4 L MCV (81.0 - 99.0 FL) 79.9 L 79.1 L MCH (27.0 - 31.0 PG) 25.5 L 26.4 L MCHC (33.0 - 37.0 G/DL) 31.9 L 33.4 RDW (11.5 - 14.5 %) 18.7 H 18.7 H Plt Count (130 - 400 /CUMM) 109 L 101 L MPV (7.4 - 10.4 FL) 9.2 9.6 Gran % (42.2 - 75.2 %) 42.0 L 42.6 Lymphocytes % (20.5 - 51.1 %) 32.0 35.0 Monocytes % (1.7 - 9.3 %) 12.8 H 12.1 H Eosinophils % (0 - 5 %) 12.3 H 10.0 H Basophils % (0.0 - 2.0 %) 0.9 0.3 Absolute Granulocytes (1.4 - 6.5 /CUMM) 0.9 L 0.9 L Absolute Lymphocytes (1.2 - 3.4 /CUMM) 0.6 L 0.8 L Absolute Monocytes (0.10 - 0.60 /CUMM) 0.3 0.3 Absolute Eosinophils (0.0 - 0.7 /CUMM) 0.2 0.2 Absolute Basophils (0.0 - 0.2 /CUMM) 0 0
[2018-01-03 23:09] VITALS: BP 147/60
[2018-01-04 07:09] VITALS: BP 133/57
[2018-01-04 08:39] LABS: ABSOLUTE BASOPHIL COUNT 0 /CUMM (0.0-0.2); ABSOLUTE EOSINOPHIL COUNT 0.2 /CUMM (0.0-0.7); ABSOLUTE GRANULOCYTE CT 0.7 /CUMM (1.4-6.5); ABSOLUTE LYMPH COUNT 0.8 /CUMM (1.2-3.4); ABSOLUTE MONOCYTE COUNT 0.3 /CUMM (0.10-0.60); BASOPHIL % 0.6 % (0.0-2.0); EOSINOPHIL % 8.8 % (0-5); GRANULOCYTE % 36.4 % (42.2-75.2); HEMATOCRIT 26.2 % (37-47); MEAN CORPUSCULAR HGB 25.6 PG (27.0-31.0); MEAN CORPUSCULAR VOLUME 80.1 FL (81.0-99.0); MEAN PLATELET VOLUME 8.9 FL (7.4-10.4); PLATELET COUNT 116 /CUMM (130-400); RBC DISTRIBUTION WIDTH 18.8 % (11.5-14.5); RED BLOOD CELL CT 3.28 /CUMM (4.20-5.40); WHITE BLOOD CELL COUNT 1.9 /CUMM (4.8-10.8)
--- NOTE | 2018-01-04 13:11 | PN- Housestaff ---
Nathaly Torres 01/04/18 1311: Subjective Follow-up For: weakness and bleding per rectum Subjective: Patient seen and examined at bedside. Pt denies complaints. States that she has not had any bloody stools recently. States the last time she had bloody stools on Tuesday Denies fevers/chills/night sweats/chest pain/abdominal pain/urinary symptoms/lower extremity edema. Patient previously refused GoLYTELY. She, however has been doing the modified GI prep and is hoping to go for colonoscopy today. Review of Systems Constitutional: Reports: see HPI. Objective Last 24 Hrs of Vital Signs/I&O Vital Signs Date Time Temp Pulse Resp B/P B/P Pulse O2 O2 Flow FiO2 Mean Ox Delivery Rate 01/04 1600 97.8 52 20 110/60 96 Room Air 01/04 0756 64 147/60 01/04 0709 97.8 60 20 133/57 93 Room Air 01/03 2309 99.2 64 20 147/60 96 Room Air Intake & Output 01/04 1600 01/04 0800 01/04 0000 Intake Total 450 600 Output Total Balance 450 600 Intake, IV 450 Intake, Oral 600 Number 1 2 2 Bowel Movements Physical Exam General Appearance: Alert, Oriented X3, Cooperative, No Acute Distress Skin: multiple woumds in various stages of healing on b/l lower extremities Neck: Supple Cardiovascular: Regular Rate, Normal S1, short systolic murmur Lungs: Clear to Auscultation Abdomen: Soft Assessment/Plan Assessment: 77 yo Female with past medical history of hypertension, chronic leg ulcers/ wounds, Rheumatic fever, untreated Hep C leading ot cirrhosis(compensated), ruptured esophageal varices s/p banding, 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 Is admitted for hematochezia and generalized weakness. -1.Hematochezia: -Supplemental oxygen, iv access, constant monitoring for hemodynamic stability -On iv fluids -Hb stable at 8.4 today -Serial CBC Q morning -Transfuse if <7; has multiple antibodies so will have to call blood bank 4 hrs prior. Will need to anticipate if there is a transfusion -The patient had multiple bowel movements yesterday after she was given a modified GI prep. We are anticipating a colonoscopy today. We will follow-up GI recommendations. 2. BL lower extremity wounds: -Wound consult appreciated, reccs placed in nursing misc order 3. Hep C with Compensated Cirrhosis - stable -Last Ultrasound done 11/15/16 showed heterogeneous echotexture compatible with fibrosis without a focal liver lesion. -History of actively replicating Hepatitis C (12/02/2015: + Quantitative HCV RNA IU/ML [id number], + Quantitative HCV RNA LOG IU/ML 5.19; genotype 1a), for which she saw Dr. Moody 12/15/2015 and Jesi was advised. Inadequately treated due to non compliance on low viral load -We will consult the patient for an outpatient follow-up 4. Pancytopenia -? Secondary to actively replicating Hep C virus/ polyclonal gammopathy -Potential outpt heme consult -CBC q morning -Infection precautions - handwashing, monitor for fevers 5. General Deconditioning -Ambulates with cane, WBAT at home -Has been bed bound for 5 days 2/2 GI bleed, LE wounds, diarrhea -Feels weak and unable to ambulate safely, has not stood yet -Will obtain PT consult for ? re discharge: Home vs STR DVT prophylaxis: No mechanical prophylaxis due to multiple lower limb wounds Is now on Pharmacological prophylaxis with heparin Clear liquid diet Problem List: 1. CHRONIC LEG ULCERS 2. LEG WOUND 3. Diarrhea 4. Anemia 5. Hepatitis C 6. Pancytopenia 7. History of esophageal varices Pain Ratin Pain Location: none Pain Goal: Pain 4 or less Pain Plan: pathway Tomorrow's Labs & Rationales: f/u pathology report Aby Mckeon 01/04/18 1431: Attending Review Statement Attending Statement Attending MD Statement: examined this patient, discuss w/resident/PA/WIRE WRAPPER MACHINE OPERATOR, agreed w/resident/PA/WIRE WRAPPER MACHINE OPERATOR, discussed with family, reviewed EMR data (avail), discussed with nursing, discussed with case mgmt, reviewed images, amended to note Attending Assessment/Plan: Patient is admitted here with BRBPR. GI noted and plan for EGD and colonoscopy for recurrent bleed and acute blood loss anemia. She has poor mobility with chronic wounds at her feet, Wound consult noted. Labs with hb stable. She is ccoperative today for bowel prep. She had 7 and 5 epsidoes of loose stools for past 24-48 hrs. She completed her magnesium citrate. Will order tap water enema today as per GI recommendations. Problems 1. BRBPR r/o upper GI bleed. 2. Pancytopenia 3. Cirrhosis 4. Chronic lower extremity wounds 5. Acute blood loss anemia Plan: -Trend H&H. Transfuse if hemoglobin levels <8. -GI appreicated, plan for EGD/Colonscopy. bowel prep as per GI. Hopefully can be done today (texted Dr Mondragon). -DVT prophylaxis with sequential compression device. -Wound conuslt appreciated. f/u recommendations -Patient provided multiple counselling sessions by housestaff and by me and GI for compliance with bowel prep. for compliance with bowel prep.
--- NOTE | 2018-01-04 14:48 | Proc Note Endoscopy ---
Endoscopy Procedure Medical History: unchanged Mental Status: alert/oriented Heart/Lung Eval Prior to Sedation: within normal limits Candidate for Sedation? Yes Procedure Date: 01/04/18 Procedure Type: EGD w/ biopsy and variceal band ligation Dairy Specialist: MD Mondragon Deborah E. ASA Classification: III Indications: 1. Hepatitis C 2. Melena 3. Acute blood loss anemia Instrument: diagnostic gastroscope Meds Received: MAC Patient's Tolerance: good Complications: none Extent Reached: second part of duodenum Procedure: Note: Informed consent was obtained prior to procedure. Risks and benefits of procedure were discussed with patient. Potential complications discussed included perforation, bleeding, abdominal pain, and adverse reaction to medications. It was explained that iany or all of these complications could result in the need for extended hospitalization, emergency surgery, transfusion of packed red blood cells (with the risk of HIV or hepatitis virus), intubation with mechanical ventilation, and possible need for antibiotics. It was further explained that an existing tumor polyp or mucosal abnormality might not be identified at the time of the procedure thus resulting in a missed opportunity for early diagnosis and treatment of a gastrointestinal malignancy or disease with possible interval development of a gastrointestinal cancer or other disease with possible worsening of clinical condition in the interval between endoscopies. It was also discussed that complications are not limited to those listed above. Possible alternatives to endoscopic treatment or evaluation were discussed. All questions were answered. Continuous EKG and blood pressure monitors were attached. Supplemental oxygen was provided with O2 Sat monitoring. Patient was placed in the left lateral decubitus position. A surgical timeout was performed. All persons in the room were identified. All concerns were expressed and answered. A bite block was placed in the mouth and sedation was administered by anesthesia and titrated to comfort prior to starting the procedure. The Olympus upper endoscope was advanced under direct vision to the level of the third portion of the duodenum. Esophagus: The GE junction was identified and was normal. The Z line was located at 40 cm from the incisors and was non-displaced. She had 3 columns of grade 2 esophageal varices extending from just below the GE junction to 30 cm from the incisors. There were stigmata of bleeding with red kristin sign and caballero red spots. 3 bands were placed in a spiral fashion approximately 2 cm apart beginning 1 cm above the GE junction the last band placed at approximately 26 cm from the incisors. Stomach: The stomach had moderate mucosal activity throughout its entirety. Retroflexed view of the cardiofundic region revealed portal hypertensive gastropathy with a snake-skinned reticulated pattern and hemorrhagic spots. There were no gastric varices. There were normal rugae and normal distensibility. The pylorus was patent and easily intubated. Duodenum: The duodenum was fully examined from bulb down to the third portion. There was a normal mucosal vascular pattern throughout. Within the duodenal bulb there was a small polyp which was removed in its entirety by cold biopsy forceps. With the endoscope in the forward-viewing position, it was slowly withdrawn and all areas were re-inspected and findings are as described previously. Patient tolerated the procedure well. EBL: 1 mL Specimens Removed: Duodenal polyp Findings: 1. Grade 2 esophageal varices with stigmata of bleeding 2. Portal hypertensive gastropathy 3. Duodenal polyp Impression: 1. Grade 2 esophageal varices with stigmata of bleeding 2. Portal hypertensive gastropathy 3. Duodenal polyp Recommendations: 1. Await pathology 2. Patient start nonselective beta gerber for secondary prophylaxis 3. Patient have colonoscopy to complete workup 4. Patient will need repeat EGD in 3-4 weeks
--- NOTE | 2018-01-04 14:57 | Proc Note Colonoscopy ---
Colonoscopy Procedure Medical History: unchanged Mental Status: alert/oriented Heart/Lung Eval Prior to Sedation: within normal limits Candidate for Sedation? Yes Date of Last Colonoscopy: Over 10 years Procedure Date: 01/04/18 Procedure Type: colonoscopy Senior Mortgage Underwriter: MD Mondragon Deborah E. ASA Classification: III Indications: 1. Acute blood loss anemia 2. Blood in stool Instrument (Colonoscope): single channel Meds Received: MAC Patient's Tolerance: good Complications: none Extent Reached: cecum Prep: fair Procedure: The patient took a split dose colonic preparation after which they were NPO for an appropriate time prior to procedure. Note: Informed consent was obtained prior to procedure. Risks and benefits of procedure were discussed with patient. Potential complications discussed included perforation, bleeding, abdominal pain, and adverse reaction to medications. It was explained that iany or all of these complications could result in the need for extended hospitalization, emergency surgery, transfusion of packed red blood cells (with the risk of HIV or hepatitis virus), intubation with mechanical ventilation, and possible need for antibiotics. It was further explained that an existing tumor polyp or mucosal abnormality might not be identified at the time of the procedure thus resulting in a missed opportunity for early diagnosis and treatment of a gastrointestinal malignancy or disease with possible interval development of a gastrointestinal cancer or other disease with possible worsening of clinical condition in the interval between endoscopies. It was also discussed that complications are not limited to those listed above. Possible alternatives to endoscopic treatment or evaluation were discussed. All questions were answered. Continuous EKG and blood pressure monitors were attached. Supplemental oxygen was provided with O2 Sat monitoring. Patient was placed in the left lateral decubitus position. A surgical timeout was performed. All persons in the room were identified. All concerns were expressed and answered. Sedation was administered by anesthesia and titrated to comfort prior to starting procdedure. A digital rectal exam was performed. There was normal tone and no masses. The Olympus CHF 180AL video colonoscope was advanced under direct vision to the level of the cecum. The cecum was easily identified by internal landmarks. The cecum, ileocecal valve was easily identified and photo documented. The cecal cap that could not be easily intubated. A keyhole view was obtained. With colonoscope in the forward-viewing position it was slowly withdrawn and all areas were reinspected. The cecum, ascending colon, hepatic flexure, transverse colon, splenic flexure, descending colon, sigmoid colon, rectosigmoid junction, rectum and retroflexed view of the rectum all fully examined. Retroflexed view of the rectum revealed rectal varices. There was a normal mucosal and vascular pattern throughout the colon. There was a 4 mm sessile transverse colon polyp that was removed in its entirety by cold biopsy forceps. There was tenacious yellow stained material throughout the colon. Subcentimeter polyps may have been missed. The colon was edematous and difficult to insufflate. Patient was turned to the supine position and anterior abdominal pressure was applied without being able to easily introduce the scope into the cecum. Given patient' s poor clinical condition she has not turned to the prone position. Air was suctioned as the scope was withdrawn from the colon. Patient tolerated the procedure well. Cecal withdrawal time: 7 minutes Colonic preparation: Right Colon: 2.5; Transverse Colon: 2.5; Left Colon: 2.5. Chassell Prep Scale Total: 7.5. Difficulty of Colonoscopy: Somewhat Difficult EBL: 1 ml Specimens Removed: 4 mm Sessile Transverse Colon Polyp Findings: 1. 4 mm Sessile Transverse Colon Polyp 2. Rare Diverticuli 3. Rectal Varices 4. Hapb-bt-Tlpp Prep Impression: 1. 4 mm Sessile Transverse Colon Polyp 2. Rare Diverticuli 3. Rectal Varices 4. Sndh-cl-Kyog Prep Recommendations: 1. Await pathology 2. Patient should have repeat colonoscopy within 1 year given poor prep 3. Patient may have regular diet 4. Patient should've follow-up with GI after discharge Followup Colonscopy Screen In: one year given poor prep
[2018-01-04 16:00] VITALS: BP 110/60
[2018-01-04 21:49] VITALS: BP 124/60
[2018-01-05 06:51] VITALS: BP 120/60
--- NOTE | 2018-01-05 07:20 | PN- Housestaff ---
Judy Torresi 01/05/18 0720: Subjective Follow-up For: bleeding per rectum and weakness Subjective: Patient was examined at bedside today. She has no acute complaints she does not complain of any diarrhea or bleeding. The patient went in for a colonoscopy yesterday. No acute events overnight. Patient is for you to transport to home. She says that her son does not drive and she does not have food at home. We reassured her case management with talk and she can discuss all her concerns at length with her. She denies fever, chills, nausea, vomiting, shortness of breath. The patient is requesting transitioning her to a solid diet to see if she can tolerate it.. Review of Systems Constitutional: Reports: see HPI. Objective Last 24 Hrs of Vital Signs/I&O Vital Signs Date Time Temp Pulse Resp B/P B/P Pulse O2 O2 Flow FiO2 Mean Ox Delivery Rate 01/05 0901 61 120/60 08 0651 98.5 61 20 120/60 91 01/04 2149 98.3 56 20 124/60 94 Room Air 01/04 1600 97.8 52 20 110/60 96 Room Air Intake & Output 01/05 1600 01/05 0800 08 0000 Intake Total 240 465 Output Total Balance 240 465 Intake, IV 225 Intake, Oral 240 240 Physical Exam General Appearance: Alert, Oriented X3, Cooperative, No Acute Distress Skin: multiple wounds in various stages of healing on BLE Neck: Supple Cardiovascular: Regular Rate, Normal S1, Normal S2 Lungs: Clear to Auscultation Abdomen: Normal Bowel Sounds, Soft, No Tenderness Extremities: No Edema, Normal Pulses Assessment/Plan Assessment: 77 yo Female with past medical history of hypertension, chronic leg ulcers/ wounds, Rheumatic fever, untreated Hep C leading ot cirrhosis(compensated), ruptured esophageal varices s/p banding, 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 Is admitted for hematochezia and generalized weakness. -1.Hematochezia: -Supplemental oxygen, iv access, constant monitoring for hemodynamic stability -On iv fluids -Hb stable at 8.4 today -Serial CBC Q morning -Transfuse if <7; has multiple antibodies so will have to call blood bank 4 hrs prior. Will need to anticipate if there is a transfusion -She had EGD, colonoscopy yesterday. Is found to have esophageal varices, portal hypertensive gastropathy, duodenal on EGD she was found to have rectal varices, a 4 mm sessile transverse colon polyp on colonoscopy pending pathology report -Prophylactic beta-gerber started -To follow-up with Dr. Mondragon for follow-up EGD in 3-4 weeks. Repeat colonoscopy in an year. 2. BL lower extremity wounds: -Wound consult appreciated, reccs placed in nursing misc order 3. Hep C with Compensated Cirrhosis - stable -Last Ultrasound done 11/15/16 showed heterogeneous echotexture compatible with fibrosis without a focal liver lesion. -History of actively replicating Hepatitis C (12/02/2015: + Quantitative HCV RNA IU/ML [id number], + Quantitative HCV RNA LOG IU/ML 5.19; genotype 1a), for which she saw Dr. Moody 12/15/2015 and Jesi was advised. Inadequately treated due to non compliance on low viral load -We will consult the patient for an outpatient follow-up 4. Pancytopenia -? Secondary to actively replicating Hep C virus/ polyclonal gammopathy -Potential outpt heme consult -CBC q morning -Infection precautions - handwashing, monitor for fevers 5. General Deconditioning -Ambulates with cane, WBAT at home -Has been bed bound for 5 days 2/2 GI bleed, LE wounds, diarrhea -Feels weak and unable to ambulate safely, has not stood yet -PT evaluation appreciated. Suggest that the patient is at her baseline mobility and she is safe to be discharged home. We discussed with the outsole caser. We are anticipating discharge home for the patient later in the day today. DVT prophylaxis: No mechanical prophylaxis due to multiple lower limb wounds Is now on Pharmacological prophylaxis with heparin Advanced to regular diet Problem List: 1. History of esophageal varices 2. Lower GI bleed 3. Periodontal disease 4. Esophageal varices 5. Pancytopenia 6. Cirrhosis 7. Hepatitis C Pain Ratin Pain Location: na Pain Goal: Pain 4 or less Pain Plan: pathway Tomorrow's Labs & Rationales: none bAy Mckeon 01/05/18 1133: Attending MD Review Statement Attending Statement Attending MD Statement: examined this patient, discuss w/resident/PA/ASIAN STUDIES PROGRAM CHAIR, agreed w/resident/PA/ASIAN STUDIES PROGRAM CHAIR, discussed with family, reviewed EMR data (avail), discussed with nursing, discussed with case mgmt, reviewed images, amended to note Attending Assessment/Plan: Patient seen/examined bedside. Patient had EGD/colonoscopy yetedray for evalaution of upper GI bleed and BRBPR with histroy of cirrhosis and hepatiits C non complaint with treatment. EGD suggestive of duodenal polyp, Varices with stigmata of bleeding s/p ligation by Dr Mondragon. Pateint hb remains stable. She is started on low dose non selective b gerber prophylactically. Colosnocopy revealed rectal varices. She has chronic lower extremity wounds for which aquagel has been placed and wound consult appreciated. Patient can advance diet today and if she tolerates it and if GI is ok she can be discharged in stable condition to home with serivces for wounds. Case management aware. GI/dvt prophylaxis Full code FOLLOW UP PCP in 3-5 days Gastroenterology in 2 weeks for repeat EGD outpatient and f/u biopsy pathology.
[2018-01-05 08:24] LABS: ABSOLUTE BASOPHIL COUNT 0 /CUMM (0.0-0.2); ABSOLUTE EOSINOPHIL COUNT 0.2 /CUMM (0.0-0.7); ABSOLUTE GRANULOCYTE CT 1.1 /CUMM (1.4-6.5); ABSOLUTE LYMPH COUNT 0.8 /CUMM (1.2-3.4); ABSOLUTE MONOCYTE COUNT 0.3 /CUMM (0.10-0.60); BASOPHIL % 0.5 % (0.0-2.0); EOSINOPHIL % 7.9 % (0-5); GRANULOCYTE % 46.7 % (42.2-75.2); MEAN CORPUSCULAR HGB 25.9 PG (27.0-31.0); MEAN CORPUSCULAR HGB CONC 33.2 G/DL (33.0-37.0); MEAN CORPUSCULAR VOLUME 78.2 FL (81.0-99.0); MEAN PLATELET VOLUME 8.8 FL (7.4-10.4); PLATELET COUNT 116 /CUMM (130-400); RBC DISTRIBUTION WIDTH 18.4 % (11.5-14.5); RED BLOOD CELL CT 3.32 /CUMM (4.20-5.40); WHITE BLOOD CELL COUNT 2.3 /CUMM (4.8-10.8)
[2018-01-05 09:01] VITALS: BP 120/60
--- NOTE | 2018-01-05 13:31 | Patient Discharge Instructions ---
Discharge Instructions General Discharge Information You were seen/treated for: weakness blood in stool You had these procedures: colonoscopy and EGD Special Instructions: Please follow up with your PCP within 1 week after discharge Please follow up with GI (Dr Mondragon) within 3 weeks to schedule for further procedures Please seek medicaal attention if you notice any blood in stool Diet Continue normal diet: Yes (as tolerated) Acute Coronary Syndrome Inclusion Criteria At DC or during hospital stay patient has or had the following: ACS DIAGNOSIS No Discharge Core Measures Meds if any: Prescribed or Continued at Discharge Meds if any: NOT Prescribed or Continued at Discharge Congestive Heart Failure Inclusion Criteria At DC or during hospital stay patient has or had the following: CHF DIAGNOSIS No Discharge Core Measures Meds if any: Prescribed or Continued at Discharge Meds if any: NOT Prescribed or Continued at Discharge Cerebrovascular accident Inclusion Criteria At DC or during hospital stay patient has or had the following: CVA/TIA Diagnosis No Discharge Core Measures Meds if any: Prescribed or Continued at Discharge Meds if any: NOT Prescribed or Continued at Discharge Venous thromboembolism Inclusion Criteria VTE Diagnosis No VTE Type NONE VTE Confirmed by (Test) NONE Discharge Core Measures - Per Current guidelines, there needs to be overlap - treatment for the first 5 days of Warfarin therapy. - If discharged on Warfarin prior to 5 days of - overlap therapy, the patient will need to be - assessed for post discharge needs including - *Post discharge parental anticoagulation - *Warfarin and/or parental anticoagulation education - *Follow up date to check INR post discharge At least 5 days overlap therapy as Inpatient No Meds if any: Prescribed or Continued at Discharge Note: Overlap Therapy is Warfarin and Anticoagulant Meds if any: NOT Prescribed or Continued at Discharge
--- NOTE | 2018-01-05 13:33 | PN- Gastroenterology ---
Assessment/Plan GI Assessment/Recommendations: ASSESSMENT: 1. Esophageal Varices -- s/p Band Ligation 2. Acute GI Bleed -- likely due to varices 3. Rectal Varices 4. Acute Blood Loss Anemia -- H/H Stable RECOMMENDATIONS: 1. Patient will need outpatient follow up with GI in the next 3-4 weeks 2. Discharge to home withinstructions for full liquid diet to be advanced gradually 3. Patient to be discharge to home of Protonix 40 mg PO q a.m. 4. GI will sign off for now. Please do not hesitate to contact us as needed. Subjective Subjective: Patient is doing well after EGD and colonoscopy. The results were discussed with her. I explained to her that she had recurrent esophageal varices that were banded. We discussed that they would need repeat band ligation in 3-4 weeks. She is tolerating a liquid diet. We discussed that her colonic preparation was less than adequate but that no large polyps were seen. Objective Vital Signs and I&Os Vital Signs Date Time Temp Pulse Resp B/P B/P Pulse O2 O2 Flow FiO2 Mean Ox Delivery Rate 01/05 0901 61 120/60 01/05 0800 91 Room Air 01/05 0651 98.5 61 20 120/60 91 01/04 2149 98.3 56 20 124/60 94 Room Air 01/04 1600 97.8 52 20 110/60 96 Room Air Intake & Output 01/05 1600 01/05 0400 01/04 1600 01/04 0400 01/03 1600 01/03 0400 Intake Total 240 465 100 148 2383 240 Output Total 300 Balance 240 465 450 600 910 240 Intake, IV 225 450 10 Intake, Oral 240 702 459 4255 240 Number 3 2 3 Bowel Movements Output, Urine 300 Patient 195 lb Weight Physical Exam General Appearance: well developed/nourished, no apparent distress Respiratory: lungs clear Cardiovascular: regular rate/rhythm Abdomen: normal bowel sounds, soft, non-tender Neurologic/Psychiatric: oriented x 3 Current Medications: Current Medications Sig/Marcin Start time Last Medication Dose Route Stop Time Status Admin Acetaminophen 650 MG Q4P PRN 12/30 0145 AC 01/02 PO 2025 Chlorhexidine 1 GM .STK-MED ONE 01/04 1501 DC Gluconate TOP 01/04 1502 Ciprofloxacin 400 MG ONCE ONE 01/04 1430 DC Dextrose/Water 200 ML IV 01/04 1529 Heparin Sodium 5,000 UNIT Q8 01/02 1400 AC 01/05 (Porcine) SC 0618 Omeprazole 40 MG DAILY AC 01/05 903 AC PO Pantoprazole Sodium 40 MG DAILY 12/30 899 DC 01/05 IV 0901 Propranolol HCl 5 MG DAILY 12/30 899 AC 01/05 PO 0901 Results Pertinent Lab Results: Laboratory Tests 01/05 01/04 0710 0626 Hematology CBC w Diff NO MAN DIFF REQ NO MAN DIFF REQ WBC (4.8 - 10.8 /CUMM) 2.3 L 1.9 L RBC (4.20 - 5.40 /CUMM) 3.32 L 3.28 L Hgb (12.0 - 16.0 G/DL) 8.6 L 8.4 L Hct (37 - 47 %) 26.0 L 26.2 L MCV (81.0 - 99.0 FL) 78.2 L 80.1 L MCH (27.0 - 31.0 PG) 25.9 L 25.6 L MCHC (33.0 - 37.0 G/DL) 33.2 32.0 L RDW (11.5 - 14.5 %) 18.4 H 18.8 H Plt Count (130 - 400 /CUMM) 116 L 116 L MPV (7.4 - 10.4 FL) 8.8 8.9 Gran % (42.2 - 75.2 %) 46.7 36.4 L Lymphocytes % (20.5 - 51.1 %) 33.0 40.6 Monocytes % (1.7 - 9.3 %) 11.9 H 13.6 H Eosinophils % (0 - 5 %) 7.9 H 8.8 H Basophils % (0.0 - 2.0 %) 0.5 0.6 Absolute Granulocytes (1.4 - 6.5 /CUMM) 1.1 L 0.7 L Absolute Lymphocytes (1.2 - 3.4 /CUMM) 0.8 L 0.8 L Absolute Monocytes (0.10 - 0.60 /CUMM) 0.3 0.3 Absolute Eosinophils (0.0 - 0.7 /CUMM) 0.2 0.2 Absolute Basophils (0.0 - 0.2 /CUMM) 0 0
== END 2018-01-05 14:30 | disposition home health service (06) | DRG 441 ==
LOC: ERH 14:59 → ERHI 20:05 → 2NB 20:05 → ENRESERV 22:28 → 2NB 23:54
PROVIDERS: General Practice; Internal Medicine; Physical Medicine & Rehabilitation; Physician Assistant Medical; Student in an Organized Health Care Education/Training Program
PROC: 06L34CZ Occlusion of Esophageal Vein with Extraluminal Device, Percutaneous Endoscopic Approach (ICD-10-PCS; principal; 2018-01-04)
PROC: 0DB98ZX Excision of Duodenum, Via Natural or Artificial Opening Endoscopic, Diagnostic (ICD-10-PCS; principal; 2018-01-04)
PROC: 0DBL8ZX Excision of Transverse Colon, Via Natural or Artificial Opening Endoscopic, Diagnostic (ICD-10-PCS; principal; 2018-01-04)
DX: K76.6 Portal hypertension (principal); I85.11 Secondary esophageal varices with bleeding; D62 Acute posthemorrhagic anemia; L97.219 Non-pressure chronic ulcer of right calf with unspecified severity; L97.229 Non-pressure chronic ulcer of left calf with unspecified severity; D61.818 Other pancytopenia; D68.9 Coagulation defect, unspecified; K92.1 Melena; K64.9 Unspecified hemorrhoids; B18.2 Chronic viral hepatitis C; K74.69 Other cirrhosis of liver; R16.1 Splenomegaly, not elsewhere classified; I11.0 Hypertensive heart disease with heart failure; I50.9 Heart failure, unspecified; I83.012 Varicose veins of right lower extremity with ulcer of calf; I83.022 Varicose veins of left lower extremity with ulcer of calf; D89.0 Polyclonal hypergammaglobulinemia; K31.89 Other diseases of stomach and duodenum; Z88.1 Allergy status to other antibiotic agents; Z88.0 Allergy status to penicillin; Z88.2 Allergy status to sulfonamides; F41.9 Anxiety disorder, unspecified; I87.2 Venous insufficiency (chronic) (peripheral); Z90.49 Acquired absence of other specified parts of digestive tract; K59.09 Other constipation; Z91.19 Patient's noncompliance with other medical treatment and regimen; K05.6 Periodontal disease, unspecified
CPT/HCPCS: 2NBP; 36415; 36592; 86920; 86922; 93005; 93010; 97116-GO; 97161-GP; 97530-GO; J0744; J1644; J7060